=== PATIENT | female | born 1990 | race Caucasian/White ===

== ENCOUNTER 2022-10-22 00:25 | Inpatient (IN) | payer MEDICAID, SELFPAY ==
[2022-10-21 23:46] VITALS: TEMP 37.1
[2022-10-21 23:47] VITALS: BP 124/75; PULSE 86
[2022-10-21 23:50] VITALS: BMI 28.3
[2022-10-22] VITALS (68 sets, daily range): BP systolic 76–133; BP diastolic 39–91; PULSE 58–104; RESP 16–18; TEMP 36.6–37.4; O2SAT 96–99
[2022-10-22] MEDS: LACTATED RINGERS 500 ML 999 ML IV ×2 (00:20→03:02)
[2022-10-22] MEDS: Lactated Ringers 1,000 ML 200 ML IV ×2 (00:20→06:46)
[2022-10-22 00:24] LABS: ROM Internal Control Test YES-OK TO RESULT pt. (Internal QC)
[2022-10-22 00:25] LABS: ROM Patient Test POSITIVE (Negative)
[2022-10-22 01:01] LABS: Absolute Lymphocyte Count 3.24 X10^3/uL (0.83-4.51); Absolute Neutrophil Count 8.4 X10^3/uL (2.0-7.7); Basophil# 0.03 X10^3/uL; Basophil% 0.2 % (0-1); Eosinophil# 0.14 X10^3/uL; Eosinophils% 1.1 % (0-5); Hematocrit 33.1 % (37-47); Hemoglobin 11.3 g/dL (12.0-15.0); Lymphocyte # 3.24 X10^3/ul (0.83-4.51); Mean Corp Hgb Conc 34.1 g/dL (32-36); Mean Corpuscular Hgb 32.6 pg (27.0-32.0); Mean Corpuscular Volume 95.4 fL (81-99); Mean Platelet Vol. 9.9 fl (6.2-12.0); Monocyte# 0.58 X10^3/uL; Monocyte% 4.7 % (0-10); NRBC Flagged by Analyzer 0 % (0-5); Neutrophil % 67.4 % (47-70); Platelet Count 318 K/mm3 (150-450); RBC Distribution Width CV 13.7 % (11.6-14.6); Red Blood Count 3.47 M/mm3 (4.2-5.4); White Blood Count 12.5 K/mm3 (4.4-11.0)
[2022-10-22] MEDS: fentaNYL-bupivacaine (epidural) 100 ML BAG EPIDURAL ×2 (01:40→05:47)
[2022-10-22 01:56] LABS: Syphilis Antibodies Non-reactive
[2022-10-22 02:41] LABS: Bedside Glucose 80 mg/dL (74-106)
[2022-10-22] MEDS: Acetaminophen 500 MG Tablet PO (03:28)
[2022-10-22] MEDS: Oxytocin 15 Units/NS 250ml 15 UNITS/250 ML IV.SOLN 2 UNITS IV (03:30)
[2022-10-22] MEDS: 0.9% Saline Lock 10 ML Syringe IV ×2 (05:09→15:00)
[2022-10-22] MEDS: Ondansetron 4 MG/2 ML Vial IV (05:09)
[2022-10-22 05:16] LABS: Bedside Glucose 76 mg/dL (74-106)
[2022-10-22 06:30] LABS: Bedside Glucose 78 mg/dL (74-106)
[2022-10-22] MEDS: Amnioinfusion- 0.9% NS 1,000 ML IV.SOLN. 1000 ML INTRA-UTER (07:00)
--- NOTE | 2022-10-22 08:03 | PCM.PN.BLA ---
Progress Note Patient seen at bedside. Comfortable with epidural anesthesia. Amnioinfusion running for variable decelerations. Assessment & Plan Assessment/Plan (1) Gestational diabetes: (2) 37 weeks gestation of : (3) Spontaneous rupture of amniotic membranes: (4) Rubella non-immune status, antepartum: PLAN: Plan Assumed management of patient Cat. 1 tracing now but recent category 2 with variables- continue amnioinfusion Pitocin 2 mu/min - continue to increase per policy GBS negative BS - stable Anticipate
--- NOTE | 2022-10-22 08:07 | HP.PCM.OB_ITS ---
HPI - General General Date of Admission: 10/22/22 HPI Narrative VERONICA RANGEL, is a 31 F @ 37.2 weeks gestation who presents with spontaneous rupture of membranes at 2215 for clear fluid. complicated by GDM A1, History of PPD, History of LEEP, and Rubella non-immune status. Excessive growth affecting management of -EFW >96%, ABD > 99% @ 35 weeks gestation. Maternal Data Information CHRISTOPHER Calculator Estimated Delivery Date Method Current WG Current Estimate 11/10/22 Manual 37w 2d PFSH PFSH Medical History (Updated 10/22/22 @ 08:14 by Juliet Newby CNM) ADD (attention deficit disorder) Depression Gestational diabetes Hx LEEP (loop electrosurgical excision procedure), cervix, depression Home Medications vits,calcium no.78-iron fumarate-folic acid 29 mg-1 mg tablet (Prenatabs FA) 1 tab PO DAILY 07/26/13 [History Last Taken 10/20/14 22:00 one] amoxicillin 875 mg-potassium clavulanate 125 mg tablet 875 mg PO Q12H ##20 07/27/15 [Rx Last Taken 10/21/22 20:30] Allergy/AdvReac Type Severity Reaction Status Date / Time No Known Allergies Allergy Verified 10/22/22 00:02 Social History Smoking Status: Current every day smoker History Elective abortions Hx Para 3 Spontaneous abortions Hx # Term Pregnancies Ectopic pregnancies Hx # Pregnancies Multiple births # of living children Vital Signs Vital Signs Vital Signs: 10/21/22 23:46 10/21/22 23:47 10/21/22 23:47 Temperature 98.8 F Pulse Rate 86 Blood Pressure 124/75 H BP Systolic 124 BP Diastolic 75 Pulse Ox 10/22/22 00:50 10/22/22 00:50 10/22/22 00:55 Temperature Pulse Rate 76 78 Blood Pressure BP Systolic BP Diastolic Pulse Ox 97 10/22/22 00:55 10/22/22 01:00 10/22/22 01:00 Temperature Pulse Rate 77 Blood Pressure BP Systolic BP Diastolic Pulse Ox 97 97 10/22/22 01:05 10/22/22 01:05 10/22/22 01:10 Temperature Pulse Rate 78 80 Blood Pressure BP Systolic BP Diastolic Pulse Ox 97 10/22/22 01:10 10/22/22 01:25 10/22/22 01:25 Temperature Pulse Rate 78 Blood Pressure 116/56 L BP Systolic 116 BP Diastolic 56 Pulse Ox 97 10/22/22 01:25 10/22/22 01:26 10/22/22 01:26 Temperature 98.8 F Pulse Rate 81 Blood Pressure BP Systolic BP Diastolic Pulse Ox 97 10/22/22 01:31 10/22/22 01:31 10/22/22 01:31 Temperature Pulse Rate 81 Blood Pressure 123/74 H BP Systolic 123 BP Diastolic 74 Pulse Ox 99 10/22/22 01:31 10/22/22 01:36 10/22/22 01:36 Temperature Pulse Rate 75 80 Blood Pressure BP Systolic BP Diastolic Pulse Ox 98 10/22/22 01:37 10/22/22 01:37 10/22/22 01:41 Temperature Pulse Rate 90 Blood Pressure 133/91 H 121/63 H BP Systolic 133 121 BP Diastolic 91 63 Pulse Ox 10/22/22 01:41 10/22/22 01:46 10/22/22 01:46 Temperature Pulse Rate 85 86 Blood Pressure 125/57 H BP Systolic 125 BP Diastolic 57 Pulse Ox 10/22/22 01:50 10/22/22 01:50 10/22/22 01:58 Temperature Pulse Rate 92 Blood Pressure 109/54 L 114/62 BP Systolic 109 114 BP Diastolic 54 62 Pulse Ox 10/22/22 01:58 10/22/22 02:00 10/22/22 02:00 Temperature Pulse Rate 84 104 H Blood Pressure 121/63 H BP Systolic 121 BP Diastolic 63 Pulse Ox 10/22/22 02:07 10/22/22 02:07 10/22/22 02:11 Temperature Pulse Rate 82 77 Blood Pressure 131/64 H BP Systolic 131 BP Diastolic 64 Pulse Ox 10/22/22 02:11 10/22/22 02:11 10/22/22 02:11 Temperature Pulse Rate 77 Blood Pressure 118/60 BP Systolic 118 BP Diastolic 60 Pulse Ox 98 10/22/22 02:12 10/22/22 02:54 10/22/22 02:54 Temperature 98.4 F Pulse Rate 79 Blood Pressure 94/44 L BP Systolic 94 BP Diastolic 44 Pulse Ox 10/22/22 02:53 10/22/22 02:55 10/22/22 02:55 Temperature 99.1 F Pulse Rate 68 Blood Pressure 76/39 L BP Systolic 76 BP Diastolic 39 Pulse Ox 10/22/22 02:56 10/22/22 02:56 10/22/22 03:26 Temperature Pulse Rate 73 Blood Pressure 90/49 L 98/54 L BP Systolic 90 98 BP Diastolic 49 54 Pulse Ox 10/22/22 03:26 10/22/22 03:32 10/22/22 04:17 Temperature 98.4 F Pulse Rate 73 Blood Pressure 111/55 L BP Systolic 111 BP Diastolic 55 Pulse Ox 10/22/22 04:17 10/22/22 04:17 10/22/22 06:29 Temperature 98.8 F Pulse Rate 82 Blood Pressure 104/57 L BP Systolic 104 BP Diastolic 57 Pulse Ox 10/22/22 06:29 10/22/22 06:30 10/22/22 07:18 Temperature 97.9 F 98.4 F Pulse Rate 70 Blood Pressure BP Systolic BP Diastolic Pulse Ox 10/22/22 07:16 10/22/22 08:04 10/22/22 08:04 Temperature 98.5 F Pulse Rate 67 Blood Pressure 94/50 L BP Systolic 94 BP Diastolic 50 Pulse Ox Weight Weight: 192 lb Body Mass Index (BMI) 28.3 Physical Exam Const alert, oriented x3 and no apparent distress General Appearance: cooperative Orientation / Consciousness: awake Exam Limitations: no limitations HEENT normocephalic Head and Scalp: normal to inspection Eyes General Eye: normal appearance of both eyes Neck full ROM and no lymphadenopathy Lymph Lymphatic: no lymphadenopathy noted Chest inspection of chest normal Resp normal respiratory effort, normal air movement and clear to auscultation bilaterally Effort and Inspection: able to speak in complete sentences and symmetric chest movement Cardio regular rate and regular rhythm GI normal to inspection, nondistended, normoactive bowel sounds Manual OB Exam: presentation cephalic, dilated 4, effaced 70 and station - 2 and 0 Amniotic Fluid: clear amniotic fluid Back/Spine normal ROM Extremity full ROM and no calf tenderness Skin no rashes or lesions noted General Skin Exam: no breakdown Neuro oriented x3 and CN's II-XII intact bilaterally Psych mental status grossly normal and thought process normal Labs Labs Labs: Blood Type B POSITIVE Antibody Screen NEGATIVE Hct 33.1 % (37-47) L Hgb 11.3 g/dL (12.0-15.0) L Syphilis Total Ab Non-reactive Rhogam given: No Assessment & Plan (1) 37 weeks gestation of : (2) Gestational diabetes: (3) Spontaneous rupture of amniotic membranes: (4) Rubella non-immune status, antepartum: (5) Hx LEEP (loop electrosurgical excision procedure), cervix, : (6) History of depression: (7) Excessive growth affecting management of mother: PLAN: Plan ROM plus- POSITIVE Admit to labor and delivery Routine labs Activate GDM protocol Start IV fluids and run per orders Dr. Chun notified and is collaboration physician
[2022-10-22 10:46] LABS: Bedside Glucose 75 mg/dL (74-106)
--- NOTE | 2022-10-22 11:26 | EX.PCM.OBRPT ---
Assessment & Plan (1) (spontaneous vaginal delivery): (2) Marginal insertion of umbilical cord: (3) Tobacco abuse: (4) History of depression: (5) Gestational diabetes: Maternal Data Information CHRISTOPHER Calculator Estimated Delivery Date Method Current WG Current Estimate 11/10/22 Manual 37w 3d Final CHRISTOPHER: 11/10/22 Final CHRISTOPHER Source: LMP Gestational age: 37.2 weeks Vaginal Delivery Maternal Presentation Maternal Presentation: Spontaneous Rupture of Membranes Type of Induction: Pitocin Operative Information Date of Procedure: 10/22/22 Pre-Operative Diagnosis: Spontaneous rupture of membranes, Term gestation Post-Operative Diagnosis: , Live male Surgery / Procedure Performed: Spontaneous Vaginal Delivery Type of Anesthesia: Epidural Drain: Noonan to straight drain Estimated Blood Loss: 400 Time of Delivery: 10:49 Findings Description of Procedure: Called to patient's room for patient being 10 cm and feeling pressure. Amnioinfusion stopped. With minimal maternal effort, head delivered quickly over intact perineum. Anterior shoulder followed by posterior shoulder and remainder of body with no traction. Vigorous male placed on maternal abdomen and attended to by nursing staff. 3 vessel cord clamped and cut after 3 minute delay by patient's sister. Infant placed skin to skin with patient. Pitocin IV started for active management of the third stage of labor. Placenta slow to release. Placenta delivered intact with partial manual removal. Placenta delivered via Modi maneuver. Marginal insertion visualized. Vaginal sweep completed and several clots removed from vagina. Fundus firm 2 below U. Lochia minimal. Vagina and perineum intact. EBL 400cc. APGARS 8/9. Patient and bonding well at this time. Ancef 2gm IV x 1 dose ordered due to partial manual removal of placenta. Dr. Chun notified of delivery. Presentation: Vertex Amniotic Membrane Rupture Type: Spontaneous Time of Membrane Rupture: 2214 Amniotic Fluid Description: Clear Placental Delivery Description: Spontaneous and Expressed Placenta Disposition: [facility] Cord Vessel Description: 3 Vessels Cord Entanglement: - (Cord around shoulder, body, loose) Nuchal Cord Compression: Without compression A Gender: Male (1 minute): 8 (5 minute): 9 Delayed Cord Clamping: Yes Post Vaginal Delivery Medications Given After Delivery: IV Pitocin Episiotomy Description: None Laceration: None Complication Complications: None
[2022-10-22] MEDS: Oxytocin 15 Units/NS 250ml 15 UNITS/250 ML IV.SOLN 83 UNITS IV (11:38)
[2022-10-22 12:20] LABS: Bedside Glucose 79 mg/dL (74-106)
[2022-10-22] MEDS: Cefazolin 2 GM in 0.9% Normal Saline 100 ML IV (12:24)
[2022-10-22] MEDS: Naproxen 500 MG Tablet PO (13:42)
[2022-10-22] MEDS: Acetaminophen 500 MG Tablet 1000 MG PO (20:54)
[2022-10-23] VITALS (8 sets, daily range): BP systolic 98–119; BP diastolic 56–72; PULSE 74–88; RESP 16; TEMP 36.8–37.1; O2SAT 96–98
[2022-10-23 05:45] LABS: Bedside Glucose 65 mg/dL (74-106)
--- NOTE | 2022-10-23 06:30 | PCM.PN.OB ---
Subjective Subjective Patient seen at bedside. Feeling good. Denies any pain. Ambulating and voiding without difficulty. Lochia decreasing. Pumping and feeding via bottles. Desires discharge home today. Objective Data Objective Data Vital Signs: Vital Signs Temp Pulse Resp BP Pulse Ox O2 Del Method 98.2 F 81 16 119/64 96 Room Air 10/23/22 04:06 10/23/22 04:06 10/23/22 04:05 10/23/22 04:06 10/23/22 04:05 10/23/22 04:05 Oxygen Delivery Method Room Air Weight: 192 lb Body Mass Index (BMI) 28.3 Intake & Output: Intake and Output for Last 24 Hours 10/21/22 10/22/22 10/23/22 23:59 23:59 23:59 Intake Total 4030.00 / 4030.00 Output Total 1999 Balance 2029.00 / 2030.00 Lab / Micro Data Result Diagrams: 10/22/22 00:40 Labs: Laboratory Results - last 24 hr 10/22/22 06:07: POC Glucose 78 10/22/22 10:08: POC Glucose 75 10/22/22 11:56: POC Glucose 79 10/23/22 05:23: POC Glucose 65 L ROS Eyes Eyes: Denies blurry vision, change in vision or spots in vision ENT HEENT: Denies dizziness or headache(s) Cardiovascular Cardiovascular: Denies abdominal pain, chest pain or dyspnea Respiratory/Chest Respiratory/Chest: Denies cough, dyspnea, shortness of breath at rest or shortness of breath with exertion Gastrointestinal Gastrointestinal: Denies abdominal pain, diarrhea or vomiting Genitourinary Genitourinary: Denies change in urinary stream, difficulty urinating or dysuria Musculoskeletal Musculoskeletal: Reports none Integumentary Integumentary: Denies rash Neurologic Neurologic: Denies dizziness, headache(s), memory loss or weakness Physical Exam Const alert and no apparent distress General Appearance: cooperative and comfortable Exam Limitations: no limitations HEENT normocephalic Eyes General Eye: normal appearance of both eyes Neck full ROM General: normal visual inspection Chest Chest: symmetrical chest wall rise Resp normal respiratory effort and normal air movement Effort and Inspection: symmetric chest movement Auscultation: clear to auscultation bilaterally Cardio regular rate and regular rhythm GI normal to inspection, nondistended, normoactive bowel sounds Back/Spine normal ROM Extremity full ROM and no calf tenderness General Extremity: normal exam except as noted Skin no rashes or lesions noted Neuro CN's II-XII intact bilaterally Psych mental status grossly normal Assessment & Plan (1) (spontaneous vaginal delivery): (2) Care and examination of lactating mother: PLAN: Plan PPD 1 Routine care support D/C home with follow up in office
--- NOTE | 2022-10-23 06:33 | PCM.DC ---
Discharge Instructions Diet Discharge Diet: No restrictions Activity Discharge Activity: Return to Normal Activity, May Shower and May Take a Tub Bath May resume sexual activity in: 4-6 weeks Weight Bearing Status: Weight bearing as tolerated Dressing / Incision Call your doctor if you observe: Inability to urinate, Using more than 1 pad per hour, Shortness of breath, Dizziness, Swelling in the ankles, Chest pain, Calf discomfort and Uncontrolled pain Follow Up Care When: Within 10 days Test Results: Test results from this visit will be discussed in further detail at your follow-up appointment, if applicable. Discharge Plan Admission Admit Date/Time: 10/22/22 00:25 Primary Reason for Your Visit: Labor and Delivery Attending Provider: Faiza Mccormick Primary Care Provider: Argelia Monroy NP Discharge Orders/Prescriptions Prescriptions: No Action Prenatabs FA 1 TABLET tablet 1 tab PO DAILY amoxicillin-pot clavulanate 875 MG tablet 875 mg PO Q12H Qty: 20 0RF Referrals / Follow Up: Juliet Newby CNM [[facility] Staff - [facility]] - Argelia Monroy NP, [employer] [facility] [Primary Care Provider] - Disposition Disposition (needs filled in before D/C Order can be placed): Home, Self Care
--- NOTE | 2022-10-23 14:05 | CASEMGMT ---
Social Work Assessment Labor and Delivery Unit Date of Referral: 10/22/2022 Time of Referral: 12:17 Referred By: Juliet Newby CNM Date of Intervention: 10/23/2022 Time of Intervention: 14:05 Reason for Referral: Mother of baby (MOB) with history of depression (PPD) History obtained from: MOB, Chart, Nursing staff. Household composition: MOB reports to have recently bought a house and is working on moving. MOB reports to be currently living with MOB?s mother along with MOB?s children, Jose (age 11), Bowen (age 10), Marcial (age 8) and now this , Lico Virgen. MOB denies concerns with housing. Patient's parent/guardian status: MOB reports to be ?working things out? with Father of baby (FOB). MOB reports ?I need boundaries.? MOB states that FOB is Zoran Tovar and currently is not involved due to MOB needing to think through ?what my boundaries are.? MOB states to feel safe with Zoran but that ?he can be controlling.? This social psychologist provided active support and listening and encouraged MOB to consider counseling for support and MOB is working through the dynamics and relationship with Zoran. MOB voiced understanding and has been in counseling in the past. MOB states that Zoran is FOB for this infant only and is not the father for MOB?s other children. MOB states that was planned with Zoran and that ?things got off? when MOB became . MOB states that Zoran became very ?controlling? of what MOB was eating, drinking or doing while . Medical History: MOB with vaginal delivery on 10/22/2022. MOB with history prior to delivery of this infant. MOB with gestation diabetes. MOB with history of depression and ADD. born on 10/22/2024 with apgars of 8 and 9 at 1min and 5min. Birthweight of 3130g. Infant to follow with Dr. Arturo Herrera in the community. MOB reports a combination of bottle and as plan for feeding infant. Educational Status: MOB denies issues with comprehension or understanding. Financial Status: MOB denies financial issues or concerns. MOB works full-time for [employer] and plans to have 12 weeks paid maternity leave. Infant Supplies: MOB reports to have needed supplies including a carseat, crib, bottles, formula, etc. Childcare/Caregiver(s): MOB plans to be primary caregiver for children until returning to work and then children are either in school or with a daycare provider while MOB works. Transportation: MOB denies issues with transportation. Programs/Agencies Involved: MOB has insurance through [employer] for both herself and children. MOB plans to apply for WIC and is aware of how to apply. MOB states to also believe that MOB might now qualify for foot stamps and plans to apply to this program as well. Children Services/Legal Issues: MOB denies legal issues or concerns. MOB reports history of children services ?way back when? due to ?the kids saying things at school.? MOB denies ever loosing custody of children. Mental Health History: MOB reports to have had depression after first . MOB denies any other depression. MOB reports to have been in counseling at [facility] services in the past and that this was a good experience. MOB denies any suicidal thoughts, plans, intents or history of. This social psychologist able to engage MOB in conversation about signs and symptoms of PPD. MOB reports to believe that MOB will reach out for support if MOB finds that PPD symptoms/signs are coming up after delivery of this . Substance Use History: MOB reports to smoke tobacco daily but to not smoke around the children or even in the house. MOB states ?I don?t want my kids smelling like tobacco.? Maternal and Infant Drug Screens: Not obtained. MOB was on Adderall prior to due to ADD but stopped this at beginning of . PHQ9: Did not trigger. Family/Social Stressors: MOB addresses main stressors as dynamics with FOB, this was addressed above. MOB denies any other family/social stressors. Support Systems: MOB reports to have positive support from MOB?s family and friends. MOB?s children are currently staying with MOB?s mother. Depression and Anxiety/Shaken Baby/Safe Sleeping: This social psychologist provided MOB with resources on PPD/anxiety, Shaken baby, safe sleeping, [facility] general resources, and counseling centers. MOB responding appropriately to prompts for shaken baby and safe sleeping. ASSESSMENT: This social psychologist met with MOB in room. Introduced self and social psychologist role. MOB agreeable to speak with this social psychologist. MOB holding throughout assessment. MOB reports to have a connection with infant. MOB supported infants head and body appropriately throughout assessment. MOB able to manage speaking with this social psychologist and getting bottle ready for . MOB denies concerns on returning to the community. Safe Plan of Care for related to substance use: MOB reports plan to continue with smoking tobacco outside of the home and not around the children. PLAN: to discharge to home with MOB and siblings. No other services requested or indicated. Jose SCHWAB, ROBBINS
== END 2022-10-23 14:45 | disposition home or self-care (01) | DRG 560 ==
LOC: WPOUT 00:28 → WP 00:28
PROVIDERS: Admitting Provider Advanced Practice Midwife; PCP Nurse Practitioner Primary Care; Visit Provider Advanced Practice Midwife
DX: O76 Abnormality in fetal heart rate and rhythm complicating labor and delivery (principal); Z37.0 Single live birth; O24.420 Gestational diabetes mellitus in childbirth, diet controlled; F17.200 Nicotine dependence, unspecified, uncomplicated; O99.334 Smoking (tobacco) complicating childbirth; O42.92 Full-term premature rupture of membranes, unspecified as to length of time between rupture and onset of labor; O36.63X0 Maternal care for excessive fetal growth, third trimester, not applicable or unspecified; O69.82X0 Labor and delivery complicated by other cord entanglement, without compression, not applicable or unspecified; Z3A.37 37 weeks gestation of pregnancy; Z87.59 Personal history of other complications of pregnancy, childbirth and the puerperium
CPT/HCPCS: 59025; 59050; 82962; 84112; 85025; 86780; 86850; 86900; 86901; 99221; J7030; J7120; A4216; G0378; J2405

== ENCOUNTER → 2024-05-07 | Outpatient (CLI) | payer MEDICAID, SELFPAY ==
--- NOTE | 2024-05-07 06:45 | MRI_ITS ---
STUDY: MRI ORBITS WITH AND WITHOUT CONTRAST REASON FOR EXAM: Female, 33 years old. R VISUAL DEFECT SINCE MAY 02 TECHNIQUE: Standardized fat and water weighted pulse sequences were obtained in all 3 orthogonal planes, pre-and post contrast administration. IV 15CC clariscan was administered for the contrast portion of the examination. COMPARISON: None. FINDINGS: Bilateral optic neuritis is present with fluid distention of the optic nerve sheaths, right greater than left. No demonstrated enhancement of the optic nerves. No optic nerve atrophy or enlargement is seen on the current study. Normal bilateral globes. Normal bilateral intraconal and extraconal spaces. Normal bilateral extraocular muscles. Normal optic chiasm and post-chiasmatic tracts. Normal sella turcica, pituitary gland, infundibular stalk, and hypothalamus. Normal bilateral cavernous sinuses. Normal tectal plate and pineal gland. No visualized intraorbital mass or fluid collection or cyst. No visualized enlargement of the extraocular muscles. No retinal detachment or signal abnormality is visualized. No proptosis is seen. IMPRESSION: 1. Bilateral optic neuritis is present with fluid distention of the optic nerve sheaths, right greater than left. No demonstrated enhancement of the optic nerves. No optic nerve atrophy or enlargement is seen on the current study. STUDY: MRI BRAIN WITH AND WITHOUT CONTRAST REASON FOR EXAM: Female, 33 years old. R VISUAL DEFECT SINCE MAY 02 COMPARISON: None. FINDINGS: 6 predominant demyelinating plaques are present in the right periventricular white matter from the albarran radiata up into the centrum semiovale involving both the frontal and parietal lobes primarily the parasagittal/medial regions. 7-8 plaques are present in the same region of the right periventricular white matter extending up to the albarran radiata. One predominant lesion is present in the posterior medial aspect and apex of the right frontal lobe measuring 6.1 mm. On the left nondominant plaque is present in the anterior medial and superior region of the parietal lobe and it measures 6.9 mm and demonstrates diffusion weighted signal due to active demyelinization but no associated ADC map signal to indicate ischemia. None of the remaining demyelinating plaques demonstrates active diffusion weighted signal abnormality. None of the plaques demonstrate enhancement on the postcontrast portion of the study. There are no primary or secondary malignant lesions of the brain parenchyma. No abnormal thickening or enhancement of meninges or dura is present. Normal size of the ventricles and extra-axial spaces for the patient''s age. Normal remaining white matter tracts of the supratentorial brain. There is no evidence for recent intracranial ischemia or other cause of cytotoxic edema on diffusion weighted imaging (DWI). Normal T2* images of the brain without demonstrated susceptibility artifact. There is no demonstrated hemosiderin stain. Normal bilateral basal ganglia. Normal thalami. There is no extra-axial fluid accumulation. Normal flow voids within the major intracranial circulation suggesting patency by spin echo criteria. Normal venous enhancement. There is no enhancing intra-axial or extra-axial abnormality. Normal sella turcica, pituitary gland, infundibular stalk, optic chiasm and hypothalamus. Normal tectal plate and pineal gland. Normal midbrain, loki and medulla. Normal cerebellum. Normal basal cisterns. Normal bilateral temporal bones. Normal bilateral internal auditory canals. Normal visualized paranasal sinuses. Normal calvarium and skull base. Normal visualized soft tissue structures. Normal visualized upper cervical spine. MRI/Brain W/WO Contrast IMPRESSION: 1. Bilateral demyelinating plaques of the cerebral hemispheres consistent with multiple sclerosis with actively demyelinating inflamed plaque in the left medial aspect of the parietal lobe. Electronically Signed: Jan Pyle MD at 8:56 EDT ,
== END | disposition home or self-care (01) ==
LOC: MRI 06:36
PROVIDERS: PCP Nurse Practitioner Adult Health; Referring Provider Ophthalmology; Visit Provider Ophthalmology
DX: H53.431 Sector or arcuate defects, right eye (principal)
CPT/HCPCS: 70553; A9585

== ENCOUNTER 2025-03-17 07:54 | Emergency (ER) | payer OTHER, SELFPAY ==
[2025-03-17 07:54] VITALS: BP 127/89; PULSE 85; RESP 16; TEMP 36.8; O2SAT 100; BMI 28.0
--- NOTE | 2025-03-17 08:09 | EX.ED.VIS.EY ---
HPI History of Present Illness Chief Complaint: Eye Problem Detail of Chief Complaint: Right eye injury Informant: patient Narrative Narrative: Patient presents the emergency department with complaint of injury to her right eye. Patient states that she was at work when the bathroom door came off the hinge and the corner of the door struck her in the right medial orbit and nose. No loss of consciousness. Initially thought she may have a little bit of blurred vision but she has been rubbing the eye and tends to clear up after tearing. She has history of optical neuritis and history of MS but does not think her vision is different than normal otherwise. Patient believes she is up-to-date on tetanus. [facility] Medical History (Updated 03/17/25 @ 08:[address] Annmarie Arvizu, ) Care and examination of lactating mother Marginal insertion of umbilical cord (spontaneous vaginal delivery) Tobacco abuse History of depression Rubella non-immune status, antepartum Hx LEEP (loop electrosurgical excision procedure), cervix, Depression ADD (attention deficit disorder) Gestational diabetes depression Home Medications ?Medication ?Instructions ?Recorded ?Last Taken ?Type vits,calcium no.78-iron 1 tab PO DAILY 07/26/13 10/20/14 22:00 History fumarate-folic acid 29 mg-1 mg one tablet (Prenatabs FA) amoxicillin 875 mg-potassium 875 mg (0.875 x 875-125 mg) PO 07/27/15 10/21/22 20:30 Rx clavulanate 125 mg tablet Q12H ##20 Allergy/AdvReac Type Severity Reaction Status Date / Time No Known Allergies Allergy Verified 03/17/25 07:57 Social History Smoking Status: Current every day smoker tobacco type: cigarettes ROS ROS ED Review of Systems ROS Unobtainable: other Constitutional Constitutional ED: Reports lethargy; Denies chills, fever(s), sweats or weight loss Eyes Eyes: Denies blurry vision, change in vision or diplopia ENT ENT ED: Reports other Details: Right eye/orbit injury ; Denies rhinorrhea or sore throat Cardiovascular Cardiovascular: Denies chest pain, orthopnea or racing heartbeat Respiratory/Chest Respiratory/Chest: Denies cough, dyspnea, dyspnea on exertion, orthopnea or sputum Gastrointestinal Gastrointestinal: Denies abdominal pain, diarrhea, nausea or vomiting Genitourinary Genitourinary ED: Denies dysuria, hematuria or urinary frequency Musculoskeletal Musculoskeletal: Denies arthralgias, back pain, myalgias or neck pain Integumentary Denies abscess, Abrasions or rash Neurologic Neurologic: Denies headache(s) or weakness Psychiatric Psychiatric: Denies anxiety, depression or suicidal thoughts Endocrine Endocrinology: Denies polydipsia, polyphagia or polyuria Hematologic/Lymphatic Hematologic/Lymphatic: Denies easy bleeding, easy bruising or lymphadenopathy Allergic/Immunologic Allergic/Immunologic ED: Denies mouth swelling, tongue swelling or urticaria EXAM Physical Exam Const Vital Signs: 03/17/25 07:54 Temperature 98.3 F Temperature Source Oral Pulse Rate 85 Respiratory Rate 16 Blood Pressure 127/89 H Blood Pressure Mean 101 Pulse Ox 100 Oxygen Delivery Method Room Air Positive well nourished and well developed General Appearance ED: well developed and NAD HEENT Reports TM's clear and moist mucous membranes normocephalic and atraumatic; Negative for trauma or tenderness Tympanic Membrane ED: Yes TM's clear Eyes PERRL and EOMs intact bilaterally Eyes Narrative: No hyphema noted to the right eye. She does have soft tissue swelling about the medial orbit on the right. She has ecchymosis and bruising. Some soft tissue swelling to the right side of the nasal bone. No obvious deformity. Extraocular muscle movement is normal and painless. Small superficial pinpoint abrasion to the lateral aspect of the proximal nose. General Eye ED: Negative for pale conjunctiva or scleral icterus Neck no lymphadenopathy, supple and no JVD General: Negative for tenderness Chest Wall inspection of chest normal and palpation of chest normal Chest: Negative for tenderness Resp normal respiratory effort and clear to auscultation bilaterally Effort and Inspection: Negative for respiratory distress or pain with movement Auscultation: Negative for rhonchi, wheezes or diminished lung sounds Cardio regular rate, regular rhythm, S1 normal heart sound, S2 normal heart sound and no murmurs Peripheral Pulses: pulses 2+ throughout GI normal to inspection, nondistended, normoactive bowel sounds, soft to palpation, non-tender, non-distended and no masses Back/Spine no CVA tenderness and no thoracic nor lumbar tenderness Extremity normal to inspection General Extremety ED: Negative for edema General Extremity: Negative for edema Neuro oriented x3, CN's II-XII intact bilaterally, no sensory deficits noted and gait normal Sensorium / Orientation: awake, alert, oriented to person, oriented to place and oriented to time Motor Exam: strength 5/5 throughout and strength abnormal Psych mental status grossly normal Skin no rashes or lesions noted and no wounds MDM MDM MDM Narrative Medical decision making narrative: Patient presents to the emergency department with injury to the right orbit. No evidence of trauma to the globe. No hyphema. No abrasions noted. Patient had CT scan of the orbits that radiologist read as no obvious fractures. There is no entrapment of muscles. Discussed results with patient. She is not waking for pain. She does not think she needs any work restrictions and would like to go back to work. Discharge Plan Triage Chief Complaint: Eye Problem ED Provider: Annmarie Arvizu Dx/Rx/DC Orders Clinical Impression: Contusion of right orbit Instructions: ED Eye Contusion Prescriptions: No Action Prenatabs FA 1 TABLET tablet 1 tab PO DAILY amoxicillin-pot clavulanate 875 MG tablet 875 mg PO Q12H Qty: 20 0RF Primary Care Provider: ROB ALVARADO Referrals: [facility]] - 3-5 Days ROB ALVARADO CRNP [Primary Care Provider] - Print Language: Occitan Disposition Disposition: Home, Self Care
--- NOTE | 2025-03-17 08:10 | ED.RN ---
This RN spoke with Al Hidalgo, gastroenterology manager of [facility]. He stated pt. needed to have drug testing done for workmans. Pt. told she will have to go to [facility] for testing as Damon is not personal chef until 1pm. SYLVESTER given to pt.
--- NOTE | 2025-03-17 08:15 | CT_ITS ---
PROCEDURE: ORB SELLA POST FOSSA EAR W/O 03/17/2025 REASON FOR EXAM: INJURY, ATTENTION RIGHT ORBIT/ NASAL BONE TECHNIQUE: ORB SELLA POST FOSSA EAR W/O CONTRAST: None One or more dose reduction techniques were used (e.g., Automated exposure control, adjustment of the mA and/or kV according to patient size, use of iterative reconstruction technique). RADIATION DOSE SUMMARY: CTDlvol: 29.38 mGy DLP: 437.27 mGycm COMPARISON: None FINDINGS: Globes: Unremarkable Extraocular Muscles: Unremarkable Orbits: Unremarkable Lacrimal Glands: Unremarkable Bones: Unremarkable Other: Visualized paranasal sinuses and intracranial structures: There is soft tissue swelling in the right periorbital region. Mucosal thickening at the base of the right maxillary sinus. The nasal bones are unremarkable. CT/Orb Sella Post Fossa Ear w/o IMPRESSION: Right preorbital soft tissue swelling. No fracture is seen. Reading Location: [id number]
--- OUTSIDE RECORDS SUMMARY | 2025-03-17 08:52 | XMS RPT_ITS | CCD ---
Author Organization [facility] Care Team Providers Care Art Dealer Name Role Phone Pcp, No Unavailable Unavailable Pcp HVAC ESTIMATOR, No Unavailable Unavailable Riky Mrar MD Unavailable [phone] SEBASTIEN JEAN BAPTISTE Referring UnavailRiky Botello Referring Unavailable Riky Marr Attending Unavailable ROB ALVARADO Primary Care Unavailable Riky Marr MD Unavailable Pcp HVAC ESTIMATOR, No Unavailable Unavailable RIKY MARR Referring Unavaila LUCI Howard Attending Unavailable JESSICA SOLIS Attending Unavailable LUCI OSPINA Attending Unavailable SELF Referring Unavailable LUCI OSPINA Attending Unavailable RIKY MARR Referring UnavailSEBASTIEN Falk Referring Unavailabl e Allergies Allergy Classification Reported Allergen(s) Allergy Type Date of Onset Reaction(s) Facility (20 sources) Seasonal allergy; Translations: [SEASONAL ALLERGIES] Allergy to substance -70- 4 Other: See Comments [facility] Work Phone: Medications Current Medications Medication Drug Class(es) Dates Sig (Normalized) Sig (Original) amoxicillin 875 mg / clavulanate 125 mg oral tablet (1 source) Penicillin-class Antibacterial Start: 07-27-2015 take 875 mg by mouth every twelve hours Amoxicillin-Pot Clavulanate Active 875 MG PO Q12H July 27, 2015 1:00am Blood-Glucose Meter (1 source) Start: 08-20-2022 End: 08-21-2022 Blood-Glucose Meter Indications: Abnormal maternal glucose tolerance, antepartum 1 Each as directed for 1 day. 1 Each 0 08/20/2022 08/21/2022 Active Comment on above: 1 Each as directed f or 1 day. 12 hr buPROPion hydrochloride 150 mg extended release oral tablet (17 sources) Aminoketone take 1 tablet by mouth twice daily buPROPion SR (WELLBUTRIN SR) 150 mg 12 hr tablet Take 150 mg by mouth two times a day. Active cholecalciferol 0.125 mg oral tablet (17 sources) Vitamin D Start: 05-11-2024 End: 05-11-2025 take 1 tablet by mouth once daily cholecalciferol (VITAMIN D-3) 5,000 unit tab Take 1 tablet by mouth once daily. 90 tablet 3 05/11/2024 05/11/2025 Active drospirenone / Ethinyl Estradiol (20 sources) Progestin, Estrogen Start: 06-15-2024 End: 05-17-2025 take 1 tablet by mouth once daily Drospirenone-Ethinyl Estradiol (KENNY 28) 3-0.02 mg per tablet Take 1 tablet by mouth once daily. 84 tablet 3 06/15/2024 05/17/2025 Active Start: 12-13-2023 End: 06-15-2024 take 1 tablet by mouth once daily Drospirenone-Ethinyl Estradiol (EVAN, 28,) 3-0.03 mg per tablet Take 1 tablet by mouth once daily. 28 tablet 4 12/13/2023 06/15/2024 Discontinued Start: 12-13-2023 take 1 tablet by beckie th once daily Drospirenone-Ethinyl Estradiol (EVAN, 28,) 3-0.03 mg per tablet Take 1 tablet by mouth once daily. 28 tablet 4 12/13/2023 Active Start: 12-14-2022 End: 12-13-2023 take 1 tablet by mouth once daily Drospirenone-Ethinyl Estradiol (EVAN, 28,) 3-0.03 mg per tablet Take 1 tablet by mouth once daily. 28 tablet 11 12/14/2022 12/13/2023 Discontinued Start: 09-19-2021 End: 06-20-2022 take 1 tablet by mouth once daily Drospirenone-Ethinyl Estradiol (EVAN, 28,) 3-0.03 mg per tablet Take 1 tablet by mouth once daily. 28 tablet 11 09/19/2021 06/20/2022 Discontinued Start: 09-19-2021 take 1 tablet by beckie th once daily Drospirenone-Ethinyl Estradiol (EVAN, 28,) 3-0.03 mg per tablet Take 1 tablet by mouth once daily. 28 tablet 11 09/19/2021 Active Start: 07-06-2020 take 1 tablet by beckie th once daily Drospirenone-Ethinyl Estradiol (KENNY, 28,) 3-0.02 mg per tablet Take 1 tablet by mouth once daily. 07/06/2020 Active End: 06-15-2024 take 1 tablet by mouth once daily Drospirenone-Ethinyl Estradiol (KENNY 28) 3-0.02 mg per tablet Take 1 tablet by mouth once daily. 06/15/2024 Discontinued take 1 tablet by beckie th once daily Drospirenone-Ethinyl Estradiol (KENNY 28) 3-0.02 mg per tablet Take 1 tablet by mouth once daily. Active Comment on above: Take 1 tablet by beckie th once daily. DULoxetine 60 mg delayed release oral capsule (3 sources) Serotonin and Norepinephrine Reuptake Inhibitor Start: 11-24-19 DULoxetine (CYMBALTA) 60 mg capsule Take 30 mg daily ( 1/2 tablet ) for 1 week followed by 1 full 60 mg tablet everyday thereafter 60 capsule 2 11/23/2024 Active folic acid 0.4 mg / vitamin b12 0.5 mg oral tablet (9 sources) Vitamin B12 cyanocobalamin/f olic acid (VITAMIN C24-VKDAQ ACID) 500-400 mcg tab Take by mouth. Active iv contrast (will be provided with radiology test) (17 sources) Start: 05-11-20 iv contrast (will be provided with radiology test) MRI CSP Inject, intravenously, once for 1 dose. No IV access, insert saline lock prior to the beginning of sedation, infusion, injection of imaging exam. Discontinue saline lock post exam. If Pt. has a central line or IVAD, may access for administration according to line specific nursing protocol. Once exam is complete flush line and de-access according to line specific nursing protocol in the MR contrast administration guidelines link. 1 Each 05/11/2024 Active magnesium oxide 400 mg oral tablet (3 sources) Start: 11-24-19 End: 02-22-20 take 1 tablet by mouth once daily magnesium oxide (MAG-OX) 400 mg (241.3 mg magnesium) tablet Take 1 tablet by mouth once daily. 30 tablet 2 11/23/2024 02/21/2025 Active qubvmkrm-trr-mjko-f olic-vit K (CENTRUM) 8 mg-400 mcg- 10 mcg chewable tablet (9 sources) take 1 tablet by mouth once daily huqpedxd-hfs-scoo-foli c-vit K (CENTRUM) 8 mg-400 mcg- 10 mcg chewable tablet Take 1 tablet by mouth once daily. Active 0.4 ml ofatumumab 50 mg/ml pen injector (20 sources) [id number] Cytolytic Antibody Start: 06-09-20 ofatumumab (KESIMPTA PEN) 20 mg/0.4 mL injection Indications: Multiple sclerosis (HCC) Inject 1 pen (0.4 mL) under the skin once a month 1.6 mL 07/07/2024 11:53 AM EST 06/09/2024 Active Start: 06-09-2024 ofatumumab (KE SIMPTA PEN) 20 mg/0.4 mL injection Indications: Multiple sclerosis (HCC) Inject 1 pen (0.4 mL) under the skin at weeks 0, 1, 2, and 4. 1.6 mL 06/09/2024 Active omeprazole 20 mg delayed release oral capsule (6 sources) Proton Pump Inhibitor Start: 05-11-2024 End: 06-09-2024 take 1 capsule by mouth once daily omeprazole (PRILOSEC) 20 mg capsule Indications: Demyelinating disease of central nervous system (HCC) , Optic neuritis Take 1 capsule by mouth once daily. while on Prednisone 5 capsule 05/11/2024 06/09/2024 Discontinued predniSONE 50 mg oral tablet (4 sources) Start: 05-12-2024 End: 05-16-2024 predniSONE (DELTASONE) 50 mg Indications: Demyelinating disease of central nervous system (HCC) , Optic neuritis Take 25 tablets by mouth once daily for 4 days. Patient should start on May 12, 2024. 100 tablet 05/12/2024 05/16/2024 Active Vit,[id number]-Vm lic (Prenatabs Fa ) 1 TABLET tablet (1 source) Start: 07-26-2013 take 1 tablet by mouth once daily Vit,Bbov15-Bktp-Lawp c (Prenatabs Fa ) 1 TABLET tablet Active 1 TABLET PO DAILY July 26, 2013 1:00am Completed/Discontinued Medications Medication Drug Class(es) Dates Sig (Normalized) Sig (Original) acetaminophen 325 mg / HYDROcodone bitartrate 5 mg oral tablet (1 source) Opioid Agonist Start: 06-25-2013 End: 07-26-2013 take 1 tablet by mouth every four hours as needed Hydrocodone-Acetam inophen Discontinued 1 - 2 TABLET PO EVERY 4 HOURS NEEDED June 25, 2013 1:00am July 26, 2013 8:50pm amoxicillin 875 mg oral tablet (4 sources) Penicillin-class Antibacterial Start: 10-15-2022 End: 10-29-2022 take 1 tablet by mouth twice daily at mealtime amoxicillin (AMOXIL) 875 mg tablet take 1 tablet by mouth twice a day for 10 days take with food 0 10/15/2022 10/29/2022 Discontinued Start: 06-25-2013 End: 07-26-2013 take 500 mg by mouth every eight hours Amoxicillin Discontinued 500 MG PO Q8H June 25, 2013 1:00am July 26, 2013 8:47pm Comment on above: take 1 tablet by beckie th twice a day for 10 days take with food 24 hr amphetamine aspartate 6.25 mg / amphetamine sulfate 6.25 mg / dextroamphetamine saccharate 6.25 mg / dextroamphetamine sulfate 6.25 mg extended release oral capsule (20 sources) Central Nervous System Stimulant Start: 09-08-19 End: 06-20-20 take 1 capsule by mouth every twenty-four hours in the morning amphetamine-dextroam phetamine XR (ADDERALL XR) 25 mg 24 hr capsule TAKE 1 CAPSULE BY MOUTH IN THE MORNING FOR 30 DAYS 0 09/08/2021 06/20/2022 Discontinued take 1 tablet by beckie th once daily dextroamphetamine-amphetamine (ADDERALL) 5 mg tablet Take 5 mg by mouth once daily. Active take 1 capsule by mo uth once daily amphetamine-dextroamphetamine XR (ADDERA LL XR) 25 mg capsule Take 25 mg by mouth once daily. Active Comment on above: TAKE 1 CAPSULE BY MO UTH IN THE MORNING FOR 30 DAYS clindamycin 300 mg oral capsule (5 sources) Lincosamide Antibacterial End: 024 take 1 capsule by mouth three times daily clindamycin (CLEOCIN HCL) 300 mg capsule Take 300 mg by mouth three times daily. 05/11/2024 Discontinued Comment on above: Take 300 mg by mouth three times daily. docosahexaenoic acid/epa (EPA-DHA ORAL) (20 sources) End: 024 docosahexaenoic acid/epa (EPA-DHA ORAL) Take by mouth. 05/11/2024 Discontinued docosahexaenoic acid/epa (EPA-DHA ORAL) Take by mouth. 0 Active Comment on above: Take by mouth. 24 hr ferrous sulfate 142 mg extended release oral tablet (12 sources) End: 3 Ferrous Sulfate (SLOW FE) 142 mg (45 mg iron) TbER Take by mouth. 0 10/29/2022 Discontinued Comment on above: Take by mouth. lansoprazole 15 mg delayed release oral capsule (1 source) Proton Pump Inhibitor Start: 3 End: 3 take 1 capsule by mouth once daily Lansoprazole (Prevacid) 15 MG capsule Discontinued 15 MG PO DAILY June 25, 2013 1:00am July 26, 2013 8:47pm MEDICATION, NON-DATABASE (20 sources) Start: 2 End: 3 MEDICATION, NON-DATABASE Paxlovid 300mg; 100mg Dose pack. Take Nirmatrelvir 300mg and Ritonavir 100mg in the morning and take Nirmatrelvir 300mg and Ritonavir 100mg in the evening at the same time for 5 days. 1 Each 0 05/02/2022 10/29/2022 Discontinued Start: 05-02-2022 MEDICATION, NO N-DATABASE Paxlovid 300mg; 100mg Dose pack. Take Nirmatrelvir 300mg and Ritonavir 100mg in the morning and take Nirmatrelvir 300mg and Ritonavir 100mg in the evening at the same time for 5 days. 1 Each 0 05/02/2022 Active Comment on above: Paxlovid 300mg; 100m g Dose pack. Take Nirmatrelvir 300mg and Ritonavir 100mg in the morning and take Nirmatrelvir 300mg and Ritonavir 100mg in the evening at the same time for 5 days. methylPREDNISolone sodium succinate 1,000 mg in NaCl 0.9% 100 mL (SOLU-Medrol) (1 source) Start: End: 1,000 mg, INTRAVENOUS, at 133.33 mL/hr, Administer over 45 Minutes, ONCE, 1 dose, On 05/11/24 at 1200, Refrigerate prental multivitamin 27 mg iron- 800 mcg tablet (20 sources) End: take 1 tablet by mouth once daily prental multivitamin 27 mg iron- 800 mcg tablet Take 1 tablet by mouth once daily. 05/11/2024 Discontinued take 1 tablet by mouth once hector y prental multivitamin 27 mg iron- 800 mcg tablet Take 1 tablet by mouth once daily. 0 Active Comment on above: Take 1 tablet by beckie once daily. Problems Active Problems Problem Classification Problem Date Documented Date Episodic/Chronic Acute and chronic tonsillitis (1 source) Peritonsillar cellulitis; Translations: [Peritonsillar abscess] 07-28-2015 Episodic Anxiety disorders (1 source) Generalized anxiety disorder; Translations: [Generalized anxiety disorder] 11-23-2024 Chronic Blindness and vision defects (1 source) Sector or arcuate defects, right eye; Translations: [Sector or arcuate defects, right eye] Onset: 05-28-2024 Episodic Headache; including migraine (1 source) Migraine with aura; Translations: [Migraine with aura, not intractable, without status migrainosus] 11-23-2024 Chronic Inflammation; infection of eye (except that caused by tuberculosis or sexually transmitteddisease) (19 sources) Optic neuritis; Translations: [Unspecified optic neuritis] Onset: 05-11-2024 05-11-2024 Chronic Malaise and fatigue (2 sources) Fatigue; Translations: [Other fatigue] 05-11-2024 Episodic Menstrual disorders (1 source) Menstrual period late; Translations: [Irregular menstruation, unspecified] Chronic Mood disorders (2 sources) Recurrent major depressive episodes, mild ; Translations: [Major depressive disorder, recurrent, mild] 05-11-2024 Chronic Multiple sclerosis (9 sources) Multiple sclerosis; Translations: [Multiple sclerosis] 06-08-2024 Chronic Other aftercare (1 source) Immunosuppression; Translations: [Immunosuppression due to drug therapy (HCC)] 11-23-2024 Episodic Other complications of (1 source) Anemia during - baby not yet delivered; Translations: [Anemia complicating , third trimester] Chronic Other complications of (1 source) Abdominal pain in ; Translations: [Other specified related conditions, third trimester] Episodic Other complications of (1 source) Maternal care for excessive growth, unspecified trimester, not applicable or unspecified; Translations: [Excessive growth, affecting management of mother, unspecified as to episode of care or not applicable] 10-23-2022 Episodic Other complications of (1 source) Maternal care for other abnormalities of cervix, unspecified trimester; Translations: [Other congenital or acquired abnormality of cervix, unspecified as to episode of care or not applicable] 10-23-2022 Episodic Other nervous system disorders (3 sources) Demyelinating disease of central nervous system; Translations: [Demyelinating disease of central nervous system, unspecified] 05-11-2024 Chronic Other nervous system disorders (2 sources) Demyelinating disease of central nervous system, unspecified; Translations: [Demyelinating disease of central nervous system (HCC)] Onset: 05-11-2024 Chronic Other screening for suspected conditions (not mental disorders or infectious disease) (12 sources) Patient encounter status; Translations: [Encounter for screening for nuchal translucency] Episodic Residual codes; unclassified (2 sources) Gestation period, 13 weeks; Translations: [13 weeks gestation of ] Episodic Residual codes; unclassified (1 source) Gestation period, 19 weeks; Translations: [19 weeks gestation of ] Episodic Residual codes; unclassified (1 source) Gestation period, 23 weeks; Translations: [23 weeks gestation of ] Episodic Residual codes; unclassified (1 source) Gestation period, 29 weeks; Translations: [29 weeks gestation of ] Episodic Residual codes; unclassified (1 source) Gestation period, 33 weeks; Translations: [33 weeks gestation of ] Episodic Residual codes; unclassified (1 source) Gestation period, 34 weeks; Translations: [34 weeks gestation of ] Episodic Residual codes; unclassified (2 sources) Gestation period, 35 weeks; Translations: [35 weeks gestation of ] Episodic Residual codes; unclassified (1 source) Gestation period, 36 weeks; Translations: [36 weeks gestation of ] Episodic Residual codes; unclassified (1 source) History finding; Translations: [Other specified health status] 07-27-2015 Episodic Residual codes; unclassified (1 source) Gestation period, 37 weeks; Translations: [37 weeks gestation of ] 10-22-2022 Episodic Residual codes; unclassified (1 source) Tobacco user; Translations: [Tobacco use] 10-22-2022 Episodic Residual codes; unclassified (1 source) 37 weeks gestation of ; Translations: [ state, incidental] 10-23-2022 Episodic Residual codes; unclassified (1 source) Personal history of other complications of , childbirth and the puerperium; Translations: [Personal history of other genital system and obstetric disorders] 10-23-2022 Episodic Residual codes; unclassified (1 source) Tobacco use; Translations: [Tobacco use disorder] 10-23-2022 Episodic Unclassified (2 sources) Spontaneous rupture of membranes; Translations: [Spontaneous rupture of amniotic membranes] 10-22-2022 Unclassified (2 sources) Marginal insertion of umbilical cord; Translations: [Marginal insertion of umbilical cord] 10-22-2022 Past or Other Problems Problem Classification Problem Date Documented Date Episodic/Chronic Cancer of cervix (20 sources) Carcinoma in situ of uterine cervix; Translations: [Carcinoma in situ of cervix, unspecified] Onset: 05-29-2013 Resolved: 11-28-2022 08-07-2021 Episodic Diabetes or abnormal glucose tolerance complicating ; childbirth; or the puerperium (20 sources) Impaired glucose tolerance in ; Translations: [Abnormal glucose complicating ] Onset: 08-15-2022 Resolved: 11-28-2022 08-15-2022 Episodic Other complications of (20 sources) Maternal tobacco use in ; Translations: [Smoking (tobacco) complicating , unspecified trimester] Onset: 01-06-2013 Resolved: 11-28-2022 08-07-2021 Episodic Other complications of (20 sources) H/O: depression; Translations: [History of depression, currently ] Onset: 01-06-2013 Resolved: 11-28-2022 08-07-2021 Episodic Other complications of (20 sources) Supervision of other high risk pregnancies, unspecified trimester; Translations: [Supervision of other high-risk ] Onset: 02-16-2013 Resolved: 11-28-2022 05-26-2014 Episodic Other complications of (20 sources) Finding of pattern of ; Translations: [Supervision of other high risk pregnancies, unspecified trimester] Onset: 05-26-2014 Resolved: 06-20-2022 05-26-2014 Episodic Other complications of (20 sources) Previous operation to cervix affecting ; Translations: [Maternal care for other abnormalities of cervix, first trimester] Onset: 03-22-2022 Resolved: 06-15-2024 Episodic Other complications of (20 sources) Nausea and vomiting; Translations: [Vomiting of , unspecified] Onset: 03-22-2022 Episodic Other complications of (20 sources) Maternal drug exposure; Translations: [Supervision of other high risk pregnancies, first trimester] Onset: 03-22-2022 Resolved: 11-28-2022 Episodic Other complications of (20 sources) Rubella non-immune; Translations: [Supervision of other high risk pregnancies, unspecified trimester] Onset: 05-14-2022 Resolved: 11-28-2022 Episodic Other complications of (20 sources) Excessive growth affecting management of mother; Translations: [Maternal care for excessive growth, third trimester, not applicable or unspecified] Onset: 10-09-2010 Resolved: 11-28-2022 09-10-2022 Episodic Other nervous system disorders (20 sources) Paresthesia of foot ; Translations: [Anesthesia of skin] Onset: 09-06-2022 Episodic Other and delivery including normal (20 sources) Normal ; Translations: [Encounter for supervision of other normal , second trimester] Onset: 10-09-2010 Resolved: 11-28-2022 Episodic Residual codes; unclassified (20 sources) Gestation period, 30 weeks; Translations: [30 weeks gestation of ] Onset: 09-06-2022 Resolved: 11-28-2022 Episodic Residual codes; unclassified (20 sources) Gestation period, 31 weeks; Translations: [31 weeks gestation of ] Onset: 09-10-2022 Resolved: 09-26-2022 Episodic Sexually transmitted infections (not HIV or hepatitis) (18 sources) Human papillomavirus deoxyribonucleic acid test positive, high risk on cervical specimen; Translations: [Cervical high risk human papillomavirus (HPV) DNA test positive] Onset: 05-26-2013 Resolved: 05-26-2014 08-07-2021 Episodic Results Test Name Value Interpretation Reference Range Facility [facility] 06-15-2024 CNOV Office Visit (OBGYWM ) YOANDY VIRGEN ([id number]) 1990 F Date Time Provider Department 06/15/24 3:40 PM JESSICA SOLIS OBGYWM During your visit today, we recorded the following information about you: Blood pressure Weight Height Last Period 110/62 73.5 kg 1.727 m 05/27/24 Jessica Solis MD 06/15/2024 4:23 PM Signed Prosthetic Aides Teacher offered: Patient declines. Yoandy is a 33 year old who presents for an annual gynecologic exam without complaints. Recent diagnosis of MS. Just started treatment. Has a hx of HUGO 3 and LEEP in 2014. Discussed following paps more frequently given MS diagnosis and medications Menses: cycles every 30 days and 4 days of flow. Contraception: combined hormonal contraceptives HPV vaccine: No Last Pap: 12/07/2022 normal HPV: 11/30/2022 negative History of abnormal pap: Yes Last mammogram: never Sexually active: Yes OB History T4 L4 SAB1 IAB0 Ectopic0 Multiple0 Live Births4 Sand Mixer History LMP: 05/27/2024 (Approximate), Having periods Age at Menarche: Age at First : Age at Menopause: Sand Mixer History Comments: Sexual Activity: Yes; Male Contraception: Pill PAST MEDICAL HISTORY Diagnosis Date Abnormal glandular Papanicolaou smear of cervix 2007,2010,2012 Abn. Pap smear (cervix) ADD (attention deficit disorder) Chlamydia 08/12/2009 Depression Gestational diabetes mellitus, class A1 08/20/2022 HPV test positive 01/19/2013 Migraine Multiple sclerosis (HCC) depression PAST SURGICAL HISTORY Procedure Laterality Date DILATION AND CURETTAGE DXAND/THER NONOBSTETRIC 2011 Dilation AND curettage LEEP PROCEDURE (APPLICATIONS CHEMIST DEPT)_*FL 2014 CIN3 VAGINOSCOPY 05/26/13 HUGO 3 FAMILY HISTORY Problem Relation Age of Onset GERD Mother Hypertension Father No Known Problems Sister No Known Problems Sister Cancer Maternal Grandmother Lung Diabetes Maternal Grandfather Dementia Paternal Grandmother Parkinson?s Disease Paternal Grandmother Alcohol/Drug Paternal Grandfather Cancer Paternal Grandfather STOMACH No Known Problems Son No Known Problems Son No Known Problems Son SOCIAL HISTORY Social History Tobacco Use Smoking status: Former Current packs/day: 0.00 Average packs/day: 0.5 packs/day for 11.0 years (5.5 ttl pk-yrs) Types: Cigarettes Start date: 03/17/2009 Quit date: 03/17/2020 Years since quittin.2 Smokeless tobacco: Never Vaping Use Vaping status: Some Days Last attempt to quit: 02/08/2022 Substance Use Topics Alcohol use: No Drug use: No REVIEW OF SYSTEMS Abdomen: No abdominal pain, nausea, vomiting, diarrhea, or constipation. No bloating, early satiety, indigestion, or increased flatulence. Bladder: No dysuria, gross hematuria, urinary frequency, urinary urgency, or incontinence. Breast: No breast lumps, nipple d/c, overlying skin changes, redness or skin retraction. Allergies and current medication updated:Yes SENSITIVE EXAM: The sensitive examination was discussed with the Patient or Patient's Authorized All Source Intelligence Technician. As applicable, any other physician, advance practice provider, medical student, or other health professional student that will be observing or involved in the sensitive examination for educational or training purposes was discussed with the Patient or Authorized All Source Intelligence Technician. The Patient or Authorized All Source Intelligence Technician has agreed to proceed with the sensitive examination. (Sensitive examination includes inspection and/or palpation of the breasts, pelvis, prostate and anorectal regions). EXAM: Ht 5' 8 (1.73m) Wt 162 lb (73.5kg) LMP 05/27/2024 BMI 24.64 kg/(m2). GENERAL: pleasant, female in no apparent distress HEENT: Normocephalic, atraumatic, mucus membranes moist, and no lesions NECK: Supple, full range of motion, no adenopathy, and thyroid normal DERMATOLOGY: Normal, without lesions, non-icteric, and non-hirsute BREAST: soft, non-tender, symmetric, no dominant mass, normal nipple-areolar complex, no lymphadenopathy, and no nipple discharge CHEST: Normal inspiratory effort ABDOMEN: soft, non-tender, and no masses PELVIC: external genitalia normal, normal Bartholin's glands, urethra, Albert's glands, no vulvar lesions, no cervical lesions, good vaginal support, physiologic discharge present, normal appearing perineal body and perianal region BIMANUAL: uterus normal size, shape and consistency, no adnexal masses, and non-tender RECTOVAGINAL: deferred. NEURO: alert and oriented x3,exam grossly non-focal EXTREMITIES: normal ASSESSMENT/PLAN: 1) Health maintenance: Pap done with HPV. Discussed yearly pap given MS diagnosis and treatment 2) Contraception: combined hormonal contraceptives. Contraceptive options reviewed and information provided. 3) STD screening: Declined STD check. 4) Follow up one year or sooner as needed (more content not included)... Normal [facility] HIGH RISK HUMAN PAPILLOMA NEIL (HPV), PCR FOR DETECTION AND GENOTYPINGon 06-15-2024 HPV 16 Ag Ql (Unsp spec) Not detected Normal Not detected [facility] Comment on above: Order Comment: Speci men Type: FLUID SPECIMENOrdering Facility: [facility] CLINIC Address: [address] [place] [address] Performed By: #### H PVHRT ####[facility] [id number] [place] [address] [place] HPV 18 Ag Ql (Unsp spec) Not detected Normal Not detected [facility] Comment on above: Order Comment: Speci men Type: FLUID SPECIMENOrdering Facility: [facility] Address: [address] [place] [address] Performed By: #### H PVHRT ####[facility] LABIA [id number] [place] [address] [place] HPV 31+33+35+39+45+51+52+5 6+58+59+66+68 DNA JHON+probe Ql (Cvx) Not detected Normal Not detected [facility] Comment on above: Order Comment: Speci men Type: FLUID SPECIMENOrdering Facility: [facility] Address: [address] [place] [address] Result Comment: High Risk HPV Other Type includes HPV types 31, 33, 35, 39, 45, 51, 52, 56, 58, 59, 66 and 68. Performed By: #### H PVHRT ####[facility] LABCLIA [id number] [place] [address] [place] PAP TESTon 06-15-2024 ADEQUACY Normal [facility] Comment on above: Order Comment: Speci men Type: FLUID SPECIMENOrdering Facility: [facility] Address: [address] [place] [address] Result Comment: Sati sfactory for interpretation. No endocervical component Performed By: #### L [id number] ####[facility] LABCLIA [id number] [place] [address] [place] CASE REPORT Normal [facility] Comment on above: Order Comment: Speci men Type: FLUID SPECIMENOrdering Facility: [facility] Address: [address] [place] [address] Result Comment: Gyne cologic Cytology Report Case: [id number] Authorizing Provider: Jessica Solis MD Collected: 06/15/2024 03:11 PM Ordering Location: OB/Gynecology Received: 06/15/2024 04:29 PM First Screen: Carole, Samira, CT, ASCP Rescreen: Ariana Wall, CT, ASCP Specimen: Pap Test, ThinPrep, Cervix Performed By: #### L [id number] ####[facility] LABCLIA [id number] [place] [address] [place] CLINICAL HISTORY, CYTOLOGY, APPLICATIONS CHEMIST Routine Exam Normal [facility] Comment on above: Order Comment: Speci men Type: FLUID SPECIMENOrdering Facility: [facility] Address: [address] [place] [address] Performed By: #### L [id number] ####[facility] LABCLIA [id number] [place] [address] [place] FINAL PERFORMING LAB [facility] Comment on above: Order Comment: Speci men Type: FLUID SPECIMENOrdering Facility: [facility] Address: [address] [place] [address] Result Comment: Tech nical component, operations and maintenance specialist screening performed at [facility], [address] [place] [address] [place] [address] CLIA# [id number] Diagnostic interpretation performed at [facility], [address] [place] [address] CLIA# [id number] Commissioner Conservation Of Resources: Eldon Juarez M.D. Performed By: #### L [id number] ####[facility] LABCLIA [id number] [place] [address] [place] INTERPRETATION, CYTOLOGY, APPLICATIONS CHEMIST Normal [facility] Comment on above: Order Comment: Speci men Type: FLUID SPECIMENOrdering Facility: [facility] Address: [address] [place] [address] Result Comment: Nega tive for intraepithelial lesion or malignancy. Performed By: #### L [id number] ####[facility] LABCLIA [id number] [place] [address] [place] LMP 05/27/2024 Normal [facility] Comment on above: Order Comment: Speci men Type: FLUID SPECIMENOrdering Facility: [facility] Address: [address] [place] [address] Performed By: #### L [id number] ####[facility] LABCLIA [id number] [place] [id number] [place] PAP DISCLAIMER COMMENT The Pap Smear is a screening test for cervical cancer. False negative results occur with all screening tests, emphasizing the need for rescreening at recommended intervals, and clinical correlation. Normal [facility] Comment on above: Order Comment: Speci men Type: FLUID SPECIMENOrdering Facility: [facility] Address: [address] [place] [address] Performed By: #### L [id number] ####[facility] LABCLIA [id number] [place] [id number] [place] PAP KARATE TEACHER COMMENT This specimen has been analyzed by the ThinPrep Imaging System, an automated imaging and review system, which assists the laboratory in evaluating cells on ThinPrep Pap tests. Following automated imaging, selected jacobo from every slide are reviewed by a operations and maintenance specialist. Normal [facility] Comment on above: Order Comment: Speci men Type: FLUID SPECIMENOrdering Facility: [facility] Address: [address] [place] [address] Performed By: #### L [id number] ####[facility] LABCLIA [id number] [address] [place] CNOVon 06-08-2024 CNOV Office Visit (NEMSTW ) YOANDY VIRGEN ([id number]) 1990 F Date Time Provider Department 06/08/24 3:30 PM LUCI OSPINASTW During your visit today, we recorded the following information about you: Pulse Blood pressure Weight 93/minute 109/68 76.1 kg Sebastien Jean Baptiste MD 06/09/2024 8:55 AM [facility], [place], operated by [facility] FOLLOWUP/ESTABLISHED PATIENT VISIT DX: multiple sclerosis DISEASE SUMMARY Date of onset: Apr 2024 (R>L visual changes w/ possible MRI orbit changes) Date of diagnosis of MS: 2023 Disease course at onset: Relapsing-Remitting Current disease course: Relapsing-Remitting Previous disease therapies: High dose corticosteroids 04/2024 Current disease therapy: Ofatumumab Most recent MRI brain: 04/2024 (enhancing parietal lesion) Most recent MRI cervical spine: 05/27 : No evidence of demyelinating disease in the cervical cord. CSF: N/A JCV serology result and date: 05/11, 0.11 Negative MOG/AQP4: 05/11 Negative CHIEF COMPLAINT: Follow-up for monitoring off MS yet to start modifying therapy INTERVAL HISTORY: Usual treating team: Ita/Bharat Yoandy is accompanied by her partner today. The patient was last seen 05/11, currently started on IMDT. Since last visit, yoandy completed steroid for clinical event of vision changes, symptoms improved but without complete resolution, she continues to have visual obscuration. Has felt overwhelmed and fatigued at times, able to carry out daily tasks but does taken longer than prior. > She was able to quit smoking. > MRI Cervical spine completed 05/27 negative Remains on Wellbutrin 150 mg BID Started on Vitamin D last visit Objective Neuro-QoL Functions (higher=better functioning) Flowsheet [facility] Office Visit from 06/08/2024 in [facility] Office Visit from 05/11/2024 in [facility] Upper Extremity Domain T Score 47 57 Lower Extremity Domain T Score 62 62 Cognitive Function Domain T Score 33 43 Positive Affect Well Being T Score -- -- Ability To Participate In Social Roles T Score 51 50 Satisfaction With Social Roles T Score 35 43 Neuro-QoL Symptoms (higher=worse symptoms) Flowsheet [facility] Office Visit from 06/08/2024 in [facility] Office Visit from 05/11/2024 in [facility] Sleep Domain T Score 72 51 Fatigue Domain T Score 53 46 Anxiety Domain T Score 54 65 Depression Domain T Score 49 48 Stigma Domain T Score 44 51 Emotional Behavior Dyscontrol T Score -- -- has a past medical history of Abnormal glandular Papanicolaou smear of cervix (2007,2010,2012), ADD (attention deficit disorder), Chlamydia (08/12/2009), Depression, Gestational diabetes mellitus, class A1 (08/20/2022), HPV test positive (01/19/2013), Migraine, and depression. She has no past medical history of Anemia, Asthma, Blood dyscrasia, Breast disorder, Chronic kidney disease, Complication of anesthesia, Coronary artery disease, Gonorrhea, Herpes simplex without mention of complication, History of pre-eclampsia in prior , currently , HIV infection ([facility]), Hypertension, Infertility, female, Liver disease, Malignant hyperthermia due to anesthesia, Placental abruption, hemorrhage, hemorrhage, Rh incompatibility, Seizure ([facility]), Sickle cell anemia ([facility]), Syphilis, Systemic lupus erythematosus ([facility]), Thyroid disease, Trauma, or Varicosities. has a current medication list which includes the following prescription(s): drospirenone-ethinyl estradiol, dextroamphetamine-amp hetamine, bupropion sr, amphetamine-dextroamp hetamine xr, iv contrast, cholecalciferol, drospirenone-ethinyl estradiol, and omeprazole. EXAM: BP 109/68 Pulse 93 Wt 76.1 kg (167 lb 12.3 oz) LMP 02/03/2022 (Approximate) SpO2 100% BMI 25.51 kg/m? MSPT Results Flowsheet Row Office Visit from 06/08/2024 in [facility] Office Visit from 05/11/2024 in [facility] Processing Speed Total Number Correct 57 52 Processing Speed Z score 0.43 -0.09 Dominant hand -- Right hand MDT Left Hand Time 25.92 27.38 MDT Right Hand Time 30.37 26.64 Walking Speed Test (25 feet) 6.82 -- General Appearance: well appearing, in no acute distress Mental status evaluation during the interview and examination showed normal level of consciousness, orientation, language, memory, praxis, and higher intellectual function Affect: Normal Visual acuity: intact to VF - OD 20/40 (-1) OS 20/40 ( -1) Correction: Without > Hippus with RAPD Extraocular movements: full, Facial sensation: Intact bilaterally Facial movements: Intact bilaterally Speech: normal Muscle tone: Right arm spasticity: None Right leg spasticity: None Left arm spasticity: None Left leg spasticity: None Muscle strength (#/5): Right Left Upper Extremity: Deltoids 5 5 Biceps 5 5 Triceps 5 5 Labor Relations Worker 5 5 Dorsal interossei 5 5 Lower extremity: Iliopsoas 5 5 (more content not included)... Normal [facility] [place] [facility] Y[facility]Y VIRGEN ([id number]) 1990 F Date Time Provider Department 05/28/24 SEBASTIEN JEAN BAPTISTE During your visit today, we recorded the following information about you: Gilbert Ballard 05/28/2024 2:50 PM Signed Yoandy is calling Sebastien Jean Baptiste MD today with concern regarding Peripheral vision is still a problem after finishing prednisone. Please advise. Patient has been identified by name and birthdate. Duration of symptoms: N/A Person calling: self Call patient at: on cell [phone] (home) [phone] (cell) Was an appointment scheduled: No Closing statement: Symptom Call: Thank you for calling [facility], your call is very important. A nurse will call in approximately 2-4 hours during business hours. If this is an emergency, please contact 911. Gilbert Li Pss Allergies As of Date: 05/28/2024 Noted Allergy Reaction SEASONAL ALLERGIES 05/26/2014 14 - Other: See Comments Comments: Seasonal Sinus Issues Date Reviewed: 05/11/2024 Reviewed by: Erika Grider RN - Fully Assessed Reason for Visit: Peripheral vision is still a problem [Other] Prescriptions as of 07/25/2024 - hqtkzhfk-ont-cpmb-fol ic-vit K (CENTRUM) 8 mg-400 mcg- 10 mcg chewable tablet Take 1 tablet by mouth once daily. - cyanocobalamin/folic acid (VITAMIN J50-LUYTZ ACID) 500-400 mcg tab Take by mouth. - Drospirenone-Ethinyl Estradiol (KENNY, 28,) 3-0.02 mg per tablet Take 1 tablet by mouth once daily. - Drospirenone-Ethinyl Estradiol (KENNY 28) 3-0.02 mg per tablet Take 1 tablet by mouth once daily. - ofatumumab (KESIMPTA PEN) 20 mg/0.4 mL injection Inject 1 pen (0.4 mL) under the skin once a month - ofatumumab (KESIMPTA PEN) 20 mg/0.4 mL injection Inject 1 pen (0.4mL) under the skin once monthly beginning on week 8. - dextroamphetamine-amp hetamine (ADDERALL) 5 mg tablet Take 5 mg by mouth once daily. - buPROPion SR (WELLBUTRIN SR) 150 mg 12 hr tablet Take 150 mg by mouth two times a day. - amphetamine-dextroamp hetamine XR (ADDERALL XR) 25 mg capsule Take 25 mg by mouth once daily. - iv contrast (will be provided with radiology test) MRI CSP Inject, intravenously, once for 1 dose. No IV access, insert saline lock prior to the beginning of sedation, infusion, injection of imaging exam. Discontinue saline lock post exam. If Pt. has a central line or IVAD, may access for administration according to line specific nursing protocol. Once exam is complete flush line and de-access according to line specific nursing protocol in the MR contrast administration guidelines link. - cholecalciferol (VITAMIN D-3) 5,000 unit tab Take 1 tablet by mouth once daily. Problem List As Of Date 05/28/2024 Noted Resolved Encounter for supervision of normal i*10/09/2010 11/28/2022 Excessive growth affecting management of *10/09/2010 11/06/2010 Tobacco use in [O99.330] 01/06/2013 11/28/2022 History of depression, currently pre*01/06/2013 11/28/2022 Patient request for diagnostic testing [Z01.89] 01/06/2013 11/28/2022 Supervision of other high-risk (V23.89*07/0 03/201311/28/2022 Cervical high risk human papillomavirus (HPV) D*05/26/2013 05/26/2014 HUGO III (cervical intraepithelial neoplasia III*05/29/2013 11/28/2022 Short interval between pregnancies complicating*05/26/20 14 06/20/2022 Hx LEEP (loop electrosurgical excision procedur*03/22/2022 Medication exposure during first trimester of p*03/22/2022 11/28/2022 Rubella non-immune status, antepartum [O09.899,*05/14/2022 11/28/2022 Abnormal glucose in , antepartum [O99.*08/15/2022 11/28/2022 Gestational diabetes mellitus, class A1 [O24.41*08/20/2022 11/28/2022 Numbness and tingling of foot [R20.0, R20.2] 09/06/2022 30 weeks gestation of [Z3A.30] 09/06/2022 11/28/2022 31 weeks gestation of [Z3A.31] 09/10/2022 09/26/2022 Excessive growth affecting management of *09/10/2022 11/28/2022 Diet controlled gestational diabetes mellitus (*09/10/2022 11/28/2022 Excessive growth affecting management of *10/09/2022 11/28/2022 Optic neuritis [H46.9] 05/11/2024 Encounter Status:Closed by GILBERT BALLARD on 07/25/24 Normal [facility] MR Cervical spine WO and W c ontrast Jennifer 05-27-2024 IMPRESSION: No evidence of demyelinating disease in the cervical cord. Anatomic Variant: None. Assume 7 cervical vertebrae with counting from the craniocervical junction. Ore Digger: FROILAN Transcribe Date/Time: May 27 2024 5:14P Dictated by : SYDNI RAMIREZ MD This examination was interpreted and the report reviewed and electronically signed by: SYDNI RAMIREZ MD on May 27 2024 5:19PM [facility] * * *Final Report* * * DATE OF EXAM: May 27 2024 3:15PM LD 0298 - MRI CERVICAL SPINE WO/W IVCON / PROCEDURE REASON: Demyelinating disease of central nervous system (HCC) * * * * Physician Interpretation * * * * EXAMINATION: MRI CERVICAL SPINE WO/W IVCON CLINICAL HISTORY: Demyelinating disease of central nervous system (HCC) TECHNIQUE: Routine cervical spine MR protocol without and with intravenous gadolinium. MQ: [id number]_[id number] COMPARISON: None. RESULT: Counting reference: Craniocervical junction. Anatomic Variants: None. Localizer images: No additional findings. Alignment: Straightening of cervical lordosis could be positional or due to muscle spasm. Craniocervical junction: Craniocervical junction is normal. Cord: The visualized cord is within normal limits of signal intensity and morphology. Bone marrow signal/fracture: No evidence of pathologic marrow infiltration. No evidence of prior fracture. Cervical soft tissues: The paraspinal soft tissues are within normal limits. C2-C3: Canal and foramina are patent. C3-C4: Small disc osteophyte complex. Canal and foramina are patent. C4-C5: Small disc osteophyte complex. Canal and foramina are patent. C5-C6: Small disc osteophyte complex. Canal and foramina are patent. C6-C7: Small disc osteophyte complex. Canal and foramina are patent. C7-T1: Canal and foramina are patent. [facility] Provider, Cc Nehemiah cates Handley - 05/27/2024 * * *Final Report* * * DATE OF EXAM: May 27 2024 3:15PM [facility] 0298 - MRI CERVICAL SPINE WO/W IVCON / PROCEDURE REASON: Demyelinating disease of central nervous system (HCC) * * * * Physician Interpretation * * * * EXAMINATION: MRI CERVICAL SPINE WO/W IVCON CLINICAL HISTORY: Demyelinating disease of central nervous system (HCC) TECHNIQUE: Routine cervical spine MR protocol without and with intravenous gadolinium. MQ: [id number]_[id number] COMPARISON: None. RESULT: Counting reference: Craniocervical junction. Anatomic Variants: None. Localizer images: No additional findings. Alignment: Straightening of cervical lordosis could be positional or due to muscle spasm. Craniocervical junction: Craniocervical junction is normal. Cord: The visualized cord is within normal limits of signal intensity and morphology. Bone marrow signal/fracture: No evidence of pathologic marrow infiltration. No evidence of prior fracture. Cervical soft tissues: The paraspinal soft tissues are within normal limits. C2-C3: Canal and foramina are patent. C3-C4: Small disc osteophyte complex. Canal and foramina are patent. C4-C5: Small disc osteophyte complex. Canal and foramina are patent. C5-C6: Small disc osteophyte complex. Canal and foramina are patent. C6-C7: Small disc osteophyte complex. Canal and foramina are patent. C7-T1: Canal and foramina are patent. IMPRESSION IMPRESSION: No evidence of demyelinating disease in the cervical cord. Anatomic Variant: None. Assume 7 cervical vertebrae with counting from the craniocervical junction. Ore Digger: FROILAN Transcribe Date/Time: May 27 2024 5:14P Dictated by : SYDNI RAMIREZ MD This examination was interpreted and the report reviewed and electronically signed by: SYDNI RAMIREZ MD on May 27 2024 5:19PM [facility] Radiology Study observation (narrative) [facility] MR Cervical spine WO and W c ontrast IVOrdered By: Ccf Provider on 05-27-2024 [facility] MRI CERVICAL SPINE WO/W IVCO Non 05-27-2024 MRI CERVICAL SPINE WO/W IVCON * * *Final Report* * * DATE OF EXAM: May 27 2024 3:15PM [facility] 0298 - MRI CERVICAL SPINE WO/W IVCON / PROCEDURE REASON: Demyelinating disease of central nervous system (HCC) * * * * Physician Interpretation * * * * EXAMINATION: MRI CERVICAL SPINE WO/W IVCON CLINICAL HISTORY: Demyelinating disease of central nervous system (HCC) TECHNIQUE: Routine cervical spine MR protocol without and with intravenous gadolinium. MQ: [id number]_[id number] COMPARISON: None. RESULT: Counting reference: Craniocervical junction. Anatomic Variants: None. Localizer images: No additional findings. Alignment: Straightening of cervical lordosis could be positional or due to muscle spasm. Craniocervical junction: Craniocervical junction is normal. Cord: The visualized cord is within normal limits of signal intensity and morphology. Bone marrow signal/fracture: No evidence of pathologic marrow infiltration. No evidence of prior fracture. Cervical soft tissues: The paraspinal soft tissues are within normal limits. C2-C3: Canal and foramina are patent. C3-C4: Small disc osteophyte complex. Canal and foramina are patent. C4-C5: Small disc osteophyte complex. Canal and foramina are patent. C5-C6: Small disc osteophyte complex. Canal and foramina are patent. C6-C7: Small disc osteophyte complex. Canal and foramina are patent. C7-T1: Canal and foramina are patent. IMPRESSION: No evidence of demyelinating disease in the cervical cord. Anatomic Variant: None. Assume 7 cervical vertebrae with counting from the craniocervical junction. Ore Digger: PSCB Transcribe Date/Time: May 27 2024 5:14P Dictated by : SYDNI RAMIREZ MD This examination was interpreted and the report reviewed and electronically signed by: SYDNI RAMIREZ MD on May 27 2024 5:19PM EST [id number] N Normal [facility] 25(OH)D3 SerPl-mCncon 2023 25-hydroxyvitamin D3 [Mass/Vol] 35.6 ng/mL Normal 31.0-80.0 [facility] Comment on above: Order Comment: Fredo rosenthal Type: BLOOD SPECIMENOrdering Facility: [facility] Address: [address] [place] [address] Result Comment: Clas sification of 25 [place] Vitamin D status: Deficiency/Insufficiency: < or = 30 ng/ml. Sufficiency/Optimal Levels: 31-80 ng/mL Toxicity: > 100 ng/mL. Test performed by chemiluminescent immunoassay. Performed By: #### V ZVG2, 1990-10 ####[facility] LABIA [id number] [address] [facility] BLOOD TB SCREENon 05-11-2024 M. tuberculosis tuberculin stim IFN-g Ql (Bld) Negative Normal [facility] Comment on above: Order Comment: Fredo rosenthal Type: BLOOD SPECIMENOrdering Facility: [facility] Address: [address] [place] [address] Performed By: #### I NFTBP ####[facility] LABIA [id number] [place] [address] [place] MITOGEN MINUS NIL >9.98 Normal >=0.50 [facility] Comment on above: Order Comment: Fredo rosenthal Type: BLOOD SPECIMENOrdering Facility: [facility] Address: [address] [place] [address] Performed By: #### I NFTBP ####[facility] [id number] [address] TB GAMMA INTERPRETATION Infection with M. tuberculosis complex is unlikely. If latent tuberculosis infection is highly suspected, a negative result does not rule out the infection. Specimens from immunocompromised patients and those <5 years of age may show false negative results. In case of a contact investigation, please repeat 8-12 weeks after a known exposure. Normal [facility] Comment on above: Order Comment: Fredo rosenthal Type: BLOOD SPECIMENOrdering Facility: [facility] Address: [address] [place] [address] Performed By: #### I NFTBP ####[facility] LABCLIA [id number] [place] [address] [place] TB NIL 0.02 IU/mL Normal <=8.00 [facility] Comment on above: Order Comment: Speci men Type: BLOOD SPECIMENOrdering Facility: [facility] Address: [address] [place] [address] Performed By: #### I NFTBP ####[facility] LABCLIA [id number] [place] [address] [place] TB1 AG MINUS NIL 0.03 IU/mL Normal <0.35 [facility] Comment on above: Order Comment: Speci men Type: BLOOD SPECIMENOrdering Facility: [facility] Address: [address] [place] [address] Performed By: #### I NFTBP ####[facility] LABCLIA [id number] [place] [address] [place] TB2 AG MINUS NIL 0.00 IU/mL Normal <0.35 [facility] Comment on above: Order Comment: Speci men Type: BLOOD SPECIMENOrdering Facility: [facility] Address: [address] [place] [address] Performed By: #### I NFTBP ####[facility] LABIA [id number] [place] [address] [place] CBC W Auto Differential pane l (Bld)on 05-11-2024 Basophils (Bld) [#/Vol] 0.04 10*3/uL [facility] Basophils/100 WBC (Bld) 0.5 % [facility] Differential cell count method Nom (Bld) Auto [facility] Eosinophils (Bld) [#/Vol] 0.16 10*3/uL [facility] Eosinophils/100 WBC (Bld) 1.8 % [facility] Erythrocyte distribution width (RBC) [Ratio] 12.3 % 11.5 - 15.0 % [facility] Hematocrit (Bld) [Volume fraction] 40.8 % 36.0 - 46.0 % [facility] Hemoglobin (Bld) [Mass/Vol] 13.7 g/dL 11.5 - 15.5 g/dL [facility] Immature granulocytes (Bld) [#/Vol] [facility] Immature granulocytes/100 WBC (Bld) 0.2 % [facility] Lymphocytes (Bld) [#/Vol] 2.37 10*3/uL [facility] Lymphocytes/100 WBC (Bld) 27.4 % [facility] MCH (RBC) [Entitic mass] 31.7 pg 26.0 - 34.0 pg [facility] MCHC (RBC) [Mass/Vol] 33.6 g/dL 30.5 - 36.0 g/dL [facility] MCV (RBC) [Entitic vol] 94.4 fL 80.0 - 100.0 fL [facility] Monocytes (Bld) [#/Vol] 0.45 10*3/uL [facility] Monocytes/100 WBC (Bld) 5.2 % [facility] Neutrophils (Bld) [#/Vol] 5.61 10*3/uL [facility] Neutrophils/100 WBC (Bld) 64.9 % [facility] Nucleated RBC (Bld) [#/Vol] [facility] Nucleated RBC/100 WBC (Bld) [Ratio] 0.0 % /100 WBC [facility] Platelet mean volume (Bld) [Entitic vol] 10.7 fL 9.0 - 12.7 fL [facility] Platelets (Bld) [#/Vol] 256 10*3/uL [facility] RBC (Bld) [#/Vol] 4.32 10*6/uL 3.90 - 5.2 0 m/uL [facility] WBC (Bld) [#/Vol] 8.65 10*3/uL [facility] Basophils (Bld) [#/Vol] 0.04 10*3/uL Normal <0.11 [facility] Comment on above: Order Comment: Speci men Type: BLOOD SPECIMENOrdering Facility: [facility] Address: [address] [place], [place] [address] Performed By: #### 5 7021-8 ####[facility] LABCLIA [id number] [place] [address] [place] Basophils/100 WBC (Bld) 0.5 % Normal [facility] Comment on above: Order Comment: Speci men Type: BLOOD SPECIMENOrdering Facility: [facility] Address: [address] [place] [address] Performed By: #### 5 7021-8 ####[facility] LABCLIA [id number] [place] [id number] [place] Differential cell count method Nom (Bld) Auto Normal [facility] Comment on above: Order Comment: Speci men Type: BLOOD SPECIMENOrdering Facility: [facility] Address: [address] [place] [address] Performed By: #### 5 7021-8 ####[facility] LABCLIA [id number] [place] [id number] [place] Eosinophils (Bld) [#/Vol] 0.16 10*3/uL Normal <0.46 [facility] Comment on above: Order Comment: Speci men Type: BLOOD SPECIMENOrdering Facility: [facility] Address: [address] [place] [address] Performed By: #### 5 7021-8 ####[facility] LABCLIA [id number] [place] [id number] [place] Eosinophils/100 WBC (Bld) 1.8 % Normal [facility] Comment on above: Order Comment: Speci men Type: BLOOD SPECIMENOrdering Facility: [facility] Address: [address] [place] [address] Performed By: #### 5 7021-8 ####[facility] LABCLIA [id number] [place] [id number] [place] Erythrocyte distribution width (RBC) [Ratio] 12.3 % Normal 11.5-15.0 [facility] Comment on above: Order Comment: Speci men Type: BLOOD SPECIMENOrdering Facility: [facility] Address: [address] [place] [address] Performed By: #### 5 7021-8 ####[facility] LABIA [id number] [place] [id number] [place] Hematocrit (Bld) [Volume fraction] 40.8 % Normal 36.0-46.0 [facility] Comment on above: Order Comment: Speci men Type: BLOOD SPECIMENOrdering Facility: [facility] Address: [address] [place] [address] Performed By: #### 5 7021-8 ####[facility] LABIA [id number] [place] [id number] [place] Hemoglobin (Bld) [Mass/Vol] 13.7 g/dL Normal 11.5-15.5 [facility] Comment on above: Order Comment: Speci men Type: BLOOD SPECIMENOrdering Facility: [facility] Address: [address] [place] [address] Performed By: #### 5 7021-8 ####[facility] LABIA [id number] [place] [id number] [place] Immature granulocytes (Bld) [#/Vol] 10*3/uL Normal <0.10 [facility] Comment on above: Order Comment: Speci men Type: BLOOD SPECIMENOrdering Facility: [facility] Address: [address] [place] [address] Performed By: #### 5 7021-8 ####[facility] LABIA [id number] [place] [id number] [place] Immature granulocytes/100 WBC (Bld) 0.2 % Normal [facility] Comment on above: Order Comment: Speci men Type: BLOOD SPECIMENOrdering Facility: [facility] Address: [address] [place] [address] Performed By: #### 5 7021-8 ####[facility] LABIA [id number] [place] [address] [place] Lymphocytes (Bld) [#/Vol] 2.37 10*3/uL Normal 1.00-4.00 [facility] Comment on above: Order Comment: Speci men Type: BLOOD SPECIMENOrdering Facility: [facility] Address: [address] [place] [address] Performed By: #### 5 7021-8 ####[facility] LABCLIA [id number] [place] [id number] [place] Lymphocytes/100 WBC (Bld) 27.4 % Normal [facility] Comment on above: Order Comment: Speci men Type: BLOOD SPECIMENOrdering Facility: [facility] Address: [address] [place] [address] Performed By: #### 5 7021-8 ####[facility] LABCLIA [id number] [place] [address] [place] MCH (RBC) [Entitic mass] 31.7 pg Normal 26.0-34.0 [facility] Comment on above: Order Comment: Speci men Type: BLOOD SPECIMENOrdering Facility: [facility] Address: [address] [place] [address] Performed By: #### 5 7021-8 ####[facility] LABIA [id number] [place] [id number] [place] MCHC (RBC) [Mass/Vol] 33.6 g/dL Normal 30.5-36.0 [facility] Comment on above: Order Comment: Speci men Type: BLOOD SPECIMENOrdering Facility: [facility] Address: [address] [place] [address] Performed By: #### 5 7021-8 ####[facility] LABCLIA [id number] [place] MCV (RBC) [Entitic vol] 94.4 fL Normal 80.0-100.0 [facility] Comment on above: Order Comment: Speci men Type: BLOOD SPECIMENOrdering Facility: [facility] Address: [address] [place] [address] Performed By: #### 5 7021-8 ####[facility] LABCLIA [id number] [place] [address] [place] Monocytes (Bld) [#/Vol] 0.45 10*3/uL Normal <0.87 [facility] Comment on above: Order Comment: Speci men Type: BLOOD SPECIMENOrdering Facility: [facility] Address: [address] [place] [address] Performed By: #### 5 7021-8 ####[facility] LABCLIA [id number] [place] [address] [place] Monocytes/100 WBC (Bld) 5.2 % Normal [facility] Comment on above: Order Comment: Speci men Type: BLOOD SPECIMENOrdering Facility: [facility] Address: [address] [place] [address] Performed By: #### 5 7021-8 ####[facility] LABCLIA [id number] [place] [address] [place] Neutrophils (Bld) [#/Vol] 5.61 10*3/uL Normal 1.45-7.50 [facility] Comment on above: Order Comment: Speci men Type: BLOOD SPECIMENOrdering Facility: [facility] Address: [address] [place] [address] Performed By: #### 5 7021-8 ####[facility] LABCLIA [id number] [place] [address] [place] Neutrophils/100 WBC (Bld) 64.9 % Normal [facility] Comment on above: Order Comment: Speci men Type: BLOOD SPECIMENOrdering Facility: [facility] Address: [address] [place] [address] Performed By: #### 5 7021-8 ####[facility] LABCLIA [id number] [place] [address] [place] Nucleated RBC (Bld) [#/Vol] 10*3/uL Normal <0.01 [facility] Comment on above: Order Comment: Speci men Type: BLOOD SPECIMENOrdering Facility: [facility] Address: [address] [place] [address] Performed By: #### 5 7021-8 ####[facility] LABIA [id number] [place] [address] [place] Nucleated RBC/100 WBC (Bld) [Ratio] 0.0 /100 WBC Normal [facility] Comment on above: Order Comment: Speci men Type: BLOOD SPECIMENOrdering Facility: [facility] Address: [address] [place] [address] Performed By: #### 5 7021-8 ####[facility] LABIA [id number] [place] [address] [place] Platelet mean volume (Bld) [Entitic vol] 10.7 fL Normal 9.0-12.7 [facility] Comment on above: Order Comment: Speci men Type: BLOOD SPECIMENOrdering Facility: [facility] Address: [address] [place] [address] Performed By: #### 5 7021-8 ####[facility] LABIA [id number] [place] [address] [place] Platelets (Bld) [#/Vol] 256 10*3/uL Normal 150-400 [facility] Comment on above: Order Comment: Speci men Type: BLOOD SPECIMENOrdering Facility: [facility] Address: [address] [place] [address] Performed By: #### 5 7021-8 ####[facility] LABCLIA [id number] [place] [address] [place] RBC (Bld) [#/Vol] 4.32 10*6/uL Normal 3.90-5.20 [facility] Comment on above: Order Comment: Speci men Type: BLOOD SPECIMENOrdering Facility: [facility] Address: [address] [place] [address] Performed By: #### 5 7021-8 ####[facility] LABCLIA [id number] [place] [address] [place] WBC (Bld) [#/Vol] 8.65 10*3/uL Normal 3.70-11.00 [facility] Comment on above: Order Comment: Speci men Type: BLOOD SPECIMENOrdering Facility: [facility] Address: [facility] [place] [address] Performed By: #### 5 7021-8 ####[facility] LABCLIA [id number] [place] [address] [facility] [place] CNOVon 05-11-2024 CNOV Office Visit (NEMSTW ) YOANDY VIRGEN ([id number]) 1990 F Date Time Provider Department 05/11/24 9:30 AM LUCI OSPINA During your visit today, we recorded the following information about you: Pulse Blood pressure Weight 81/minute 111/73 76.2 kg Sebastien Jean Baptiste MD 05/11/2024 1:37 PM [facility] [place], operated by [facility] NEW PATIENT EVALUATION/CONSULTATI ON Referral source: Riky Marr MD [address] [facility] [address] Also followed by: Patient Care Team: Pcp, Michela, Riky Lima MD as Referring (Ophthalmology) PRINCIPAL NEUROLOGIC DIAGNOSIS: Likely multiple sclerosis DISEASE SUMMARY Date of onset: Apr 2024 (R>L visual changes w/ possible MRI orbit changes) Date of diagnosis of MS: pending Disease course at onset: Relapsing-Remitting Current disease course: Relapsing-Remitting Previous disease therapies: High dose corticosteroids 04/2024 Current disease therapy: NA Most recent MRI brain: 04/2024 (enhancing parietal lesion) Most recent MRI cervical spine: pending CSF: NA JCV serology result and date: pending MOG/AQP4 pending HISTORY OF ILLNESS: An opinion on Yoandy Virgen 33 year old female was requested by the referring physician for a second opinion on abnormal brain MRI. The patient was was accompanied by her partner. My recommendations will be communicated back to the patient's physician(s) via electronic medical record. Follow-up is expected to be with myself and Dr. Jean Baptiste at the [facility]. Yoandy states on 05/03 she began to endorse acute vision changes described as RIGHT > LEFT visual field obscurations with associated pain and nausea, without vomiting. Describes symptoms as kaliedescope. Endorsing strain with sharp pains. She was evaluated at home in [place] for symptoms for which MRI brain obtained which were concerning for demyelinating disease for which she was referred. She also was evaluated by local enroller Dr. Rj Marr in [place] documentation not available in care-everywhere however per patient she was told there was bilateral swelling in the back of her eyes. > Patient had MRI Brain W/WO completed in [place], [place] 05/07: upon our review there is b/l periventricular and juxtacortical lesions some of which appear to be enhancing. Can not overly appreciate optic nerve enhancement however per read R > L changes Of note she endorse hx Migraine occurring 1x year, pain described as radiating neck pain to frontal, feels achy. Associated with spotty visual obscuration consistent with scotoma, with photophobia, deneis phonophobia, N/V. Has sufficient relief with Excedrin There is no other remote/previous history suggestive of optic neuritis, brainstem syndrome, myelitis or other symptom concerning for a remote demyelinating event. Current Symptoms: -- RIGHT > LEFT eye strain with visual obscuration -- Denies other acute symptoms, denies ALTMAN Neuro-QoL Functions (higher=better functioning) Flowsheet Row Office Visit from 05/11/2024 in [facility] Upper Extremity Domain T Score 57 Lower Extremity Domain T Score 62 Cognitive Function Domain T Score 43 Positive Affect Well Being T Score -- Ability To Participate In Social Roles T Score 50 Satisfaction With Social Roles T Score 43 Neuro-QoL Symptoms (higher=worse symptoms) Flowsheet Row Office Visit from 05/11/2024 in [facility] Sleep Domain T Score 51 Fatigue Domain T Score 46 Anxiety Domain T Score 65 Depression Domain T Score 48 Stigma Domain T Score 51 Emotional Behavior Dyscontrol T Score -- PAST HISTORY: has a past medical history of Abnormal glandular Papanicolaou smear of cervix (2007,2010,2012), ADD (attention deficit disorder), Chlamydia (08/12/2009), Depression, Gestational diabetes mellitus, class A1 (08/20/2022), HPV test positive (01/19/2013), Migraine, and depression. She has no past medical history of Anemia, Asthma, Blood dyscrasia, Breast disorder, Chronic kidney disease, Complication of anesthesia, Coronary artery disease, Gonorrhea, Herpes simplex without mention of complication, History of pre-eclampsia in prior , currently , HIV infection ([facility]), Hypertension, Infertility, female, Liver disease, Malignant hyperthermia due to anesthesia, Placental abruption, hemorrhage, hemorrhage, Rh incompatibility, Seizure (HCC), Sickle cell anemia (HCC), Syphilis, Systemic lupus erythematosus ([facility]), Thyroid disease, Trauma, or Varicosities. 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 has a current medication list which includes the following prescription(s): drospirenone-ethinyl estradiol, dextroamphetamine-amp hetamine, bupropion sr, amphetamine-dextroamp hetamine xr, drospi (more content not included)... Normal [facility] ANIMAL PHYSIOLOGY TEACHER DEMYELINATING DISEASE EV ALUATION, SERUMon 05-11-2024 ANIMAL PHYSIOLOGY TEACHER DEMYELINATING DISEASE INTERP, S SEE NOTE Normal [facility] Comment on above: Order Comment: Fredo rosenthal Type: BLOOD SPECIMENOrdering Facility: [facility] Address: [address] [place] [address] Result Comment: No i nformative autoantibodies were detected in this evaluation. A negative result does not preclude a diagnosis of an inflammatory ANIMAL PHYSIOLOGY TEACHER demyelinating disorder. Performed By: #### C DS1SE ####[facility] LABCLIA [id number] [place] [address] MYELIN OLIGODENDROCYTE GLYCOPROTEIN (MOG-IGG1) FLUORESCENCE-ACTIVATED CELL Negative Normal Negative [facility] Comment on above: Order Comment: Fredo rosenthal Type: BLOOD SPECIMENOrdering Facility: [facility] Address: [address] [place] [address] [place] [address] Result Comment: ADDITIONAL INFORMATION This test was developed and its performance characteristics determined by [facility] in a manner consistent with CLIA requirements. This test has not been cleared or approved by the U.S. Food and Drug Administration. Test Performed by: [facility] [place] [address] Health Specialist: Seema Ahumada Ph.D.; CLIA# [id number] Performed By: #### Jamari DS1SE ####[facility] LABCLIA [id number] [place] [id number] NMO/AQPF FACS, S Negative Normal Negative Arie gomez [facility] Comment on above: Order Comment: Speci men Type: BLOOD SPECIMENOrdering Facility: [facility] Address: [address] [place] [address] [place] [address] Result Comment: ADDITIONAL INFORMATION This test was developed and its performance characteristics determined by [facility] in a manner consistent with CLIA requirements. This test has not been cleared or approved by the U.S. Food and Drug Administration. Performed By: #### Jamari DS1SE ####[facility] LABCLIA [id number] [place] [id number] Comprehensive metabolic 2000 panelon 05-11-2024 Albumin [Mass/Vol] 4.4 g/dL 3.9 - 4.9 g/dL [facility] ALP [Catalytic activity/Vol] 66 U/L 34 - 123 U/L [facility] ALT [Catalytic activity/Vol] 14 U/L 7 - 38 U/L [facility] Anion gap [Moles/Vol] 14 mmol/L 8 - 15 mmol/L [facility] AST [Catalytic activity/Vol] 13 U/L 13 - 35 U/L [facility] Bilirubin [Mass/Vol] 0.6 mg/dL 0.2 - 1 .3 mg/dL [facility] Calcium [Mass/Vol] 9.4 mg/dL 8.5 - 10. 2 mg/dL [facility] Chloride [Moles/Vol] 103 mmol/L 98 - 10 7 mmol/L [facility] CO2 [Moles/Vol] 22 mmol/L 22 - 30 mmol/L [facility] Creatinine [Mass/Vol] 0.70 mg/dL 0.58 - 0.96 mg/dL [facility] GFR/1.73 sq M.predicted among non-blacks MDRD (S/P/Bld) [Vol rate/Area] 116 mL/min/{1.73_m2} - PINF [facility] Comment on above: Estimated Glomerular Filtration Rate (eGFR) is calculated using the 2020 CKD-EPI creatinine equation. This equation utilizes serum creatinine, sex, and age as parameters. The creatinine assay has traceable calibration to isotope dilution-mass spectrometry. Refer to KDIGO guidelines for clinical interpretation. In patients with unstable renal function, e.g. those with acute kidney injury, the eGFR may not accurately reflect actual GFR. Glucose [Mass/Vol] 79 mg/dL 74 - 99 mg/dL [facility] Comment on above: The [place] Diabete s Association (ADA) provides guidance for cutoff values for fasting glucose and random glucose. The ADA defines fasting as no caloric intake for at least 8 hours. Fasting plasma glucose results between 100 to 125 mg/dL indicate increased risk for diabetes (prediabetes). Fasting plasma glucose results greater than or equal to 126 mg/dL meet the criteria for diagnosis of diabetes. In the absence of unequivocal hyperglycemia, results should be confirmed by repeat testing. In a patient with classic symptoms of hyperglycemia or hyperglycemic crisis, random plasma glucose results greater than or equal to 200 mg/dL meet the criteria for diagnosis of diabetes. Reference: Standards of Medical Care in Diabetes 2016, [place] Diabetes Association. Diabetes Care. 2016.39(Suppl 1). Potassium [Moles/Vol] 4.0 mmol/L 3.7 - 5.1 mmol/L [facility] Protein [Mass/Vol] 7.2 g/dL 6.3 - 8.0 g/dL [facility] Sodium [Moles/Vol] 139 mmol/L 136 - 144 mmol/L [facility] Urea nitrogen [Mass/Vol] 9 mg/dL 7 - 21 mg/dL [facility] Albumin [Mass/Vol] 4.4 g/dL Normal 3.9-4.9 [facility] Comment on above: Order Comment: Speci men Type: BLOOD SPECIMENOrdering Facility: [facility] Address: [address] [place] [address] Performed By: #### 2 4323-8, 3016-3 ####[facility] LABCLIA [id number] [place] [address] [place] ALP [Catalytic activity/Vol] 66 U/L Normal 34-123 [facility] Comment on above: Order Comment: Speci men Type: BLOOD SPECIMENOrdering Facility: [facility] Address: [address] [place] [address] Performed By: #### 2 4323-8, 3 ####[facility] LABCLIA [id number] [place] [address] [place] ALT [Catalytic activity/Vol] 14 U/L Normal 7-38 [facility] Comment on above: Order Comment: Speci men Type: BLOOD SPECIMENOrdering Facility: [facility] Address: [address] [place] [address] Performed By: #### 2 4323-8, 3 ####[facility] LABCLIA [id number] [place] [address] [place] Anion gap [Moles/Vol] 14 mmol/L Normal 8-15 [facility] Comment on above: Order Comment: Speci men Type: BLOOD SPECIMENOrdering Facility: [facility] Address: [address] [place] [address] Performed By: #### 2 4323-8, 6-3 ####[facility] LABCLIA [id number] [place] [address] [place] AST [Catalytic activity/Vol] 13 U/L Normal 13-35 [facility] Comment on above: Order Comment: Speci men Type: BLOOD SPECIMENOrdering Facility: [facility] Address: [address] [place] [address] Performed By: #### 2 4323-8, 3016-3 ####[facility] LABCLIA [id number] [place] [address] [place] Bilirubin [Mass/Vol] 0.6 mg/dL Normal 0.2-1.3 [facility] Comment on above: Order Comment: Speci men Type: BLOOD SPECIMENOrdering Facility: [facility] Address: [address] [place] [address] Performed By: #### 2 4323-8, 3 ####[facility] LABCLIA [id number] [place] [address] [place] Calcium [Mass/Vol] 9.4 mg/dL Normal 8.5-10.2 [facility] Comment on above: Order Comment: Speci men Type: BLOOD SPECIMENOrdering Facility: [facility] Address: [address] [place] [address] Performed By: #### 2 4323-8, 3 ####[facility] LABCLIA [id number] [place] [address] [place] Chloride [Moles/Vol] 103 mmol/L Normal 98-107 [facility] Comment on above: Order Comment: Speci men Type: BLOOD SPECIMENOrdering Facility: [facility] Address: [address] [place], [place] [address] Performed By: #### 2 4323-8, 3 ####[facility] LABCLIA [id number] [place] [address] [place] CO2 [Moles/Vol] 22 mmol/L Normal 22-30 [facility] Comment on above: Order Comment: Speci men Type: BLOOD SPECIMENOrdering Facility: [facility] Address: [address] [place], [place] [address] Performed By: #### 2 4323-8, 3 ####[facility] LABCLIA [id number] [place] [address] [place] Creatinine [Mass/Vol] 0.70 mg/dL Normal 0.58-0.96 [facility] Comment on above: Order Comment: Fredo rosenthal Type: BLOOD SPECIMENOrdering Facility: [facility] Address: [address] [place] [address] Performed By: #### 2 4323-8, 3016-3 ####[facility] LABCLIA [id number] [place] [address] [place] Creatinine and Glomerular filtration rate.predicted panel (S/P/Bld) 116 mL/min/1.73m??? Normal >=60 [facility] Comment on above: Order Comment: Fredo rosenthal Type: BLOOD SPECIMENOrdering Facility: [facility] Address: [address] [place] [address] Result Comment: Cammy mated Glomerular Filtration Rate (eGFR) is calculated using the 2020 CKD-EPI creatinine equation. This equation utilizes serum creatinine, sex, and age as parameters. The creatinine assay has traceable calibration to isotope dilution-mass spectrometry. Refer to KDIGO guidelines for clinical interpretation. In patients with unstable renal function, e.g. those with acute kidney injury, the eGFR may not accurately reflect actual GFR. Performed By: #### 2 4323-8, 6-3 ####[facility] LABCLIA [id number] [place] [address] [place] Glucose [Mass/Vol] 79 mg/dL Normal 74-99 [facility] Comment on above: Order Comment: Fredo rosenthal Type: BLOOD SPECIMENOrdering Facility: [facility] Address: [address] [place] [address] Result Comment: The [place] Diabetes Association (ADA) provides guidance for cutoff values for fasting glucose and random glucose. The ADA defines fasting as no caloric intake for at least 8 hours. Fasting plasma glucose results between 100 to 125 mg/dL indicate increased risk for diabetes (prediabetes). Fasting plasma glucose results greater than or equal to 126 mg/dL meet the criteria for diagnosis of diabetes. In the absence of unequivocal hyperglycemia, results should be confirmed by repeat testing. In a patient with classic symptoms of hyperglycemia or hyperglycemic crisis, random plasma glucose results greater than or equal to 200 mg/dL meet the criteria for diagnosis of diabetes. Reference: Standards of Medical Care in Diabetes 2016, [place] Diabetes Association. Diabetes Care. 2016.39(Suppl 1). Performed By: #### 2 4323-8, 3015-3 ####[facility] LABCLIA [id number] [place] [address] [place] Potassium [Moles/Vol] 4.0 mmol/L Normal 3.7-5.1 [facility] Comment on above: Order Comment: Speci men Type: BLOOD SPECIMENOrdering Facility: [facility] Address: [address] [id number] Performed By: #### 2 4323-8, 3015-3 ####[facility] LABIA [id number] [place] [address] [place] Protein [Mass/Vol] 7.2 g/dL Normal 6.3-8.0 [facility] Comment on above: Order Comment: Speci men Type: BLOOD SPECIMENOrdering Facility: [facility] Address: [address] [id number] Performed By: #### 2 4323-8, 3 ####[facility] LABIA [id number] [place] [address] [place] Sodium [Moles/Vol] 139 mmol/L Normal 136-144 [facility] Comment on above: Order Comment: Speci men Type: BLOOD SPECIMENOrdering Facility: [facility] Address: [address] [place] [address] Performed By: #### 2 4323-8, 3015-3 ####[facility] LABCLIA [id number] [place] [address] [place] Urea nitrogen [Mass/Vol] 9 mg/dL Normal 7-21 [facility] Comment on above: Order Comment: Speci men Type: BLOOD SPECIMENOrdering Facility: [facility] Address: [address] [place] [address] Performed By: #### 2 4323-8, 3015-3 ####[facility] LABCLIA [id number] [place] [address] [place] HBV core Ab Ser Qlon 024 HBV core Ab Ql (S) Negative Normal Negative [facility] Comment on above: Order Comment: Speci men Type: BLOOD SPECIMENOrdering Facility: [facility] Address: [address] [place] [address] Result Comment: No e vidence of current or past infection with Hepatitis B virus. Should recent infection be suspected, repeat testing may be considered 3-4 weeks after this draw. Performed By: #### 5 195-3, 55549-9, 10161-6, 37074-8 ####[facility] LABCLIA [id number] [address] [place] HBV surface Ab Ql (S)on 04-14 HBV surface Ab Qn (S) <8.00 Normal [facility] Comment on above: Order Comment: Speci men Type: BLOOD SPECIMENOrdering Facility: [facility] Address: [address] [place] [address] Result Comment: <8 m IU/mL: No serological evidence of immunity to Hepatitis B Virus. >/= 8 to <12 mIU/mL: No serological evidence of immunity to Hepatitis B Virus. >/= 12 mIU/mL: Consistent with serological evidence of immunity to Hepatitis B Virus. Performed By: #### 5 195-3, 21686-6, 38462-9, 62185-2 ####[facility] LABCLIA [id number] [address] [place] HBV surface Ab Ser Qlon 04-14 HBV surface Ab Ql (S) Negative Normal [facility] Comment on above: Order Comment: Speci men Type: BLOOD SPECIMENOrdering Facility: [facility] Address: [address] [place] [address] Result Comment: No s erological evidence of immunity to Hepatitis B Virus. Performed By: #### 5 195-3, 78202-8, 47583-9, 46841-5 ####[facility] LABCLIA [id number] [place] [address] [place] HBV surface Ag Ser Qlon 04-14 HBV surface Ag Ql (S) Negative Normal Negative [facility] Comment on above: Order Comment: Speci men Type: BLOOD SPECIMENOrdering Facility: [facility] Address: [address] [place] [address] Performed By: #### 5 195-3, 69007-5, 52157-2, 65834-8 ####[facility] LABIA [id number] [place] [address] [place] HCV Ab Ser Qlon 05-11-2024 HCV Ab Ql (S) Negative Normal Negative [facility] Comment on above: Order Comment: Speci men Type: BLOOD SPECIMENOrdering Facility: [facility] Address: [address] [place] [address] Result Comment: The result suggests no evidence of active infection with Hepatitis C virus. Should recent infection be suspected, repeat testing may be considered 4-6 weeks after this draw. Performed By: #### 1 6128-1 ####[facility] LABIA [id number] [place] [address] [place] HIV 1+2 Ab IA Qlon HIV 1 and 2 Ab IA.rapid Nom (S/P/Bld) Normal [facility] Comment on above: Order Comment: Speci men Type: BLOOD SPECIMENOrdering Facility: [facility] Address: [address] [place] [address] Result Comment: Test not indicated. Performed By: #### 5 195-3, 66906-7, 10196-2, 45063-6 ####[facility] LABIA [id number] [place] [address] [place] HIV 1+2 Ab+HIV1 p24 Ag IA Ql Non-Reactive Normal Nonreactive [facility] Comment on above: Order Comment: Speci men Type: BLOOD SPECIMENOrdering Facility: [facility] Address: [address] [place] [address] Performed By: #### 5 195-3, 64092-7, 36571-5, 59293-3 ####[facility] LABCLIA [id number] [place] [address] [place] HIV immunoassay testing algorithm interpretation (S/P/Bld) [Interp] Normal [facility] Comment on above: Order Comment: Speci men Type: BLOOD SPECIMENOrdering Facility: [facility] Address: [address] [place] [address] Result Comment: No e vidence of HIV-1 or HIV-2 infection. Should recent infection be suspected, repeat testing may be considered 2-3 weeks after this draw. [place] Rev. Code 3701.243(E): This information has been disclosed to you from confidential records protected from disclosure by state law. ???You shall make no further disclosure of this information without the specific, written, and informed release of the individual to whom it pertains or as otherwise permitted by state law. A general authorization for the release of medical or other information is not sufficient for the purpose of the release of HIV test results or diagnoses. Performed By: #### 5 195-3, 55197-6, 07790-0, 74619-2 ####[facility] LABCLIA [id number] [place] [address] [place] IMMUNOGLOBULINS,IGG,IGA,IGMo n 05-11-2024 IgA [Mass/Vol] 143 mg/dL Normal 70-400 [facility] Comment on above: Order Comment: Speci men Type: BLOOD SPECIMENOrdering Facility: [facility] Address: [address] [place] [address] Performed By: #### S SAGRARIO ####[facility] LABCLIA [id number] [place] [address] [place] IgG [Mass/Vol] 844 mg/dL Normal 700-1600 [facility] Comment on above: Order Comment: Speci men Type: BLOOD SPECIMENOrdering Facility: [facility] Address: [address] [place] [address] Performed By: #### S ERIMM ####[facility] LABCLIA [id number] [place] [address] [place] IgM [Mass/Vol] 108 mg/dL Normal 40-230 [facility] Comment on above: Order Comment: Speci men Type: BLOOD SPECIMENOrdering Facility: [facility] Address: [address] [place] [address] Performed By: #### S ERIMM ####[facility] LABCLIA [id number] [place] [address] [place] JCV ANTIBODY AND INDEX WITH REFLEXon 05-11-2024 JCV ANTIBODY Negative Normal [facility] Comment on above: Order Comment: Speci men Type: BLOOD SPECIMENOrdering Facility: [facility] Address: [address] [place] [address] Result Comment: Index interpretive criteria: <0.20 negative 0.20-0.40 indeterminate >0.40 positive INTERPRETATION Negative: Antibodies to JCV not detected. Indeterminate: Low level reactivity detected, see Inhibition Assay result below for the final antibody result. Positive: Antibodies to BELA virus (JCV) detected indicating the patient has been exposed to JCV at an undetermined time. The STRATIFY JCV Antibody Test is an enzyme-linked immunosorbent assay (MARGOT) designed to detect JCV antibodies to help identify individuals who have been exposed to the virus. Samples with low level reactivity in the detection assay are retested in a confirmation (inhibition) assay to confirm presence or absence of JCV-specific antibodies. Retrospective analyses of post marketing data from various sources, including observational studies and spontaneous reports obtained worldwide, suggest that the risk of developing PML may be associated with relative levels of serum anti-JCV antibody as measured by anti-JCV antibody index.1 1TYSABRI(natalizumab)US Prescribing Information TEST PERFORMED AT: [id number] [facility] [address] [address] [place] [address] Associate Accountant: Chasidy Brooks MD, PhD Performed By: #### J CVIDX ####[facility] [id number] [place] [address] JCV INDEX VALUE 0.11 Normal [facility] Comment on above: Order Comment: Fredo rosenthal Type: BLOOD SPECIMENOrdering Facility: [facility] Address: [address] [place] [address] Performed By: #### J CVIDX ####[facility] [id number] [place] [address] No Panel Informationon 05-11 Interpretation and review of laboratory results Normal [facility] THYROID STIMULATING HORMONEo n 05-11-2024 TSH Qn 0.593 m[IU]/L [facility] Comment on above: If the patient is pr egnant, TSH reference range varies by gestational period: First Trimester (weeks 9-12): 0.180-2.990 mIU/L Second Trimester: 0.110-3.980 mIU/L Third Trimester: 0.480-4.710 mIU/L Marcelino Robles, et al. A Practical Approach for the Verifications and Determination of Site- and Trimester-Specific Reference Intervals for Thyroid Function tests in . Thyroid, 2019:29:3:412-420. Edenilson E, et al. 2017 Guidelines of the [place] Thyroid Association for the Diagnosis and Management of Thyroid Disease during and the . Thyroid, 2017:27:3:315-389. TSH SerPl-aCncon 05-11-2024 TSH Qn 0.593 m[IU]/L Normal 0.270-4.200 [facility] Comment on above: Order Comment: Fredo rosenthal Type: BLOOD SPECIMENOrdering Facility: [facility] Address: [address] [place] [address] Result Comment: If t he patient is , TSH reference range varies by gestational period: First Trimester (weeks 9-12): 0.180-2.990 mIU/L Second Trimester: 0.110-3.980 mIU/L Third Trimester: 0.480-4.710 mIU/L Marcelino Robles, et al. A Practical Approach for the Verifications and Determination of Site- and Trimester-Specific Reference Intervals for Thyroid Function tests in . Thyroid, 2019:29:3:412-420. Edenilson Martinez, et al. 2017 Guidelines of the [place] Thyroid Association for the Diagnosis and Management of Thyroid Disease during and the . Thyroid, 2017:27:3:315-389. Performed By: #### 2 4323-8, 3016-3 ####[facility] LABCLIA [id number] [place] [address] [place] VARICELLA ZOSTER IGGon 05-11 VARICELLA ZOSTER IGG, QUAL Positive Normal Positive [facility] Comment on above: Order Comment: Speci men Type: BLOOD SPECIMENOrdering Facility: [facility] Address: [address] [place] [address] Result Comment: The result suggests recent or past exposure to Varicella-Zoster virus or chickenpox vaccination or zoster vaccination. Positive result may also be seen due to presence of passively-transferred antibodies. Please correlate with patient's history. Performed By: #### V ZVG2, 1990-10 ####[facility] LABCLIA [id number] [place] [address] [place] Vit B12 SerPl-mCncon 024 Cobalamin (Vitamin B12) [Mass/Vol] 317 pg/mL Normal 232-1245 [facility] Comment on above: Order Comment: Speci men Type: BLOOD SPECIMENOrdering Facility: [facility] Address: [address] [place] [address] Performed By: #### 2 132-9 ####[facility] LABCLIA [id number] [address] [id number] [place] Brain W/WO Contraston 2023 Brain W/WO Contrast [facility] [address] [place] [address] Brain W/WO Contrast MR#: [id number] Acct: [id number] Name: YOANDY VIRGEN Rep #: [id number] : 1990 F 33 From: Jan toscano MD PCP: BERNARDA ROMAN Status: REG CLI Study: Brain W/WO Contrast Date of Exam: 05/07/24 Exam# [id number] Ordering Dr: Riky Marr MD [id number] STUDY: MRI ORBITS WITH AND WITHOUT CONTRAST REASON FOR EXAM: Female, 33 years old. R VISUAL DEFECT SINCE MAY 02 TECHNIQUE: Standardized fat and water weighted pulse sequences were obtained in all 3 orthogonal planes, pre-and post contrast administration. IV 15CC clariscan was administered for the contrast portion of the examination. COMPARISON: None. FINDINGS: Bilateral optic neuritis is present with fluid distention of the optic nerve sheaths, right greater than left. No demonstrated enhancement of the optic nerves. No optic nerve atrophy or enlargement is seen on the current study. Normal bilateral globes. Normal bilateral intraconal and extraconal spaces. Normal bilateral extraocular muscles. Normal optic chiasm and post-chiasmatic tracts. Normal sella turcica, pituitary gland, infundibular stalk, and hypothalamus. Normal bilateral cavernous sinuses. Normal tectal plate and pineal gland. No visualized intraorbital mass or fluid collection or cyst. No visualized enlargement of the extraocular muscles. No retinal detachment or signal abnormality is visualized. No proptosis is seen. IMPRESSION: 1. Bilateral optic neuritis is present with fluid distention of the optic nerve sheaths, right greater than left. No demonstrated enhancement of the optic nerves. No optic nerve atrophy or enlargement is seen on the current study. STUDY: MRI BRAIN WITH AND WITHOUT CONTRAST REASON FOR EXAM: Female, 33 years old. R VISUAL DEFECT SINCE MAY 02 COMPARISON: None. FINDINGS: 6 predominant demyelinating plaques are present in the right periventricular white matter from the albarran radiata up into the centrum semiovale involving both the frontal and parietal lobes primarily the parasagittal/medial regions. 7-8 plaques are present in the same region of the right periventricular white matter extending up to the albarran radiata. One predominant lesion is present in the posterior medial aspect and apex of the right frontal lobe measuring 6.1 mm. On the left nondominant plaque is present in the anterior medial and superior region of the parietal lobe and it measures 6.9 mm and demonstrates diffusion weighted signal due to active demyelinization but no associated ADC map signal to indicate ischemia. None of the remaining demyelinating plaques demonstrates active diffusion weighted signal abnormality. None of the plaques demonstrate enhancement on the postcontrast portion of the study. There are no primary or secondary malignant lesions of the brain parenchyma. No abnormal thickening or enhancement of meninges or dura is present. Normal size of the ventricles and extra-axial spaces for the patient''s age. Normal remaining white matter tracts of the supratentorial brain. There is no evidence for recent intracranial ischemia or other cause of cytotoxic edema on diffusion weighted imaging (DWI). Normal T2* images of the brain without demonstrated susceptibility artifact. There is no demonstrated hemosiderin stain. Normal bilateral basal ganglia. Normal thalami. There is no extra-axial fluid accumulation. Normal flow voids within the major intracranial circulation suggesting patency by spin echo criteria. Normal venous enhancement. There is no enhancing intra-axial or extra-axial abnormality. Normal sella turcica, pituitary gland, infundibular stalk, optic chiasm and hypothalamus. Normal tectal plate and pineal gland. Normal midbrain, loki and medulla. Normal cerebellum. Normal basal cisterns. Normal bilateral temporal bones. Normal bilateral internal auditory canals. Normal visualized paranasal sinuses. Normal calvarium and skull base. Normal visualized soft tissue structures. Normal visualized upper cervical spine. MRI/Brain W/WO Contrast IMPRESSION: 1. Bilateral demyelinating plaques of the cerebral hemispheres consistent with multiple sclerosis with actively demyelinating inflamed plaque in the left medial aspect of the parietal lobe. Electronically Signed: Jan Pyle MD at 8:56 EDT Reading Location ID and State: [facility] / [place] , Service support , CC: Dr. Riky Marr MD; BERNARDA ROMAN Ore Digger: Signed Normal [facility] Glucose Glucometer (BldC) [M ass/Vol]Ordered By: Faiza Mccormick on 10-23-2022 Glucose [Mass/Vol] 65 mg/dL 74-106 [facility] Comment on above: MANAGEMENT OF PATIEN T CARE PER NURSING PROTOCOL Absolute lymphocyte countOrd ered By: Faiza cMcormick on 10-22-2022 Lymphocytes Auto (Unsp spec) [#/Vol] 3.24 10*3/uL 0.83-4.51 [facility] Basophil percentageOrdered B y: Faiza Mccormick on 10-22-2022 Basophils/100 WBC (Bld) 0.2 % 0-1 [facility] Eosinophils/100 WBC (Bld) 1.1 % 0-5 [facility] Neutrophils (Bld) [#/Vol] 8.4 10*3/uL 2.0-7.7 [facility] Neutrophils/100 WBC (Bld) 67.4 % 47-70 [facility] WBC (Bld) [#/Vol] 12.5 10*3/uL 4.4-11.0 [facility] Blood erythrocytes count (nu mber/volume)Ordered By: Faiza Mccormick on 10-22-2022 RBC (Bld) [#/Vol] 3.47 10*6/uL 4.2-5.4 [facility] Blood hemoglobin measurement (mass/volume)Ordered By: Faiza Mccormick on 10-22-2022 Hemoglobin (Bld) [Mass/Vol] 11.3 g/dL 12.0-15.0 [facility] Blood lymphocytes/100 leukoc ytesOrdered By: Faiza Mccormick on 10-22-2022 Lymphocytes/100 WBC (Bld) 26.0 % 19-41 [facility] Blood monocytes/100 leukocyt esOrdered By: Faiza Mccormick on 10-22-2022 Monocytes/100 WBC (Bld) 4.7 % 0-10 [facility] Blood platelet mean volumeOr dered By: Faiza Mccormick on 10-22-2022 Platelet mean volume (Bld) [Entitic vol] 9.9 fL 6.2-12.0 [facility] Determination of erythrocyte mean corpuscular volume (MCV)Ordered By: Faiza Mccormick on 10-22-2022 MCV (RBC) [Entitic vol] 95.4 fL 81-99 [facility] Hematocrit Auto (Bld) [Volum e fraction]Ordered By: Faiza Mccormick on 10-22-2022 Hematocrit (Bld) [Volume fraction] 33.1 % 37-47 [facility] - Hematology and Cell countsOrdered By: Faiza Mccormick on 10-22-2022 Erythrocyte distribution width (RBC) [Entitic vol] 48.0 fL 35.1-43.9 [facility] Erythrocyte distribution width (RBC) [Ratio] 13.7 % 11.6-14.6 [facility] Immature granulocytes/100 WBC (Bld) 0.600 % 0.0-0.9 [facility] Comment on above: IG% - Immature Granu locytes (promyelocytes, myelocytes and metamyelocytes) > 1% indicates that a LEFT SHIFT is Present. MCH (RBC) [Entitic mass] 32.6 pg 27.0-32.0 [facility] Nucleated RBC/100 WBC (Bld) [Ratio] 0 % 0-5 [facility] MCHC Auto (RBC) [Mass/Vol]Or dered By: Faiza Mccormick on 10-22-2022 MCHC (RBC) [Mass/Vol] 34.1 g/dL 32-36 [facility] No Panel InformationOrdered By: Faiza Mccormick on 10-22-2022 Vaginal Amniotic Fluid Detection Positive Negative [facility] Comment on above: Amniotic fluid prese nt indicates rupture of Membranes. RESULTS CALLED TO Abdias ESPOSITO RN (WP) 10/22/22 0024 Marshall Hawkins.REPORT READ BACK BY SAME . Platelets bldOrdered By: Maryellen Mccormick on 10-22-2022 Platelets (Bld) [#/Vol] 318 10*3/uL 150-450 [facility] Serum Treponema species anti body detectionOrdered By: Faiza Mccormick on 10-22-2022 Treponema sp Ab Ql (S) Non-Reactive [facility] URINE OB DIP B/Oon Glucose Ql (U) Negative Neg mg/dL [facility] Protein.monoclonal (U) [Mass/Vol] Negative Neg mg/dL [facility] URINE OB DIP B/Oon 3 Glucose Ql (U) Negative Neg mg/dL [facility] Protein.monoclonal (U) [Mass/Vol] Negative Neg mg/dL [facility] OBSTETRIC ULTRASOUND WHIon 0 10-08-2022 [facility] UA DIP, URINE (POC)on 2022 BILIRUBIN UA (POCT) Negative Negative [facility] CLARITY UA (POCT) Clear [facility] COLOR UA (POCT) Yellow [facility] GLUCOSE UA (POCT) Negative Negative mg/dL [facility] HEMOGLOBIN/BLOOD UA (POCT) Trace-intact Abnormal Negative [facility] KETONE UA (POCT) Trace Negative mg/dL [facility] LEUKOCYTES UA (POCT) Negative Negative [facility] NITRITE UA (POCT) Negative Negative [facility] PH UA (POCT) 6.0 4.5 - 8.0 [facility] Protein Ql (U) Trace Abnormal Negative mg/dL [facility] SPECIFIC GRAVITY UA (POCT) >=1.030 1.005 - 1.030 [facility] UROBILINOGEN UA (POCT) 1.0 E.U./dL Normal E.U./ dL [facility] URINE OB DIP B/Oon 3 Glucose Ql (U) Negative Neg mg/dL [facility] Protein.monoclonal (U) [Mass/Vol] Negative Neg mg/dL [facility] URINE OB DIP B/Oon 3 Glucose Ql (U) Negative Neg mg/dL [facility] Protein.monoclonal (U) [Mass/Vol] Negative Neg mg/dL [facility] OBSTETRIC ULTRASOUND WHIon 0 09-10-2022 [facility] URINE OB DIP B/Oon 3 Glucose Ql (U) Negative Neg mg/dL [facility] Protein.monoclonal (U) [Mass/Vol] Negative Neg mg/dL [facility] URINE OB DIP B/Oon 3 Glucose Ql (U) Negative Neg mg/dL [facility] Protein.monoclonal (U) [Mass/Vol] Negative Neg mg/dL [facility] URINE OB DIP B/Oon 2 Glucose Ql (U) Negative Neg mg/dL [facility] Protein.monoclonal (U) [Mass/Vol] Negative Neg mg/dL [facility] NUCHAL TRANSLUCENCY WHIon [facility] URINE OB DIP B/Oon 2 Glucose Ql (U) Negative Neg mg/dL [facility] Protein.monoclonal (U) [Mass/Vol] Negative Neg mg/dL [facility] HCG QUAL UR B/Oon 01-25-2022 status Negative neg - pos [facility] Quality Check Yes [facility] DRUGUon 08-10-2020 Drug Screen Urine Positive Abnormal [facility] ([place]) Comment on above: Performed By: #### Carol RODRIGUEZ #### [address] [address] Drug Screen Urine Interp Positive [facility] ([place]) Comment on above: Performed By: #### Carol RODRIGUEZ #### [address] [address] Urine Drugs screened: See Below Normal [facility] ([place]) Comment on above: Result Comment: This drug screen is a presumptive screening only. No confirmation will be performed unless requested. Drugs screened include: Threshold Amphetamines/Methamphetamines 1,000 ng/mL Barbiturates 200 ng/mL Benzodiazepine metabolites 200 ng/mL Cannabinoids (THC metabolites) 50 ng/mL Benzoylecognine (Cocaine metab) 300 ng/mL Opiates 300 ng/mL Phencyclidine (PCP) 25 ng/mL Methadone 300 ng/mL Propoxyphene 300 ng/mL Testing has been performed FOR MEDICAL PURPOSES ONLY. Performed By: #### Carol RODRIGUEZ #### [address] [address] U pH Drug Scrn 5.5 Normal 5.0-8.0 [facility] [facility] ([place]) Comment on above: Performed By: #### Carol RODRIGUEZ #### [address] [address] [address] [place] [address] Scrn 1.010 Normal 1.005-1.030 [facility]ly [facility] ([place]) Comment on above: Performed By: #### Carol RODRIGUEZ #### [address] [address] FT4on 08-09-2020 Free T4 [Mass/Vol] 1.18 ng/dL Normal 0.76-1.46 [facility] ([place]) Comment on above: Performed By: #### F T4, TSH #### [address] [place], [place] [address] TSHon 08-09-2020 TSH Qn 0.55 mcIU/mL Normal 0.36-3.74 [facility] ([place]) Comment on above: Performed By: #### F T4, TSH #### [address] [place], [place] [address] Vital Signs Date Time Vital Sign Value Performing Clinician Facility 06-15-2024 14:40-0500 Body height 172.7 cm Jessica Solis MD Work Phone: [facility] 06-15-2024 14:40-0500 Body mass index (BMI) [Ratio] 24.63 kg/m2 Jessica Solis MD Work Phone: [facility] 06-15-2024 14:40-0500 Body weight 73.48 kg Jessica Solis MD Work Phone: [facility] 06-15-2024 14:40-0500 Diastolic blood pressure 62 mm[Hg] Jessica Solis MD Work Phone: [facility] 06-15-2024 14:40-0500 Systolic blood pressure 110 mm[Hg] Jessica Solis MD Work Phone: [facility] 06-08-2024 14:45-0400 Body mass index (BMI) [Ratio] 25.51 kg/m2 Luci MacLeod DO Work Phone: [facility] 06-08-2024 14:45-0400 Body weight 76.1 kg Luci MacLeod DO Work Phone: [facility] 06-08-2024 14:45-0400 Diastolic blood pressure 68 mm[Hg] Luci MacLeod DO Work Phone: [facility] 06-08-2024 14:45-0400 Heart rate 93 /min Luci MacLeod DO Work Phone: [facility] 06-08-2024 14:45-0400 SaO2% (BldA) [Mass fraction] 100 % Luci MacLeod DO Work Phone: [facility] 06-08-2024 14:45-0400 Systolic blood pressure 109 mm[Hg] Luci MacLeod DO Work Phone: [facility] 05-11-2024 13:00-0400 Body temperature 97.39 [degF] Infusion 1 Work Phone: [facility] 05-11-2024 13:00-0400 Diastolic blood pressure 66 mm[Hg] Infusion 1 Work Phone: [facility] 05-11-2024 13:00-0400 Heart rate 74 /min Infusion 1 Work Phone: [facility] 05-11-2024 13:00-0400 Respiratory rate 16 /min Infusion 1 Work Phone: [facility] 05-11-2024 13:00-0400 Systolic blood pressure 105 mm[Hg] Infusion 1 Work Phone: [facility] 05-11-2024 11:50-0400 SaO2% (BldA) [Mass fraction] 99 % Infusion 1 Work Phone: [facility] 05-11-2024 09:19-0400 Body mass index (BMI) [Ratio] 25.54 kg/m2 Luci MacLeod DO Work Phone: [facility] 05-11-2024 09:19-0400 Body weight 76.2 kg Luci MacLeod DO Work Phone: [facility] 05-11-2024 09:19-0400 Diastolic blood pressure 73 mm[Hg] Luci MacLeod DO Work Phone: [facility] 05-11-2024 09:19-0400 Heart rate 81 /min Luci MacLeod DO Work Phone: [facility] 05-11-2024 09:19-0400 SaO2% (BldA) [Mass fraction] 98 % Luci MacLeod DO Work Phone: [facility] 05-11-2024 09:19-0400 Systolic blood pressure 111 mm[Hg] Luci RiveroLeod DO Work Phone: [facility] 10-29-2022 10:05-0400 Body weight 76.39 kg Payton Fernandes MD Work Phone: [facility] 10-29-2022 10:05-0400 Diastolic blood pressure 70 mm[Hg] Payton Fernandes MD Work Phone: [facility] 10-29-2022 10:05-0400 Systolic blood pressure 108 mm[Hg] Payton Fernandes MD Work Phone: [facility] 10-23-2022 13:19-0400 Body temperature 98.5 [degF] [facility] 10-23-2022 13:19-0400 Diastolic blood pressure 72 mm[Hg] [facility] 10-23-2022 13:19-0400 Heart rate 88 /min [place] 10-23-2022 13:19-0400 Respiratory rate 16 /min [facility] 10-23-2022 13:19-0400 Systolic blood pressure 111 mm[Hg] [facility] 10-23-2022 04:05-0400 SaO2% (BldA) [Mass fraction] 96 % [facility] 10-21-2022 23:50-0400 Body height 175.26 cm [place] 10-21-2022 23:50-0400 Body mass index (BMI) [Ratio] 28.3 kg/m2 [facility] 10-21-2022 23:50-0400 Body weight 87.08 kg [place] 10-17-2022 14:30-0500 Body weight 84.37 kg Payton Fernandes MD Work Phone: [facility] 10-17-2022 14:30-0500 Diastolic blood pressure 62 mm[Hg] Payton Fernandes MD Work Phone: [facility] 10-17-2022 14:30-0500 Systolic blood pressure 118 mm[Hg] Payton Fernandes MD Work Phone: [facility] 10-10-2022 10:36-0500 Body weight 84.82 kg Payton Fernandes MD Work Phone: [facility] 10-10-2022 10:36-0500 Diastolic blood pressure 66 mm[Hg] Payton Fernandes MD Work Phone: [facility] 10-10-2022 10:36-0500 Systolic blood pressure 110 mm[Hg] Payton Fernadnes MD Work Phone: [facility] 10-08-2022 15:17-0500 Body height 172.7 cm Hannah Christian MD Work Phone: [facility] 10-08-2022 15:17-0500 Body weight 84.82 kg Hannah Christian MD Work Phone: [facility] 10-08-2022 15:17-0500 Diastolic blood pressure 60 mm[Hg] Hannah Christian MD Work Phone: [facility] 10-08-2022 15:17-0500 Systolic blood pressure 104 mm[Hg] Hannah Christian MD Work Phone: [facility] 10-02-2022 11:09-0500 Body weight 84.82 kg Payton Fernandes MD Work Phone: [facility] 10-02-2022 11:09-0500 Diastolic blood pressure 71 mm[Hg] Payton Fernandes MD Work Phone: [facility] 10-02-2022 11:09-0500 Systolic blood pressure 119 mm[Hg] Payton Fernandes MD Work Phone: [facility] 09-26-2022 14:36-0500 Body weight 83.01 kg Payton Fernandes MD Work Phone: [facility] 09-26-2022 14:36-0500 Diastolic blood pressure 62 mm[Hg] Payton Fernandes MD Work Phone: [facility] 09-26-2022 14:36-0500 Systolic blood pressure 122 mm[Hg] Payton Fernandes MD Work Phone: [facility] 09-10-2022 15:20-0500 Body weight 83.01 kg Payton Fernandes MD Work Phone: [facility] 09-10-2022 15:20-0500 Diastolic blood pressure 62 mm[Hg] Payton Fernandes MD Work Phone: [facility] 09-10-2022 15:20-0500 Systolic blood pressure 110 mm[Hg] Payton Fernandes MD Work Phone: [facility] 08-29-2022 15:28-0500 Body weight 85.73 kg Payton Fernandes MD Work Phone: [facility] 08-29-2022 15:28-0500 Diastolic blood pressure 72 mm[Hg] Payton Fernandes MD Work Phone: [facility] 08-29-2022 15:28-0500 Systolic blood pressure 126 mm[Hg] Payton Fernandes MD Work Phone: [facility] 08-28-2022 14:24-0500 Body height 172.[address] [facility] 08-28-2022 14:24-0500 Body weight 84.[address] [facility] 07-18-2022 14:43-0500 Body weight 84.37 kg Payton Fernandes MD Work Phone: [facility] 07-18-2022 14:43-0500 Diastolic blood pressure 64 mm[Hg] Payton Neyhart Fernandes MD Work Phone: [facility] 07-18-2022 14:43-0500 Systolic blood pressure 120 mm[Hg] Payton Fernandes MD Work Phone: [facility] 06-20-2022 14:42-0500 Body weight 83.92 kg Payton Fernandes MD Work Phone: [facility] 06-20-2022 14:42-0500 Diastolic blood pressure 62 mm[Hg] Payton Fernandes MD Work Phone: [facility] 06-20-2022 14:42-0500 Systolic blood pressure 112 mm[Hg] Payton Fernandes MD Work Phone: [facility] 05-10-2022 15:59-0400 Body weight 81.19 kg Payton Fernandes MD Work Phone: [facility] 05-10-2022 15:59-0400 Diastolic blood pressure 60 mm[Hg] Payton Fernandes MD Work Phone: [facility] 05-10-2022 15:59-0400 Systolic blood pressure 100 mm[Hg] Payton Fernandes MD Work Phone: [facility] 01-25-2022 16:00-0400 Body weight 73.48 kg Bailee Harvey APRN.CLOUD OPERATIONS ENGINEER Work Phone: [facility] 01-25-2022 16:00-0400 Diastolic blood pressure 74 mm[Hg] Bailee Harvey APRN.CLOUD OPERATIONS ENGINEER Work Phone: [facility] 01-25-2022 16:00-0400 Systolic blood pressure 118 mm[Hg] Bailee Harvey APRN.CLOUD OPERATIONS ENGINEER Work Phone: [facility] Encounters Encounter Date Encounter Type Care Provider Facility Start: 02-19-2025 End: 02-19-2025 [facility] Facility:[facility] Start: 01-21-2025 End: 01-21-2025 Specialty Pharmacy [facility] Comment on above: [facility] Neurology - Medi cation Refill ([facility]) Start: 11-30-2024 End: 11-30-2024 Specialty Pharmacy [facility] Comment on above: [facility] Neurology - Medi cation Refill ([facility] ) Start: 11-23-2024 End: 11-23-2024 [facility] Luci Ospina Work Phone: [facility] Comment on above: Multiple sclerosis ( HCC) (Primary Dx); Migraine with aura and without status migrainosus, not intractable; Immunosuppression due to drug therapy (HCC); MAMIE (generalized anxiety disorder) Start: 10-28-2024 End: 10-28-2024 Specialty Pharmacy [facility] Comment on above: [facility] Neurology - Medi cation Refill ([facility]pta ) Start: 09-25-2024 End: 09-25-2024 Specialty Pharmacy [facility] Comment on above: [facility] Neurology - Medi cation Refill (K[facility]pta) Start: 08-28-2024 End: 08-28-2024 Specialty Pharmacy [facility] Comment on above: [facility] Neurology - Medi cation Refill (Kesimpta) Start: 07-31-2024 End: 07-31-2024 Specialty Pharmacy [facility] Comment on above: [facility] Neurology - Medi cation Refill (Kesimpta) Start: 07-03-2024 End: 07-03-2024 Specialty Pharmacy [facility] Comment on above: [facility] Neurology - Medi cation Refill (Kesimpta) Start: 06-15-2024 End: 06-15-2024 Patient encounter status Jessica Solis MD Work Phone: [facility] Start: 06-15-2024 End: 06-15-2024 Periodic preventive med est patient 18-39 yrs Jessica Solis MD Work Phone: OB/Gynecology Comment on above: Encounter for gyneco logical examination (general) (routine) without abnormal findings (Primary Dx); Screening for cervical cancer; Encounter for screening for human papillomavirus (HPV) Start: 06-15-2024 End: 06-15-2024 ambulatory JESSICAELVIS SOLIS Facility:[facility] Start: 06-09-2024 End: 06-09-2024 ambulatory Maria Del Carmen [facility] Comment on above: [facility] Neurology - Init iation Of Therapy (Kesimpta ) Start: 06-08-2024 End: 06-08-2024 ambulatory LUCI OSPINA Facility:[facility] Start: 06-08-2024 End: 06-08-2024 Patient encounter procedure Luci Ospina DO Work Phone: [facility] Comment on above: Multiple sclerosis ( HCC) (Primary Dx); Encounter for tobacco use cessation counseling; Fatigue, unspecified type; MDD (major depressive disorder), recurrent episode, mild (HCC) Start: 05-28-2024 End: 07-25-2024 Telephone encounter Sebastien Jean Baptiste MD Work Phone: [facility] Comment on above: Peripheral vision is still a problem Start: 05-27-2024 ambulatory SEBASTIEN JEAN BAPTISTE Fa cility:[facility] Start: 05-27-2024 End: 05-27-2024 Evaluation and management of inpatient [facility]ri [facility] (1.5t) [facility] Comment on above: Demyelinating diseas e of central nervous system (HCC) [G37.9] Start: 05-13-2024 End: 05-16-2024 E-mail encounter from caregiver Luci Bharat DO Work Phone: [facility] Start: 05-13-2024 End: 05-16-2024 Patient encounter procedure Luci Ospina DO Work Phone: [facility] Comment on above: Appointment Request Start: 05-12-2024 End: 05-12-2024 Chart abstracting Sebastien Jean Baptiste MD Work Phone: [facility] Comment on above: Patient Update (Jesus rds request-[facility] ) Start: 05-11-2024 End: 05-11-2024 ambulatory Infusion Twin Chair 1 Work Phone: Neurology Comment on above: Optic neuritis (Prim rob Dx) Start: 05-11-2024 End: 05-11-2024 Patient encounter procedure Luci Bharat DO Work Phone: [facility] Comment on above: Demyelinating diseas e of central nervous system (HCC) (Primary Dx); Optic neuritis; Encounter for tobacco use cessation counseling; Fatigue, unspecified type; MDD (major depressive disorder), recurrent episode, mild (HCC) Start: 05-07-2024 End: 05-07-2024 ambulatory [facility] Facility:[facility] Start: 12-13-2023 Refill Payton Fernandes MD Work Phone: OB/Gynecology Comment on above: Refill Request Start: 11-13-2022 Telephone encounter Payton Fernandes MD Work Phone: OB/Gynecology Comment on above: Patient Update Start: 10-29-2022 End: 10-29-2022 Patient encounter procedure Payton Fernandes MD Work Phone: OB/Gynecology Comment on above: care and examination immediately after delivery (Primary Dx); History of gestational diabetes Start: 10-23-2022 ambulatory Juilet Marte gigi PAULACNM Work Phone: OB/Gynecology Comment on above: Ob Delivery Note Start: 10-22-2022 End: 10-23-2022 Evaluation and management of inpatient [facility] Start: 10-17-2022 End: 10-17-2022 Patient encounter procedure Payton Fernandes MD Work Phone: OB/Gynecology Comment on above: Gestational diabetes mellitus, class A1 (Primary Dx); Excessive growth affecting management of in third trimester, single or unspecified fetus; 36 weeks gestation of Start: 10-10-2022 End: 10-10-2022 Patient encounter procedure Payton Fernandes MD Work Phone: OB/Gynecology Comment on above: Excessive grow th affecting management of in third trimester, single or unspecified fetus (Primary Dx); Gestational diabetes mellitus, class A1; Rubella non-immune status, antepartum; 35 weeks gestation of Start: 10-08-2022 End: 10-08-2022 Patient encounter procedure Hannah Christian MD Work Phone: Maternal Medicine Comment on above: Encounter for ultras ound to assess growth (Primary Dx); Diet controlled gestational diabetes mellitus (GDM) in third trimester; 35 weeks gestation of Start: 10-04-2022 ambulatory Payton Fernandes MD Work Phone: OB/Gynecology Comment on above: FMLA Start: 10-02-2022 End: 10-02-2022 Patient encounter procedure Payton Fernandes MD Work Phone: OB/Gynecology Comment on above: Abdominal pain durin g in third trimester (Primary Dx); Gestational diabetes mellitus, class A1; 34 weeks gestation of Start: 10-01-2022 ambulatory Payton Fernandes MD Work Phone: OB/Gynecology Comment on above: Pulled muscle in my stomach. Start: 09-28-2022 ambulatory Payton Fernandes MD Work Phone: OB/Gynecology Comment on above: FMLA Start: 09-28-2022 E-mail encounter fro m caregiver Payton Fernandes MD Work Phone: [facility] Start: 09-26-2022 End: 09-26-2022 Patient encounter procedure Payton Fernandes MD Work Phone: OB/Gynecology Comment on above: Gestational diabetes mellitus, class A1 (Primary Dx); Excessive growth affecting management of in third trimester, single or unspecified fetus; 33 weeks gestation of Start: 09-11-2022 Telephone encounter Payton Fernandes MD Work Phone: OB/Gynecology Comment on above: Follow Up Start: 09-10-2022 End: 09-10-2022 Patient encounter procedure Aminata Bradshaw MD Work Phone: Maternal [facility] Comment on above: Diet controlled gest ational diabetes mellitus (GDM) in third trimester (Primary Dx); 31 weeks gestation of Diet controlled gest ational diabetes mellitus (GDM) in third trimester (Primary Dx); Excessive growth affecting management of in third trimester, single or unspecified fetus; 31 weeks gestation of Start: 09-06-2022 End: 09-06-2022 ambulatory Charles Kaur PT Work Phone: [facility] Comment on above: Numbness and tinglin g of foot; 30 weeks gestation of Start: 08-29-2022 End: 08-29-2022 Patient encounter procedure Payton Fernandes MD Work Phone: OB/Gynecology Comment on above: Diet controlled gest ational diabetes mellitus (GDM) in third trimester (Primary Dx); Anemia during in third trimester; 29 weeks gestation of ; Visit for screening Start: 08-28-2022 End: 08-28-[address] [facility] Comment on above: Dietary counseling ( Primary Dx); Abnormal glucose complicating Start: 08-28-2022 End: 08-28-2022 Telemedicine consultation with patient Brenda Swenson RD [facility] Start: 08-23-2022 ambulatory Payton Fernandes MD Work Phone: OB/Gynecology Comment on above: Super swollen Start: 08-22-2022 End: 08-22-2022 Nursing evaluation of patient and report Alexsander Garcia RN Work Phone: Endocrinology Comment on above: Abnormal glucose com plicating Start: 08-20-2022 Refill Payton Fernandes MD Work Phone: OB/Gynecology Start: 08-16-2022 Telephone encounter Payton Fernandes MD Work Phone: OB/Gynecology Comment on above: abnormal glucose Start: 08-07-2022 Telephone encounter Payton Fernandes MD Work Phone: OB/Gynecology Comment on above: Breast pump Start: 07-18-2022 End: 07-18-2022 Patient encounter procedure Payton Fernandes MD Work Phone: OB/Gynecology Comment on above: Encounter for superv ision of other normal in second trimester (Primary Dx); 23 weeks gestation of Start: 06-20-2022 End: 06-20-2022 Patient encounter procedure Payton Fernandes MD Work Phone: OB/Gynecology Comment on above: Encounter for superv ision of other normal in second trimester (Primary Dx); Rubella non-immune status, antepartum; 19 weeks gestation of Start: 05-10-2022 End: 05-10-2022 Patient encounter procedure Aminata Bradshaw MD Work Phone: Maternal Medicine Comment on above: Encounter for (NT) n uchal translucency scan (Primary Dx); 13 weeks gestation of Encounter for superv ision of other normal in second trimester (Primary Dx); Encounter for screening of mother; 13 weeks gestation of Start: 05-01-2022 Telephone encounter Payton Fernandes MD Work Phone: OB/Gynecology Comment on above: Patient Update Start: 04-03-2022 Telephone encounter Payton Fernandes MD Work Phone: Obstetrics/Gynecology Comment on above: Forms Start: 03-22-2022 End: 03-22-2022 Nursing evaluation of patient and report Nurse Pnradha [facility] Work Phone: OB/Gynecology Comment on above: Hx LEEP (loop electr osurgical excision procedure), cervix, , first trimester (Primary Dx); History of depression, currently ; Nausea and vomiting in ; Medication exposure during first trimester of ; Patient request for diagnostic testing Start: 03-22-2022 End: 03-22-2022 Patient requested procedure Nurse Pnradha [facility] Work Phone: OB/Gynecology Start: 02-05-2022 E-mail encounter chai pleitez caregiver [facility] Start: 02-05-2022 Patient encounter procedure [facility] OB/Gynecology Comment on above: appointment Start: 01-30-2022 Telephone encounter Payton Matt Fernandes MD Work Phone: OB/Gynecology Comment on above: Future Appointment Start: 01-25-2022 End: 01-25-2022 Patient encounter procedure Bailee Harvey CHANTELLE.CLOUD OPERATIONS ENGINEER Work Phone: OB/Gynecology Comment on above: Late menses (Primary Dx) Start: 01-06-2013 End: 11-28-2022 Patient requested procedure Payton Fernandes MD Work Phone: [facility] Procedures Date Procedure Procedure Detail Performing Clinician Start: 05-27-2024 Mri spinal canal cer vical w/o & w/contr matrl Sebastien Jean Baptiste MD Work Phone: Start: 10-17-2022 URINE OB DIP B/O Payton Denisa Fernandes MD Work Phone: Start: 10-10-2022 URINE OB DIP B/O Payton Denisa Fernandes MD Work Phone: Start: 10-08-2022 Us preg uterus after 1st trimest 08/12 gestation Payton Fernandes MD Work Phone: Start: 10-02-2022 Urnls dip stick/tabl et rgnt auto w/o microscopy Payton Denisa Fernandes MD Work Phone: Start: 10-02-2022 URINE OB DIP B/O Payton Denisa Fernandes MD Work Phone: Start: 09-26-2022 URINE OB DIP B/O Payton Denisa Fernandes MD Work Phone: Start: 09-10-2022 URINE OB DIP B/O Payton Denisa Fernandes MD Work Phone: Start: 09-10-2022 Us preg uterus after 1st trimest 08/12 gestation Payton Fernandes MD Work Phone: Start: 08-29-2022 URINE OB DIP B/O Payton Denisa Fernandes MD Work Phone: Start: 07-18-2022 URINE OB DIP B/O Payton Fernandes MD Work Phone: Start: 05-10-2022 URINE OB DIP B/O Payton Fernandes MD Work Phone: Start: 05-10-2022 Us nuchal translucency 1st gestation Payton Fernandes MD Work Phone: Start: 01-25-2022 Urine test visual color cmprsn meths Bailee Harvey HVAC ESTIMATOR.CLOUD OPERATIONS ENGINEER Work Phone: Plan of Treatment Date Care Activity Detail Author Start: 08-15-2032 Urine microalbumin profile [facility] Start: 11-29-2027 Screening for malign ant neoplasm of cervix [facility] Start: 09-19-2026 HPV TESTING HPV TESTING [facility] Start: 09-19-2026 PAP TESTING PAP TESTING [facility] Start: 06-16-2025 End: 06-16-2025 Patient encounter procedure 06/16/2025 1:20 PM EST Office Visit OB/Gynecology [address] [place], [place] [id number] Payton Washington MD [address] [place] [address] Annual OB/Gynecology Comment on above: Annual Start: 06-15-2025 Screening for malign ant neoplasm of cervix Cervical Cancer Screening [facility] Start: 04-12-2025 Influenza vaccination Influenz a Vaccine (Season Ended) [facility] Start: 01-26-2025 End: 01-26-2025 Specialty Pharmacy 01/26/2025 8:15 AM EDT Specialty Pharmacy [facility] [address] [place] [address] [id number] [place] [address] Pharmacist, [address]ty[address] [place] [address] Refill - [facility]im[facility] (1st every month) - new ins? sent [facility] 01/21 [facility] Comment on above: Refill - K[facility]impta (1 st every month) - new ins? sent [facility] 01/21 Start: 12-24-2024 End: 12-24-2024 Patient encounter procedure 12/24/2024 3:30 PM EDT Appointment Radiology [address] [place] [address] Multiple sclerosis (HCC) [G35] MRI BRAIN WO IVCON Radiology Comment on above: Multiple sclerosis ( HCC) [G35] MRI BRAIN WO IVCON Start: 12-07-2024 End: 12-23-2025 MR Brain WO contrast MRI BRAIN WO IVCON Radiology Routine Expected: 12/07/2024 (Approximate), Expires: 12/23/2025 [facility] Work Phone: Comment on above: Expected: 12/07/2024 (Approximate), Expires: 12/23/2025 Start: 12-03-2024 End: 12-03-2024 Specialty Pharmacy 12/03/2024 10:00 AM EDT Specialty Pharmacy [facility] [address] [address] Pharmacist, [facility] [address] [place] [address] [place] [address] Refill - Kesimpta ( every month) - lv 11/30 [facility] Comment on above: Refill - Kesimpta (1 st every month) - lvm 11/30 Start: 11-30-2024 End: 11-30-2024 Specialty Pharmacy 11/30/2024 10:15 AM EDT Specialty Pharmacy [facility] [address] [address] Pharmacist, [facility] [address] [place] [address] [place] [address] Refill - Kesimpta (1st every month) - [facility] Comment on above: Refill - Kesimpta ( every month) - Start: 11-23-2024 End: 11-23-2024 Follow-up encounter 11/23/2024 2:30 PM EDT [facility] [address] [place] [address] Gregorio OspinaandDO julianna [address] [place] [address] follow up [facility] Comment on above: follow up Start: 09-29-2024 End: 09-29-2024 Specialty Pharmacy 09/29/2024 10:00 AM EST Specialty Pharmacy [facility] [address] [place] [phone] Pharmacist, [facility] [address] [place] [address] [place] [address] Refill - Kesimpta ( every month) - [facility] 09/25 [facility] Comment on above: Refill - Kesimpta (2 9th every month) - [facility] 09/25 Start: 09-25-2024 End: 09-25-2024 Specialty Pharmacy 09/25/2024 10:00 AM EST [facility]ty [facility] [address] [place] [id number] Pharmacist, [facility] [address] [place] [address] [place] [address] Refill - Kesimpta ( every month) [facility] Comment on above: Refill - Kesimpta (2 9th every month) Start: 08-31-2024 End: 08-31-2024 Specialty Pharmacy 08/31/2024 9:00 AM EST [facility]ty [facility] [address] [place] [phone] Pharmacist, [facility] [address] [place] [address] [place] [address] Refill - Kesimpta ( every month) vacation, needs by 09/04/24 [facility] Comment on above: Refill - Kesimpta (2 9th every month) vacation, needs by 09/04/24 Start: 08-18-2024 Urine microalbumin profile DTAP,TDAP,TD (3 - Td or Tdap) [facility] Start: 07-31-2024 End: 07-31-2024 Specialty Pharmacy 07/31/2024 10:00 AM EST Specialty Pharmacy [facility] [address] [place] [id number] Pharmacist, [facility] [address] [place] [address] [place] [address] Refill - Kesimpta ( every month) - [facility] Comment on above: Refill - Kesimpta (2 9th every month) - Start: 07-03-2024 End: 07-03-2024 Specialty Pharmacy 07/03/2024 10:00 AM EST Specialty Pharmacy [facility] [address] [place] [id number] Pharmacist, [facility] [address] [place] [id number] Refill - Kesimpta [facility] Comment on above: Refill - Kesimpta Start: 06-25-2024 End: 06-25-2024 ambulatory 06/25/2024 3:45 PM EST OT/PT/Speech Visit [facility] [address] [place] [address] Wilda Acosta, PT [address] [place], [place] [id number] MS [facility] Comment on above: MS Start: 06-17-2024 End: 06-17-2024 ambulatory 06/17/2024 3:00 PM EST OT/PT/Speech Visit [facility] [address] [place], [place] [id number] Karyn Dubose, OTR/L [address] [place], [place] [id number] My MS [facility] Comment on above: My MS Start: 06-15-2024 End: 06-15-2024 Patient encounter procedure 06/15/2024 3:40 PM EST Office Visit OB/Gynecology [address] [place], [place] [id number] Jessica Solis MD [address] [place], [place] [phone] annual OB/Gynecology Comment on above: annual Start: 06-08-2024 End: 06-08-2024 Patient encounter procedure 06/08/2024 3:30 PM EDT Office Visit [facility] [address] [place] [address] Luci Ospina DO [address] [place] [id number] Follow up [facility] Comment on above: Follow up Start: 05-27-2024 End: 05-27-2024 Patient encounter procedure 05/27/2024 3:00 PM EDT Appointment [facility] [address] [place], [place] [id number] Demyelinating disease of central nervous system (HCC) [G37.9] [facility] Comment on above: Demyelinating diseas e of central nervous system (HCC) [G37.9] Start: 05-25-2024 End: 06-10-2025 MR Cervical spine WO and W contrast IV MRI CERVICAL SPINE WO/W IVCON Radiology Routine Demyelinating disease of central nervous system (HCC) Expected: 05/25/2024 (Approximate), Expires: 06/10/2025 [facility] Comment on above: Expected: 05/25/2024 (Approximate), Expires: 06/10/2025 Start: 05-18-2024 End: 05-18-2024 Patient encounter procedure 05/18/2024 3:30 PM EDT Office Visit [facility] [address] [place] [address] Jeny Velasquez, OD [address] [place] [address] part of vision is hazy in re/[place]- [facility] Comment on above: part of vision is altman zy in re[place]- Start: 05-11-2024 End: 08-10-2024 25-hydroxyvitamin D3 [Mass/volume] in Serum or Plasma [facility] Work Phone: Comment on above: Expected: 05/11/2024 (Approximate), Expires: 08/10/2024 Start: 05-11-2024 End: 08-10-2024 BLOOD TB SCREEN [facility] Comment on above: Expected: 05/11/2024 (Approximate), Expires: 08/10/2024 Start: 05-11-2024 End: 08-10-2024 Chronic hepatitis differentiation between hepatitis B and C virus panel - Serum or Plasma [facility] Comment on above: Expected: 05/11/2024 (Approximate), Expires: 08/10/2024 Start: 05-11-2024 End: 08-10-2024 ANIMAL PHYSIOLOGY TEACHER DEMYELINATING DISEASE EVALUATION, SERUM [facility] Comment on above: Expected: 05/11/2024 , Expires: 08/10/2024 Start: 05-11-2024 End: 08-10-2024 Cobalamin (Vitamin B12) [Mass/volume] in Serum or Plasma [facility] Comment on above: Expected: 05/11/2024 (Approximate), Expires: 08/10/2024 Start: 05-11-2024 End: 08-10-2024 HIV 1+2 Ab [Presence] in Serum or Plasma by Immunoassay [facility] Comment on above: Expected: 05/11/2024 (Approximate), Expires: 08/10/2024 Start: 05-11-2024 End: 08-10-2024 IMMUNOGLOBULINS,IGG,IGA, IGM [facility] Comment on above: Expected: 05/11/2024 (Approximate), Expires: 08/10/2024 Start: 05-11-2024 End: 08-10-2024 JCV ANTIBODY & INDEX WITH REFLEX [facility] Comment on above: Expected: 05/11/2024 (Approximate), Expires: 08/10/2024 Start: 05-11-2024 End: 08-10-2024 VARICELLA ZOSTER IGG [facility] Comment on above: Expected: 05/11/2024 (Approximate), Expires: 08/10/2024 Start: 05-04-2024 End: 05-04-2024 Patient encounter procedure 05/04/2024 2:30 PM EDT Office Visit OB/Gynecology [address] [place], [place] [id number] Payton Washington MD [address] [place] [address] annual OB/Gynecology Comment on above: annual Start: 04-12-2024 Covid-19 Vaccine ( season) Covid-19 Vaccine ( season) [facility] Start: 04-12-2024 Influenza vaccination [facility] Start: 11-29-2023 Screening for malign ant neoplasm of cervix Cervical Cancer Screening [facility] Start: 08-12-2023 Behavioral Health Screening Behavioral Health Screening [facility] Start: 04-12-2023 Covid-19 Vaccine ( season) Covid-19 Vaccine ( season) [facility] Start: 04-12-2023 Influenza vaccination INFLUENZ A (Season Ended) [facility] Start: 10-29-2022 End: 12-29-2022 GLUC ROGE, 2-HR NON-GEST, 75 GM, FASTING GLUC ROGE, 2-HR NON-GEST, 75 GM, FASTING Lab Routine History of gestational diabetes Expected: 10/29/2022, Expires: 12/29/2022 [facility] Work Phone: Comment on above: Expected: 10/29/2022 , Expires: 12/29/2022 Start: 10-23-2022 Patient discharge [facility] Start: 10-22-2022 Administration of medication [facility] Start: 10-22-2022 Application of ice collar, cap or bag [facility] Start: 10-22-2022 Catheterization of vein [facility] Start: 10-22-2022 Introduction of urin rob catheter [facility] Start: 10-22-2022 Measuring intake and output [facility] Start: 10-22-2022 Notification of physician [facility] Start: 10-22-2022 Procedure discontinued [facility] Start: 10-22-2022 Provision of activit y privileges [facility] Start: 10-22-2022 Vital signs measurements [facility] Start: 10-22-2022 [facility] Start: 10-22-2022 Admission procedure [facility] Start: 10-22-2022 Consultation [facility] Start: 09-10-2022 End: 09-10-2023 OBSTETRIC ULTRASOUND [facility] OBSTETRIC ULTRASOUND [facility] Anc Imaging Routine Diet controlled gestational diabetes mellitus (GDM) in third trimester Expected: 09/10/2022, Expires: 09/10/2023 [facility] Work Phone: Comment on above: Expected: 09/10/2022 , Expires: 09/10/2023 Start: 08-29-2022 End: 08-29-2023 OBSTETRIC ULTRASOUND WHI OBSTETRIC ULTRASOUND I Anc Imaging Routine Diet controlled gestational diabetes mellitus (GDM) in third trimester 29 weeks gestation of Expected: 08/29/2022, Expires: 08/29/2023 [facility] Work Phone: Comment on above: Expected: 08/29/2022 , Expires: 08/29/2023 Start: 08-12-2022 DEPRESSION ASSESSMENT DEPRESSION ASS ESSMENT [facility] Start: 07-18-2022 End: 09-17-2022 CBC W Auto Differential panel - Blood CBC + DIFF Lab Routine 23 weeks gestation of Expected: 07/18/2022, Expires: 09/17/2022 [facility] Work Phone: Comment on above: Expected: 07/18/2022 , Expires: 09/17/2022 Start: 07-18-2022 End: 09-17-2022 GEST GLUC SCREEN, 1-HR, 50 GM, NON-FASTING GEST GLUC SCREEN, 1-HR, 50 GM, NON-FASTING Lab Routine 23 weeks gestation of Expected: 07/18/2022, Expires: 09/17/2022 [facility] Work Phone: Comment on above: Expected: 07/18/2022 , Expires: 09/17/2022 Start: 07-18-2022 End: 09-17-2022 SYPHILIS TOTAL W/REFLEX SYPHILIS TOTAL W/REFLEX Lab Routine 23 weeks gestation of Expected: 07/18/2022, Expires: 09/17/2022 [facility] Work Phone: Comment on above: Expected: 07/18/2022 , Expires: 09/17/2022 Start: 05-24-2022 End: 07-19-2022 SEQUENTIAL SCRN SCND TRIMESTER SEQUENTIAL SCRN SCND TRIMESTER Lab Routine Encounter for screening of mother Expected: 05/24/2022 (Approximate), Expires: 07/19/2022 [facility] Work Phone: Comment on above: Expected: 05/24/2022 (Approximate), Expires: 07/19/2022 Start: 05-10-2022 End: 07-10-2022 SEQUENTIAL SCRN FRST TRIMESTER [facility] Work Phone: Comment on above: Expected: 05/10/2022 , Expires: 07/10/2022 Start: 04-12-2022 Influenza vaccination [facility] Start: 08-12-2021 DEPRESSION ASSESSMENT DEPRESSION ASS ESSMENT [facility] Start: 11-17-2007 Pneumococcal vaccination Pneum ococcal Vaccine (1 of 2 - PCV) [facility] Start: 11-17-2007 Shingrix Vaccine (1 of 2) Shingrix Vaccine (1 of 2) [facility] Start: 2006 Anxiety Screening Anxiety Screening [facility] Start: 2006 Depression Screening Depression Scre ening [facility] Start: 02-10-2003 Hepatitis B Vaccine (2 of 3 - 3-dose series) Hepatitis B Vaccine (2 of 3 - 3-dose series) [facility] Start: 2000 Adult depression screening assessment DEPRESSION SCREENING [facility] Start: 1994 PNEUMOCOCCAL (1 - PCV) PNEUMOCOCCAL (1 - PCV) [facility] Start: 1994 Pneumococcal vaccination Pneum ococcal Vaccine (1 of 2 - PCV) [facility] Start: 1993 COVID-19 VACCINE (#1) COVID-19 VACCI NE (#1) [facility] Start: 05-18-1989 COVID-19 VACCINE (#1) COVID-19 VACCI NE (#1) [facility] Start: 1988 HEPATITIS B (1 of 3 - 3-dose series) HEPATITIS B (1 of 3 - 3-dose series) [facility] Bacteria identified in Urine by Culture URINE CULTURE Microbiology Routine 34 weeks gestation of Abdominal pain during in third trimester Gestational diabetes mellitus, class A1 10/02/2022 11:48 AM EST [facility] Work Phone: Insertion intrauteri ne device iud INSERT INTRAUTERINE DEVICE Procedures Routine Encounter for IUD insertion 1 Occurrences starting 11/14/2022 [facility] Work Phone: Comment on above: 1 Occurrences starti ng 11/14/2022 OBSTETRIC ULTRASOUND [facility] OBSTETR IC ULTRASOUND [facility] Anc Imaging Routine Encounter for supervision of other normal in second trimester Ordered: 05/10/2022 [facility] Work Phone: Comment on above: Ordered: 05/10/2022 PAP TEST PAP TEST Lab Karthik galdamez Screening for cervical cancer Encounter for screening for human papillomavirus (HPV) 06/15/2024 3:11 PM EST [facility] Work Phone: Patient Education After a Vaginal [facility] Work Phone: Patient referral [facility] Work Phone: PT PLAN OF CARE CERTIFICATION PT PLAN OF CARE CERTIFICATION Procedures Routine Numbness and tingling of foot 30 weeks gestation of Ordered: 09/06/2022 [facility] Work Phone: Comment on above: Ordered: 09/06/2022 ROUTINE, GR OUP B STREP PCR ROUTINE, GROUP B STREP PCR Microbiology Routine 36 weeks gestation of 10/17/2022 2:55 PM EST [facility] Work Phone: URINE OB DIP B/O URINE OB DIP B/ O Lab Routine 19 weeks gestation of Ordered: 06/20/2022 [facility] Work Phone: Comment on above: Ordered: 06/20/2022 [facility] Immunizations Immunization Date Immunization Notes Care Provider Fa cili 10-22-2022 measles, mumps and rubella virus vaccine [facility] 08-15-2022 tetanus toxoid, redu milad diphtheria toxoid, and acellular pertussis vaccine, adsorbed Payton Fernandes MD Work Phone: [facility] 08-18-2014 tetanus toxoid, redu milad diphtheria toxoid, and acellular pertussis vaccine, adsorbed Bailee Harvey HVAC ESTIMATOR.CLOUD OPERATIONS ENGINEER Work Phone: [facility] 05-26-2014 influenza, seasonal, injectable Bailee Harvey HVAC ESTIMATOR.CLOUD OPERATIONS ENGINEER Work Phone: [facility] 05-26-2014 influenza virus vaccine, unspecified formulation Payton Fernandes MD Work Phone: [facility] 08-06-2013 pneumococcal vaccine , unspecified formulation [place] 05-26-2013 influenza virus vaccine, unspecified formulation Bailee Harvey HVAC ESTIMATOR.CLOUD OPERATIONS ENGINEER Work Phone: [facility] 05-26-2013 tetanus toxoid, redu milad diphtheria toxoid, and acellular pertussis vaccine, adsorbed Bailee Harvey HVAC ESTIMATOR.CLOUD OPERATIONS ENGINEER Work Phone: [facility] 04-26-2013 Influenza virus vaccine [facility] 01-13-2003 hepatitis B vaccine, pediatric or pediatric/adolescent dosage Jessica Solis MD Work Phone: [facility] 01-13-2003 measles, mumps and rubella virus vaccine Jessica Solis MD Work Phone: [facility] 01-13-2003 TD(adult) unspecifie d formulation Jessica Solis MD Work Phone: [facility] 04-13-1996 diphtheria, tetanus toxoids and acellular pertussis vaccine, unspecified formulation Jessica Solis MD Work Phone: [facility] 05-27-1991 haemophilus influenz ae type b vaccine, conjugate unspecified formulation Jessica Solis MD Work Phone: [facility] 03-11-1991 diphtheria, tetanus toxoids and acellular pertussis vaccine, unspecified formulation Jessica Solis MD Work Phone: [facility] 03-11-1991 measles, mumps and rubella virus vaccine Jessica Solis MD Work Phone: [facility] 03-11-1991 trivalent poliovirus vaccine, live, oral Jessica Solis MD Work Phone: [facility] 12-18-1989 diphtheria, tetanus toxoids and pertussis vaccine Jessica Solis MD Work Phone: [facility] 07-24-1989 diphtheria, tetanus toxoids and pertussis vaccine Jessica Solis MD Work Phone: [facility] 07-24-1989 trivalent poliovirus vaccine, live, oral Jessica Solis MD Work Phone: [facility] 05-15-1989 diphtheria, tetanus toxoids and pertussis vaccine Jessica Solis MD Work Phone: [facility] 05-15-1989 trivalent poliovirus vaccine, live, oral Jessica Solis MD Work Phone: [facility] Payers Date Payer Category Payer Self-pay 2022 Medicaid [id number] 2019 Medicaid [place] [employer] [employer] [id number] 2019-Present [phone] [facility] [address] [place] [address] Medicaid [id number] 2019 Medicaid [id number] 2013 Unknown MONY [id number] Unknown [id number] Social History Date Type Detail Facility Start: 06-18-2014 [facility] Start: 03-17-2009 End: 03-17-2020 History of tobacco use Cigarette Smoker [facility] Start: 06-18-2014 End: 12-24-2024 Cigarettes smoked current (pack per day) - Reported 0.5 [facility] Start: 06-18-2014 End: 05-11-2024 Tobacco use and exposure Smokeless tobacco non-user [facility] Start: 01-25-2022 End: 06-15-2024 Alcohol intake Current non-drinker of alcohol (finding) [facility] Start: 1990 Sex Assigned At Not on file [facility] Start: 01-12-2022 End: 04-02-2022 Exposure to SARS-CoV-2 (event) Not sure [facility] Start: 03-22-2022 End: 05-11-2024 Tobacco smoking status NHIS Ex-smoker [facility] Work Phone: Start: 03-17-2009 End: 03-17-2020 History of tobacco use Current smoker [facility] Work Phone: Start: 03-22-2022 Education 13 [facility] Start: 02-17-2022 [facility] Start: 1990 [facility] Start: 10-22-2022 [facility] if ever smoked [facility] Start: 07-27-2015 Rare [place] [facility] Start: 07-27-2015 None [place] [facility] Start: 07-27-2015 Spouse/ Signif icant Other [facility] Start: 11-28-2022 End: 12-24-2024 Tobacco use panel [facility] National Score (1-10 0), lower number is lower risk 56 [facility] Start: 05-10-2022 Gender identity Identifies as female gender (finding) [facility] Start: 05-10-2022 Sexual orientation Heterosexual (emmanuel cuello) [facility] Medical Equipment Procedure Code Equipment Code Equipment Original Text Equipment Identifier Dates [id number] Start: 08-20-2022 End: 05-11-2024 Comment on above: 1 Strip four times d aily. Use as instructed 1 Each four times da milan. Use as instructed Goals Date Patient Goal Desired Activity /State Functional Status Date Assessment Result Facility 01-25-2015 Are you deaf, or do you have serious difficulty hearing No 01/25/2015 11:24 AM Kiesha Ruth RN No [facility] 01-25-2015 Are you blind, or do you have serious difficulty seeing, even when wearing glasses No 01/25/2015 11:24 AM Kiesha Ruth, SONDRA No [facility] 01-25-2015 Do you have serious difficulty walking or climbing stairs No 01/25/2015 11:24 AM Kiesha Ruth RN No [facility] 01-25-2015 Do you have difficul ty dressing or bathing No 01/25/2015 11:24 AM Kiesha Ruth, SONDRA No [facility] 01-25-2015 Because of a physica l, mental, or emotional condition, do you have difficulty doing errands alone such as visiting a physician's office or shopping No 01/25/2015 11:24 AM Kiesha Ruth RN [facility] Mental Status Date Assessment Result Facility 01-25-2015 Because of a physica l, mental, or emotional condition, do you have serious difficulty concentrating, remembering, or making decisions No 01/25/2015 11:24 AM Kiesha Ruth RN No [facility] Clinical Notes 05-26-2013 to 01-21-2025 Patient InstructionsAbSebastien cruz MD - 11/23/2024 2:30 PM Cb Caban - 10/28/2024 12:58 PM Kailyn Murdock - 08/28/2024 11:56 AM Milagros Glasgow [facility] - 07/31/2024 11:40 AM EST Note Date & Type Note Facility 01-21-2025 Note HNO ID: [id number] Author: ?, ?, ? Service: ? Author Type: ? Type: Progress Notes Filed: 02/05/2025 12:08 Note Text: Unable to reach patient for refill of Kesimpta after 4 call attempts. Pt last refilled medication on 12/03. Will schedule future follow-up in 2 weeks from today's date. Office will be updated if future attempts are unsuccessful. Shanell Nava [facility], Neurology, Cardiology, AND Infectious Disease P: [phone] F: [phone] [facility] 01-21-2025 Note HNO ID: [id number] Author: MARIA DEL CARMEN JENNINGS [facility] Service: ? Author Type: ? Type: Progress Notes Filed: 02/23/2025 08:52 Note Text: Discontinuation Assessment completed for the medication Kesimpta . Patient no longer requires [facility] Patient Management Program Services at this time for this medication. Latrice Rodriguez [facility], Neurology, Cardiology, AND Infectious Disease P: [phone] F: [phone] Clinical pharmacist has reviewed and attested to certified pharmacy tech documentation of medication discontinuation and/or prescription transfer to alternative pharmacy. [facility] Compass Lorna episode has been completed 02/23/2025 Maria Del Carmen Jennings, MSc, MS, BCPS, BCMTMS, [facility] Clinical Specialty Pharmacist [facility] 11-30-2024 Note HNO ID: [id number] Author: MARIA DEL CARMEN JENNINGS [facility] Service: ? Author Type: ? Type: Progress Notes Filed: 12/03/2024 13:42 Note Text: [facility] Specialty Refill Assessment Medication(s): Kesimpta Patient's current medication list and adherence status to current therapy were reviewed by Specialty Pharmacy clinical pharmacist to identify any new drug interactions or non-compliance to therapy. Therapy continues to be appropriate for disease, patient response, and medical condition. Verification of therapeutic benefit and effectiveness with current therapy was completed. Adverse events, barriers in adherence, and side effects were assessed and addressed if applicable. Will proceed with refill with no changes in therapy - patient progressing towards achieving therapeutic goals based on medication-specific laboratory parameters, disease state markers and outcomes. Office/provider notes have been reviewed prior to dispensing the medication. The patient is clinically stable and is achieving their treatment goals as per the most recent Neurology encounter[11/23/2024] Maria Del Carmen Jennings MSc, MS, BCPS, BCMTMS, [facility] Clinical Specialty Pharmacist [facility] Police Inspector Assessment Patient confirmed: Yes Med/dose confirmed: Yes Supplies needed: No supplies needed Missed doses: No Estimated days supply on hand: 0 Next cycle/dose due: 12/10/24 Copay amount: 0 Delivery method: FedEx Signature required: Waived on patient request Delivery address: [address] [place] [address] [address] [id number] Delivery date: 12/08/24 Questions or concerns for the pharmacist?: No Did you have any side effects believed to be related to this medication, that resulted in hospitalization?: No Current Outpatient Medications on File Prior to Visit Medication Sig magnesium oxide (MAG-OX) 400 mg (241.3 mg magnesium) tablet Take 1 tablet by mouth once daily. DULoxetine (CYMBALTA) 60 mg capsule Take 30 mg daily ( 1/2 tablet ) for 1 week followed by 1 full 60 mg tablet everyday thereafter dovnkbia-bqx-naoz-folic-vit K (CENTRUM) 8 mg-400 mcg- 10 mcg chewable tablet Take 1 tablet by mouth once daily. cyanocobalamin/folic acid (VITAMIN J05-RRDEH ACID) 500-400 mcg tab Take by mouth. Drospirenone-Ethinyl Estradiol (KENNY, 28,) 3-0.02 mg per tablet Take 1 tablet by mouth once daily. Drospirenone-Ethinyl Estradiol (KENNY 28) 3-0.02 mg per tablet Take 1 tablet by mouth once daily. ofatumumab (KESIMPTA PEN) 20 mg/0.4 mL injection Inject 1 pen (0.4 mL) under the skin once a month ofatumumab (KESIMPTA PEN) 20 mg/0.4 mL injection Inject 1 pen (0.4mL) under the skin once monthly beginning on week 8. dextroamphetamine-amphetamine (ADDERALL) 5 mg tablet Take 5 mg by mouth once daily. buPROPion SR (WELLBUTRIN SR) 150 mg 12 hr tablet Take 150 mg by mouth two times a day. amphetamine-dextroamphetamine XR (ADDERALL XR) 25 mg capsule Take 25 mg by mouth once daily. iv contrast (will be provided with radiology test) MRI CSP Inject, intravenously, once for 1 dose. No IV access, insert saline lock prior to the beginning of sedation, infusion, injection of imaging exam. Discontinue saline lock post exam. If Pt. has a central line or IVAD, may access for administration according to line specific nursing protocol. Once exam is complete flush line and de-access according to line specific nursing protocol in the MR contrast administration guidelines link. cholecalciferol (VITAMIN D-3) 5,000 unit tab Take 1 tablet by mouth once daily. No current facility-administered medications on file prior to visit. [facility] RX SPECIALTY CLINICAL ASSESSMENT - NEUROLOGY V7: Assessment to use: Refill Assessment of injection issues or necrosis at injection sites: Yes Screening for infection: Yes Drug specific assessments, as appropriate: Yes Current medication list (including drug interaction assessment): Yes Experience of adverse reactions to the medication: Yes Date of influenza vaccination reminder: 06/10/2024 Date of most recent vaccination assessment: 06/10/2024 Treatment Plan Information: Kesimpta (ofatumumab) Anti-CD20 monoclonal antibody Injection training video [email or web address] Alongside Kesimpta Savings and Support [phone] 20mg sc once weekly for three doses (weeks 0,1,and 2) then 20mg once monthly starting at week 4 If you miss a dose after first 3 weeks, take missed dose and start new schedule based on when that dose was given. Can be stored at room temperature up to 7 days. May be returned to refrigerator and used within 7 days. Patients who can become should use effective contraception during therapy and for 6 months after the last dose of ofatumumab. Monitoring Serum immunoglobulins in pt with recurrent infections HBV/TB screening before initiation S/SX PML (altered mental status, motor deficits, ataxia, vision dis (more content not included)... [facility] 11-23-2024 Instructions Luci Ospina DO - 11/23/2024 3:02 PM EDT Kim Westfall, Thank you for coming in today. We will plan on following up after completion of your MRI brain. You may call [phone] ext. [phone], to schedule these. You may get imaging done at any [facility] Facility. We have imaging locations from the far East side of [place] to the far [place] side and throughout all of [place] including [place] [facility] [place] > Please go to [email or web address] to see where the nearest imaging location is near you. Based on your vision changes it sounds consistent with a migraine aura as you also have migrainous headache, because of this we sent a prescription for magnesium supplementation and Cymbalta ( duloxetine) this medication will be sent jean-pierre 60 mg tablet. Start by taking 1/2 tablet / 30 mg once a day for a week if you tolerate this please increase to 1 full tablet / 60 mg daily. Cymblata is used primarily as an antidepressant and for anxiety. Because migraine with aura has been associated with increased blood clots please discuss with your OBGYN alternative control therapies as the combination of OCP and migraine with aura compounds this risk. We also discussed using a brace for what sounds like carpal tunnel in your left hand, the brace should be worn at minimum at night to stabilize your wrist. In the meantime if anything comes up you are welcome to reach out via [employer] with any questions or concerns below is also a contact number to use. It is a pleasure being apart of your care team. Thank you, Luci Ospina DO [facility] Contact information [place] Phone #: [phone] Appointment Line: [phone] [place] Research Line: [phone] Physical/Occupational and Speech Therapy appointment line: [phone] (Available at [place], Christie Licea, or Ana) Financial Counselor: [phone] ([email or web address]) Mailing Address Sebastien Jean Baptiste MD [address] [address] documented in this encounter [facility] 11-23-2024 History of Present illness Narrative Images from the original note were not included. [facility] FOLLOWUP/ESTABLISHED VIRTUAL PATIENT VISIT I have communicated my name and active licensure. The patient's identity and physical location were verified at the time of this visit. Either the patient or their legal passenger relations representative has been informed of the risks and benefits of -- and alternatives to -- treatment through a remote evaluation and consents to proceed with the evaluation remotely. Date of onset: Apr 2024 (R > L visual changes w/ possible MRI orbit changes) Date of diagnosis of MS: 2023 Disease course at onset: Relapsing-Remitting Current disease course: Relapsing-Remitting Previous disease therapies: High dose corticosteroids 04/2024 Current disease therapy: Ofatumumab ( Kesimpta) since 06/2024 > last shot 11/10/24 Most recent MRI brain: 04/2024 (enhancing parietal lesion) Most recent MRI cervical spine: 05/27 : No evidence of demyelinating disease in the cervical cord. CSF: N/A JCV serology result and date: 05/11, 0.11 Negative MOG/AQP4: 05/11 Negative CHIEF COMPLAINT: Follow-up on MS disease modifying therapy INTERVAL HISTORY: Today's visit is being completed virtually over Zoom. Patient consented to proceed with virtual visit. Refer to patient-entered data. Usual treating team: Rip The patient is accompanied by self. The patient was last seen 06/08/24, currently taking Kesimpta . Since the patient's last visit the patient reports overall feeling stable from a MS perspective - Issues with current therapy: Tolerating medication without side effects. > Vision has been stable / if not improved > occasional obscuration in RIGHT eye - Does get ALTMAN throbbing bilateral , no N / V, + light sound sensitivity happening 1-2 times a week. Resolves with NSAIDS / Excedrin > LEFT hand first three fingers will be weak / numb transiently > Cont. to have anxiety Neuro-QoL Functions (higher=better functioning) Flowsheet Row [facility] from 11/23/2024 in [facility] Office Visit from 06/08/2024 in [facility] Office Visit from 05/11/2024 in [facility] Upper Extremity Domain T Score 46 47 57 Lower Extremity Domain T Score 62 62 62 Cognitive Function Domain T Score 38 33 43 Positive Affect Well Being T Score -- -- -- Ability To Participate In Social Roles T Score 50 51 50 Satisfaction With Social Roles T Score 35 35 43 Neuro-QoL Symptoms (higher=worse symptoms) Flowsheet Row [facility] from 11/23/2024 in [facility] Office Visit from 06/08/2024 in [facility] Office Visit from 05/11/2024 in [facility] Sleep Domain T Score 71 72 51 Fatigue Domain T Score 61 53 46 Anxiety Domain T Score 60 54 65 Depression Domain T Score 49 49 48 Stigma Domain T Score 49 44 51 Emotional Behavior Dyscontrol T Score -- -- -- has a past medical history of Abnormal glandular Papanicolaou smear of cervix (2007,2010,2012), ADD (attention deficit disorder), Chlamydia (08/12/2009), Depression, Gestational diabetes mellitus, class A1 (08/20/2022), HPV test positive (01/19/2013), LEEP (loop electrosurgical excision procedure), cervix, , first trimester (03/22/2022), Migraine, Multiple sclerosis ([facility]), and depression. She has no past medical history of Anemia, Asthma, Blood dyscrasia, Breast disorder, Chronic kidney disease, Complication of anesthesia, Coronary artery disease, Gonorrhea, Herpes simplex without mention of complication, History of pre-eclampsia in prior , currently , HIV infection ([facility]), Hypertension, Infertility, female, Liver disease, Malignant hyperthermia due to anesthesia, Placental abruption, hemorrhage, hemorrhage, Rh incompatibility, Seizure ([facility]), Sickle cell anemia ([facility]), Syphilis, Systemic lupus erythematosus ([facility]), Thyroid disease, Trauma, or Varicosities. has a current medication list which includes the following prescription(s): magnesium oxide, duloxetine, oputmdsd-dab-bclo-folic-vit k, vitamin w28-zfxkc acid, drospirenone-ethinyl estradiol, drospirenone-ethinyl estradiol, kesimpta pen, kesimpta pen, dextroamphetamine-amphetamine, bupropion sr, amphetamine-dextroamphetamine xr, iv contrast, and cholecalciferol. EXAM: LMP 05/27/2024 (Approximate) MSPT Results Flowsheet Row Office Visit from 06/08/2024 in [facility] Office Visit from 05/11/2024 in [facility] Processing Speed Total Number Correct 57 52 Processing Speed Z score 0.43 -0.09 Dominant hand -- Right hand MDT Left Hand Time 25.92 27.38 MDT Right Hand Time 30.37 26.64 Walking Speed Test (25 feet) 6.82 -- Memory Z Score -- -- General Appearance: well appearing, in no acute distress Mental status evaluation during the interview and examination showed normal level of consciousness, orientation, language, memory, praxis, and higher intellectual function Affect: Normal RESULTS: CBC + Diff Component Value Date WBC 8.65 05/11/2024 HB 13.7 05/11/2024 HCT 40.8 05/11/2024 PLT 256 05/11/2024 ABSLYMPH 2.37 05/11/2024 MRI Results No results found for: [id number], ENHANCINGLES, CERVICALNEW, SPINEENHACIN ASSESSMENT/PLAN: Yoandy Virgen is a 34 year old female with Multiple Sclerosis. Exam is: Stable, continue with current IMDT - Ofatumumab . The prescribed disease modifying therapy for MS is having the expected benefit in this patient based on imaging and clinical criteria, and will be continued or refilled, with planned follow-up at approximately 6-month intervals to continue to assess response on an ongoing basis. Additional symptoms of presumed carpal tunnel, at this time seems mild will hold off on EMG and rec. Brace. Given transient episodes and very regional symptoms not likely to be related to MS. Endorsing occasional vision obscuration with or without ALTMAN described as right eye quadrant color changes - suggestive of an aura. Further discussed ALTMAN which semiology consistent with migraine ( throbbing + light and sound sensitivity ) PLAN: -- MRI brain WO at 6 month post DMT > ~ 2023 -- Rec. A brace for presumed carpal tunnel -- Start cymbalta 30 mg with ramp to 60 mg in 1 week for ALTMAN and anxiety -- Discussed Oral OCP and migraine with aura - Yoandy to reach out to [employer] to consider switching therapies given risk of blood clots -- Follow-up after MRI brain [facility] on 11/23/24 MRI BRAIN WO ARLIN Luci Ospina DO, MS Adult Neurology PGY2 [facility] [phone] 11/23/2024 3:10 PM NEUROLOGY STAFF ADDENDUM I have reviewed the history and physical examination obtained and documented by the resident. I agree with the resident's plan as noted above which was formulated with my direct input. I spent a total of 40 minutes on the date of the service which included preparing to see the patient, wjae-ty-gilc patient care, completing clinical documentation, obtaining and/or reviewing separately obtained history and counseling and educating the patient/family/caregiver. Sebastien Jean Baptiste MD Staff, Department of Neurology [facility] for Multiple Sclerosis documented in this encounter [facility] 11-23-2024 Note HNO ID: [id number] Author: SEBASTIEN JEAN BAPTISTE MD Service: ? Author Type: Physician Type: Progress Notes Filed: 11/23/2024 15:33 Note Text: [facility] FOLLOWUP/ESTABLISHED VIRTUAL PATIENT VISIT I have communicated my name and active licensure. The patient's identity and physical location were verified at the time of this visit. Either the patient or their legal passenger relations representative has been informed of the risks and benefits of -- and alternatives to -- treatment through a remote evaluation and consents to proceed with the evaluation remotely. Date of onset: Apr 2024 (R > L visual changes w/ possible MRI orbit changes) Date of diagnosis of MS: 2023 Disease course at onset: Relapsing-Remitting Current disease course: Relapsing-Remitting Previous disease therapies: High dose corticosteroids 04/2024 Current disease therapy: Ofatumumab ( Kesimpta) since 06/2024 > last shot 11/10/24 Most recent MRI brain: 04/2024 (enhancing parietal lesion) Most recent MRI cervical spine: 05/27 : No evidence of demyelinating disease in the cervical cord. CSF: N/A JCV serology result and date: 05/11, 0.11 Negative MOG/AQP4: 05/11 Negative CHIEF COMPLAINT: Follow-up on MS disease modifying therapy INTERVAL HISTORY: Today's visit is being completed virtually over Zoom. Patient consented to proceed with virtual visit. Refer to patient-entered data. Usual treating team: Ita/Bharat The patient is accompanied by self. The patient was last seen 06/08/24, currently taking Kesimpta . Since the patient's last visit the patient reports overall feeling stable from a MS perspective - Issues with current therapy: Tolerating medication without side effects. > Vision has been stable / if not improved > occasional obscuration in RIGHT eye - Does get ALTMAN throbbing bilateral , no N / V, + light sound sensitivity happening 1-2 times a week. Resolves with NSAIDS / Excedrin > LEFT hand first three fingers will be weak / numb transiently > Cont. to have anxiety Neuro-QoL Functions (higher=better functioning) Flowsheet Row [facility] from 11/23/2024 in [facility] Office Visit from 06/08/2024 in [facility] Office Visit from 05/11/2024 in [facility] Upper Extremity Domain T Score 46 47 57 Lower Extremity Domain T Score 62 62 62 Cognitive Function Domain T Score 38 33 43 Positive Affect Well Being T Score -- -- -- Ability To Participate In Social Roles T Score 50 51 50 Satisfaction With Social Roles T Score 35 35 43 Neuro-QoL Symptoms (higher=worse symptoms) Flowsheet Row [facility] from 11/23/2024 in [facility] Office Visit from 06/08/2024 in [facility] Office Visit from 05/11/2024 in [facility] Sleep Domain T Score 71 72 51 Fatigue Domain T Score 61 53 46 Anxiety Domain T Score 60 54 65 Depression Domain T Score 49 49 48 Stigma Domain T Score 49 44 51 Emotional Behavior Dyscontrol T Score -- -- -- has a past medical history of Abnormal glandular Papanicolaou smear of cervix (2007,2010,2012), ADD (attention deficit disorder), Chlamydia (08/12/2009), Depression, Gestational diabetes mellitus, class A1 (08/20/2022), HPV test positive (01/19/2013), LEEP (loop electrosurgical excision procedure), cervix, , first trimester (03/22/2022), Migraine, Multiple sclerosis (HCC), and depression. She has no past medical history of Anemia, Asthma, Blood dyscrasia, Breast disorder, Chronic kidney disease, Complication of anesthesia, Coronary artery disease, Gonorrhea, Herpes simplex without mention of complication, History of pre-eclampsia in prior , currently , HIV infection ([facility]), Hypertension, Infertility, female, Liver disease, Malignant hyperthermia due to anesthesia, Placental abruption, hemorrhage, hemorrhage, Rh incompatibility, Seizure (HCC), Sickle cell anemia (HCC), Syphilis, Systemic lupus erythematosus (HCC), Thyroid disease, Trauma, or Varicosities. has a current medication list which includes the following prescription(s): magnesium oxide, duloxetine, jceuulzi-jrx-tmqt-folic-vit k, vitamin s89-upevv acid, drospirenone-ethinyl estradiol, drospirenone-ethinyl estradiol, kesimpta pen, kesimpta pen, dextroamphetamine-amphetamine, bupropion sr, amphetamine-dextroamphetamine xr, iv contrast, and cholecalciferol. EXAM: LMP 05/27/2024 (Approximate) MSPT Results Flowsheet [facility] Office Visit from 06/08/2024 in [facility] Office Visit from 05/11/2024 in [facility] Processing Speed Total Number Correct 57 52 Processing Speed Z score 0.43 -0.09 Dominant hand -- Right hand MDT Left Hand Time 25.92 27.38 MDT Right Hand Time 30.37 26.64 Walking Speed Test (25 feet) 6.82 -- Memory Z Score -- -- General Appearance: well appearing, in no acute distress Mental status evaluation during the interview and examination showed normal level of consciousness, orientation, language, memory, praxis, and higher (more content not included)... [facility] 10-28-2024 History of Present illness Narrative [facility] Refill Assessment Medication(s): Kesimpta Patient's current medication list and adherence status to current therapy were reviewed by Specialty Pharmacy clinical pharmacist to identify any new drug interactions or non-compliance to therapy. Therapy continues to be appropriate for disease, patient response, and medical condition. Verification of therapeutic benefit and effectiveness with current therapy was completed. Adverse events, barriers in adherence, and side effects were assessed and addressed if applicable. Will proceed with refill with no changes in therapy - patient progressing towards achieving therapeutic goals based on medication-specific laboratory parameters, disease state markers and outcomes. Office/provider notes have been reviewed prior to dispensing the medication. Police Inspector Assessment Patient confirmed: Yes Med/dose confirmed: Yes Supplies needed: No supplies needed Missed doses: No Estimated days supply on hand: 0 Next cycle/dose due: 11/10/24 Copay amount: 0 Delivery method: FedEx Signature required: Waived on patient request Delivery address: [address] [place] [address] [address] [facility] [id number] Delivery date: 11/04/24 Questions or concerns for the pharmacist?: No Did you have any side effects believed to be related to this medication, that resulted in hospitalization?: No Current Outpatient Medications on File Prior to Visit Medication Sig pbqejjmo-kyh-yfly-folic-vit K (CENTRUM) 8 mg-400 mcg- 10 mcg chewable tablet Take 1 tablet by mouth once daily. cyanocobalamin/folic acid (VITAMIN K66-LUNUN ACID) 500-400 mcg tab Take by mouth. Drospirenone-Ethinyl Estradiol (KENNY, 28,) 3-0.02 mg per tablet Take 1 tablet by mouth once daily. Drospirenone-Ethinyl Estradiol (KENNY 28) 3-0.02 mg per tablet Take 1 tablet by mouth once daily. ofatumumab (KESIMPTA PEN) 20 mg/0.4 mL injection Inject 1 pen (0.4 mL) under the skin once a month ofatumumab (KESIMPTA PEN) 20 mg/0.4 mL injection Inject 1 pen (0.4mL) under the skin once monthly beginning on week 8. dextroamphetamine-amphetamine (ADDERALL) 5 mg tablet Take 5 mg by mouth once daily. buPROPion SR (WELLBUTRIN SR) 150 mg 12 hr tablet Take 150 mg by mouth two times a day. amphetamine-dextroamphetamine XR (ADDERALL XR) 25 mg capsule Take 25 mg by mouth once daily. iv contrast (will be provided with radiology test) MRI CSP Inject, intravenously, once for 1 dose. No IV access, insert saline lock prior to the beginning of sedation, infusion, injection of imaging exam. Discontinue saline lock post exam. If Pt. has a central line or IVAD, may access for administration according to line specific nursing protocol. Once exam is complete flush line and de-access according to line specific nursing protocol in the MR contrast administration guidelines link. cholecalciferol (VITAMIN D-3) 5,000 unit tab Take 1 tablet by mouth once daily. No current facility-administered medications on file prior to visit. [facility] SPECIAL[facility] CLINICAL ASSESSMENT - NEUROLOGY V7: Assessment to use: Refill Date of influenza vaccination reminder: 06/10/2024 Date of most recent vaccination assessment: 06/10/2024 Treatment Plan Information: Kesimpta (ofatumumab) Anti-CD20 monoclonal antibody Injection training video [email or web address] Alongside Kesimpta Savings and Support [phone] 20mg sc once weekly for three doses (weeks 0,1,and 2) then 20mg once monthly starting at week 4 If you miss a dose after first 3 weeks, take missed dose and start new schedule based on when that dose was given. Can be stored at room temperature up to 7 days. May be returned to refrigerator and used within 7 days. Patients who can become should use effective contraception during therapy and for 6 months after the last dose of ofatumumab. Monitoring Serum immunoglobulins in pt with recurrent infections HBV/TB screening before initiation S/SX PML (altered mental status, motor deficits, ataxia, vision disturbances) Potential SE Feeling tired or weak, sx of common cold, headache, muscle/pack pain ISR, Mild fever, URTI Seek treatment immediately if : allergic reaction, infection, liver problems sx DDI Vaccine Assessment Administer all live or live attenuated vaccines at least 4 weeks prior and non-live vaccines at least 2 weeks prior to initiation of therapy Est. Tx Plan Start Date: No information available Estimated Start Date Info: No information available Est. Estimated Treatment Duration: No information available Cb Jones CPhT Neurology, Cardiology & Infectious Disease [facility] documented in this encounter [facility] 10-28-2024 Note HNO ID: [id number] Author: MARIA DEL CARMEN JENNINGS RPh Service: ? Author Type: ? Type: Progress Notes Filed: 10/30/2024 10:30 Note Text: [facility] Refill Assessment Medication(s): Kesimpta Patient's current medication list and adherence status to current therapy were reviewed by Specialty Pharmacy clinical pharmacist to identify any new drug interactions or non-compliance to therapy. Therapy continues to be appropriate for disease, patient response, and medical condition. Verification of therapeutic benefit and effectiveness with current therapy was completed. Adverse events, barriers in adherence, and side effects were assessed and addressed if applicable. Will proceed with refill with no changes in therapy - patient progressing towards achieving therapeutic goals based on medication-specific laboratory parameters, disease state markers and outcomes. Office/provider notes have been reviewed prior to dispensing the medication. Maria Del Carmen Jennings MSc, MS, BCPS, BCMTMS, [facility] Clinical Specialty Pharmacist [facility] Police Inspector Assessment Patient confirmed: Yes Med/dose confirmed: Yes Supplies needed: No supplies needed Missed doses: No Estimated days supply on hand: 0 Next cycle/dose due: 11/10/24 Copay amount: 0 Delivery method: FedEx Signature required: Waived on patient request Delivery address: [address] [place], [place] [id number] Delivery date: 11/04/24 Questions or concerns for the pharmacist?: No Did you have any side effects believed to be related to this medication, that resulted in hospitalization?: No Current Outpatient Medications on File Prior to Visit Medication Sig dvtzdlfh-rec-sbse-folic-vit K (CENTRUM) 8 mg-400 mcg- 10 mcg chewable tablet Take 1 tablet by mouth once daily. cyanocobalamin/folic acid (VITAMIN C13-SECIX ACID) 500-400 mcg tab Take by mouth. Drospirenone-Ethinyl Estradiol (KENNY, 28,) 3-0.02 mg per tablet Take 1 tablet by mouth once daily. Drospirenone-Ethinyl Estradiol (KENNY 28) 3-0.02 mg per tablet Take 1 tablet by mouth once daily. ofatumumab (KESIMPTA PEN) 20 mg/0.4 mL injection Inject 1 pen (0.4 mL) under the skin once a month ofatumumab (KESIMPTA PEN) 20 mg/0.4 mL injection Inject 1 pen (0.4mL) under the skin once monthly beginning on week 8. dextroamphetamine-amphetamine (ADDERALL) 5 mg tablet Take 5 mg by mouth once daily. buPROPion SR (WELLBUTRIN SR) 150 mg 12 hr tablet Take 150 mg by mouth two times a day. amphetamine-dextroamphetamine XR (ADDERALL XR) 25 mg capsule Take 25 mg by mouth once daily. iv contrast (will be provided with radiology test) MRI CSP Inject, intravenously, once for 1 dose. No IV access, insert saline lock prior to the beginning of sedation, infusion, injection of imaging exam. Discontinue saline lock post exam. If Pt. has a central line or IVAD, may access for administration according to line specific nursing protocol. Once exam is complete flush line and de-access according to line specific nursing protocol in the MR contrast administration guidelines link. cholecalciferol (VITAMIN D-3) 5,000 unit tab Take 1 tablet by mouth once daily. No current facility-administered medications on file prior to visit. [facility] RX SPECIALTY CLINICAL ASSESSMENT - NEUROLOGY V7: Assessment to use: Refill Assessment of injection issues or necrosis at injection sites: Yes Screening for infection: Yes Drug specific assessments, as appropriate: Yes Current medication list (including drug interaction assessment): Yes Experience of adverse reactions to the medication: Yes Date of influenza vaccination reminder: 06/10/2024 Date of most recent vaccination assessment: 06/10/2024 Treatment Plan Information: Kesimpta (ofatumumab) Anti-CD20 monoclonal antibody Injection training video [email or web address] Alongside Kesimpta Savings and Support [phone] 20mg sc once weekly for three doses (weeks 0,1,and 2) then 20mg once monthly starting at week 4 If you miss a dose after first 3 weeks, take missed dose and start new schedule based on when that dose was given. Can be stored at room temperature up to 7 days. May be returned to refrigerator and used within 7 days. Patients who can become should use effective contraception during therapy and for 6 months after the last dose of ofatumumab. Monitoring Serum immunoglobulins in pt with recurrent infections HBV/TB screening before initiation S/SX PML (altered mental status, motor deficits, ataxia, vision disturbances) Potential SE Feeling tired or weak, sx of common cold, headache, muscle/pack pain ISR, Mild fever, URTI Seek treatment immediately if : allergic reaction, infection, liver problems sx DDI Vaccine Assessment Administer all live or live attenuated vaccines at least 4 weeks prior and non-live vaccines at least 2 weeks prior to initiation of thera (more content not included)... [facility] 09-25-2024 Note HNO ID: [id number] Author: MARIA DEL CARMEN JENNINGS [facility] Service: ? Author Type: ? Type: Progress Notes Filed: 09/28/2024 17:36 Note Text: [facility] Refill Assessment Medication(s): Kesimpta Patient's current medication list and adherence status to current therapy were reviewed by [facility]ty Pharmacy clinical pharmacist to identify any new drug interactions or non-compliance to therapy. Therapy continues to be appropriate for disease, patient response, and medical condition. Verification of therapeutic benefit and effectiveness with current therapy was completed. Adverse events, barriers in adherence, and side effects were assessed and addressed if applicable. Will proceed with refill with no changes in therapy - patient progressing towards achieving therapeutic goals based on medication-specific laboratory parameters, disease state markers and outcomes. Office/provider notes have been reviewed prior to dispensing the medication. Maria Del Carmen Jennings, MSc, MS, BCPS, BCMTMS, [facility] Clinical Specialty Pharmacist [facility] Police Inspector Assessment Patient confirmed: Yes Med/dose confirmed: Yes Supplies needed: No supplies needed Missed doses: No Estimated days supply on hand: 0 Next cycle/dose due: 10/10/24 Copay amount: 0 Delivery method: FedEx Signature required: Waived on patient request Delivery address: [address] [place] [id number] Delivery date: 10/01/24 Questions or concerns for the pharmacist?: No Did you have any side effects believed to be related to this medication, that resulted in hospitalization?: No Current Outpatient Medications on File Prior to Visit Medication Sig vgtmjiuu-qly-svlb-folic-vit K (CENTRUM) 8 mg-400 mcg- 10 mcg chewable tablet Take 1 tablet by mouth once daily. cyanocobalamin/folic acid (VITAMIN J51-HLJKB ACID) 500-400 mcg tab Take by mouth. Drospirenone-Ethinyl Estradiol (KENNY, 28,) 3-0.02 mg per tablet Take 1 tablet by mouth once daily. Drospirenone-Ethinyl Estradiol (KENNY 28) 3-0.02 mg per tablet Take 1 tablet by mouth once daily. ofatumumab (KESIMPTA PEN) 20 mg/0.4 mL injection Inject 1 pen (0.4 mL) under the skin once a month ofatumumab (KESIMPTA PEN) 20 mg/0.4 mL injection Inject 1 pen (0.4mL) under the skin once monthly beginning on week 8. dextroamphetamine-amphetamine (ADDERALL) 5 mg tablet Take 5 mg by mouth once daily. buPROPion SR (WELLBUTRIN SR) 150 mg 12 hr tablet Take 150 mg by mouth two times a day. amphetamine-dextroamphetamine XR (ADDERALL XR) 25 mg capsule Take 25 mg by mouth once daily. iv contrast (will be provided with radiology test) MRI CSP Inject, intravenously, once for 1 dose. No IV access, insert saline lock prior to the beginning of sedation, infusion, injection of imaging exam. Discontinue saline lock post exam. If Pt. has a central line or IVAD, may access for administration according to line specific nursing protocol. Once exam is complete flush line and de-access according to line specific nursing protocol in the MR contrast administration guidelines link. cholecalciferol (VITAMIN D-3) 5,000 unit tab Take 1 tablet by mouth once daily. No current facility-administered medications on file prior to visit. [facility] SPECIALTY CLINICAL ASSESSMENT - NEUROLOGY V7: Assessment to use: Refill Assessment of injection issues or necrosis at injection sites: Yes Screening for infection: Yes Drug specific assessments, as appropriate: Yes Current medication list (including drug interaction assessment): Yes Experience of adverse reactions to the medication: Yes Date of influenza vaccination reminder: 06/10/2024 Date of most recent vaccination assessment: 06/10/2024 Treatment Plan Information: Farrah (ofatumumab) Anti-CD20 monoclonal antibody Injection training video [email or web address] Alongside [employer] [phone] 20mg sc once weekly for three doses (weeks 0,1,and 2) then 20mg once monthly starting at week 4 If you miss a dose after first 3 weeks, take missed dose and start new schedule based on when that dose was given. Can be stored at room temperature up to 7 days. May be returned to refrigerator and used within 7 days. Patients who can become should use effective contraception during therapy and for 6 months after the last dose of ofatumumab. Monitoring Serum immunoglobulins in pt with recurrent infections HBV/TB screening before initiation S/SX PML (altered mental status, motor deficits, ataxia, vision disturbances) Potential SE Feeling tired or weak, sx of common cold, headache, muscle/pack pain ISR, Mild fever, URTI Seek treatment immediately if : allergic reaction, infection, liver problems sx DDI Vaccine Assessment Administer all live or live attenuated vaccines at least 4 weeks prior and non-live vaccines at least 2 weeks prior to initiation of thera (more content not included)... [facility] 08-28-2024 History of Present illness Narrative [facility] Refill Assessment Medication(s): Kesimpta Patient's current medication list and adherence status to current therapy were reviewed by Specialty Pharmacy clinical pharmacist to identify any new drug interactions or non-compliance to therapy. Therapy continues to be appropriate for disease, patient response, and medical condition. Verification of therapeutic benefit and effectiveness with current therapy was completed. Adverse events, barriers in adherence, and side effects were assessed and addressed if applicable. Will proceed with refill with no changes in therapy - patient progressing towards achieving therapeutic goals based on medication-specific laboratory parameters, disease state markers and outcomes. Office/provider notes have been reviewed prior to dispensing the medication. Police Inspector Assessment Patient confirmed: Yes Med/dose confirmed: Yes Supplies needed: No supplies needed Missed doses: No Estimated days supply on hand: 0 Next cycle/dose due: 09/09/24 Copay amount: 0 Payment confirmed: Yes Delivery method: FedEx Signature required: Waived on patient request Delivery address: [address] [place] [address] Delivery date: 09/02/24 Questions or concerns for the pharmacist?: No Did you have any side effects believed to be related to this medication, that resulted in hospitalization?: No Current Outpatient Medications on File Prior to Visit Medication Sig vfulljqf-fzp-avhg-folic-vit K (CENTRUM) 8 mg-400 mcg- 10 mcg chewable tablet Take 1 tablet by mouth once daily. cyanocobalamin/folic acid (VITAMIN A00-YAUXL ACID) 500-400 mcg tab Take by mouth. Drospirenone-Ethinyl Estradiol (KENNY, 28,) 3-0.02 mg per tablet Take 1 tablet by mouth once daily. Drospirenone-Ethinyl Estradiol (KENNY 28) 3-0.02 mg per tablet Take 1 tablet by mouth once daily. ofatumumab (KESIMPTA PEN) 20 mg/0.4 mL injection Inject 1 pen (0.4 mL) under the skin once a month ofatumumab (KESIMPTA PEN) 20 mg/0.4 mL injection Inject 1 pen (0.4mL) under the skin once monthly beginning on week 8. dextroamphetamine-amphetamine (ADDERALL) 5 mg tablet Take 5 mg by mouth once daily. buPROPion SR (WELLBUTRIN SR) 150 mg 12 hr tablet Take 150 mg by mouth two times a day. amphetamine-dextroamphetamine XR (ADDERALL XR) 25 mg capsule Take 25 mg by mouth once daily. iv contrast (will be provided with radiology test) MRI CSP Inject, intravenously, once for 1 dose. No IV access, insert saline lock prior to the beginning of sedation, infusion, injection of imaging exam. Discontinue saline lock post exam. If Pt. has a central line or IVAD, may access for administration according to line specific nursing protocol. Once exam is complete flush line and de-access according to line specific nursing protocol in the MR contrast administration guidelines link. cholecalciferol (VITAMIN D-3) 5,000 unit tab Take 1 tablet by mouth once daily. No current facility-administered medications on file prior to visit. [facility] SPECIALTY CLINICAL ASSESSMENT - NEUROLOGY V7: Assessment to use: Refill Date of influenza vaccination reminder: 06/10/2024 Date of most recent vaccination assessment: 06/10/2024 Treatment Plan Information: Kesimpta (ofatumumab) Anti-CD20 monoclonal antibody Injection training video [email or web address] [employer]side [employer] [phone] 20mg sc once weekly for three doses (weeks 0,1,and 2) then 20mg once monthly starting at week 4 If you miss a dose after first 3 weeks, take missed dose and start new schedule based on when that dose was given. Can be stored at room temperature up to 7 days. May be returned to refrigerator and used within 7 days. Patients who can become should use effective contraception during therapy and for 6 months after the last dose of ofatumumab. Monitoring Serum immunoglobulins in pt with recurrent infections HBV/TB screening before initiation S/SX PML (altered mental status, motor deficits, ataxia, vision disturbances) Potential SE Feeling tired or weak, sx of common cold, headache, muscle/pack pain ISR, Mild fever, URTI Seek treatment immediately if : allergic reaction, infection, liver problems sx DDI Vaccine Assessment Administer all live or live attenuated vaccines at least 4 weeks prior and non-live vaccines at least 2 weeks prior to initiation of therapy Est. Tx Plan Start Date: No information available Estimated Start Date Info: No information available Est. Estimated Treatment Duration: No information available Kaliyn Rhodes CPhT Cardiology, Neurology & Infectious Disease [facility] documented in this encounter [facility] 08-28-2024 Note HNO ID: [id number] Author: MARIA DEL CARMEN JENNINGS RPh Service: ? Author Type: ? Type: Progress Notes Filed: 08/31/2024 11:20 Note Text: [facility] Refill Assessment Medication(s): Kesimpta Patient's current medication list and adherence status to current therapy were reviewed by Specialty Pharmacy clinical pharmacist to identify any new drug interactions or non-compliance to therapy. Therapy continues to be appropriate for disease, patient response, and medical condition. Verification of therapeutic benefit and effectiveness with current therapy was completed. Adverse events, barriers in adherence, and side effects were assessed and addressed if applicable. Will proceed with refill with no changes in therapy - patient progressing towards achieving therapeutic goals based on medication-specific laboratory parameters, disease state markers and outcomes. Office/provider notes have been reviewed prior to dispensing the medication. Maria Del Carmen Jennings, MSc, MS, BCPS, BCMTMS, [facility] Clinical Specialty Pharmacist [facility] Police Inspector Assessment Patient confirmed: Yes Med/dose confirmed: Yes Supplies needed: No supplies needed Missed doses: No Estimated days supply on hand: 0 Next cycle/dose due: 09/09/24 Copay amount: 0 Payment confirmed: Yes Delivery method: FedEx Signature required: Waived on patient request Delivery address: [address] [place], [place] [id number] Delivery date: 09/02/24 Questions or concerns for the pharmacist?: No Did you have any side effects believed to be related to this medication, that resulted in hospitalization?: No Current Outpatient Medications on File Prior to Visit Medication Sig yhyiwfde-hez-ozox-folic-vit K (CENTRUM) 8 mg-400 mcg- 10 mcg chewable tablet Take 1 tablet by mouth once daily. cyanocobalamin/folic acid (VITAMIN R17-FRBCN ACID) 500-400 mcg tab Take by mouth. Drospirenone-Ethinyl Estradiol (KENNY, 28,) 3-0.02 mg per tablet Take 1 tablet by mouth once daily. Drospirenone-Ethinyl Estradiol (KENNY 28) 3-0.02 mg per tablet Take 1 tablet by mouth once daily. ofatumumab (KESIMPTA PEN) 20 mg/0.4 mL injection Inject 1 pen (0.4 mL) under the skin once a month ofatumumab (KESIMPTA PEN) 20 mg/0.4 mL injection Inject 1 pen (0.4mL) under the skin once monthly beginning on week 8. dextroamphetamine-amphetamine (ADDERALL) 5 mg tablet Take 5 mg by mouth once daily. buPROPion SR (WELLBUTRIN SR) 150 mg 12 hr tablet Take 150 mg by mouth two times a day. amphetamine-dextroamphetamine XR (ADDERALL XR) 25 mg capsule Take 25 mg by mouth once daily. iv contrast (will be provided with radiology test) MRI CSP Inject, intravenously, once for 1 dose. No IV access, insert saline lock prior to the beginning of sedation, infusion, injection of imaging exam. Discontinue saline lock post exam. If Pt. has a central line or IVAD, may access for administration according to line specific nursing protocol. Once exam is complete flush line and de-access according to line specific nursing protocol in the MR contrast administration guidelines link. cholecalciferol (VITAMIN D-3) 5,000 unit tab Take 1 tablet by mouth once daily. No current facility-administered medications on file prior to visit. [facility] SPECIALTY CLINICAL ASSESSMENT - NEUROLOGY V7: Assessment to use: Refill Assessment of injection issues or necrosis at injection sites: Yes Screening for infection: Yes Drug specific assessments, as appropriate: Yes Current medication list (including drug interaction assessment): Yes Experience of adverse reactions to the medication: Yes Date of influenza vaccination reminder: 06/10/2024 Date of most recent vaccination assessment: 06/10/2024 Treatment Plan Information: Kesimpta (ofatumumab) Anti-CD20 monoclonal antibody Injection training video [email or web address] [employer]side [employer] [phone] 20mg sc once weekly for three doses (weeks 0,1,and 2) then 20mg once monthly starting at week 4 If you miss a dose after first 3 weeks, take missed dose and start new schedule based on when that dose was given. Can be stored at room temperature up to 7 days. May be returned to refrigerator and used within 7 days. Patients who can become should use effective contraception during therapy and for 6 months after the last dose of ofatumumab. Monitoring Serum immunoglobulins in pt with recurrent infections HBV/TB screening before initiation S/SX PML (altered mental status, motor deficits, ataxia, vision disturbances) Potential SE Feeling tired or weak, sx of common cold, headache, muscle/pack pain ISR, Mild fever, URTI Seek treatment immediately if : allergic reaction, infection, liver problems sx DDI Vaccine Assessment Administer all live or live attenuated vaccines at least 4 weeks prior and non-live vaccines at least 2 weeks prior (more content not included)... [facility] 07-31-2024 History of Present illness Narrative [facility] Ref[facility] Assessment Medication(s): Kesimpta No side effects reported. She needs next month by 09/04/24 - noted in refill appt Patient's current medication list and adherence status to current therapy were reviewed by Specialty Pharmacy clinical pharmacist to identify any new drug interactions or non-compliance to therapy. Therapy continues to be appropriate for disease, patient response, and medical condition. Verification of therapeutic benefit and effectiveness with current therapy was completed. Adverse events, barriers in adherence, and side effects were assessed and addressed if applicable. Will proceed with refill with no changes in therapy - patient progressing towards achieving therapeutic goals based on medication-specific laboratory parameters, disease state markers and outcomes. Office/provider notes have been reviewed prior to dispensing the medication. Police Inspector Assessment Patient confirmed: Yes Med/dose confirmed: Yes Supplies needed: No supplies needed Missed doses: No Estimated days supply on hand: 0 Next cycle/dose due: 08/09/24 Delivery method: FedEx Signature required: No Delivery address: [address] [place] [address] Road [facility] Delivery date: 08/04/24 Questions or concerns for the pharmacist?: Yes Patient questions/concerns: Delivery Did you have any side effects believed to be related to this medication, that resulted in hospitalization?: No Current Outpatient Medications on File Prior to Visit Medication Sig nkmrslhq-ocv-iwdy-folic-vit K (CENTRUM) 8 mg-400 mcg- 10 mcg chewable tablet Take 1 tablet by mouth once daily. cyanocobalamin/folic acid (VITAMIN N63-HDKIO ACID) 500-400 mcg tab Take by mouth. Drospirenone-Ethinyl Estradiol (KENNY, 28,) 3-0.02 mg per tablet Take 1 tablet by mouth once daily. Drospirenone-Ethinyl Estradiol (KENNY 28) 3-0.02 mg per tablet Take 1 tablet by mouth once daily. ofatumumab (KESIMPTA PEN) 20 mg/0.4 mL injection Inject 1 pen (0.4 mL) under the skin once a month ofatumumab (KESIMPTA PEN) 20 mg/0.4 mL injection Inject 1 pen (0.4mL) under the skin once monthly beginning on week 8. dextroamphetamine-amphetamine (ADDERALL) 5 mg tablet Take 5 mg by mouth once daily. buPROPion SR (WELLBUTRIN SR) 150 mg 12 hr tablet Take 150 mg by mouth two times a day. amphetamine-dextroamphetamine XR (ADDERALL XR) 25 mg capsule Take 25 mg by mouth once daily. iv contrast (will be provided with radiology test) MRI CSP Inject, intravenously, once for 1 dose. No IV access, insert saline lock prior to the beginning of sedation, infusion, injection of imaging exam. Discontinue saline lock post exam. If Pt. has a central line or IVAD, may access for administration according to line specific nursing protocol. Once exam is complete flush line and de-access according to line specific nursing protocol in the MR contrast administration guidelines link. cholecalciferol (VITAMIN D-3) 5,000 unit tab Take 1 tablet by mouth once daily. No current facility-administered medications on file prior to visit. [facility] SPECIALTY CLINICAL ASSESSMENT - NEUROLOGY V7: Assessment to use: Refill Assessment of injection issues or necrosis at injection sites: Yes Screening for infection: Yes Drug specific assessments, as appropriate: Yes Current medication list (including drug interaction assessment): Yes Experience of adverse reactions to the medication: Yes Date of influenza vaccination reminder: 06/10/2024 Date of most recent vaccination assessment: 06/10/2024 Treatment Plan Information: Kesimpta (ofatumumab) Anti-CD20 monoclonal antibody Injection training video [email or web address] [employer]side [employer] [phone] 20mg sc once weekly for three doses (weeks 0,1,and 2) then 20mg once monthly starting at week 4 If you miss a dose after first 3 weeks, take missed dose and start new schedule based on when that dose was given. Can be stored at room temperature up to 7 days. May be returned to refrigerator and used within 7 days. Patients who can become should use effective contraception during therapy and for 6 months after the last dose of ofatumumab. Monitoring Serum immunoglobulins in pt with recurrent infections HBV/TB screening before initiation S/SX PML (altered mental status, motor deficits, ataxia, vision disturbances) Potential SE Feeling tired or weak, sx of common cold, headache, muscle/pack pain ISR, Mild fever, URTI Seek treatment immediately if : allergic reaction, infection, liver problems sx DDI Vaccine Assessment Administer all live or live attenuated vaccines at least 4 weeks prior and non-live vaccines at least 2 weeks prior to initiation of therapy Est. Tx Plan Start Date: No information available Estimated Start Date Info: No information available Est. Estimated Treatment Duration: No information available Milagros Siddiqi RPh documented in this encounter [facility] 07-31-2024 Note HNO ID: [id number] Author: MILAGROS SIDDIQI RPh Service: ? Author Type: Pharmacist Type: Progress Notes Filed: 07/31/2024 11:49 Note Text: [facility] Refill Assessment Medication(s): Kesimpta No side effects reported. She needs next month by 09/04/24 - noted in refill appt Patient's current medication list and adherence status to current therapy were reviewed by Specialty Pharmacy clinical pharmacist to identify any new drug interactions or non-compliance to therapy. Therapy continues to be appropriate for disease, patient response, and medical condition. Verification of therapeutic benefit and effectiveness with current therapy was completed. Adverse events, barriers in adherence, and side effects were assessed and addressed if applicable. Will proceed with refill with no changes in therapy - patient progressing towards achieving therapeutic goals based on medication-specific laboratory parameters, disease state markers and outcomes. Office/provider notes have been reviewed prior to dispensing the medication. Police Inspector Assessment Patient confirmed: Yes Med/dose confirmed: Yes Supplies needed: No supplies needed Missed doses: No Estimated days supply on hand: 0 Next cycle/dose due: 08/09/24 Delivery method: FedEx Signature required: No Delivery address: [address] [place] [address] Delivery date: 08/04/24 Questions or concerns for the pharmacist?: Yes Patient questions/concerns: Delivery Did you have any side effects believed to be related to this medication, that resulted in hospitalization?: No Current Outpatient Medications on File Prior to Visit Medication Sig lcvopxfm-ijn-bhrc-folic-vit K (CENTRUM) 8 mg-400 mcg- 10 mcg chewable tablet Take 1 tablet by mouth once daily. cyanocobalamin/folic acid (VITAMIN P38-SOBUD ACID) 500-400 mcg tab Take by mouth. Drospirenone-Ethinyl Estradiol (KENNY, 28,) 3-0.02 mg per tablet Take 1 tablet by mouth once daily. Drospirenone-Ethinyl Estradiol (KENNY 28) 3-0.02 mg per tablet Take 1 tablet by mouth once daily. ofatumumab (KESIMPTA PEN) 20 mg/0.4 mL injection Inject 1 pen (0.4 mL) under the skin once a month ofatumumab (KESIMPTA PEN) 20 mg/0.4 mL injection Inject 1 pen (0.4mL) under the skin once monthly beginning on week 8. dextroamphetamine-amphetamine (ADDERALL) 5 mg tablet Take 5 mg by mouth once daily. buPROPion SR (WELLBUTRIN SR) 150 mg 12 hr tablet Take 150 mg by mouth two times a day. amphetamine-dextroamphetamine XR (ADDERALL XR) 25 mg capsule Take 25 mg by mouth once daily. iv contrast (will be provided with radiology test) MRI CSP Inject, intravenously, once for 1 dose. No IV access, insert saline lock prior to the beginning of sedation, infusion, injection of imaging exam. Discontinue saline lock post exam. If Pt. has a central line or IVAD, may access for administration according to line specific nursing protocol. Once exam is complete flush line and de-access according to line specific nursing protocol in the MR contrast administration guidelines link. cholecalciferol (VITAMIN D-3) 5,000 unit tab Take 1 tablet by mouth once daily. No current facility-administered medications on file prior to visit. [facility] SPECIALTY CLINICAL ASSESSMENT - NEUROLOGY V7: Assessment to use: Refill Assessment of injection issues or necrosis at injection sites: Yes Screening for infection: Yes Drug specific assessments, as appropriate: Yes Current medication list (including drug interaction assessment): Yes Experience of adverse reactions to the medication: Yes Date of influenza vaccination reminder: 06/10/2024 Date of most recent vaccination assessment: 06/10/2024 Treatment Plan Information: Kesimpta (ofatumumab) Anti-CD20 monoclonal antibody Injection training video [email or web address] [employer]side [employer] [phone] 20mg sc once weekly for three doses (weeks 0,1,and 2) then 20mg once monthly starting at week 4 If you miss a dose after first 3 weeks, take missed dose and start new schedule based on when that dose was given. Can be stored at room temperature up to 7 days. May be returned to refrigerator and used within 7 days. Patients who can become should use effective contraception during therapy and for 6 months after the last dose of ofatumumab. Monitoring Serum immunoglobulins in pt with recurrent infections HBV/TB screening before initiation S/SX PML (altered mental status, motor deficits, ataxia, vision disturbances) Potential SE Feeling tired or weak, sx of common cold, headache, muscle/pack pain ISR, Mild fever, URTI Seek treatment immediately if : allergic reaction, infection, liver problems sx DDI Vaccine Assessment Administer all live or live attenuated vaccines at least 4 weeks prior and non-live vaccines at least 2 weeks prior to initiation of therapy Est. Tx Plan Start Date: No information available Estimated Start Date Info: No in (more content not included)... [facility] 07-03-2024 History of Present illness Narrative [facility] Refill Assessment Medication(s): Kesimpta Patient's current medication list and adherence status to current therapy were reviewed by Specialty Pharmacy clinical pharmacist to identify any new drug interactions or non-compliance to therapy. Therapy continues to be appropriate for disease, patient response, and medical condition. Verification of therapeutic benefit and effectiveness with current therapy was completed. Adverse events, barriers in adherence, and side effects were assessed and addressed if applicable. Will proceed with refill with no changes in therapy - patient progressing towards achieving therapeutic goals based on medication-specific laboratory parameters, disease state markers and outcomes. Office/provider notes have been reviewed prior to dispensing the medication. Police Inspector Assessment Patient confirmed: Yes Med/dose confirmed: Yes Supplies needed: No supplies needed Missed doses: No Estimated days supply on hand: 0 Next cycle/dose due: 07/10/24 Copay amount: 0 Payment confirmed: Yes Delivery method: FedEx Signature required: No Delivery address: [address] [place] [address] [facility] [id number] Delivery date: 07/08/24 Questions or concerns for the pharmacist?: No Did you have any side effects believed to be related to this medication, that resulted in hospitalization?: No Current Outpatient Medications on File Prior to Visit Medication Sig yuxnnefd-kio-oqij-folic-vit K (CENTRUM) 8 mg-400 mcg- 10 mcg chewable tablet Take 1 tablet by mouth once daily. cyanocobalamin/folic acid (VITAMIN A05-TDUPP ACID) 500-400 mcg tab Take by mouth. Drospirenone-Ethinyl Estradiol (KENNY, 28,) 3-0.02 mg per tablet Take 1 tablet by mouth once daily. Drospirenone-Ethinyl Estradiol (KENNY 28) 3-0.02 mg per tablet Take 1 tablet by mouth once daily. ofatumumab (KESIMPTA PEN) 20 mg/0.4 mL injection Inject 1 pen (0.4 mL) under the skin at weeks 0, 1, 2, and 4. ofatumumab (KESIMPTA PEN) 20 mg/0.4 mL injection Inject 1 pen (0.4mL) under the skin once monthly beginning on week 8. dextroamphetamine-amphetamine (ADDERALL) 5 mg tablet Take 5 mg by mouth once daily. buPROPion SR (WELLBUTRIN SR) 150 mg 12 hr tablet Take 150 mg by mouth two times a day. amphetamine-dextroamphetamine XR (ADDERALL XR) 25 mg capsule Take 25 mg by mouth once daily. iv contrast (will be provided with radiology test) MRI CSP Inject, intravenously, once for 1 dose. No IV access, insert saline lock prior to the beginning of sedation, infusion, injection of imaging exam. Discontinue saline lock post exam. If Pt. has a central line or IVAD, may access for administration according to line specific nursing protocol. Once exam is complete flush line and de-access according to line specific nursing protocol in the MR contrast administration guidelines link. cholecalciferol (VITAMIN D-3) 5,000 unit tab Take 1 tablet by mouth once daily. No current facility-administered medications on file prior to visit. [facility] CLINICAL ASSESSMENT - NEUROLOGY V7: Assessment to use: Refill Date of influenza vaccination reminder: 06/10/2024 Date of most recent vaccination assessment: 06/10/2024 Treatment Plan Information: Kesimpta (ofatumumab) Anti-CD20 monoclonal antibody Injection training video [email or web address] Alongside Kesimpta Savings and Support [phone] 20mg sc once weekly for three doses (weeks 0,1,and 2) then 20mg once monthly starting at week 4 If you miss a dose after first 3 weeks, take missed dose and start new schedule based on when that dose was given. Can be stored at room temperature up to 7 days. May be returned to refrigerator and used within 7 days. Patients who can become should use effective contraception during therapy and for 6 months after the last dose of ofatumumab. Monitoring Serum immunoglobulins in pt with recurrent infections HBV/TB screening before initiation S/SX PML (altered mental status, motor deficits, ataxia, vision disturbances) Potential SE Feeling tired or weak, sx of common cold, headache, muscle/pack pain ISR, Mild fever, URTI Seek treatment immediately if : allergic reaction, infection, liver problems sx DDI Vaccine Assessment Administer all live or live attenuated vaccines at least 4 weeks prior and non-live vaccines at least 2 weeks prior to initiation of therapy Est. Tx Plan Start Date: No information available Estimated Start Date Info: No information available Est. Estimated Treatment Duration: No information available Kailyn Rhodes CPhT Cardiology, Neurology & Infectious Disease [facility] documented in this encounter [facility] 07-03-2024 Note HNO ID: [id number] Author: MARIA DEL CARMEN JENNINGS [facility] Service: ? Author Type: ? Type: Progress Notes Filed: 07/06/2024 12:52 Note Text: [facility] Assessment Medication(s): Kesimpta Patient's current medication list and adherence status to current therapy were reviewed by Specialty Pharmacy clinical pharmacist to identify any new drug interactions or non-compliance to therapy. Therapy continues to be appropriate for disease, patient response, and medical condition. Verification of therapeutic benefit and effectiveness with current therapy was completed. Adverse events, barriers in adherence, and side effects were assessed and addressed if applicable. Will proceed with refill with no changes in therapy - patient progressing towards achieving therapeutic goals based on medication-specific laboratory parameters, disease state markers and outcomes. Office/provider notes have been reviewed prior to dispensing the medication. Maria Del Carmen Jennings, MSc, MS, BCPS, BCMTMS, [facility] Clinical Specialty Pharmacist [facility] Police Inspector Assessment Patient confirmed: Yes Med/dose confirmed: Yes Supplies needed: No supplies needed Missed doses: No Estimated days supply on hand: 0 Next cycle/dose due: 07/10/24 Copay amount: 0 Payment confirmed: Yes Delivery method: FedEx Signature required: No Delivery address: [address] [place] [id number] Delivery date: 07/08/24 Questions or concerns for the pharmacist?: No Did you have any side effects believed to be related to this medication, that resulted in hospitalization?: No Current Outpatient Medications on File Prior to Visit Medication Sig ztysqyof-bdm-pnfj-folic-vit K (CENTRUM) 8 mg-400 mcg- 10 mcg chewable tablet Take 1 tablet by mouth once daily. cyanocobalamin/folic acid (VITAMIN J51-WEBNT ACID) 500-400 mcg tab Take by mouth. Drospirenone-Ethinyl Estradiol (KENNY, 28,) 3-0.02 mg per tablet Take 1 tablet by mouth once daily. Drospirenone-Ethinyl Estradiol (KENNY 28) 3-0.02 mg per tablet Take 1 tablet by mouth once daily. ofatumumab (KESIMPTA PEN) 20 mg/0.4 mL injection Inject 1 pen (0.4 mL) under the skin at weeks 0, 1, 2, and 4. ofatumumab (KESIMPTA PEN) 20 mg/0.4 mL injection Inject 1 pen (0.4mL) under the skin once monthly beginning on week 8. dextroamphetamine-amphetamine (ADDERALL) 5 mg tablet Take 5 mg by mouth once daily. buPROPion SR (WELLBUTRIN SR) 150 mg 12 hr tablet Take 150 mg by mouth two times a day. amphetamine-dextroamphetamine XR (ADDERALL XR) 25 mg capsule Take 25 mg by mouth once daily. iv contrast (will be provided with radiology test) MRI CSP Inject, intravenously, once for 1 dose. No IV access, insert saline lock prior to the beginning of sedation, infusion, injection of imaging exam. Discontinue saline lock post exam. If Pt. has a central line or IVAD, may access for administration according to line specific nursing protocol. Once exam is complete flush line and de-access according to line specific nursing protocol in the MR contrast administration guidelines link. cholecalciferol (VITAMIN D-3) 5,000 unit tab Take 1 tablet by mouth once daily. No current facility-administered medications on file prior to visit. [facility] CLINICAL ASSESSMENT - NEUROLOGY V7: Assessment to use: Refill Assessment of injection issues or necrosis at injection sites: Yes Screening for infection: Yes Drug specific assessments, as appropriate: Yes Current medication list (including drug interaction assessment): Yes Experience of adverse reactions to the medication: Yes Date of influenza vaccination reminder: 06/10/2024 Date of most recent vaccination assessment: 06/10/2024 Treatment Plan Information: Michaelsimpjeni (ofatumumab) Anti-CD20 monoclonal antibody Injection training video [email or web address] Alongside Kesimpta Savings and Support [phone] 20mg sc once weekly for three doses (weeks 0,1,and 2) then 20mg once monthly starting at week 4 If you miss a dose after first 3 weeks, take missed dose and start new schedule based on when that dose was given. Can be stored at room temperature up to 7 days. May be returned to refrigerator and used within 7 days. Patients who can become should use effective contraception during therapy and for 6 months after the last dose of ofatumumab. Monitoring Serum immunoglobulins in pt with recurrent infections HBV/TB screening before initiation S/SX PML (altered mental status, motor deficits, ataxia, vision disturbances) Potential SE Feeling tired or weak, sx of common cold, headache, muscle/pack pain ISR, Mild fever, URTI Seek treatment immediately if : allergic reaction, infection, liver problems sx DDI Vaccine Assessment Administer all live or live attenuated vaccines at least 4 weeks prior and non-live vaccines at least 2 weeks prior to initiat (more content not included)... [facility] 06-15-2024 Note HNO ID: [id number] Author: JESSICA SOLIS MD Service: ? Author Type: Physician Type: Progress Notes Filed: 06/15/2024 16:23 Note Text: Prosthetic Aides Teacher offered: Patient declines. Yoandy is a 33 year old who presents for an annual gynecologic exam without complaints. Recent diagnosis of MS. Just started treatment. Has a hx of HUGO 3 and LEEP in 2014. Discussed following paps more frequently given MS diagnosis and medications Menses: cycles every 30 days and 4 days of flow. Contraception: combined hormonal contraceptives HPV vaccine: No Last Pap: 12/07/2022 normal HPV: 11/30/2022 negative History of abnormal pap: Yes Last mammogram: never Sexually active: Yes OB History T4 L4 SAB1 IAB0 Ectopic0 Multiple0 Live Births4 Sand Mixer History LMP: 05/27/2024 (Approximate), Having periods Age at Menarche: Age at First : Age at Menopause: Sand Mixer History Comments: Sexual Activity: Yes; Male Contraception: Pill PAST MEDICAL HISTORY Diagnosis Date Abnormal glandular Papanicolaou smear of cervix 2007,2010,2012 Abn. Pap smear (cervix) ADD (attention deficit disorder) Chlamydia 08/12/2009 Depression Gestational diabetes mellitus, class A1 08/20/2022 HPV test positive 01/19/2013 Migraine Multiple sclerosis (HCC) depression PAST SURGICAL HISTORY Procedure Laterality Date DILATION AND CURETTAGE DXAND/THER NONOBSTETRIC 2011 Dilation AND curettage LEEP PROCEDURE (APPLICATIONS CHEMIST DEPT)_*FL 2014 CIN3 VAGINOSCOPY 05/26/13 HUGO 3 FAMILY HISTORY Problem Relation Age of Onset GERD Mother Hypertension Father No Known Problems Sister No Known Problems Sister Cancer Maternal Grandmother Lung Diabetes Maternal Grandfather Dementia Paternal Grandmother Parkinson?s Disease Paternal Grandmother Alcohol/Drug Paternal Grandfather Cancer Paternal Grandfather STOMACH No Known Problems Son No Known Problems Son No Known Problems Son SOCIAL HISTORY Social History Tobacco Use Smoking status: Former Current packs/day: 0.00 Average packs/day: 0.5 packs/day for 11.0 years (5.5 ttl pk-yrs) Types: Cigarettes Start date: 03/17/2009 Quit date: 03/17/2020 Years since quittin.2 Smokeless tobacco: Never Vaping Use Vaping status: Some Days Last attempt to quit: 02/08/2022 Substance Use Topics Alcohol use: No Drug use: No REVIEW OF SYSTEMS Abdomen: No abdominal pain, nausea, vomiting, diarrhea, or constipation. No bloating, early satiety, indigestion, or increased flatulence. Bladder: No dysuria, gross hematuria, urinary frequency, urinary urgency, or incontinence. Breast: No breast lumps, nipple d/c, overlying skin changes, redness or skin retraction. Allergies and current medication updated:Yes SENSITIVE EXAM: The sensitive examination was discussed with the Patient or Patient's Authorized All Source Intelligence Technician. As applicable, any other physician, advance practice provider, medical student, or other health professional student that will be observing or involved in the sensitive examination for educational or training purposes was discussed with the Patient or Authorized All Source Intelligence Technician. The Patient or Authorized All Source Intelligence Technician has agreed to proceed with the sensitive examination. (Sensitive examination includes inspection and/or palpation of the breasts, pelvis, prostate and anorectal regions). EXAM: Ht 5' 8 (1.73m) Wt 162 lb (73.5kg) LMP 05/27/2024 BMI 24.64 kg/(m2). GENERAL: pleasant, female in no apparent distress HEENT: Normocephalic, atraumatic, mucus membranes moist, and no lesions NECK: Supple, full range of motion, no adenopathy, and thyroid normal DERMATOLOGY: Normal, without lesions, non-icteric, and non-hirsute BREAST: soft, non-tender, symmetric, no dominant mass, normal nipple-areolar complex, no lymphadenopathy, and no nipple discharge CHEST: Normal inspiratory effort ABDOMEN: soft, non-tender, and no masses PELVIC: external genitalia normal, normal Bartholin's glands, urethra, Albert's glands, no vulvar lesions, no cervical lesions, good vaginal support, physiologic discharge present, normal appearing perineal body and perianal region BIMANUAL: uterus normal size, shape and consistency, no adnexal masses, and non-tender RECTOVAGINAL: deferred. NEURO: alert and oriented x3,exam grossly non-focal EXTREMITIES: normal ASSESSMENT/PLAN: 1) Health maintenance: Pap done with HPV. Discussed yearly pap given MS diagnosis and treatment 2) Contraception: combined hormonal contraceptives. Contraceptive options reviewed and information provided. 3) STD screening: Declined STD check. 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 Yoandy is a 33 year old who presents for an annual gynecologic exam without complaints. Recent diagnosis of MS. Just started treatment. Has a hx of HUGO 3 and LEEP in 2014. Discussed following paps more frequently given MS diagnosis and medications Menses: cycles every 30 days and 4 days of flow. Contraception: combined hormonal contraceptives HPV vaccine: No Last Pap: 12/07/2022 normal HPV: 11/30/2022 negative History of abnormal pap: Yes Last mammogram: never Sexually active: Yes OB History T4 L4 SAB1 IAB0 Ectopic0 Multiple0 Live Births4 Sand Mixer History LMP: 05/27/2024 (Approximate), Having periods Age at Menarche: Age at First : Age at Menopause: Sand Mixer History Comments: Sexual Activity: Yes; Male Contraception: Pill PAST MEDICAL HISTORY Diagnosis Date Abnormal glandular Papanicolaou smear of cervix 2007,2010,2012 Abn. Pap smear (cervix) ADD (attention deficit disorder) Chlamydia 08/12/2009 Depression Gestational diabetes mellitus, class A1 08/20/2022 HPV test positive 01/19/2013 Migraine Multiple sclerosis (HCC) depression PAST SURGICAL HISTORY Procedure Laterality Date DILATION & CURETTAGE DX&/THER NONOBSTETRIC 2011 Dilation & curettage LEEP PROCEDURE (APPLICATIONS CHEMIST DEPT)_*FL 2014 CIN3 VAGINOSCOPY 05/26/13 HUGO 3 FAMILY HISTORY Problem Relation Age of Onset GERD Mother Hypertension Father No Known Problems Sister No Known Problems Sister Cancer Maternal Grandmother Lung Diabetes Maternal Grandfather Dementia Paternal Grandmother Parkinson s Disease Paternal Grandmother Alcohol/Drug Paternal Grandfather Cancer Paternal Grandfather STOMACH No Known Problems Son No Known Problems Son No Known Problems Son SOCIAL HISTORY Social History Tobacco Use Smoking status: Former Current packs/day: 0.00 Average packs/day: 0.5 packs/day for 11.0 years (5.5 ttl pk-yrs) Types: Cigarettes Start date: 03/17/2009 Quit date: 03/17/2020 Years since quittin.2 Smokeless tobacco: Never Vaping Use Vaping status: Some Days Last attempt to quit: 02/08/2022 Substance Use Topics Alcohol use: No Drug use: No REVIEW OF SYSTEMS Abdomen: No abdominal pain, nausea, vomiting, diarrhea, or constipation. No bloating, early satiety, indigestion, or increased flatulence. Bladder: No dysuria, gross hematuria, urinary frequency, urinary urgency, or incontinence. Breast: No breast lumps, nipple d/c, overlying skin changes, redness or skin retraction. Allergies and current medication updated:Yes SENSITIVE EXAM: The sensitive examination was discussed with the Patient or Patient's Authorized All Source Intelligence Technician. As applicable, any other physician, advance practice provider, medical student, or other health professional student that will be observing or involved in the sensitive examination for educational or training purposes was discussed with the Patient or Authorized All Source Intelligence Technician. The Patient or Authorized All Source Intelligence Technician has agreed to proceed with the sensitive examination. (Sensitive examination includes inspection and/or palpation of the breasts, pelvis, prostate and anorectal regions). EXAM: Ht 5' 8 (1.73m) Wt 162 lb (73.5kg) LMP 05/27/2024 BMI 24.64 kg/(m^2). GENERAL: pleasant, female in no apparent distress HEENT: Normocephalic, atraumatic, mucus membranes moist, and no lesions NECK: Supple, full range of motion, no adenopathy, and thyroid normal DERMATOLOGY: Normal, without lesions, non-icteric, and non-hirsute BREAST: soft, non-tender, symmetric, no dominant mass, normal nipple-areolar complex, no lymphadenopathy, and no nipple discharge CHEST: Normal inspiratory effort ABDOMEN: soft, non-tender, and no masses PELVIC: external genitalia normal, normal Bartholin's glands, urethra, Albert's glands, no vulvar lesions, no cervical lesions, good vaginal support, physiologic discharge present, normal appearing perineal body and perianal region BIMANUAL: uterus normal size, shape and consistency, no adnexal masses, and non-tender RECTOVAGINAL: deferred. NEURO: alert and oriented x3,exam grossly non-focal EXTREMITIES: normal ASSESSMENT/PLAN: 1) Health maintenance: Pap done with HPV. Discussed yearly pap given MS diagnosis and treatment 2) Contraception: combined hormonal contraceptives. Contraceptive options reviewed and information provided. 3) STD screening: Declined STD check. 4) Follow up one year or sooner as needed Jessica Solis MD documented in this encounter [facility] 06-09-2024 History of Present illness Narrative [facility] received prescription(s) for Kesimpta from Sebastien Jean Baptiste's office. Benefits investigation was conducted, indicating that a prior authorization is not required at this time per patient's plan with [facility]. Prescriptions will now be processed through [facility] for determination of next steps. Abhi Gipson (Dee) [facility] Neurology/Cardiology/Infections Disease [facility] P: F: documented in this encounter [facility] 06-09-2024 Note HNO ID: [id number] Author: ?, ?, ? Service: ? Author Type: ? Type: Progress Notes Filed: 06/09/2024 09:07 Note Text: [facility] received prescription(s) for Kesimpta from eSbastien Jean Baptiste's office. Benefits investigation was conducted, indicating that a prior authorization is not required at this time per patient's plan with [facility]. Prescriptions will now be processed through [facility] for determination of next steps. Abhi Gipson (Dee) [facility] Neurology/Cardiology/Infections Disease [facility] P: F: [facility] 06-09-2024 Note HNO ID: [id number] Author: MARIA DEL CARMEN JENNINGS RPh Service: ? Author Type: Pharmacist Type: Progress Notes Filed: 06/10/2024 12:32 Note Text: [facility] received prescription(s) for Kesimpta 20 mg / 0.[address] Sebastien Jean Baptiste's office. Benefits investigation was conducted, indicating that a prior authorization is required. PA was approved with details listed below: Plan Name: [place] [employer] [place] reference number: Not required Approval Dates: N/A Pt's copay is $0.00. Shipment has been arranged, and pt will receive medication(s) on 06/12/2024. Pt has been instructed to follow-up with clinic to confirm start date. A full drug interaction report was conducted, and none was found. I reviewed with patient appropriate dose and dosing frequency, administration directions (Inject 1 pen (0.4 mL) under the skin at weeks 0, 1, 2, and 4.), potential side effects, ability to self-administer and proper storage and handling requirements. S/he expressed understanding of the information we provided today, and received our contact information for the pharmacy if s/he had any other questions. Office/provider notes have been reviewed prior to dispensing the medication. PAST MEDICAL HISTORY Diagnosis Date Abnormal glandular Papanicolaou smear of cervix 2007,2010,2012 Abn. Pap smear (cervix) ADD (attention deficit disorder) Chlamydia 08/12/2009 Depression Gestational diabetes mellitus, class A1 08/20/2022 HPV test positive 01/19/2013 Migraine depression ALLERGIES Allergen Reactions Seasonal Allergies Other: See Comments Seasonal Sinus Issues Problem List Noted Noted By Resolved Resolved By Optic neuritis 05/11/2024 Sebastien Jean Baptiste MD No Numbness and tingling of foot 09/06/2022 Charles Kaur, PT No Hx LEEP (loop electrosurgical excision procedure), cervix, , first trimester 03/22/2022 Jeny Giang, SONDRA No Overview Signed 03/22/2022 4:55 PM by Jeny Giang RN 03/22/2022t has a history of Leep done in 2014. Discussed increased risk of labor and importance of reporting any symptoms should they develop.Signs and symptoms of PTL discussed.TKRN Excessive growth affecting management of in third trimester 10/09/2022 Payton Washington MD 11/28/2022 Payton Washington MD Overview Signed 10/09/2022 12:09 PM by Payton Washington MD EFW > 96% and ABD Circ >99% at 35 weeks. Payton Conway MD 31 weeks gestation of 09/10/2022 Payton Washington MD 09/26/2022 Payton Washington MD Excessive growth affecting management of mother in third trimester, antepartum 09/10/2022 Payton Washington MD 11/28/2022 Payton Washington MD Diet controlled gestational diabetes mellitus (GDM) in third trimester 09/10/2022 Payton Washington MD 11/28/2022 Payton Washington MD 30 weeks gestation of 09/06/2022 Charles Kaur, PT 11/28/2022 Payton Washington MD Gestational diabetes mellitus, class A1 08/20/2022 Payton Washington MD 11/28/2022 Payton Washington MD Abnormal glucose in , antepartum 08/15/2022 Payton Washington MD 11/28/2022 Payton Washington MD Overview Signed 08/15/2022 7:54 PM by Payton Washington MD 23: 3hr GTT ordered. Payton Conway MD Rubella non-immune status, antepartum 05/14/2022 Payton Washington MD 11/28/2022 Payton Washington MD Medication exposure during first trimester of 03/22/2022 Jeny Giang, RN 11/28/2022 Payton Washington MD Overview Signed 03/22/2022 4:56 PM by Jeny Giang RN 03/22/2022 Patient currently taking Adderall prescribed by Yuridia Briscoe. She is currently trying to wean off medication. TKRN Short interval between pregnancies complicating , antepartum 05/26/2014 Payton Washington MD 06/20/2022 Payton Washington MD HUGO III (cervical intraepithelial neoplasia III) 05/29/2013 Maida Chun MD 11/28/2022 Payton Washington MD Overview Addendum 10/20/2014 1:20 PM by Payton Fernandes HUGO 1 on Colposcopy during current . Will do Colposcopy and repeat pap at POST [facility]ISIT. 05/25/14: no follow up- repeat pap done at [facility] May 29, 2013 Ava done at 28 weeks. Needs colp and bxs after . Maida Chun MD Cervical high risk human papillomavirus (HPV) DNA test positive 05/26/2013 Maida Chun MD 05/26/2014 Overview Signed 05/26/2013 9:24 AM by Maida Chun ASCUS paps w/ po HRHPV in 2010 and 01/2013. Encouraged f/u after . Supervision of other high-risk (V23.89) 02/16/2013 Maida Chun MD 11/28/2022 Payton Washington MD Tobacco use in 01/06/2013 Jeny Giang, RN 11/28/2022 Payton Washington MD Overview Addendum 05/26/2014 2:45 PM by Payton Fernandes (more content not included)... [facility] 06-08-2024 Instructions Luci Ospina DO - 06/08/2024 2:37 PM EDT Thank you for allowing the [facility] to be a part of your care. At today's appointment we discussed starting you on disease modifying therapies for multiple sclerosis. We discussed starting you on an injectable. We will work on getting this approved and someone from our team will be intact. Overall with MS it is important to stay up to date on your vaccinations, this season please get your flu vaccination. Continue to take your vitamin D, you can also start taking a multivitamin. Appointments: Follow-up appointments typically last 30 minutes, and regularly involve our NEIL team members. Appointments can be completed in-person or virtually and typically occur every 6 to 12 months. Your care team will help guide which visit platform (i.e. virtual or in-person) and follow-up frequency is best for each of your visits. Communicating with Your Care Team: Please sign up for the [employer]K patient portal. TIMPIK provides access to your medical records, test results, and allows for direct communication with your care team. TIMPIK is best utilized for brief, non-urgent messages. Our team may recommend a follow-up appointment to further review complex questions or messages. For more TIMPIK information:[email or web address] Urgent Symptoms: We understand the importance of prompt access to care, especially when experiencing concerning neurological symptoms. If you encounter any of the following urgent symptoms, particularly if they persist for longer than 24 hours, do not hesitate to contact our office at [phone] during office hours for further advice. Through this process our team members will triage if an urgent visit and/or other testing through us or your primary care team is needed. Changes in vision including blurry or double vision Sensory changes including numbness, tingling or other painful sensations Weakness including difficulty using your arms or legs Difficulty in walking or trouble with balance Muscle tightening or spasms Abrupt confusion Please note that urgent visits are not intended for chronic symptoms or symptoms that require emergent care, as the [facility] is an outpatient neurologic clinic. Please also know that if it is determined an urgent visit is needed, you may be seen by a different care team than your usual, which is done to ensure prompt access. Test Results: Our team is committed to ensuring that you remain informed and supported throughout your care journey. When testing is completed, the results will automatically be available within [employer]K. If any test result, including MRI imaging, requires immediate follow-up before your next scheduled visit, your care team will promptly reach out to you. For results that do not necessitate immediate action, we will plan to discuss them during your next scheduled visit. Prescription Refill Requests: To expedite your request, utilize the prescription refill option in the [employer]PIK platform. Many prescriptions require prior authorization through your insurance company so give 1-2 weeks prior notice to allow for ample processing time. Health Forms including FMLA and Disability Paperwork: Please allow up to 30 days for processing of routine forms, such as FMLA. More comprehensive forms (short-term disability, long-term disability) may require a follow-up appointment with your provider for further review, as well further assessment by our neuro therapy and neuropsychology teams. Research: The [facility] is a world leader in clinical research, and our patients have access to the latest trials and experimental therapies. If you are interested in learning more about [facility] research/clinical trial opportunities, please email [facility] or call our research team at [phone]. documented in this encounter [facility] 06-08-2024 Note HNO ID: [id number] Author: SEBASTIEN JEAN BAPTISTE MD Service: ? Author Type: Physician Type: Progress Notes Filed: 06/09/2024 08:55 Note Text: [facility] FOLLOWUP/ESTABLISHED PATIENT VISIT DX: multiple sclerosis DISEASE SUMMARY Date of onset: Apr 2024 (R>L visual changes w/ possible MRI orbit changes) Date of diagnosis of MS: 2023 Disease course at onset: Relapsing-Remitting Current disease course: Relapsing-Remitting Previous disease therapies: High dose corticosteroids 04/2024 Current disease therapy: Ofatumumab Most recent MRI brain: 04/2024 (enhancing parietal lesion) Most recent MRI cervical spine: 05/27 : No evidence of demyelinating disease in the cervical cord. CSF: N/A JCV serology result and date: 05/11, 0.11 Negative MOG/AQP4: 05/11 Negative CHIEF COMPLAINT: Follow-up for monitoring off MS yet to start modifying therapy INTERVAL HISTORY: Usual treating team: Ita/Bharat Yoandy is accompanied by her partner today. The patient was last seen 05/11, currently started on IMDT. Since last visit, yoandy completed steroid for clinical event of vision changes, symptoms improved but without complete resolution, she continues to have visual obscuration. Has felt overwhelmed and fatigued at times, able to carry out daily tasks but does taken longer than prior. > She was able to quit smoking. > MRI Cervical spine completed 05/27 negative Remains on Wellbutrin 150 mg BID Started on Vitamin D last visit Objective Neuro-QoL Functions (higher=better functioning) Flowsheet [facility] Office Visit from 06/08/2024 in [facility] Office Visit from 05/11/2024 in [facility] Upper Extremity Domain T Score 47 57 Lower Extremity Domain T Score 62 62 Cognitive Function Domain T Score 33 43 Positive Affect Well Being T Score -- -- Ability To Participate In Social Roles T Score 51 50 Satisfaction With Social Roles T Score 35 43 Neuro-QoL Symptoms (higher=worse symptoms) Flowsheet [facility] Office Visit from 06/08/2024 in [facility] Office Visit from 05/11/2024 in [facility] Sleep Domain T Score 72 51 Fatigue Domain T Score 53 46 Anxiety Domain T Score 54 65 Depression Domain T Score 49 48 Stigma Domain T Score 44 51 Emotional Behavior Dyscontrol T Score -- -- has a past medical history of Abnormal glandular Papanicolaou smear of cervix (2007,2010,2012), ADD (attention deficit disorder), Chlamydia (08/12/2009), Depression, Gestational diabetes mellitus, class A1 (08/20/2022), HPV test positive (01/19/2013), Migraine, and depression. She has no past medical history of Anemia, Asthma, Blood dyscrasia, Breast disorder, Chronic kidney disease, Complication of anesthesia, Coronary artery disease, Gonorrhea, Herpes simplex without mention of complication, History of pre-eclampsia in prior , currently , HIV infection ([facility]), Hypertension, Infertility, female, Liver disease, Malignant hyperthermia due to anesthesia, Placental abruption, hemorrhage, hemorrhage, Rh incompatibility, Seizure ([facility]), Sickle cell anemia ([facility]), Syphilis, Systemic lupus erythematosus ([facility]), Thyroid disease, Trauma, or Varicosities. has a current medication list which includes the following prescription(s): drospirenone-ethinyl estradiol, dextroamphetamine-amphetamine, bupropion sr, amphetamine-dextroamphetamine xr, iv contrast, cholecalciferol, drospirenone-ethinyl estradiol, and omeprazole. EXAM: BP 109/68 Pulse 93 Wt 76.1 kg (167 lb 12.3 oz) LMP 02/03/2022 (Approximate) SpO2 100% BMI 25.51 kg/m? MSPT Results Flowsheet Row Office Visit from 06/08/2024 in [facility] Office Visit from 05/11/2024 in [facility] Processing Speed Total Number Correct 57 52 Processing Speed Z score 0.43 -0.09 Dominant hand -- Right hand MDT Left Hand Time 25.92 27.38 MDT Right Hand Time 30.37 26.64 Walking Speed Test (25 feet) 6.82 -- General Appearance: well appearing, in no acute distress Mental status evaluation during the interview and examination showed normal level of consciousness, orientation, language, memory, praxis, and higher intellectual function Affect: Normal Visual acuity: intact to VF - OD 20/40 (-1) OS 20/40 ( -1) Correction: Without > Hippus with RAPD Extraocular movements: full, Facial sensation: Intact bilaterally Facial movements: Intact bilaterally Speech: normal Muscle tone: Right arm spasticity: None Right leg spasticity: None Left arm spasticity: None Left leg spasticity: None Muscle strength (#/5): Right Left Upper Extremity: Deltoids 5 5 Biceps 5 5 Triceps 5 5 Labor Relations Worker 5 5 Dorsal interossei 5 5 Lower extremity: Iliopsoas 5 5 Quadriceps 5 5 Hamstrings 5 5 Tibialis anterior 5 5 Gastrocnemius 5 5 Reflexes: brachioradialis ++ brachioradialis ++ biceps ++ biceps ++ triceps ++ triceps ++ patellar ++ patellar ++ Achilles ++ Achilles ++ plantar response down plan (more content not included)... [facility] 06-08-2024 History of Present illness Narrative Images from the original note were not included. [facility] FOLLOWUP/ESTABLISHED PATIENT VISIT DX: multiple sclerosis DISEASE SUMMARY Date of onset: Apr 2024 (R>L visual changes w/ possible MRI orbit changes) Date of diagnosis of MS: 2023 Disease course at onset: Relapsing-Remitting Current disease course: Relapsing-Remitting Previous disease therapies: High dose corticosteroids 04/2024 Current disease therapy: Ofatumumab Most recent MRI brain: 04/2024 (enhancing parietal lesion) Most recent MRI cervical spine: 05/27 : No evidence of demyelinating disease in the cervical cord. CSF: N/A JCV serology result and date: 05/11, 0.11 Negative MOG/AQP4: 05/11 Negative CHIEF COMPLAINT: Follow-up for monitoring off MS yet to start modifying therapy INTERVAL HISTORY: Usual treating team: Ita/Bharat Yoandy is accompanied by her partner today. The patient was last seen 05/11, currently started on IMDT. Since last visit, yoandy completed steroid for clinical event of vision changes, symptoms improved but without complete resolution, she continues to have visual obscuration. Has felt overwhelmed and fatigued at times, able to carry out daily tasks but does taken longer than prior. > She was able to quit smoking. > MRI Cervical spine completed 05/27 negative Remains on Wellbutrin 150 mg BID Started on Vitamin D last visit Objective Neuro-QoL Functions (higher=better functioning) Flowsheet [facility] Office Visit from 06/08/2024 in [facility] Office Visit from 05/11/2024 in [facility] Upper Extremity Domain T Score 47 57 Lower Extremity Domain T Score 62 62 Cognitive Function Domain T Score 33 43 Positive Affect Well Being T Score -- -- Ability To Participate In Social Roles T Score 51 50 Satisfaction With Social Roles T Score 35 43 Neuro-QoL Symptoms (higher=worse symptoms) Flowsheet [facility] Office Visit from 06/08/2024 in [facility] Office Visit from 05/11/2024 in [facility] Sleep Domain T Score 72 51 Fatigue Domain T Score 53 46 Anxiety Domain T Score 54 65 Depression Domain T Score 49 48 Stigma Domain T Score 44 51 Emotional Behavior Dyscontrol T Score -- -- has a past medical history of Abnormal glandular Papanicolaou smear of cervix (2007,2010,2012), ADD (attention deficit disorder), Chlamydia (08/12/2009), Depression, Gestational diabetes mellitus, class A1 (08/20/2022), HPV test positive (01/19/2013), Migraine, and depression. She has no past medical history of Anemia, Asthma, Blood dyscrasia, Breast disorder, Chronic kidney disease, Complication of anesthesia, Coronary artery disease, Gonorrhea, Herpes simplex without mention of complication, History of pre-eclampsia in prior , currently , HIV infection ([facility]), Hypertension, Infertility, female, Liver disease, Malignant hyperthermia due to anesthesia, Placental abruption, hemorrhage, hemorrhage, Rh incompatibility, Seizure ([facility]), Sickle cell anemia ([facility]), Syphilis, Systemic lupus erythematosus ([facility]), Thyroid disease, Trauma, or Varicosities. has a current medication list which includes the following prescription(s): drospirenone-ethinyl estradiol, dextroamphetamine-amphetamine, bupropion sr, amphetamine-dextroamphetamine xr, iv contrast, cholecalciferol, drospirenone-ethinyl estradiol, and omeprazole. EXAM: BP 109/68 Pulse 93 Wt 76.1 kg (167 lb 12.3 oz) LMP 02/03/2022 (Approximate) SpO2 100% BMI 25.51 kg/m MSPT Results Flowsheet Row Office Visit from 06/08/2024 in [facility] Office Visit from 05/11/2024 in [facility] Processing Speed Total Number Correct 57 52 Processing Speed Z score 0.43 -0.09 Dominant hand -- Right hand MDT Left Hand Time 25.92 27.38 MDT Right Hand Time 30.37 26.64 Walking Speed Test (25 feet) 6.82 -- General Appearance: well appearing, in no acute distress Mental status evaluation during the interview and examination showed normal level of consciousness, orientation, language, memory, praxis, and higher intellectual function Affect: Normal Visual acuity: intact to VF - OD 20/40 (-1) OS 20/40 ( -1) Correction: Without > Hippus with RAPD Extraocular movements: full, Facial sensation: Intact bilaterally Facial movements: Intact bilaterally Speech: normal Muscle tone: Right arm spasticity: None Right leg spasticity: None Left arm spasticity: None Left leg spasticity: None Muscle strength (#/5): Right Left Upper Extremity: Deltoids 5 5 Biceps 5 5 Triceps 5 5 Labor Relations Worker 5 5 Dorsal interossei 5 5 Lower extremity: Iliopsoas 5 5 Quadriceps 5 5 Hamstrings 5 5 Tibialis anterior 5 5 Gastrocnemius 5 5 Reflexes: brachioradialis ++ brachioradialis ++ biceps ++ biceps ++ triceps ++ triceps ++ patellar ++ patellar ++ Achilles ++ Achilles ++ plantar response down plantar response down Coordination: Upper extremity dexterity and rapid movements: Normal bilaterally Finger-nose: no dysmetria; coordination intact Sensory Perception: Intact RESULTS: CBC + Diff Component Value Date WBC 8.65 05/11/2024 HB 13.7 05/11/2024 HCT 40.8 05/11/2024 PLT 256 05/11/2024 ABSLYMPH 2.37 05/11/2024 MRI Results: No results found for: [id number], ENHANCINGLES, CERVICALNEW, SPINEENHACIN Assessment ASSESSMENT/PLAN: Yoandy Virgen is a 33 year old right handed female with a past medical history of migraines without aura, ADD (on adderall), former smoker. Depression on Wellbutrin who was initially seen 05/11/2024 following first clinical event of vision changes, MRI orbits with possible ON? further abnormal MRI Brain findings of periventricular and juxtacortical lesions with varing degree of enhancement, presentation is most consistent with MS (CDS panel negative) s/p IVMP. Exam is: Stable - with vision obscuration, intact to VF, 20/40 (-1) OU, MRI cervical without disease involvement. Discussed options of medical therapy, at this time favor monthly injectable, BELA virus negative. Will plan to start IMDT with planned follow-up at approximately 3-month interval initially to continue to assess response on an ongoing basis. PLAN: -- OT / PT for energy conservation measures and multiple sclerosis wellness discussion. Will need to consider other elements for fatigue management -- start multivitamin, continue Vitamin D -- b12 goal > 400, Vitamin D > 50 -- Initiate prior-authorization of q4 week injectable Ofatumumab -- Will follow-up in 3 months > okay for virtual -- Can further titrate Wellbutrin based on clinical response -- Yoandy has stopped smoking. Discussed importance within multiple sclerosis and further resources if needed Office Visit on 06/08/24 CONSULT TO [employer] PROGRAMMER CONSULT TO PHYSICAL THERAPY The chart was reviewed for possible participation in the following studies: Patient Health Education Discussed at Visit: Aerobic exercise, Emotional Health/Wellness, and Vitamin D supplementation Follow-up: In 3 months at [facility] Luci Ospina DO, MS Adult Neurology PGY2 [facility] [phone] 06/08/2024 4:34 PM NEUROLOGY STAFF ADDENDUM I have reviewed the history and physical examination obtained and documented by the resident and I personally participated in the lang components of history and examination. I agree with the resident's plan as noted above which was formulated with my direct input. In summary, this is a 33 year old female with a past medical history of migraines without aura, ADD (on stimulant prescribed by outside provider), tobacco dependence now in remission, MDD/MAMIE on Wellbutrin who presents for follows for multiple sclerosis. Yoandy experienced visual changes with primary positive features c/b peripheral scotoma. Local [employer] service technician mentioned some possible disc edema without impairment of visual acuity. MRI brain showed typical demyelinating changes in the supratentorial white matter including at least one enhancing lesion. Orbital imaging was motion degraded but no clear changes on my review. On examination, there was a clear R APD c/b hippus without clear disc edema. MOG/AQP4 testing was negative. Improvement following high dose corticosteroids. Discussed rationale for treatment in multiple sclerosis and available options. Yoandy opted for anti-CD20 treatment so we discussed available delivery methods and she elected for Ofatumumab. Authorization sent and risk/benefits discussed including infectious risk. Recommended updating all vaccines including Flu. I spent a total of 60 minutes on the date of the service which included preparing to see the patient, [id number] patient care, completing clinical documentation, obtaining and/or reviewing separately obtained history and counseling and educating the patient/family/caregiver. Sebastien Jean Baptiste MD Staff, Department of Neurology [facility] Multiple Sclerosis documented in this encounter [facility] 05-28-2024 Telephone encounter Note Yoandy is calling Sebastien Jean Baptiste MD today with concern regarding Peripheral vision is still a problem after finishing prednisone. Please advise. Patient has been identified by name and birthdate. Duration of symptoms: N/A Person calling: self Call patient at: on cell [phone] (home) [phone] (cell) Was an appointment scheduled: No Closing statement: Symptom Call: Thank you for calling [facility], your call is very important. A nurse will call in approximately 2-4 hours during business hours. If this is an emergency, please contact 911. Gilbert Maria [facility] 05-28-2024 Miscellaneous Notes Yoandy is calling Sebastien Jean Baptiste MD today with concern regarding Peripheral vision is still a problem after finishing prednisone. Please advise. Patient has been identified by name and birthdate. Duration of symptoms: N/A Person calling: self Call patient at: on cell [phone] (home) [phone] (cell) Was an appointment scheduled: No Closing statement: Symptom Call: Thank you for calling [facility], your call is very important. A nurse will call in approximately 2-4 hours during business hours. If this is an emergency, please contact 911. Gilbert Maria documented in this encounter [facility] 05-27-2024 History of Present illness Narrative Radiology Service Progress Note DATE OF SERVICE: May 27, 2024 TIME: 3:13 PM PATIENT IDENTITY VERIFICATION COMPLETED USING TWO (2) STANDARD IDENTIFIERS: Name and Date of confirmed by patient verbally. FALL SCREENING: Has the patient had 2 falls in the last year or 1 fall with injury or currently using an Ambulatory Assistive Device (Walker, Cane, Wheelchair, Crutches, etc.)? No PATIENT GENDER DATA: Female. status: : No status: NO. PATIENT RELEVANT IMPLANT DATA REVIEWED: Yes PATIENT PRESENTS WITH AN IMPLANTABLE OR ATTACHED VALIDATION CONSULTANT: No ALLERGIES: Reviewed and unchanged CONTRAST ALLERGY: NO. EXAM: MRI - CONTRAST TYPE: GROUP II PERIPHERAL IV DATA: Ambulatory: A peripheral IV was started in the Left antecubital site with a Angio cath: 22 gauge. RADIOLOGY DEPARTMENT: MR; Exam(s) Completed: Spine: Cervical spine SIGNATURE: Linda Huizar RDMS, MARCELOT- Emily ([facility]) PATIENT NAME: Yoandy Virgen DATE: May 27, 2024 TIME: 3:13 PM documented in this encounter [facility] 05-27-2024 Note HNO ID: [id number] Author: LINDA HUIZAR RT(Camila) Service: ? Author Type: Technologist Type: Progress Notes Filed: 05/27/2024 15:14 Note Text: Radiology Service Progress Note DATE OF SERVICE: May 27, 2024 TIME: 3:13 PM PATIENT IDENTITY VERIFICATION COMPLETED USING TWO (2) STANDARD IDENTIFIERS: Name and Date of confirmed by patient verbally. FALL SCREENING: Has the patient had 2 falls in the last year or 1 fall with injury or currently using an Ambulatory Assistive Device (Walker, Cane, Wheelchair, Crutches, etc.)? No PATIENT GENDER DATA: Female. status: : No status: NO. PATIENT RELEVANT IMPLANT DATA REVIEWED: Yes PATIENT PRESENTS WITH AN IMPLANTABLE OR ATTACHED VALIDATION CONSULTANT: No ALLERGIES: Reviewed and unchanged CONTRAST ALLERGY: NO. EXAM: MRI - CONTRAST TYPE: GROUP II PERIPHERAL IV DATA: Ambulatory: A peripheral IV was started in the Left antecubital site with a Angio cath: 22 gauge. RADIOLOGY DEPARTMENT: MR; Exam(s) Completed: Spine: Cervical spine SIGNATURE: Linda Huizar RDMS, RVT- Sheila ([facility]) PATIENT NAME: Yoandy Virgen DATE: May 27, 2024 TIME: 3:13 PM [facility] 05-12-2024 Note HNO ID: [id number] Author: JANIA MARTINEZ HUC Service: ? Author Type: Health Youtuber Type: Progress Notes Filed: 05/12/2024 14:07 Note Text: Faxed Records request-[facility] for last ov and test results. [facility] 05-12-2024 History of Present illness Narrative Faxed Records request-[facility] for last ov and test results. documented in this encounter [facility] 05-11-2024 Instructions Sebastien Jean Baptiste MD - 05/11/2024 11:00 AM EDT High dose oral prednisone instructions. This dose is equal to our IV steroids (also called IVMP) INSTRUCTIONS Please take 25 of the 50mg prednisone per day (total of 1,250 mg daily) for a total of 5 days then you can discontinue. There is no taper needed. You can take the medication in any way that works best for you. I usually recommend that you take the medication before 12PM to help reduce the risk of insomnia (trouble falling asleep) but you can spread out the pills in anyway that works (I.e., the pills do not need to be taken all in one sitting). For example, you can take 9 tabs around 7am, 8 tabs 9am, and 8 tabs with food around 12PM. Common questions/side effects: - Upset stomach; I will send in something to protect the stomach (PPI or Pepcid) that you should take while on the prednisone. You may stop the medication once done with the prednisone. Also, taking the prednisone with food can be helpful. - Steroids may cause you to feel puffy in your face, hands, and feet - this is normal and will resolve about a few weeks after completing them. - You might also notice more anxiety and difficultly sleeping at night. Avoid caffeine and you can take melatonin, Benadryl, or Unisom as sleep aids -- Irritability - this is common and will usually resolve soon after completing the treatment. If you are experiencing more severe symptoms like seeing/hearing things that others can't see/hear please reach out to our office immediately. Based on your symptoms, and the MRI findings we do believe your presentation is consistent with a demyelinating disease such as Multiple Sclerosis. Multiple sclerosis (MS) damages the protective cover around nerves called myelin in your central nervous system. It can cause muscle weakness, vision changes, numbness and memory issues. While there isn t a cure, treatment options can help you manage symptoms and slow disease progression. We know this can seem daunting our team is here to discuss this diagnosis and answer questions as you may need. There are many resources for MS as well and we have included some below. As you described changes in your vision and the MRI findings we started you on steroids for the inflammation. This is a short course which is less likely to cause moth exterminator side-effects. We will consider starting you on medications that are more specific for MS, but we did not start this medication today as we want to do a little more work-up including MRI and labs. You were recently started on Wellbutrin since this is a new medication we wont make any adjustments to day but in the future we can consider increasing this medication or adding a medication that can help with any stress. Resources for multiple sclerosis education, support, and care include: National Multiple Sclerosis Society ( www.nationalmssociety.org ) Multiple Sclerosis Association of [place] ( www.mymsaa.org ) Multiple Sclerosis Foundation ( www.msfocus.org ) Gather MS: linking people with MS to local community resources ( www.EcoGroomerms.com ) MS-World ( www.msworld.org ) Can Do Multiple Sclerosis ( www.mscando.org ) MS Navigator through the National MS Society: The National MS Society s has an MS Navigator program that is designed to help individuals and families manage the challenges of MS. They can connect people to resources and support services, and provide information about MS. To get connected with an MS Navigator, call or visit http://[email or web address].org/kimmie [email or web address]. documented in this encounter [facility] 05-11-2024 History of Present illness Narrative Images from the original note were not included. [facility] NEW PATIENT EVALUATION/CONSULTATION Referral source: Riky Marr MD [id number] [facility] [id number] Also followed by: Patient Care Team: Pcp, CHANTELLE Abernathy, Riky Colón MD as Referring (Ophthalmology) PRINCIPAL NEUROLOGIC DIAGNOSIS: Likely multiple sclerosis DISEASE SUMMARY Date of onset: Apr 2024 (R>L visual changes w/ possible MRI orbit changes) Date of diagnosis of MS: pending Disease course at onset: Relapsing-Remitting Current disease course: Relapsing-Remitting Previous disease therapies: High dose corticosteroids 04/2024 Current disease therapy: NA Most recent MRI brain: 04/2024 (enhancing parietal lesion) Most recent MRI cervical spine: pending CSF: NA JCV serology result and date: pending MOG/AQP4 pending HISTORY OF ILLNESS: An opinion on Yoandy Virgen 33 year old female was requested by the referring physician for a second opinion on abnormal brain MRI. The patient was was accompanied by her partner. My recommendations will be communicated back to the patient's physician(s) via electronic medical record. Follow-up is expected to be with myself and Dr. Jean Baptiste at the [facility]. Yoandy states on 05/03 she began to endorse acute vision changes described as RIGHT > LEFT visual field obscurations with associated pain and nausea, without vomiting. Describes symptoms as kaliedescope. Endorsing strain with sharp pains. She was evaluated at home in [place] for symptoms for which MRI brain obtained which were concerning for demyelinating disease for which she was referred. She also was evaluated by local enroller Dr. Rj Marr in [place] documentation not available in care-everywhere however per patient she was told there was bilateral swelling in the back of her eyes. > Patient had MRI Brain W/WO completed in [place], [place] 05/07: upon our review there is b/l periventricular and juxtacortical lesions some of which appear to be enhancing. Can not overly appreciate optic nerve enhancement however per read R > L changes Of note she endorse hx Migraine occurring 1x year, pain described as radiating neck pain to frontal, feels achy. Associated with spotty visual obscuration consistent with scotoma, with photophobia, deneis phonophobia, N/V. Has sufficient relief with Excedrin There is no other remote/previous history suggestive of optic neuritis, brainstem syndrome, myelitis or other symptom concerning for a remote demyelinating event. Current Symptoms: -- RIGHT > LEFT eye strain with visual obscuration -- Denies other acute symptoms, denies ALTMAN Neuro-QoL Functions (higher=better functioning) Flowsheet Row Office Visit from 05/11/2024 in [facility] Upper Extremity Domain T Score 57 Lower Extremity Domain T Score 62 Cognitive Function Domain T Score 43 Positive Affect Well Being T Score -- Ability To Participate In Social Roles T Score 50 Satisfaction With Social Roles T Score 43 Neuro-QoL Symptoms (higher=worse symptoms) Flowsheet Row Office Visit from 05/11/2024 in [facility] Sleep Domain T Score 51 Fatigue Domain T Score 46 Anxiety Domain T Score 65 Depression Domain T Score 48 Stigma Domain T Score 51 Emotional Behavior Dyscontrol T Score -- PAST HISTORY: has a past medical history of Abnormal glandular Papanicolaou smear of cervix (2007,2010,2012), ADD (attention deficit disorder), Chlamydia (08/12/2009), Depression, Gestational diabetes mellitus, class A1 (08/20/2022), HPV test positive (01/19/2013), Migraine, and depression. She has no past medical history of Anemia, Asthma, Blood dyscrasia, Breast disorder, Chronic kidney disease, Complication of anesthesia, Coronary artery disease, Gonorrhea, Herpes simplex without mention of complication, History of pre-eclampsia in prior , currently , HIV infection ([facility]), Hypertension, Infertility, female, Liver disease, Malignant hyperthermia due to anesthesia, Placental abruption, hemorrhage, hemorrhage, Rh incompatibility, Seizure ([facility]), Sickle cell anemia (HCC), Syphilis, Systemic lupus erythematosus (HCC), Thyroid disease, Trauma, or Varicosities. 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 has a current medication list which includes the following prescription(s): drospirenone-ethinyl estradiol, dextroamphetamine-amphetamine, bupropion sr, amphetamine-dextroamphetamine xr, drospirenone-ethinyl estradiol, iv contrast, cholecalciferol, [START ON 05/12/2024] prednisone, omeprazole, clindamycin, lancets, prental multivitamin, and docosahexaenoic acid/epa, and the following Facility-Administered Medications: methylPREDNISolone sodium succinate 1,000 mg in NaCl 0.9% 100 mL (SOLU-Medrol), nacl 0.9%, diphenhydramine, hydrocortisone sodium succinate (pf), epinephrine, sodium chloride 0.9 % (flush), and sodium chloride 0.9 % (flush). Social History Tobacco Use Smoking status: Former Packs/day: 0.00 Years: 0.5 packs/day for 11.0 years (5.5 ttl pk-yrs) Types: Cigarettes Start date: 03/17/2009 Quit date: 03/17/2020 Years since quittin.1 Smokeless tobacco: Never family history includes Alcohol/Drug in her paternal grandfather; Cancer in her maternal grandmother and paternal grandfather; Dementia in her paternal grandmother; Diabetes in her maternal grandfather; GERD in her mother; Hypertension in her father; No Known Problems in her sister, sister, son, son, and son; Parkinson s Disease in her paternal grandmother. MSPT Results Flowsheet Row Office Visit from 05/11/2024 in [facility] Processing Speed Total Number Correct 52 Processing Speed Z score -0.09 Dominant hand Right hand MDT Left Hand Time 27.38 MDT Right Hand Time 26.64 Walking Speed Test (25 feet) -- PHYSICAL EXAM: BP 111/73 Pulse 81 Wt 76.2 kg (167 lb 15.9 oz) LMP 02/03/2022 (Approximate) SpO2 98% BMI 25.54 kg/m The patient was alert and oriented to person, place, and time with normal language, attention and concentration, recent and remote memory, praxis, and intellectual function. Affect was normal. Visual jacobo intact to confrontation Visual acuity 20/25 b/l , -1 on the RIGHT Pupils b/l with Hippus confoudning with relative afferent pupillary defect appreciated on the RIGHT Ocular ductions were full without nystagmus or ataxia. Muscles of mastication and facial expression moved normally. There was no dysarthria. Motor Examination: There was no pronator drift. Right Upper Extremity: Left Upper Extremity: Deltoid 5/5 Deltoid 5/5 Biceps 5/5 Biceps 5/5 Triceps 5/5 Triceps 5/5 Wrist extensors 5/5 Wrist extensors 5/5 Wrist flexors 5/5 Wrist flexors 5/5 Tone (Trever scale) 0 Tone (Trever scale) 0 Right Lower Extremity: Left Lower Extremity: Hip flexors 5/5 Hip flexors 5/5 Knee flexors 5/5 Knee flexors 5/5 Knee extensors 5/5 Knee extensors 5/5 Dorsiflexors 5/5 Dorsiflexors 5/5 Plantarflexors 5/5 Plantarflexors 5/5 Tone (Trever scale) 0 Tone (Trever scale) 0 Reflexes: brachioradialis ++ brachioradialis ++ biceps ++ biceps ++ triceps ++ triceps ++ patellar ++ patellar ++ Achilles ++ Achilles ++ plantar response down plantar response down Coordination Finger to nose testing without dysmetria Rapid-alternating movements smooth with good marcela Heel to jackson without dysmetria No signs of head tremor or truncal ataxia Sensory examination: Light touch: Normal all four extremities. Vibration: Normal in the lower extremities. Patient able to arise from chair independently. Gait was normal, including heel, toe, and tandem walking. REVIEW OF RECORDS: Normal or negative labs unless otherwise noted REVIEW OF IMAGING STUDIES: I personally reviewed the following images and reviewed these images with the patient MRI brain 05/07/2024 Scattered, FLAIR/T2 hyperintensities with the typical appearance for demyelinating disease located periventricular and juxtacortical including likely enhancing parietal lobe lesion with possible blush of enhancement in the right periventricular region as well. Orbital imaging was difficult to comment on but no clear optic neuritis nor intrinsic hyperintensity ASSESSMENT: Yoandy Virgen is a 33 year old right handed female with a past medical history of migraines without aura, ADD (on stimulant ), tobacco dependence on Wellbutrin for cessation who presented with her partner following clinical event of vision changes with abnormal MRI findings concerning for demyelinating disease. This is first clinical event with symptoms of visual changes, exam with APD and decreased acuity, additional MRI imaging read with potential ON to be concerning for demyelinating disease, given further periventricular and juxtacortical lesions with varing degree of enhancement, presentation is most consistent with MS however will rule out other demyelinating disease given b/l ON read on MRI. She additionally saw local enroller with exam findings concerning for disc edema? Will request records, this is not typical in MS given demyelinating disease are typically retrobulbar however it can be seen. Given current symptoms will start course of steroid today, first dose IV infusion at our center. Additional demyelinating work-up to be completed and will plan on follow-up thereafter. Discussed high suspicion for MS during the visit today, Yoandy is understandably anxious regarding diagnosis. She was recently started on Wellbutrin for smoking cessation which we are strongly in agreement with, will assess for efficacy re. Anxiety as well, prior to starting further therapies. PLAN: -- Will plan for 1x dose IV steroid infusion today after appointment, followed by oral course for a 5 day course -- Completion of imaging studies -- Labs sent in consideration for disease modifying therapy -- Will continue Wellbutrin prescribed for smoking cessation last week 150 mg BID, given patient with symptoms of anxiety / depression may consider uptitrating to total 450 mg daily vs starting SSRI -- Follow-up in 1 month with our team Office Visit on 05/11/24 MRI CERVICAL SPINE WO/W IVCON VITAMIN D 25 HYDROXY VARICELLA ZOSTER IGG HIV 1/2 COMBO WITH REFLEX TO DIFFERENTIATION JCV ANTIBODY & INDEX WITH REFLEX BLOOD TB SCREEN THYROID STIMULATING HORMONE HEP REMOTE PANEL BL COMPREHENSIVE METABOLIC PANEL COMPLETE BLOOD COUNT AND DIFFERENTIAL VITAMIN B12 IMMUNOGLOBULINS,IGG,IGA,IGM ANIMAL PHYSIOLOGY TEACHER DEMYELINATING DISEASE EVALUATION, SERUM Luci Ospina DO, MS Adult Neurology PGY2 [facility] NEUROLOGY STAFF ADDENDUM I have reviewed the history and physical examination obtained and documented by the resident and I personally participated in the lang components of history and examination. I agree with the resident's plan as noted above which was formulated with my direct input. In summary, this is a 33 year old female with a past medical history of migraines without aura, ADD (on stimulant prescribed by outside provider), tobacco dependence on Wellbutrin for cessation who presents for concerns of multiple sclerosis. Yoandy experienced visual changes with primary positive features c/b peripheral scotoma. Local bmw service technician mentioned some possible disc edema without impairment of visual acuity. MRI brain showed typical demyelinating changes in the supratentorial white matter including at least one enhancing lesion. Orbital imaging was motion degraded but no clear changes on my review. On examination, there was a clear R APD c/b hippus without clear disc edema. Overall, we discussed that the most likely diagnosis was multiple sclerosis. The disc edema prompted MOG testing but I think that is less likely. Given her clinical symptoms and MRI changes, we opted for a course of high dose corticosteroids while obtaining MRI imaging and disease modifying therapy start-up labs. Will review those results at her next visit and discuss halfway treatment options. I spent a total of 90 minutes on the date of the service which included preparing to see the patient, [id number] patient care, completing clinical documentation, obtaining and/or reviewing separately obtained history and counseling and educating the patient/family/caregiver. Sebastien Jean Baptiste MD Staff, Department of Neurology [facility] documented in this encounter [facility] 05-11-2024 Note HNO ID: [id number] Author: SEBASTIEN JEAN BAPTISTE MD Service: ? Author Type: Physician Type: Progress Notes Filed: 05/11/2024 13:37 Note Text: [facility] NEW PATIENT EVALUATION/CONSULTATION Referral source: Riky Marr MD [id number] [facility] [id number] Also followed by: Patient Care Team: Pcp, CHANTELLE Abernathy, Riky Colón MD as Referring (Ophthalmology) PRINCIPAL NEUROLOGIC DIAGNOSIS: Likely multiple sclerosis DISEASE SUMMARY Date of onset: Apr 2024 (R>L visual changes w/ possible MRI orbit changes) Date of diagnosis of MS: pending Disease course at onset: Relapsing-Remitting Current disease course: Relapsing-Remitting Previous disease therapies: High dose corticosteroids 04/2024 Current disease therapy: NA Most recent MRI brain: 04/2024 (enhancing parietal lesion) Most recent MRI cervical spine: pending CSF: NA JCV serology result and date: pending MOG/AQP4 pending HISTORY OF ILLNESS: An opinion on Yoandy Virgen 33 year old female was requested by the referring physician for a second opinion on abnormal brain MRI. The patient was was accompanied by her partner. My recommendations will be communicated back to the patient's physician(s) via electronic medical record. Follow-up is expected to be with myself and Dr. Jean Baptiste at the [facility]. Yoandy states on 05/03 she began to endorse acute vision changes described as RIGHT > LEFT visual field obscurations with associated pain and nausea, without vomiting. Describes symptoms as kaliedescope. Endorsing strain with sharp pains. She was evaluated at home in [place] for symptoms for which MRI brain obtained which were concerning for demyelinating disease for which she was referred. She also was evaluated by local enroller Dr. Rj Marr in [place] documentation not available in care-everywhere however per patient she was told there was bilateral swelling in the back of her eyes. > Patient had MRI Brain W/WO completed in [place], [place] 05/07: upon our review there is b/l periventricular and juxtacortical lesions some of which appear to be enhancing. Can not overly appreciate optic nerve enhancement however per read R > L changes Of note she endorse hx Migraine occurring 1x year, pain described as radiating neck pain to frontal, feels achy. Associated with spotty visual obscuration consistent with scotoma, with photophobia, deneis phonophobia, N/V. Has sufficient relief with Excedrin There is no other remote/previous history suggestive of optic neuritis, brainstem syndrome, myelitis or other symptom concerning for a remote demyelinating event. Current Symptoms: -- RIGHT > LEFT eye strain with visual obscuration -- Denies other acute symptoms, denies ALTMAN Neuro-QoL Functions (higher=better functioning) Flowsheet Row Office Visit from 05/11/2024 in [facility] Upper Extremity Domain T Score 57 Lower Extremity Domain T Score 62 Cognitive Function Domain T Score 43 Positive Affect Well Being T Score -- Ability To Participate In Social Roles T Score 50 Satisfaction With Social Roles T Score 43 Neuro-QoL Symptoms (higher=worse symptoms) Flowsheet Row Office Visit from 05/11/2024 in [facility] Sleep Domain T Score 51 Fatigue Domain T Score 46 Anxiety Domain T Score 65 Depression Domain T Score 48 Stigma Domain T Score 51 Emotional Behavior Dyscontrol T Score -- PAST HISTORY: has a past medical history of Abnormal glandular Papanicolaou smear of cervix (2007,2010,2012), ADD (attention deficit disorder), Chlamydia (08/12/2009), Depression, Gestational diabetes mellitus, class A1 (08/20/2022), HPV test positive (01/19/2013), Migraine, and depression. She has no past medical history of Anemia, Asthma, Blood dyscrasia, Breast disorder, Chronic kidney disease, Complication of anesthesia, Coronary artery disease, Gonorrhea, Herpes simplex without mention of complication, History of pre-eclampsia in prior , currently , HIV infection ([facility]), Hypertension, Infertility, female, Liver disease, Malignant hyperthermia due to anesthesia, Placental abruption, hemorrhage, hemorrhage, Rh incompatibility, Seizure ([facility]), Sickle cell anemia ([facility]), Syphilis, Systemic lupus erythematosus ([facility]), Thyroid disease, Trauma, or Varicosities. 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 has a current medication list which includes the following prescription(s): drospirenone-ethinyl estradiol, dextroamphetamine-amphetamine, bupropion sr, amphetamine-dextroamphetamine xr, drospirenone-ethinyl estradiol, iv contrast, cholecalciferol, [START ON 05/12/2024] prednisone, omeprazole, clindamycin, lancets, prental multivitamin, and docosahexaenoic acid/epa, and the following Facility-Administered Medications: methylPREDNISolone (more content not included)... [facility] 12-13-2023 Telephone encounter Note filed [facility] 12-13-2023 Miscellaneous Notes filed Patient called back and states she is not smoking and also does not vape. Patient needs to start a new pack of pills on Saturday so needs Rx sent to pharmacy today. Can you send in DM's absence? Patient has upcoming annual exam on 05/04/24. Kiesha Black RN Left message to call office. Kiesha Black RN Is the patient still smoking? I can't rx combined OCPs at age 33 if still smoking due to increased risk of stroke. If that is the case she will need appt to discuss other options. Per social history it states she is. Refill request received via [facility] for patients OCP. Patient last seen in office on 11/28/22. PSS: Please contact patient to schedule annual exam. Thank you. Kiesha Black RN documented in this encounter [facility] 12-13-2023 Telephone encounter Note Patient called back and states she is not smoking and also does not vape. Patient needs to start a new pack of pills on Saturday so needs Rx sent to pharmacy today. Can you send in DM's absence? Patient has upcoming annual exam on 05/04/24. Kiesha Black RN [facility] 12-13-2023 Telephone encounter Note Left message to call office. Kiesha Black RN [facility] 12-13-2023 Telephone encounter Note Is the patient still smoking? I can't rx combined OCPs at age 33 if still smoking due to increased risk of stroke. If that is the case she will need appt to discuss other options. Per social history it states she is. [facility] 12-13-2023 Telephone encounter Note Refill request received via [employer] for patients OCP. Patient last seen in office on 11/28/22. PSS: Please contact patient to schedule annual exam. Thank you. Kiesha Black RN [facility] 11-15-2022 Miscellaneous Notes No we can do hers sooner- she was vaginal delivery. Anywhere 4-6 weeks is fine. Does she need to wait until 8 weeks PP for insertion? She'll be 6 weeks when she returns to work on 12/03/22. Darleen Thomson RN Yes, will need two different appointments. Order pended. Patient has Medicaid, will she need separate appointment from for insertion? Kiesha Black RN Noted, please pend IUD order. Patient called stating that she no longer wants to have salpingectomy scheduled due to having to return to work 12/03/2022 and would like to have to have a Mirena IUD inserted instead. Patient has 6 week appointment scheduled on 11/28/2022. documented in this encounter [facility] 10-29-2022 History of Present illness Narrative EARLY VISIT Yoandy Virgen is a 31 year old here for 1 week visit. Delivery Summary: 10/22/2022 ROS: General: Denies any fever or chills Hypertension Screening: Headache? No. Visual Changes? No Mood: normal Depression: denies symptoms of depression. OB Depression and Anxiety Screening- This Encounter (since 10/28/2022) Over the past 2 weeks have you felt down, depressed, or hopeless? Negative Over the past two weeks, have you felt little interest or pleasure in doing things? Negative Feeling nervous, anxious or on edge 1-Several days Not being able to stop or control worrying 0-Not al all Anxiety Pre-Screening Total (If >/= 3 additional questions will be reviewed) 1 Feeding: Breast and bottle feeding problems: Seeing executive search consultant Bladder: No dysuria, gross hematuria, urinary frequency, urinary urgency, or incontinence Bowel symptoms: Negative for abdominal discomfort, blood in stools or black stools and change in bowel habits Abdomen: N/A Bleeding: some clots, seems to be getting a little better Bottom and Perineum: No issues Sleep: no sleep concerns, feels rested Tina since delivery: Not resumed Emotional support: Yes Exercise: N/A Other issues: None PHYSICAL EXAMINATION: BP 108/70 Wt 168 lb 6.4 oz (76.4 kg) LMP 02/03/2022 (Approximate) Yes BMI 25.61 kg/m General: pleasant,female in no apparent distress, A&O x 3. Skin warm and intact. Breast: Deferred Abdomen: Deferred /Incision: N/A Pelvic: Deferred Bimanual: Deferred ASSESSMENT AND PLAN: 31 year old status post with normal course. Contraception plan: tubal ligation. Reinforced 6-week pelvic rest. Encouraged condom usage should patient deviate. Education: resources provided - see MA/RN note OR booking sheet filled out- early december. Title 19 signed. Follow up: Return to Clinic for 6 week visit and as needed Medical Decision Making: Medical Decision Making Level: 1 - N/A Payton Conway MD documented in this encounter [facility] 10-23-2022 Discharge summary Note Date/Time October 23, 2022 6:[address] [place] [address] Medical Records Department [address] [place] [address] Instructions for Home/Discharge Instructions 10/23/22 0633 MR#: [id number] Acct: [id number] Name: YOANDY VIRGEN Rep #:[id number] : 1990 31 From: Juliet Newby CNM PCP: Argelia Monroy NP Status:ADM IN Discharge Instructions Diet Discharge Diet: No restrictions Activity Discharge Activity: Return to Normal Activity, May Shower and May Take a Tub Bath May resume sexual activity in: 4-6 weeks Weight Bearing Status: Weight bearing as tolerated Dressing / Incision Call your doctor if you observe: Inability to urinate, Using more than 1 pad perhour, Shortness of breath, Dizziness, Swelling in the ankles, Chest pain, Calf discomfort and Uncontrolled pain Follow Up Care When: Within 10 days Test Results: Test results from this visit will be discussed in further detail at your follow-up appointment, if applicable. Discharge Plan Admission Admit Date/Time: 10/22/22 00:25 Primary Reason for Your Visit: Labor and Delivery Attending Provider: Faiza Mccormick Primary Care Provider: Seffens,Argelia [facility] Discharge Orders/Prescriptions Prescriptions: No Action Prenatabs FA 1 TABLET tablet 1 tab PO DAILY amoxicillin-pot clavulanate 875 MG tablet 875 mg PO Q12H Qty: 20 0RF Referrals / Follow Up: Juliet Newby CNM [Med Staff - [facility] Practice Prof] - Argelia Monroy NP, [facility]-C [Primary Care Provider] - Disposition Disposition (needs filled in before D/C Order can be placed): Home, Self Care 10/23/22 0634<Electronically signed by Juliet Newby CNM>Juliet Newby CNM CC: [employer] Argelia Monroy ~ Signed [facility] Work Phone: 1(278) 905-569603-14-2023 Progress note Author Juliet Newby [facility] October 23, 2022 6:33am Note Date/Time October 23, 2022 6:3 3am [facility] Medical Records Department [address] [place] [address] Progress Note - OBGYN 10/23/22629 MR#: [id number] Acct: [id number] Name: YOANDY VIRGEN Rep #:[id number] : 1990 31 From: Juliet Newby CNM PCP: Argelia Monroy NP Status:ADM IN Location: [id number] Subjective Subjective Patient seen at bedside. Feeling good. Denies any pain. Ambulating and voiding without difficulty. Lochia decreasing. Pumping and feeding via bottles. Desires discharge home today. Objective Data Objective Data Vital Signs: Vital Signs Temp Pulse Resp BP Pulse Ox O2 Del Method 98.2 F 81 16 119/64 96 Room Air 10/23/22 04:06 10/23/22 04:06 10/23/22 04:05 10/23/22 04:06 10/23/22 04:05 10/23/22 04:05 Oxygen Delivery Method Room Air Weight: 192 lb Body Mass Index (BMI) 28.3 Intake & Output: Intake and Output for Last 24 Hours 10/21/22 10/22/22 10/23/22 23:59 23:59 23:59 Intake Total 4030.00 / 4030.00 Output Total 1999 Balance 2030.00 / 2030.00 Lab / Micro Data Result Diagrams: 10/22/22 00:40 Labs: Laboratory Results - last 24 hr 10/22/22 06:07: POC Glucose 78 10/22/22 10:08: POC Glucose 75 10/22/22 11:56: POC Glucose 79 10/23/22 05:23: POC Glucose 65 L ROS Eyes Eyes: Denies blurry vision, change in vision or spots in vision ENT HEENT: Denies dizziness or headache(s) Cardiovascular Cardiovascular: Denies abdominal pain, chest pain or dyspnea Respiratory/Chest Respiratory/Chest: Denies cough, dyspnea, shortness of breath at rest or shortness of breath with exertion Gastrointestinal Gastrointestinal: Denies abdominal pain, diarrhea or vomiting Genitourinary Genitourinary: Denies change in urinary stream, difficulty urinating or dysuria Musculoskeletal Musculoskeletal: Reports none Integumentary Integumentary: Denies rash Neurologic Neurologic: Denies dizziness, headache(s), memory loss or weakness Physical Exam Const alert and no apparent distress General Appearance: cooperative and comfortable Exam Limitations: no limitations HEENT normocephalic Eyes General Eye: normal appearance of both eyes Neck full ROM General: normal visual inspection Chest Chest: symmetrical chest wall rise Resp normal respiratory effort and normal air movement Effort and Inspection: symmetric chest movement Auscultation: clear to auscultation bilaterally Cardio regular rate and regular rhythm GI normal to inspection, nondistended, normoactive bowel sounds Back/Spine normal ROM Extremity full ROM and no calf tenderness General Extremity: normal exam except as noted Skin no rashes or lesions noted Neuro CN's II-XII intact bilaterally Psych mental status grossly normal Assessment & Plan (1) (spontaneous vaginal delivery): (2) Care and examination of lactating mother: PLAN: Plan PPD 1 Routine care support D/C home with follow up in office 10/23/22 0633 <Electronically signed by Juliet Newby CNM> Cosigner Signature (if applicable): CC: ~ Signed [facility] Work Phone: 1(143) 571-948703-14-2023 History of Present illness Narrative* Darleen Thomson RN - 10/23/2022 8:06 AM EDT Patient delivered via by Maren on 10/22/[address] [facility]. See OB history. Darleen Thomson RN documented in [facility]03-14-2023 Procedure [facility]03-13-2023 Progress note Author Juliet Newby [facility] October 22, 2022 8:18am Note Date/Time October 22, 2022 8:0 7am [facility] Medical Records Department [address] [place] [address] Progress Note 10/22/22 0803 MR#: [id number] Acct: [id number] Name: YOANDY VIRGEN Rep #:[id number] : 1990 31 From: Juliet Newby CNM PCP: Argelia Monroy NP Status:ADM IN Location: [place] [id number] Progress Note Patient seen at bedside. Comfortable with epidural anesthesia. Amnioinfusion running for variable decelerations. Assessment & Plan Assessment/Plan (1) Gestational diabetes: (2) 37 weeks gestation of : (3) Spontaneous rupture of amniotic membranes: (4) Rubella non-immune status, antepartum: PLAN: Plan Assumed management of patient Cat. 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 complicated by GDM A1, History of PPD, History of LEEP, and Rubella non-immune status. Excessive growth affecting management of -EFW >96%, ABD > 99% @ 35 weeks gestation. Maternal Data Information CHRISTOPHER Calculator Estimated Delivery Date Method Current WG Current Estimate 11/10/22 Manual 37w 2d PFSH PFSH Medical History (Updated 10/22/22 @ 08:14 by Juliet Newby CNM) ADD (attention deficit disorder) Depression Gestational diabetes Hx LEEP (loop electrosurgical excision procedure), cervix, depression Home Medications vits,calcium no.78-iron fumarate-folic acid 29 mg-1 mg tablet (Prenatabs FA) 1 tab PO DAILY 07/26/13 [History Last Taken 10/20/14 22:00 one] amoxicillin 875 mg-potassium clavulanate 125 mg tablet 875 mg PO Q12H ##20 07/27/15 [Rx Last Taken 10/21/22 20:30] Allergy/AdvReac Type Severity Reaction Status Date / Time No Known Allergies Allergy Verified 10/22/22 00:02 Social History Smoking Status: Current every day smoker History Elective abortions Hx Para 3 Spontaneous abortions Hx # Term Pregnancies Ectopic pregnancies Hx # Pregnancies Multiple births # of living children Vital Signs Vital Signs Vital Signs: 10/21/22 23:46 10/21/22 23:47 10/21/22 23:47 Temperature 98.8 F Pulse Rate 86 Blood Pressure 124/75 H BP Systolic 124 BP Diastolic 75 Pulse Ox 10/22/22 00:50 10/22/22 00:50 10/22/22 00:55 Temperature Pulse Rate 76 78 Blood Pressure BP Systolic BP Diastolic Pulse Ox 97 10/22/22 00:55 10/22/22 01:00 10/22/22 01:00 Temperature Pulse Rate 77 Blood Pressure BP Systolic BP Diastolic Pulse Ox 97 97 10/22/22 01:05 10/22/22 01:05 10/22/22 01:10 Temperature Pulse Rate 78 80 Blood Pressure BP Systolic BP Diastolic Pulse Ox 97 10/22/22 01:10 10/22/22 01:25 10/22/22 01:25 Temperature Pulse Rate 78 Blood Pressure 116/56 L BP Systolic 116 BP Diastolic 56 Pulse Ox 97 10/22/22 01:25 10/22/22 01:26 10/22/22 01:26 Temperature 98.8 F Pulse Rate 81 Blood Pressure BP Systolic BP Diastolic Pulse Ox 97 10/22/22 01:31 10/22/22 01:31 10/22/22 01:31 Temperature Pulse Rate 81 Blood Pressure 123/74 H BP Systolic 123 BP Diastolic 74 Pulse Ox 99 10/22/22 01:31 10/22/22 01:36 10/22/22 01:36 Temperature Pulse Rate 75 80 Blood Pressure BP Systolic BP Diastolic Pulse Ox 98 10/22/22 01:37 10/22/22 01:37 10/22/22 01:41 Temperature Pulse Rate 90 Blood Pressure 133/91 H 121/63 H BP Systolic 133 121 BP Diastolic 91 63 Pulse Ox 10/22/22 01:41 10/22/22 01:46 10/22/22 01:46 Temperature Pulse Rate 85 86 Blood Pressure 125/57 H BP Systolic 125 BP Diastolic 57 Pulse Ox 10/22/22 01:50 10/22/22 01:50 10/22/22 01:58 Temperature Pulse Rate 92 Blood Pressure 109/54 L 114/62 BP Systolic 109 114 BP Diastolic 54 62 Pulse Ox 10/22/22 01:58 10/22/22 02:00 10/22/22 02:00 Temperature Pulse Rate 84 104 H Blood Pressure 121/63 H BP Systolic 121 BP Diastolic 63 Pulse Ox 10/22/22 02:07 10/22/22 02:07 10/22/22 02:11 Temperature Pulse Rate 82 77 Blood Pressure 131/64 H BP Systolic 131 BP Diastolic 64 Pulse Ox 10/22/22 02:11 10/22/22 02:11 10/22/22 02:11 Temperature Pulse Rate 77 Blood Pressure 118/60 BP Systolic 118 BP Diastolic 60 Pulse Ox 98 10/22/22 02:12 10/22/22 02:54 10/22/22 02:54 Temperature 98.4 F Pulse Rate 79 Blood Pressure 94/44 L BP Systolic 94 BP Diastolic 44 Pulse Ox 10/22/22 02:53 10/22/22 02:55 10/22/22 02:55 Temperature 99.1 F Pulse Rate 68 Blood Pressure 76/39 L BP Systolic 76 BP Diastolic 39 Pulse Ox 10/22/22 02:56 10/22/22 02:56 10/22/22 03:26 Temperature Pulse Rate 73 Blood Pressure 90/49 L 98/54 L BP Systolic 90 98 BP Diastolic 49 54 Pulse Ox 10/22/22 03:26 10/22/22 03:32 10/22/22 04:17 Temperature 98.4 F Pulse Rate 73 Blood Pressure 111/55 L BP Systolic 111 BP Diastolic 55 Pulse Ox 10/22/22 04:17 10/22/22 04:17 10/22/22 06:29 Temperature 98.8 F Pulse Rate 82 Blood Pressure 104/57 L BP Systolic 104 BP Diastolic 57 Pulse Ox 10/22/22 06:29 10/22/22 06:30 10/22/22 07:18 Temperature 97.9 F 98.4 F Pulse Rate 70 Blood Pressure BP Systolic BP Diastolic Pulse Ox 10/22/22 07:16 10/22/22 08:04 10/22/22 08:04 Temperature 98.5 F Pulse Rate 67 Blood Pressure 94/50 L BP Systolic 94 BP Diastolic 50 Pulse Ox Weight Weight: 192 lb Body Mass Index (BMI) 28.3 Physical Exam Const alert, oriented x3 and no apparent distress General Appearance: cooperative Orientation / Consciousness: awake Exam Limitations: no limitations HEENT normocephalic Head and Scalp: normal to inspection Eyes General Eye: normal appearance of both eyes Neck full ROM and no lymphadenopathy Lymph Lymphatic: no lymphadenopathy noted Chest inspection of chest normal Resp normal respiratory effort, normal air movement and clear to auscultation bilaterally Effort and Inspection: able to speak in complete sentences and symmetric chest movement Cardio regular rate and regular rhythm GI normal to inspection, nondistended, normoactive bowel sounds Manual OB Exam: presentation cephalic, dilated 4, effaced 70 and station - 2 and 0 Amniotic Fluid: clear amniotic fluid Back/Spine normal ROM Extremity full ROM and no calf tenderness Skin no rashes or lesions noted General Skin Exam: no breakdown Neuro oriented x3 and CN's II-XII intact bilaterally Psych mental status grossly normal and thought process normal Labs Labs Labs: Blood Type B POSITIVE Antibody Screen NEGATIVE Hct 33.1 % (37-47) L Hgb 11.3 g/dL (12.0-15.0) L Syphilis Total Ab Non-reactive Rhogam given: No Assessment & Plan (1) 37 weeks gestation of : (2) Gestational diabetes: (3) Spontaneous rupture of amniotic membranes: (4) Rubella non-immune status, antepartum: (5) Hx LEEP (loop electrosurgical excision procedure), cervix, : (6) History of depression: (7) Excessive growth affecting management of mother: PLAN: Plan ROM plus- POSITIVE Admit to labor and delivery Routine labs Activate GDM protocol Start IV fluids and run per orders Dr. Chun notified and is collaboration physician 10/22/2216 <Electronically signed by Juliet Newby CNM> Cosigner Signature (if applicable): CC: SUMIT Newby; [facility] [employer] Argelia Monroy~ Signed [facility] Work Phone: 1(600) 509-124603-08-2023 Miscellaneous Notes* Quick Notes - Payton Fernandes MD - 10/17/2022 2:38 PM EST DM-Pt doing well. Denies vaginal Bleeding, Leaking fluid, or regular Contractions. Pt reports good movement. Did not bring BS log but patient reports they are all wnl. Physical Exam: Gen: female in no apparent distress Abd: soft, Gravid. Non tender to palpation. See flow sheet A/P: @ 36.4 weeks GDMA1 1) LGA per last ultrasound 2) kick counts and labor reviewed 3) GBS today 4) Vertex confirmed on limited bedside ultrasound. 5) RTO one week Payton Conway MD documented in this encounterOhiohealth03-08-2023 Instructions* Patient Instructions* Barbie Leslie Ma - 10/17/2022 2:26 PM EST SEQUENTIAL SCREENINGS The [facility] offers sequential screenings for women who are interested in screenings for chromosomal abnormalities and certain defects during a . The sequential screen combinesultrasound and blood tests to determine the risk of chromosomal abnormalities, including Down's Syndrome (Trisomy 21) and Trisomy 18, as well as open neural tube defects including spina bifida. Ultrasound examination is performed between 11 weeks and 13 weeks gestational age. Blood tests are drawn after the ultrasound and again later in the between 15 and 21 weeks gestational age. Please let your physician know if you are interested in this testing. It will require an appointment withour irrigation service technician. This is not an ultrasound performed by a physician in our office during a routine visit. SIGNS AND SYMPTOMS OF LABOR 1. Contractions every 10 minutes or more often 2. Clear, pink, or brownish fluid (water) leaking from vagina 3. Feeling that baby is pushing down, pressure 4. Low, dull backache 5. Cramps that feel like a period 6. Cramps with or without diarrhea If you notice any of the above symptoms, contact our office at [phone] and ask to speak with anurse. After hours, you can call doctors registry at [phone] OR call [facility] at [phone] ask to have the doctor director education paged. If you consider this an emergency, dial 9-6-7 or go to your nearest emergency department. NEED HELP? Are you dealing with a violent or abusive relationship? Are you a victim of rape or sexual assult? Call [facility] ([place]) 24 hour Crisis Hotline: 715.503.8185 or 862-498-7989. MANUAL Your Guide to a Healthy manual is now on-line. Visit [email or web address] to download your free copy documented in this encounterOhiohealth03-01-2023 Miscellaneous Notes* Quick Notes - Payton Fernandes MD - 10/10/2022 10:52 AM EST DM-Pt doing well. Denies vaginal Bleeding, Leaking fluid, or regular Contractions. Pt reports good movement. Forgot BS log but reports BS are well controlled, only 2 slightly high ones. Physical Exam: Gen: female in no apparent distress Abd: soft, Gravid. Non tender to palpation. See flow sheet A/P: @ 35.4 weeks 1) kick counts and labor reviewed 2) continue to monitor BS 3) GBS next visit 4) Growth US reviewed LGA Payton Conway MD documented in this encounterOhiohealth03-01-2023 Instructions* Patient Instructions* Barbie Leslie Ma - 10/10/2022 10:35 AM EST SEQUENTIAL SCREENINGS The [facility] offers sequential screenings for women who are interested in screenings for chromosomal abnormalities and certain defects during a . The sequential screen combinesultrasound and blood tests to determine the risk of chromosomal abnormalities, including Down's Syndrome (Trisomy 21) and Trisomy 18, as well as open neural tube defects including spina bifida. Ultrasound examination is performed between 11 weeks and 13 weeks gestational age. Blood tests are drawn after the ultrasound and again later in the between 15 and 21 weeks gestational age. Please let your physician know if you are interested in this testing. It will require an appointment withour irrigation service technician. This is not an ultrasound performed by a physician in our office during a routine visit. SIGNS AND SYMPTOMS OF LABOR 1. Contractions every 10 minutes or more often 2. Clear, pink, or brownish fluid (water) leaking from vagina 3. Feeling that baby is pushing down, pressure 4. Low, dull backache 5. Cramps that feel like a period 6. Cramps with or without diarrhea If you notice any of the above symptoms, contact our office at [phone] and ask to speak with anurse. After hours, you can call doctors registry at [phone] OR call [facility] at [phone] ask to have the doctor director education paged. If you consider this an emergency, dial 9-1-2 or go to your nearest emergency department. NEED HELP? Are you dealing with a violent or abusive relationship? Are you a victim of rape or sexual assult? Call [facility] ([facility] 24 hour Crisis Hotline: 753.327.4323 or 347-420-4938. MANUAL Your Guide to a Healthy manual is now on-line. Visit [email or web address] to download your free copy documented in this encounterOhiohealth02-23-2023 Miscellaneous Notes* Telephone Encounter - Payton Fernandes MD - 10/04/2022 9:26 AM EST I can't write her off of leave now as there is no medical indication at this time. If she wants to start her leave but I do not have a medical reason to write her off at this time. * Telephone Encounter - Kailyn Dao LPN - 10/04/2022 9:11 AM EST Please see pt's [employer] message and further advise Kailyn Dao LPN documented in this encounterOhiohealth02-21-2023 History of Present illness Narrative* Payton Fernandes MD - 10/02/2022 11:28 AM EST NST SUMMARY PROVIDER ASSESSMENT AND INTERPRETATION Yoandy Virgen is a 31 year old female, , who is at 34w3d with an CHRISTOPHER of 11/10/2022, by Last Menstrual Period dating method. Indications for NST: Gestational Diabetes - Diet Controlled and Other: ABDOMINAL PAIN IN Baseline: 145 Variability: Moderate Accelerations: Present 15 X 15 Decelerations: None Contractions: TOCO: None Interpretation: Category I and Reactive SIGNATURE: Payton Conway MD documented in this encounterOhiohealth02-21-2023 Miscellaneous Notes* Quick Notes - Payton Fernandes MD - 10/02/2022 11:24 AM EST DM-pt seen urgently for some lower abdominal cramping/pain. Pt reports no dysuria. Had one episode of vomiting today. No fevers. No leaking fluid, no vaginal bleeding. Good FM Abd: soft, gravid, non tender to palpation- no rebound, no guarding. Ext: +1 edema in LE. A/p: @ 34.3 weeks 1) NST today- no ctx 2) causes of pain reviewed- when to call or come back in reviewed 3) po hydration 4) Maternity belt 5) reports BS well controlled still Payton Conway MD documented in this encounterOhiohealth02-21-2023 Instructions* Patient Instructions* Barbie Leslie Ma - 10/02/2022 11:01 AM EST SEQUENTIAL SCREENINGS The [facility] offers sequential screenings for women who are interested in screenings for chromosomal abnormalities and certain defects during a . The sequential screen combinesultrasound and blood tests to determine the risk of chromosomal abnormalities, including Down's Syndrome (Trisomy 21) and Trisomy 18, as well as open neural tube defects including spina bifida. Ultrasound examination is performed between 11 weeks and 13 weeks gestational age. Blood tests are drawn after the ultrasound and again later in the between 15 and 21 weeks gestational age. Please let your physician know if you are interested in this testing. It will require an appointment withour irrigation service technician. This is not an ultrasound performed by a physician in our office during a routine visit. SIGNS AND SYMPTOMS OF LABOR 1. Contractions every 10 minutes or more often 2. Clear, pink, or brownish fluid (water) leaking from vagina 3. Feeling that baby is pushing down, pressure 4. Low, dull backache 5. Cramps that feel like a period 6. Cramps with or without diarrhea If you notice any of the above symptoms, contact our office at [phone] and ask to speak with anurse. After hours, you can call doctors registry at [phone] OR call [facility] at [phone] ask to have the doctor director education paged. If you consider this an emergency, dial 9--1 or go to your nearest emergency department. NEED HELP? Are you dealing with a violent or abusive relationship? Are you a victim of rape or sexual assult? Call [facility] ([place]) 24 hour Crisis Hotline: 760.153.3634 or 015-391-7907. MANUAL Your Guide to a Healthy manual is now on-line. Visit [email or web address] to download your free copy documented in this encounterOhiohealth02-21-2023 Miscellaneous Notes* Telephone Encounter - Darleen Thomson RN - 10/02/2022 9:20 AM EST Called patient and schedule appointment with DM today. Darleen Thomson RN * Telephone Encounter - Payton Fernandes MD - 10/01/2022 4:19 PM EST NO IBUPROFEN. Tylenol only. Warm soaks. If no improvement or if starts having N/V, fever I am happy to see her sooner . so long as no bleeding, LOF, regular CTX there is not much to do. * Telephone Encounter - Kiesha Black RN - 10/01/2022 3:59 PM EST Patient 34w2d last seen 09/26, next appointment on 10/10. Kiesha Black RN documented in this encounterOhiohealth02-20-2023 Miscellaneous Notes* Telephone Encounter - Kailyn Dao LPN - 10/01/2022 10:27 AM EST FMLA forms completed, faxed to provider, scanned into EMR and filed in [facility] suite. Kailyn Dao LPN * Telephone Encounter - Kailyn Dao LPN - 09/28/2022 2:43 PM EST FMLA forms completed and placed on providers desk for signature. Kailyn Dao LPN * Telephone Encounter - Kailyn Dao LPN - 09/28/2022 9:28 AM EST [employer] message to pt asking for dates for her leave. Kailyn Dao LPN documented in this encounterOhiohealth02-15-2023 Miscellaneous Notes* Quick Notes - Payton Fernandes MD - 09/26/2022 3:00 PM EST DM-Pt doing well. Denies vaginal Bleeding, Leaking fluid, or regular Contractions. Pt reports good movement Physical Exam: Gen: female in no apparent distress Abd: soft, Gravid. Non tender to palpation. See flow sheet A/P: @ 33.4 weeks 1) Continue PT for back pain/sciatica 2) BS reviewed- well controlled 3) LGA- has repeat growth scheduled 4) Kick counts and labor reviewed Payton Conway MD documented in this encounterOhiohealth02-15-2023 Instructions* Patient Instructions* Barbie Leslie Ma - 09/26/2022 2:34 PM EST SEQUENTIAL SCREENINGS The [facility] offers sequential screenings for women who are interested in screenings for chromosomal abnormalities and certain defects during a . The sequential screen combinesultrasound and blood tests to determine the risk of chromosomal abnormalities, including Down's Syndrome (Trisomy 21) and Trisomy 18, as well as open neural tube defects including spina bifida. Ultrasound examination is performed between 11 weeks and 13 weeks gestational age. Blood tests are drawn after the ultrasound and again later in the between 15 and 21 weeks gestational age. Please let your physician know if you are interested in this testing. It will require an appointment withour irrigation service technician. This is not an ultrasound performed by a physician in our office during a routine visit. SIGNS AND SYMPTOMS OF LABOR 1. Contractions every 10 minutes or more often 2. Clear, pink, or brownish fluid (water) leaking from vagina 3. Feeling that baby is pushing down, pressure 4. Low, dull backache 5. Cramps that feel like a period 6. Cramps with or without diarrhea If you notice any of the above symptoms, contact our office at [phone] and ask to speak with anurse. After hours, you can call doctors registry at [phone] OR call [facility] at [phone] ask to have the doctor director education paged. If you consider this an emergency, dial 5-1-4 or go to your nearest emergency department. NEED HELP? Are you dealing with a violent or abusive relationship? Are you a victim of rape or sexual assult? Call [facility] ([place]) 24 hour Crisis Hotline: 217.370.7057 or 825-917-4689. MANUAL Your Guide to a Healthy manual is now on-line. Visit [email or web address] to download your free copy documented in this encounterOhiohealth01-31-2023 Miscellaneous Notes* Telephone Encounter - Kiesha Black RN - 09/11/2022 11:23 AM EST Patient called back and follow up growth ultrasound scheduled. Kiesha Black RN * Telephone Encounter - Kiesha Black RN - 09/11/2022 11:10 AM EST Attempted to contact patient, but no answer and unable to leave a message. Patient needs repeat growth ultrasound in 4 weeks. TIMPIK message also sent. Kiesha Black RN * Telephone Encounter - Kiesha Black RN - 09/11/2022 11:10 AM EST ----- Message from Payton Fernandes MD sent at 09/11/2022 11:08 AM EST ----- Results reviewed. Please Place copy in OB chart. Needs repeat growth in 4 weeks documented in this encounterOhiohealth01-30-2023 Miscellaneous Notes* Quick Notes - Payton Fernandes MD - 09/10/2022 3:31 PM EST DM-Pt doing well. Denies vaginal Bleeding, Leaking fluid, or regular Contractions. Pt reports good movement Physical Exam: Gen: female in no apparent distress Abd: soft, Gravid. Non tender to palpation. See flow sheet A/P: @ 31.2 weeks- [id number] 1) BS log reviewed- only one abnormal 2) Growth us Pending- Unofficial 97% 3) Continue PT for LE numbness due to pinched nerve. 4) kick counts and labor reviewed Payton Conway MD documented in this encounterOhiohealth01-30-2023 Instructions* Patient Instructions* Barbie Leslie Ma - 09/10/2022 3:14 PM EST SEQUENTIAL SCREENINGS [facility] offers sequential screenings for women who are interested in screenings for chromosomal abnormalities and certain defects during a . The sequential screen combinesultrasound and blood tests to determine the risk of chromosomal abnormalities, including Down's Syndrome (Trisomy 21) and Trisomy 18, as well as open neural tube defects including spina bifida. Ultrasound examination is performed between 11 weeks and 13 weeks gestational age. Blood tests are drawn after the ultrasound and again later in the between 15 and 21 weeks gestational age. Please let your physician know if you are interested in this testing. It will require an appointment withour irrigation service technician. This is not an ultrasound performed by a physician in our office during a routine visit. SIGNS AND SYMPTOMS OF LABOR 1. Contractions every 10 minutes or more often 2. Clear, pink, or brownish fluid (water) leaking from vagina 3. Feeling that baby is pushing down, pressure 4. Low, dull backache 5. Cramps that feel like a period 6. Cramps with or without diarrhea If you notice any of the above symptoms, contact our office at [phone] and ask to speak with anurse. After hours, you can call doctors registry at [phone] OR call [facility] at [phone] ask to have the doctor director education paged. If you consider this an emergency, dial 91-4 or go to your nearest emergency department. NEED HELP? Are you dealing with a violent or abusive relationship? Are you a victim of rape or sexual assult? Call [facility] ([place]) 24 hour Crisis Hotline: 980.691.9195 or 390-983-7908. MANUAL Your Guide to a Healthy manual is now on-line. Visit [email or web address] to download your free copy documented in this encounterOhiohealth01-30-2023 History of Past illness Narrative* Problem Noted Date Resolved Date 31 weeks gestation of 09/10/2022 09/26/2022 Short interval between pregn ancies complicating , antepartum 05/26/2014 06/20/2022 Cervical high risk human pap illomavirus (HPV) DNA test positive 05/26/2013 05/26/2014 Overview: ASCUS paps w/ po HRHPV in 2010 and 01/2013. Encouraged f/u after . Excessive growth affec ting management of mother, antepartum 10/09/2010 11/06/2010 documented as of this encounter (statuses as of 09/27/2022) [facility] History of Past illness Narrative* Problem Noted Date Resolved Date 31 weeks gestation of 09/10/2022 09/26/2022 Short interval between pregn ancies complicating , antepartum 05/26/2014 06/20/2022 Cervical high risk human pap illomavirus (HPV) DNA test positive 05/26/2013 05/26/2014 Overview: ASCUS paps w/ po HRHPV in 2010 and 01/2013. Encouraged f/u after . Excessive growth affec ting management of mother, antepartum 10/09/2010 11/06/2010 documented as of this encounter (statuses as of 10/01/2022) [facility] of Past illness Narrative* Problem Noted Date Resolved Date 31 weeks gestation of 09/10/2022 09/26/2022 Short interval between pregn ancies complicating , antepartum 05/26/2014 06/20/2022 Cervical high risk human pap illomavirus (HPV) DNA test positive 05/26/2013 05/26/2014 Overview: ASCUS paps w/ po HRHPV in 2010 and 01/2013. Encouraged f/u after . Excessive growth affec ting management of mother, antepartum 10/09/2010 11/06/2010 documented as of this encounter (statuses as of 10/02/2022) [facility] of Past illness Narrative* Problem Noted Date Resolved Date 31 weeks gestation of 09/10/2022 09/26/2022 Short interval between pregn ancies complicating , antepartum 05/26/2014 06/20/2022 Cervical high risk human pap illomavirus (HPV) DNA test positive 05/26/2013 05/26/2014 Overview: ASCUS paps w/ po HRHPV in 2010 and 01/2013. Encouraged f/u after . Excessive growth affec ting management of mother, antepartum 10/09/2010 11/06/2010 documented as of this encounter (statuses as of 10/02/2022) [facility] of Past illness Narrative* Problem Noted Date Resolved Date 31 weeks gestation of 09/10/2022 09/26/2022 Short interval between pregn ancies complicating , antepartum 05/26/2014 06/20/2022 Cervical high risk human pap illomavirus (HPV) DNA test positive 05/26/2013 05/26/2014 Overview: ASCUS paps w/ po HRHPV in 2010 and 01/2013. Encouraged f/u after . Excessive growth affec ting management of mother, antepartum 10/09/2010 11/06/2010 documented as of this encounter (statuses as of 10/04/2022) [facility] of Past illness Narrative* Problem Noted Date Resolved Date 31 weeks gestation of 09/10/2022 09/26/2022 Short interval between pregn ancies complicating , antepartum 05/26/2014 06/20/2022 Cervical high risk human pap illomavirus (HPV) DNA test positive 05/26/2013 05/26/2014 Overview: ASCUS paps w/ po HRHPV in 2010 and 01/2013. Encouraged f/u after . Excessive growth affec ting management of mother, antepartum 10/09/2010 11/06/2010 documented as of this encounter (statuses as of 10/09/2022) [facility] of Past illness Narrative* Problem Noted Date Resolved Date 31 weeks gestation of 09/10/2022 09/26/2022 Short interval between pregn ancies complicating , antepartum 05/26/2014 06/20/2022 Cervical high risk human pap illomavirus (HPV) DNA test positive 05/26/2013 05/26/2014 Overview: ASCUS paps w/ po HRHPV in 2010 and 01/2013. Encouraged f/u after . Excessive growth affec ting management of mother, antepartum 10/09/2010 11/06/2010 documented as of this encounter (statuses as of 10/10/2022) [facility] of Past illness Narrative* Problem Noted Date Resolved Date 31 weeks gestation of 09/10/2022 09/26/2022 Short interval between pregn ancies complicating , antepartum 05/26/2014 06/20/2022 Cervical high risk human pap illomavirus (HPV) DNA test positive 05/26/2013 05/26/2014 Overview: ASCUS paps w/ po HRHPV in 2010 and 01/2013. Encouraged f/u after . Excessive growth affec ting management of mother, antepartum 10/09/2010 11/06/2010 documented as of this encounter (statuses as of 10/17/2022) [facility] of Past illness Narrative* Problem Noted Date Resolved Date 31 weeks gestation of 09/10/2022 09/26/2022 Short interval between pregn ancies complicating , antepartum 05/26/2014 06/20/2022 Cervical high risk human pap illomavirus (HPV) DNA test positive 05/26/2013 05/26/2014 Overview: ASCUS paps w/ po HRHPV in 2010 and 01/2013. Encouraged f/u after . Excessive growth affec ting management of mother, antepartum 10/09/2010 11/06/2010 documented as of this encounter (statuses as of 10/23/2022) [facility] of Past illness Narrative* Problem Noted Date Resolved Date 31 weeks gestation of 09/10/2022 09/26/2022 Short interval between pregn ancies complicating , antepartum 05/26/2014 06/20/2022 Cervical high risk human pap illomavirus (HPV) DNA test positive 05/26/2013 05/26/2014 Overview: ASCUS paps w/ po HRHPV in 2010 and 01/2013. Encouraged f/u after . Excessive growth affec ting management of mother, antepartum 10/09/2010 11/06/2010 documented as of this encounter (statuses as of 10/29/2022) [facility] of Past illness Narrative* Problem Noted Date Resolved Date 31 weeks gestation of 09/10/2022 09/26/2022 Short interval between pregn ancies complicating , antepartum 05/26/2014 06/20/2022 Cervical high risk human pap illomavirus (HPV) DNA test positive 05/26/2013 05/26/2014 Overview: ASCUS paps w/ po HRHPV in 2010 and 01/2013. Encouraged f/u after . Excessive growth affec ting management of mother, antepartum 10/09/2010 11/06/2010 documented as of this encounter (statuses as of 11/15/2022) [facility] History of Present illness Narrative* Charles Kaur, PT - 09/06/2022 2:58 PM EST Episode Visit Count: Visit count could not be calculated. Make sure you are using a visit which is associated with an episode. Therapist That Will Accept/Oversee The Plan Of Care: Charles Kaur Start of Care Date: 09/06/22 Onset Date: 08/30/22 Plan of Care Certification Date: 09/06/22 Next Certification Due Date: 10/11/22 Patient Identified by Name and Date of : Yes REHABILITATION AND SPORTS THERAPY PHYSICAL THERAPY EVALUATION PLAN OF CARE: Assessment: Yoandy Virgen presents with chief complaint of RLE weakness that interferes with stairnegotiation . She presents with impairments in ADL's, independence in exercise, range of motion, and strength . PROMIS (Patient- Reported Outcomes Measurement Information System) scores were reviewed and physical function domain identified as a rehabilitation concern. Prognosis for therapy is Good due to: current objective clinical presentation, good overall health status, within-session changes, good support system/ coping skills . Pt reports improved RLE strength and physically demonstrates improved quad strength after Lumbar traction was performed. Pt will benefit from a specific exercise linwood mbar program focusing on opening lumbar facets and traction. She will benefit from skilled therapy services to meet the goals established for this plan of care as noted below. Classification Low Back Pain Subgroup Classification: Specific exercise subgroup: recommended visits 8. Specific Exercies Subgroup Classification based on: directional preference (flexion) Unweighting Subgroup Classification based on: LE symptoms distal to the knee Goals for Episode of Care: created on 09/06/22 through 11/01/22 Independent in home exercises. Pt will demo LE strength of 4/5 or greater in 8 weeks or less showing decreased nerve compression and improved safety with work duties Pt will demo normal gait in 6 weeks or less Patient Goals: Decrease foot/ankle symptoms Planned Interventions, Frequency, and Duration: Current Frequency: 2x/week Duration: 4 weeks Total Number of Visits Planned: 8 Planned Treatment Interventions: Therapeutic exercise (42331), Neuromuscular re- education (14856), Manual therapy (43725), Therapeutic activities (84714), Self- long-term management (58046), Gait Training (61582), Patient/Family/Caregiver Education PLAN FOR NEXT VISIT: Assess reaction to HEP. Lumbar traction and PPT Patient demonstrates good understanding of plan of care and treatment. The above goals and plan of care were discussed and agreed upon by patient/family. SUBJECTIVE: Yoandy Virgen is a 31 year old female seen today for numbness of the foot. ragging toes. Now the R foot and knee is affected. Has been icing the R ankle/foot and the swelling is less butthis has not helped. Does have back pain. Back pain since this past saturday. 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 Pain: Pain Pain Level: 4 Pain Location: Back Description: Aching Post Treatment Pain Post Treatment Pain Level: Better (improved strength) Post Treatment Pain Location: Leg - Right PROMIS Scales Higher is Better 09/06/2022 Phys Func - Score 39 (moderate dysfunction) Phys Func - Percentile 14 % GH Physical - Score 39.8 (Fair) GH Physical - Percentile 15 % GH Mental - Score 48.3 (Very Good) GH Mental - Percentile 43 % Self-Eff Symptom - Score 45 (Average) Self-Eff Symptom - Percentile 31 % T-scores: mean of general population = 50. 5 points is clinically meaningfully difference Percentiles provide an indication of how the patient's score ranks in relation to the general population. Higher percentile rankings indicate better function/quality of life. 50th percentile is the average of the general population and indicates half of respondents had a worse score. T-scores: mean of general population = 50. 5 points is clinically meaningfully difference Percentiles provide an indication of how the patient's score ranks in relation to the general population. Higher percentile rankings indicate better function/quality of life. 50th percentile is the average of the general population and indicates half of respondents had a worse score. OBJECTIVE MEASURES WITH LEVEL OF FUNCTION: Posture / Alignment Posture: Increased lumbar lordosis (APT) Lumbar Spine AROM Lumbar Flexion: Normal, Peripheralizing Lumbar Extension: Normal, Increased pain (worse on the RLE) Lumbar R Side-Bend: Normal Lumbar L Side-Bend: Normal Lumbar R Rotation: Minimal limitation, End range pain Lumbar L Rotation: Normal LE AROM Tested?: Yes LE AROM R LE AROM: WNL L LE AROM: WNL LE Strength L LE Strength: Grossly 5/5 R Hip Flexion (L2): 3+/5 R Knee Extension (L3): 3-/5 R Ankle Dorsiflexion (L4): 3-/5 Gait Gait: Independent Gait Distance (feet): 50 Gait Device: None Gait Deviations: Right Lower Extremity Gait Deviations Right Lower Extremity: Knee stability during stance phase decreased, Foot clearancedecreased (lack adequate dorsiflexion during swing phase) Education: Education Learning Preferences: Demonstration, Explanation, Performance, Printed Materials Barriers: None Learning/educational needs: Home exercise program, Plan of Care Education Provided: Yes, see treatment interventions for education provided Education Provided To: Patient Education Mode/Type: Demonstration, Explanation/Discussion, Literature/Printed Materials, Performance Response to Education/Teach Back: States/Identifies, Return Demonstration TREATMENT: PT Treatment Interventions: Therapeutic Exercise, Manual Therapy Evaluation Therapeutic Exercise: 1: Discussed therapy goals, exam findings, purpose of the HEP nd handout provided. Discussed properpositioning of lumbar spine with sleeping. Explained how PPT can reduce nerve compression. 2: PPT on wall 2 x 10 reps (Discussed being able to do this sitting down as well) Skilled Intervention: Patient was educated in proper exercise technique and purpose for exercises. Skilled judgment was provided in selection of appropriate interventions. Provided written instruction for home exercise program to facilitate proper performance and compliance. Correct performance of therapeutic exercises was facilitated with verbal and visual cuing. Manual Therapy: 1: Pt lying in Left sidelying position with traction performed at the RLE with slight IR of the hipx 6 min 2: Inferior traction force at R iliac crest in a left sidelying position Skilled Intervention: Manual skills to improve joint mobility, ROM, and decrease pain. Utilized anatomy knowledge of the therapist, and assessment of patient's response to intervention. Billing * Evaluation Low Complexity: 1 Unit Therapeutic Exercise Treatment Minutes: 15 Manual TherapyTreatment Minutes: 9 Total Treatment Time Minutes (timed/untimed): 48 Charles Kaur PT documented in this encounterOhiohealth01-18-2023 Miscellaneous Notes* Quick Notes - Payton Fernandes MD - 08/29/2022 3:41 PM EST DM-Pt doing well. Denies vaginal Bleeding, Leaking fluid, or regular Contractions. Pt reports good movement. LE swelling. Reports BS well controlled- fastings 70s and 2hrs all below 103. Physical Exam: Gen: female in no apparent distress Abd: soft, Gravid. Non tender to palpation. See flow sheet A/P: @ 29.4 wks- gdma1 1) reviewed BS log - bring next visit 2) Reviewed compression stocking and leg elevation to help with swelling 3) growth us 32 weeks 4) RTO 2 wks 5) continue PO iron daily. Payton Conway MD documented in this encounterOhiohealth01-18-2023 Instructions* Patient Instructions* Kim Muñiz Ma - 08/29/2022 3:28 PM EST SEQUENTIAL SCREENINGS The [facility] offers sequential screenings for women who are interested in screenings for chromosomal abnormalities and certain defects during a . The sequential screen combinesultrasound and blood tests to determine the risk of chromosomal abnormalities, including Down's Syndrome (Trisomy 21) and Trisomy 18, as well as open neural tube defects including spina bifida. Ultrasound examination is performed between 11 weeks and 13 weeks gestational age. Blood tests are drawn after the ultrasound and again later in the between 15 and 21 weeks gestational age. Please let your physician know if you are interested in this testing. It will require an appointment withour irrigation service technician. This is not an ultrasound performed by a physician in our office during a routine visit. SIGNS AND SYMPTOMS OF LABOR 1. Contractions every 10 minutes or more often 2. Clear, pink, or brownish fluid (water) leaking from vagina 3. Feeling that baby is pushing down, pressure 4. Low, dull backache 5. Cramps that feel like a period 6. Cramps with or without diarrhea If you notice any of the above symptoms, contact our office at [phone] and ask to speak with anurse. After hours, you can call doctors registry at [phone] OR call [facility] at [phone] ask to have the doctor director education paged. If you consider this an emergency, dial 9-1-1 or go to your nearest emergency department. NEED HELP? Are you dealing with a violent or abusive relationship? Are you a victim of rape or sexual assult? Call [facility] ([place]) 24 hour Crisis Hotline: 659.746.4043 or 306-546-7439. MANUAL Your Guide to a Healthy manual is now on-line. Visit [email or web address] to download your free copy documented in this encounterOhiohealth01-17-2023 Instructions* Patient Instructions* Brenda Swenson, RD - 08/28/2022 2:59 PM EST Goals: Fasting glucose <95 mg/dL; 1 hr glucose ,140 mg/dL, 2 hr glucose ,120 mg/dL; mean glucoseof 86 mg/dL. 1. Distribute carbohydrate evening throught out the day, Choose whole grain starches and grains, avoid white and refined grains and sources of concentration sugars . Carbohydrates are the starches, fruits and milk group and is defined as 15 grams per serving/choice. 2. Keep breakfast at 15-30 grams carbohydrate; meals 30- grams and snacks 15- grams of carbohydrate,include healthy protein in meals and snacks to help stabilize blood sugars from highs and lows. 3. Distribute meals and snacks every 2-3 hours. 4. Aim for 28 grams of fiber. 5. Limit saturated fat, choose lean proteins, healthy fast such as olive oil, canola oil, avocados,nuts/seeds, etc. 6. Daily exercise of 30-60 minutes - can count high activity at work Ensure good sources of magnesium from a variety of seeds and dark greens such as spinach and macedonian chard; soybeans and nuts almonds and chashews. Ensure good sources of zinc from lean beef, pumpkin and squash seeds, dark chocolate and cocoa powder, and peanuts Ensure good sources of Folic Acid from a variety of dark greens and seeds; soy beans and fried sprouts. Beans such as Boogie, garbonzo and mung; asparagus and peanuts Ensure adequate vit D-fatty fish, fortified cereal and soy products, meats, dairy products, eggs and mushrooms Ensure adequate M96-arlt fatty fish, seafood and meats; cheese and eggs Ensure adequate sources of omega 3 fatty acids from fatty fish, winifred and flax seeds and eggs Ensure adequate calcium-aim for 3-4 servings of low fat/fat free dairy daily. Aim for moderate exercise regularly-continue to do regular activities. May need to change activities during avoiding high impact and higher stress activities. documented in this encounterOhiohealth01-17-2023 History of Present illness Narrative* Brenda Swenson RD - 08/28/2022 2:23 PM EST [facility] Nutrition Therapy: Virtual Consult - Initial Assessment This visit was performed virtually due to the COVID-19 epidemic as an effort to protect patients and minimize exposure. Consent from patient received to conduct visit virtually. This Team Access Model visit is a virtual encounter. It required patient-provider interaction for the medical decision making as documented below. Nutrition Diagnosis: Behavioral-Environmental: Food and nutrition related knowledge deficit, related to, lack of prior exposure to information , as evidenced by new medical diagnosis. RECOMMENDED MALNUTRITION DIAGNOSIS: NO MALNUTRITION IDENTIFIED NUTRITION CARE PLAN Nutrition Intervention 08/28/2022: comprehensive nutrition education Goals: Fasting glucose <95 mg/dL; 1 hr glucose ,140 mg/dL, 2 hr glucose ,120 mg/dL; mean glucoseof 86 mg/dL. 1. Distribute carbohydrate evening throught out the day, Choose whole grain starches and grains, avoid white and refined grains and sources of concentration sugars . Carbohydrates are the starches, fruits and milk group and is defined as 15 grams per serving/choice. 2. Keep breakfast at 15-30 grams carbohydrate; meals 30- grams and snacks 15- grams of carbohydrate,include healthy protein in meals and snacks to help stabilize blood sugars from highs and lows. 3. Distribute meals and snacks every 2-3 hours. 4. Aim for 28 grams of fiber. 5. Limit saturated fat, choose lean proteins, healthy fast such as olive oil, canola oil, avocados,nuts/seeds, etc. 6. Daily exercise of 30-60 minutes - can count high activity at work Ensure good sources of magnesium from a variety of seeds and dark greens such as spinach and macedonian chard; soybeans and nuts almonds and chashews. Ensure good sources of zinc from lean beef, pumpkin and squash seeds, dark chocolate and cocoa powder, and peanuts Ensure good sources of Folic Acid from a variety of dark greens and seeds; soy beans and fried sprouts. Beans such as Boogie, garbonzo and mung; asparagus and peanuts Ensure adequate vit D-fatty fish, fortified cereal and soy products, meats, dairy products, eggs and mushrooms Ensure adequate K14-pkdw fatty fish, seafood and meats; cheese and eggs Ensure adequate sources of omega 3 fatty acids from fatty fish, winifred and flax seeds and eggs Ensure adequate calcium-aim for 3-4 servings of low fat/fat free dairy daily. Aim for moderate exercise regularly-continue to do regular activities. May need to change activities during avoiding high impact and higher stress activities. Nutrition Monitoring & Evaluation: labs in target range Need for Follow up: 3 weeks Patient presents for initial MNT as relates GDM at 29 weeks, this is 4th .with abnormal GTT, note low 3hr results- patient states did not feel low until in the car. Prepregnancy weight 160 range, usual weight 150-155 lbs. Has made changes to diet, following low carb diet, includes high fatand high saturated fat foods in diet . Just got meter yesterday, limited blood sugar checks but in target range. Has high activity at work but no regular exercise . 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 Resting Metabolic Rate: 1603 Malnutrition Screening Significant unintentional weight loss? No Eating less than 75% of usual intake for more than 2 weeks? No Potential Signs of Inflammation: no identifiable sources Education Materials Provided: gestaional diabetes booklet READINESS TO LEARN Cognitive ability: Alert and oriented Motivation to learn: Interested Family support: Unable to assess - Family not present Instruction provided to: Patient Patient learns best by: Individual Instruction Factors affecting learning: None Physical limitations affecting learning: None Referred by: Michelle ALEMAN Billing Type: Initial Assess/15 min 2 units SIGNATURE: Brenda Swenson RD PATIENT NAME: Yoandy Virgen DATE: 08/28/2022 TIME: 2:27 PM documented in this encounterOhiohealth01-12-2023 Miscellaneous Notes* Telephone Encounter - Kailyn Dao LPN - 08/23/2022 8:42 AM EST Please see pt's mychart message in DM absence. Kailyn Dao LPN documented in this encounterOhiohealth01-11-2023 History of Present illness Narrative* Alexsander Garcia RN - 08/22/2022 2:44 PM EST DIABETES CARE AND EDUCATION VISIT Location: [place] Type of visit: In person individual PATIENT'S MAIN CONCERN TODAY: GDM Support person present for education today: none Cognitive ability: Alert and oriented Motivation to learn: Interested Learning barriers identified by educator: none Method of instruction: written, verbal, and demonstration DIABETES FINDINGS: Monitoring: Reviewed use of meter, pt reports her strips and lancets have arrived but pharmacy has not gotten her meter in stock yet Meal Planning: Reviewed basic dietary recommendations Medications: discussed insulin as most common treatment if required due to it not crossing the placenta Problem Solving: reporting sugars to her OB weekly encouraged Physical Activity: discussed benefit of physical activity. Reports she is still working her normal shifts and walking/ lifting boxes regularly at work Reducing Risks: Benefits of good control to avoid complications HANDOUTS: Healthy You: Diabetes and LEARNING RESPONSE: Healthy eating: Demonstrated understanding/competency today or at previous visit Monitoring glucose: Demonstrated understanding/competency today or at previous visit POSSIBLE FUTURE TOPICS: 1. DIABETES CARE AND EDUCATION PLAN: Individual follow-up Time Spent (Minutes): 30 This visit note will be communicated to the healthcare provider via access to shared medical record. SIGNATURE: Alexsander Garcia RN PATIENT NAME: Yoandy Virgen DATE: August 22, 2022 TIME: 3:13 PM PAGER: documented in this encounterOhiohealth01-09-2023 Miscellaneous Notes* Telephone Encounter - Darleen Thomson RN - 08/20/2022 10:19 AM EST Patient notified and appointments scheduled. Darleen Thomson RN * Telephone Encounter - Payton Fernandes MD - 08/20/2022 9:27 AM EST ordered * Telephone Encounter - Jessica Matt RN - 08/20/2022 9:17 AM EST Orders pending. Please file. Will then call patient. Thank you. Jessica Matt RN * Telephone Encounter - Jessica Matt RN - 08/20/2022 9:15 AM EST ----- Message from Payton Fernandes MD sent at 08/20/2022 8:45 AM EST ----- Please notify patient she failed 3hr. Please pend all diabetic testing supplies. Needs diabetic education scheduled. documented in this encounterOhiohealth01-05-2023 Miscellaneous Notes* Telephone Encounter - Jessica Matt RN - 08/16/2022 8:29 AM EST Patient notified of below information. Aware test is a fasting test. Lab appointment scheduled. Jessica Matt RN * Telephone Encounter - Kiesha Black RN - 08/16/2022 8:21 AM EST Attempted to contact patient. No answer and unable to leave a message. Will attempt to contact patient again later. Ipropertyzhart message also sent. Kiesha Black RN * Telephone Encounter - Kiesha Black RN - 08/16/2022 8:20 AM EST ----- Message from Payton Fernandes MD sent at 08/15/2022 7:54 PM EST ----- Needs 3hr GTT and Start Iron supplement. Ferrous sulfate 325mg Daily. documented in this encounterOhiohealth12-30-2022 Miscellaneous Notes* Telephone Encounter - Kiesha Black RN - 08/10/2022 3:14 PM EST Breast pump order signed and faxed. Kiesha Black RN * Telephone Encounter - Kiesha Black RN - 08/10/2022 11:17 AM EST New form received from [employer] with corrected provider name. Form to provider to sign Kiesha Black RN * Telephone Encounter - Kiesha Black RN - 08/08/2022 9:08 AM EST Breast pump request had providers name and NPI number wrong. Sent request for corrected form. Will await new form. Kiesha Black RN * Telephone Encounter - Kiesha Black RN - 08/07/2022 12:36 PM EST Breast pump request received from [employer]. Rx to provider to sign. Will fax when completed. Kiesha Black RN documented in this encounterOhiohealth12-07-2022 Miscellaneous Notes* Quick Notes - Payton Fernandes MD - 07/18/2022 3:22 PM EST DM-Pt doing well. Denies vaginal Bleeding, Leaking fluid, or regular Contractions. Pt reports good movement. Complaining of swelling in legs and bilateral wrist pain/swelling and tingling. Physical Exam: Gen: female in no apparent distress Abd: soft, Gravid. Non tender to palpation. See flow sheet A/P: @ 23.4 weeks 1) working 7 days per week-asking for 40 hr work restriction- letter given 2) carpal tunnel in reviewed- relief measures reviewed 3) RTO 4 wks 4) anatomy us reviewed Payton Conway MD documented in this encounterOhiohealth12-07-2022 Instructions* Patient Instructions* Barbie Leslie Ma - 07/18/2022 2:39 PM EST SEQUENTIAL SCREENINGS The [facility] offers sequential screenings for women who are interested in screenings for chromosomal abnormalities and certain defects during a . The sequential screen combinesultrasound and blood tests to determine the risk of chromosomal abnormalities, including Down's Syndrome (Trisomy 21) and Trisomy 18, as well as open neural tube defects including spina bifida. Ultrasound examination is performed between 11 weeks and 13 weeks gestational age. Blood tests are drawn after the ultrasound and again later in the between 15 and 21 weeks gestational age. Please let your physician know if you are interested in this testing. It will require an appointment withour irrigation service technician. This is not an ultrasound performed by a physician in our office during a routine visit. SIGNS AND SYMPTOMS OF LABOR 1. Contractions every 10 minutes or more often 2. Clear, pink, or brownish fluid (water) leaking from vagina 3. Feeling that baby is pushing down, pressure 4. Low, dull backache 5. Cramps that feel like a period 6. Cramps with or without diarrhea If you notice any of the above symptoms, contact our office at [phone] and ask to speak with anurse. After hours, you can call doctors registry at [phone] OR call [facility] at [phone] ask to have the doctor director education paged. If you consider this an emergency, dial 9-1-0 or go to your nearest emergency department. NEED HELP? Are you dealing with a violent or abusive relationship? Are you a victim of rape or sexual assult? Call [facility] ([place]) 24 hour Crisis Hotline: 434.417.7272 or 330-865-1405. MANUAL Your Guide to a Healthy manual is now on-line. Visit [email or web address] to download your free copy documented in this encounterOhiohealth11-09-2022 Miscellaneous Notes* Quick Notes - Payton Fernandes MD - 06/20/2022 4:18 PM EST DM-Pt doing well. Denies vaginal Bleeding, Leaking fluid, or regular Contractions. Pt reports good movement. Still with some N/V. Physical Exam: Gen: female in no apparent distress Abd: soft, Gravid. Non tender to palpation. See flow sheet A/P: @ 19.4 weeks 1) anatomy us pending- BOY (4th one ) 2) RTO 4 wks 3)MMR post reviewed Payotn Conway MD documented in this encounterOhiohealth11-09-2022 Instructions* Patient Instructions* Barbie Leslie Oc - 06/20/2022 2:40 PM EST SEQUENTIAL SCREENINGS The [facility] offers sequential screenings for women who are interested in screenings for chromosomal abnormalities and certain defects during a . The sequential screen combinesultrasound and blood tests to determine the risk of chromosomal abnormalities, including Down's Syndrome (Trisomy 21) and Trisomy 18, as well as open neural tube defects including spina bifida. Ultrasound examination is performed between 11 weeks and 13 weeks gestational age. Blood tests are drawn after the ultrasound and again later in the between 15 and 21 weeks gestational age. Please let your physician know if you are interested in this testing. It will require an appointment withour irrigation service technician. This is not an ultrasound performed by a physician in our office during a routine visit. SIGNS AND SYMPTOMS OF LABOR 1. Contractions every 10 minutes or more often 2. Clear, pink, or brownish fluid (water) leaking from vagina 3. Feeling that baby is pushing down, pressure 4. Low, dull backache 5. Cramps that feel like a period 6. Cramps with or without diarrhea If you notice any of the above symptoms, contact our office at [phone] and ask to speak with anurse. After hours, you can call doctors registry at [phone] OR call [facility] at [phone] ask to have the doctor director education paged. If you consider this an emergency, dial -[phone] or go to your nearest emergency department. NEED HELP? Are you dealing with a violent or abusive relationship? Are you a victim of rape or sexual assult? Call [facility] ([place]) 24 hour Crisis Hotline: 781.650.6441 or 381-471-5586. MANUAL Your Guide to a Healthy manual is now on-line. Visit [email or web address] to download your free copy documented in this encounterOhiohealth09-29-2022 Miscellaneous Notes* Quick Notes - Payton Fernandes MD - 05/10/2022 4:16 PM EDT DM- Pt doing well today. Denies Vaginal Bleeding, Leaking fluid, or cramping. Some N/V but overall getting better. NT today. New OB labs. Declines flu today. Payton Conway MD documented in this encounterOhiohealth09-29-2022 History of Present illness Narrative* Darleen Thomson RN - 05/10/2022 4:00 PM EDT Patient here for First Trimester Screening. See ultrasound report for details. Options for genetic screening and diagnosis discussed with the patient. Patient opts for first trimester screening and the sequential screening protocol. Limitations of screening tests discussed withthe patient. Payton Conway MD documented in this encounterOhiohealth09-29-2022 Instructions* Patient Instructions* Darleen Thomson RN - 05/10/2022 3:15 PM EDT SEQUENTIAL SCREENINGS The [facility] offers sequential screenings for women who are interested in screenings for chromosomal abnormalities and certain defects during a . The sequential screen combinesultrasound and blood tests to determine the risk of chromosomal abnormalities, including Down's Syndrome (Trisomy 21) and Trisomy 18, as well as open neural tube defects including spina bifida. Ultrasound examination is performed between 11 weeks and 13 weeks gestational age. Blood tests are drawn after the ultrasound and again later in the between 15 and 21 weeks gestational age. Please let your physician know if you are interested in this testing. It will require an appointment withour irrigation service technician. This is not an ultrasound performed by a physician in our office during a routine visit. SIGNS AND SYMPTOMS OF LABOR 1. Contractions every 10 minutes or more often 2. Clear, pink, or brownish fluid (water) leaking from vagina 3. Feeling that baby is pushing down, pressure 4. Low, dull backache 5. Cramps that feel like a period 6. Cramps with or without diarrhea If you notice any of the above symptoms, contact our office at [phone] and ask to speak with anurse. After hours, you can call doctors registry at [phone] OR call [facility] at [phone] ask to have the doctor director education paged. If you consider this an emergency, dial 2--6 or go to your nearest emergency department. NEED HELP? Are you dealing with a violent or abusive relationship? Are you a victim of rape or sexual assult? Call [facility] ([place]) 24 hour Crisis Hotline: 486.122.4857 or 144-366-3680. MANUAL Your Guide to a Healthy manual is now on-line. Visit [email or web address] to download your free copy SEQUENTIAL TESTING PROCESS Sequential Screen First Trimester Today you are currently: 13w5d weeks 05/10/2022: Ultrasound and blood test. Sequential Screen Second Trimester (16-17 Weeks Gestation) When you are called with your results, the nurse will give the optimal draw dates for the Sequential screen second trimester. Blood testing can be done at any [facility] lab. Please report to the any associate account manager office front desk associate for the Sequential Part 2 requisition and order before reporting to the lab. Your weight will need to be documented for testing. Please note: -No appointment is need for your second blood draw. -Office hours are 8 am to 4:30 pm. -Please have testing done prior to 12 noon on Saturday's -Once the sequential testing is started, in the first trimester the only follow- up will be for the sequential screen second trimester. Please don't have a Quad screen ordered by another provider. If you or your Provider have any questions please call your maternal medicine office, for east side please call [phone] or for the West side call [phone] and ask for the the nurse. Thank you. documented in this encounterOhiohealth09-21-2022 Miscellaneous Notes* Telephone Encounter - Darleen Thomson RN - 05/02/2022 10:47 AM EDT Patient notified and order faxed to [facility]. Darleen Thomson RN * Telephone Encounter - Payton Fernandes MD - 05/02/2022 10:19 AM EDT Please save this order- order placed and printed to be faxed. * Telephone Encounter - Darleen Thomson RN - 05/02/2022 9:08 AM EDT Patient does want Paxlovid to [facility] in [place]. Order pending - will need to complete non database medication order as medication is still not built in epic. Darleen Thomson RN * Telephone Encounter - Payton Fernandes MD - 05/02/2022 8:46 AM EDT Noted. Does patient wish to take paxlovid for treatment? It is not studied in women but per MFM they feel it is safe to offer to hopefully prevent worsening symptoms. * Telephone Encounter - Darleen Thomson RN - 05/01/2022 1:19 PM EDT 12w3d Calling because she had +covid result today. Symptoms started last night. NT u/s and OB visit reschedule to 05/10/22. Only sees DM. Darleen Thomson RN documented in this encounterOhiohealth08-23-2022 Miscellaneous Notes* Telephone Encounter - Alicia Kaur RN - 04/03/2022 12:14 PM EDT Initial risk assessment form submitted 04/03/22 Alicia Kaur RN documented in this encounterOhiohealth08-11-2022 History of Present illness Narrative* Jeny Giang RN - 03/22/2022 11:48 AM EDT # 1 - Date: [birth year], Sex: Male, Weight: 8 lb 7 oz (3.827 kg), GA: 41w2d, Delivery: VACUUM OR FORCEPS, Apgar1: 8, Apgar5: 9, Living: Living, Comments: POST DATES INDUCTION PIT, AROM # 2 - Date: 10/08/11, Sex: None, Weight: None, GA: 12w0d, Delivery: None, Apgar1: None, Apgar5: None, Living: None, Comments: D&C # 3 - Date: 08/04/13, Sex: Male, Weight: 6 lb 14 oz (3.118 kg), GA: 38w1d, Delivery: Vaginal, Spontaneous, Apgar1: 8, Apgar5: 9, Living: Living, Comments: OP,Spontaneous labor, augmented with pitocin, 1st degree perineal laceration, EBL 350cc # 4 - Date: 10/22/14, Sex: Male, Weight: 6 lb 7 oz (2.92 kg), GA: 38w0d, Delivery: Vaginal, Spontaneous, Apgar1: None, Apgar5: None, Living: Living, Comments: Induced due to oligohydramnios # 5 - Date: None, Sex: None, Weight: None, GA: None, Delivery: None, Apgar1: None, Apgar5: None, Living: None, Comments: None documented in this encounterOhiohealth08-11-2022 Miscellaneous Notes* Quick Notes - Jeny Giang RN - 03/22/2022 11:48 AM EDT DISTANCE HEALTH VISIT This Team Access Model visit is a phone encounter. It required patient-provider interaction for themedical decision making as documented below. Patient is engaged to the father the baby.Pt has a history of depression diagnosed 11 years ago. She has been off medication since 2017. She states she did have depression after the delivery of her first child but not with her other children. Discussed increased risks of depression during and and importance of reporting the development or worsening of symptoms should they occur. Pt denies ever having any suicidal thoughts or tendencies or thoughts of hurting others. Pt has a history of Leep done in 2014. Discussed inc reased risk of labor and importance of reporting any symptoms should they develop.Signs andsymptoms of PTL discussed.Patient is complaining of nausea in . Denies any vomiting. Dietary considerations discussed . Vitamin B6 recommended. Advised patient to call/come in if she is unable to keep any food or fluids down in a 24-hour period. Patient currently taking Adderall prescribed by Yuridia Briscoe. She is currently trying to wean off medication. Patient desires aneuploidy screening. Considering genetic carrier screening testing.TKRN documented in this encounterOhiohealth07-19-2022 Miscellaneous Notes* Telephone Encounter - Mariella Rea LPN - 02/27/2022 3:11 PM EDT Attempted to contact patient. Unable to leave a message * Telephone Encounter - Kailyn Dao LPN - 02/23/2022 10:30 AM EDT Attempted to contact pt and unable to leave message, pt has not read initial [employer] message. Kailyn Dao LPN * Telephone Encounter - Darleen Thomson RN - 02/21/2022 2:40 PM EDT Attempted to call patient. Unable to leave message. Darleen Thomson RN * Telephone Encounter - Darleen Thomson RN - 02/07/2022 9:44 AM EDT Attempted to call patient again - unable to leave voicemail. NOB got rescheduled to 04/02 and LMP was 12/12/21. Please reschedule PNOB and move NOB to sooner appointment if patient calls back. Darleen Thomson RN documented in this encounterOhiohealth06-21-2022 Miscellaneous Notes* Telephone Encounter - Kailyn Dao LPN - 01/30/2022 2:42 PM EDT Pt contacted and assisted to schedule PNOB. Kailyn Dao LPN * Telephone Encounter - Jeny Giang RN - 01/30/2022 10:16 AM EDT Attempted to leave message for patient to return phone call but unable to leave message. Patient has an appointment with Michelle for NOB appointment. Left MyChart message for her to call the office.Please schedule PNOB appointment. documented in this encounterOhiohealth06-16-2022 Miscellaneous Notes* Addendum Note - Barbie Leslie Ma - 01/25/2022 4:24 PM EDT Addended by: BARBIE LESLIE MA on: 01/25/2022 04:24 PM Modules accepted: Orders documented in this [facility]06-16-2022 History of Present illness Narrative* Bailee Harvey APRN.CLOUD OPERATIONS ENGINEER - 01/25/2022 4:06 PM EDT Yoandy Virgen is a 31 year old female who presents for problem visit Confirm positive test. HPI: Stopped OCP 2 months ago to attempt . Had menses in December and is now 2 weeks late. Homepregnancy test with faint posititive line one week ago. Is taking PNVFA. OB History T3 L3 SAB1 IAB0 Ectopic0 Multiple0 Live Births3 Sand Mixer History LMP: 12/12/2021, Having periods Age at Menarche: Age at First : Age at Menopause: Sand Mixer History Comments: Sexual Activity: Yes; Male Contraception: I.U.D. PAST MEDICAL HISTORY Diagnosis Date Abnormal glandular Papanicolaou smear of cervix 2007,2010,2012 Abn. Pap smear (cervix) Chlamydia 2009 Depression HPV test positive 01/19/13 depression PAST SURGICAL HISTORY Procedure Laterality Date DILATION & CURETTAGE DX&/THER NONOBSTETRIC 2011 Dilation & curettage LEEP PROCEDURE (APPLICATIONS CHEMIST DEPT)_*FL 2014 CIN3 VAGINOSCOPY 05/26/13 HUGO 3 FAMILY HISTORY Problem Relation Age of Onset Hypertension Father Cancer Maternal Grandmother Lung Diabetes Maternal Grandfather Alcohol/Drug Paternal Grandfather Cancer Paternal Grandfather STOMACH Social History Tobacco Use Smoking status: Current Every Day Smoker Packs/day: 0.50 Years: 11.00 Pack years: 5.50 Types: Cigarettes Smokeless tobacco: Never Used Vaping Use Vaping Use: Some days Substance Use Topics Alcohol use: No Drug use: No Current Outpatient Medications Medication Sig amphetamine-dextroamphetamine XR (ADDERALL XR) 25 mg 24 hr capsule TAKE 1 CAPSULE BY MOUTH IN THE MORNING FOR 30 DAYS Drospirenone-Ethinyl Estradiol (EVAN, 28,) 3-0.03 mg per tablet Take 1 tablet by mouth once daily. (Patient not taking: Reported on 01/25/2022 ) No current facility-administered medications for this visit. Allergies As of Date: 01/25/2022 Allergen Noted Reaction SEASONAL ALLERGIES 05/26/2014 Other: See Comments Fully Assessed 09/19/2021 REVIEW OF SYSTEMS Allergies and current medication updated:Yes EXAM: BP 118/74 Wt 162 lb (73.5kg) LMP 12/12/2021 GENERAL: pleasant, female in no apparent distress CHEST: Normal inspiratory effort NEURO: alert and oriented x3,exam grossly non-focal ASSESSMENT/PLAN: 1. Late menses - ICD9: 626.8, ICD10: N92.6 - Urine negative. - Repeat UPT in one week if menses does not start. - Continue PNVFA Follow-up as needed. Bailee Harvey APRN.FARA I spent a total of 15 minutes on the date of the service which included preparing to see the patient, [id number] patient care, completing clinical documentation, obtaining and/or reviewing separately obtained history, performing a medically appropriate examination, counseling and educating the pat ient/family/caregiver and ordering medications, tests, or procedures. documented in this encounterOhiohealth10-15-2014 History of Past illness Narrative* Problem Noted Date Resolved Date Short interval between pregn ancies complicating , antepartum 05/26/2014 06/20/2022 Cervical high risk human pap illomavirus (HPV) DNA test positive 05/26/2013 05/26/2014 Overview: ASCUS paps w/ po HRHPV in 2010 and 01/2013. Encouraged f/u after . Excessive growth affec ting management of mother, antepartum 10/09/2010 11/06/2010 documented as of this encounter (statuses as of 06/20/2022) [facility] History of Past illness Narrative* Problem Noted Date Resolved Date Short interval between pregn ancies complicating , antepartum 05/26/2014 06/20/2022 Cervical high risk human pap illomavirus (HPV) DNA test positive 05/26/2013 05/26/2014 Overview: ASCUS paps w/ po HRHPV in 2010 and 01/2013. Encouraged f/u after . Excessive growth affec ting management of mother, antepartum 10/09/2010 11/06/2010 documented as of this encounter (statuses as of 07/18/2022) [facility] History of Past illness Narrative* Problem Noted Date Resolved Date Short interval between pregn ancies complicating , antepartum 05/26/2014 06/20/2022 Cervical high risk human pap illomavirus (HPV) DNA test positive 05/26/2013 05/26/2014 Overview: ASCUS paps w/ po HRHPV in 2010 and 01/2013. Encouraged f/u after . Excessive growth affec ting management of mother, antepartum 10/09/2010 11/06/2010 documented as of this encounter (statuses as of 08/14/2022) [facility] History of Past illness Narrative* Problem Noted Date Resolved Date Short interval between pregn ancies complicating , antepartum 05/26/2014 06/20/2022 Cervical high risk human pap illomavirus (HPV) DNA test positive 05/26/2013 05/26/2014 Overview: ASCUS paps w/ po HRHPV in 2010 and 01/2013. Encouraged f/u after . Excessive growth affec ting management of mother, antepartum 10/09/2010 11/06/2010 documented as of this encounter (statuses as of 08/17/2022) [facility] History of Past illness Narrative* Problem Noted Date Resolved Date Short interval between pregn ancies complicating , antepartum 05/26/2014 06/20/2022 Cervical high risk human pap illomavirus (HPV) DNA test positive 05/26/2013 05/26/2014 Overview: ASCUS paps w/ po HRHPV in 2010 and 01/2013. Encouraged f/u after . Excessive growth affec ting management of mother, antepartum 10/09/2010 11/06/2010 documented as of this encounter (statuses as of 08/20/2022) [facility] History of Past illness Narrative* Problem Noted Date Resolved Date Short interval between pregn ancies complicating , antepartum 05/26/2014 06/20/2022 Cervical high risk human pap illomavirus (HPV) DNA test positive 05/26/2013 05/26/2014 Overview: ASCUS paps w/ po HRHPV in 2010 and 01/2013. Encouraged f/u after . Excessive growth affec ting management of mother, antepartum 10/09/2010 11/06/2010 documented as of this encounter (statuses as of 08/22/2022) [facility] History of Past illness Narrative* Problem Noted Date Resolved Date Short interval between pregn ancies complicating , antepartum 05/26/2014 06/20/2022 Cervical high risk human pap illomavirus (HPV) DNA test positive 05/26/2013 05/26/2014 Overview: ASCUS paps w/ po HRHPV in 2010 and 01/2013. Encouraged f/u after . Excessive growth affec ting management of mother, antepartum 10/09/2010 11/06/2010 documented as of this encounter (statuses as of 08/23/2022) [facility] History of Past illness Narrative* Problem Noted Date Resolved Date Short interval between pregn ancies complicating , antepartum 05/26/2014 06/20/2022 Cervical high risk human pap illomavirus (HPV) DNA test positive 05/26/2013 05/26/2014 Overview: ASCUS paps w/ po HRHPV in 2010 and 01/2013. Encouraged f/u after . Excessive growth affec ting management of mother, antepartum 10/09/2010 11/06/2010 documented as of this encounter (statuses as of 08/28/2022) [facility] History of Past illness Narrative* Problem Noted Date Resolved Date Short interval between pregn ancies complicating , antepartum 05/26/2014 06/20/2022 Cervical high risk human pap illomavirus (HPV) DNA test positive 05/26/2013 05/26/2014 Overview: ASCUS paps w/ po HRHPV in 2010 and 01/2013. Encouraged f/u after . Excessive growth affec ting management of mother, antepartum 10/09/2010 11/06/2010 documented as of this encounter (statuses as of 08/29/2022) [facility] History of Past illness Narrative* Problem Noted Date Resolved Date Short interval between pregn ancies complicating , antepartum 05/26/2014 06/20/2022 Cervical high risk human pap illomavirus (HPV) DNA test positive 05/26/2013 05/26/2014 Overview: ASCUS paps w/ po HRHPV in 2010 and 01/2013. Encouraged f/u after . Excessive growth affec ting management of mother, antepartum 10/09/2010 11/06/2010 documented as of this encounter (statuses as of 09/06/2022) [facility] History of Past illness Narrative* Problem Noted Date Resolved Date Short interval between pregn ancies complicating , antepartum 05/26/2014 06/20/2022 Cervical high risk human pap illomavirus (HPV) DNA test positive 05/26/2013 05/26/2014 Overview: ASCUS paps w/ po HRHPV in 2010 and 01/2013. Encouraged f/u after . Excessive growth affec ting management of mother, antepartum 10/09/2010 11/06/2010 documented as of this encounter (statuses as of 09/11/2022) [facility] History of Past illness Narrative* Problem Noted Date Resolved Date Short interval between pregn ancies complicating , antepartum 05/26/2014 06/20/2022 Cervical high risk human pap illomavirus (HPV) DNA test positive 05/26/2013 05/26/2014 Overview: ASCUS paps w/ po HRHPV in 2010 and 01/2013. Encouraged f/u after . Excessive growth affec ting management of mother, antepartum 10/09/2010 11/06/2010 documented as of this encounter (statuses as of 09/11/2022) [facility] History of Past illness Narrative* Problem Noted Date Resolved Date Short interval between pregn ancies complicating , antepartum 05/26/2014 06/20/2022 Cervical high risk human pap illomavirus (HPV) DNA test positive 05/26/2013 05/26/2014 Overview: ASCUS paps w/ po HRHPV in 2010 and 01/2013. Encouraged f/u after . Excessive growth affec ting management of mother, antepartum 10/09/2010 11/06/2010 documented as of this encounter (statuses as of 09/11/2022) [facility] History of Past illness Narrative* Problem Noted Date Resolved Date Cervical high risk human pap illomavirus (HPV) DNA test positive 05/26/2013 05/26/2014 Overview: ASCUS paps w/ po HRHPV in 2010 and 01/2013. Encouraged f/u after . Patient requested diagnostic testing 01/06/2013 05/26/2014 Overview: 01/06/2013Patient desires early screening in with sequential testing.Jeny KEYS RN 01/29/2013negative Sequential screen first trimester. The first part of the Sequential Screen reports that her risk for Down syndrome decreased from her age-related risk of 1:780 to 1:10,000 and her Trisomy 18 risk decreased from her age-related risk of 1:2,700 to 1:10,000. Based on these results Dr. Ty's recommendation is for patient to follow-up with Sequential second trimester screening (03/02-03/16) and level II anatomy scan after 18wks. 03/19/2013negative Sequential screen second trimester. The second part of the Sequential Screen reports that her risk for Down syndrome decreased from her age-related risk of 1:1,000 to 1:10,000, her Trisomy 18 risk decreased from her age-related risk of 1:4,100 to 1:10,000 and the ONTD risk is 1:6,000. Based on these results Dr. Ty's recommendation is for patient to follow-up with level II anatomy scan after 18wks. Supervision of normal first 10/09/2010 01/06/2013 Excessive growth affec ting management of mother, antepartum 10/09/2010 11/06/2010 documented as of this encounter (statuses as of 01/25/2022) [facility] History of Past illness Narrative* Problem Noted Date Resolved Date Cervical high risk human pap illomavirus (HPV) DNA test positive 05/26/2013 05/26/2014 Overview: ASCUS paps w/ po HRHPV in 2010 and 01/2013. Encouraged f/u after . Patient requested diagnostic testing 01/06/2013 05/26/2014 Overview: 01/06/2013Patient desires early screening in with sequential testing.Jeny KEYS RN 01/29/2013negative Sequential screen first trimester. The first part of the Sequential Screen reports that her risk for Down syndrome decreased from her age-related risk of 1:780 to 1:10,000 and her Trisomy 18 risk decreased from her age-related risk of 1:2,700 to 1:10,000. Based on these results Dr. Ty's recommendation is for patient to follow-up with Sequential second trimester screening (03/02-03/16) and level II anatomy scan after 18wks. 03/19/2013negative Sequential screen second trimester. The second part of the Sequential Screen reports that her risk for Down syndrome decreased from her age-related risk of 1:1,000 to 1:10,000, her Trisomy 18 risk decreased from her age-related risk of 1:4,100 to 1:10,000 and the ONTD risk is 1:6,000. Based on these results Dr. Ty's recommendation is for patient to follow-up with level II anatomy scan after 18wks. Supervision of normal first 10/09/2010 01/06/2013 Excessive growth affec ting management of mother, antepartum 10/09/2010 11/06/2010 documented as of this encounter (statuses as of 01/30/2022) [facility] History of Past illness Narrative* Problem Noted Date Resolved Date Cervical high risk human pap illomavirus (HPV) DNA test positive 05/26/2013 05/26/2014 Overview: ASCUS paps w/ po HRHPV in 2010 and 01/2013. Encouraged f/u after . Patient requested diagnostic testing 01/06/2013 05/26/2014 Overview: 01/06/2013Patient desires early screening in with sequential testing.Jeny KEYS RN 01/29/2013negative Sequential screen first trimester. The first part of the Sequential Screen reports that her risk for Down syndrome decreased from her age-related risk of 1:780 to 1:10,000 and her Trisomy 18 risk decreased from her age-related risk of 1:2,700 to 1:10,000. Based on these results Dr. Ty's recommendation is for patient to follow-up with Sequential second trimester screening (03/02-03/16) and level II anatomy scan after 18wks. 03/19/2013negative Sequential screen second trimester. The second part of the Sequential Screen reports that her risk for Down syndrome decreased from her age-related risk of 1:1,000 to 1:10,000, her Trisomy 18 risk decreased from her age-related risk of 1:4,100 to 1:10,000 and the ONTD risk is 1:6,000. Based on these results Dr. Ty's recommendation is for patient to follow-up with level II anatomy scan after 18wks. Supervision of normal first 10/09/2010 01/06/2013 Excessive growth affec ting management of mother, antepartum 10/09/2010 11/06/2010 documented as of this encounter (statuses as of 02/27/2022) [facility] History of Past illness Narrative* Problem Noted Date Resolved Date Cervical high risk human pap illomavirus (HPV) DNA test positive 05/26/2013 05/26/2014 Overview: ASCUS paps w/ po HRHPV in 2010 and 01/2013. Encouraged f/u after . Supervision of normal first 10/09/2010 01/06/2013 Excessive growth affec ting management of mother, antepartum 10/09/2010 11/06/2010 documented as of this encounter (statuses as of 03/22/2022) [facility] History of Past illness Narrative* Problem Noted Date Resolved Date Cervical high risk human pap illomavirus (HPV) DNA test positive 05/26/2013 05/26/2014 Overview: ASCUS paps w/ po HRHPV in 2010 and 01/2013. Encouraged f/u after . Supervision of normal first 10/09/2010 01/06/2013 Excessive growth affec ting management of mother, antepartum 10/09/2010 11/06/2010 documented as of this encounter (statuses as of 04/03/2022) [facility] History of Past illness Narrative* Problem Noted Date Resolved Date Cervical high risk human pap illomavirus (HPV) DNA test positive 05/26/2013 05/26/2014 Overview: ASCUS paps w/ po HRHPV in 2010 and 01/2013. Encouraged f/u after . Supervision of normal first 10/09/2010 01/06/2013 Excessive growth affec ting management of mother, antepartum 10/09/2010 11/06/2010 documented as of this encounter (statuses as of 05/02/2022) [facility] History of Past illness Narrative* Problem Noted Date Resolved Date Cervical high risk human pap illomavirus (HPV) DNA test positive 05/26/2013 05/26/2014 Overview: ASCUS paps w/ po HRHPV in 2010 and 01/2013. Encouraged f/u after . Supervision of normal first 10/09/2010 01/06/2013 Excessive growth affec ting management of mother, antepartum 10/09/2010 11/06/2010 documented as of this encounter (statuses as of 05/10/2022) [facility] History of Past illness Narrative* Problem Noted Date Resolved Date Cervical high risk human pap illomavirus (HPV) DNA test positive 05/26/2013 05/26/2014 Overview: ASCUS paps w/ po HRHPV in 2010 and 01/2013. Encouraged f/u after . Supervision of normal first 10/09/2010 01/06/2013 Excessive growth affec ting management of mother, antepartum 10/09/2010 11/06/2010 documented as of this encounter (statuses as of 05/10/2022) [facility]* Diagnosis Late menses- Primary Other disorder of menstruation and other abnormal bleeding from female genital tract [facility]* Diagnosis Hx LEEP (loop electrosurgical excision procedure), cervix, , first trimester- Primary History of depression, currently with other poor obstetric history Nausea and vomiting in Unspecified vomiting of , unspecified as to episode of care Medication exposure during first trimester of Supervision of other high-risk Patient request for diagnostic testing Other specified examination [facility]* Diagnosis Encounter for (NT) nuchal translucency scan- Primary Other specified screening 13 weeks gestation of state, incidental [facility] Diagnosis Encounter for supervision of other normal in second trimester- Primary Encounter for screening of mother Unspecified screening 13 weeks gestation of state, incidental [facility] Encounter for supervision of other normal in second trimester- Primary Rubella non-immune status, antepartum Other specified complication, antepartum 19 weeks gestation of state, incidental [facility] Diagnosis Encounter for supervision of other normal in second trimester- Primary 23 weeks gestation of state, incidental [facility] Diagnosis Abnormal glucose complicating - Primary Abnormal maternal glucose tolerance, complicating , childbirth, or the puerperium, unspecified as to episode of care Abnormal maternal glucose tolerance, antepartum [facility] Diagnosis Abnormal glucose complicating Abnormal maternal glucose tolerance, complicating , childbirth, or the puerperium, unspecified as to episode of care [facility] Diagnosis Dietary counseling- Primary Dietary surveillance and counseling Abnormal glucose complicating Abnormal maternal glucose tolerance, complicating , childbirth, or the puerperium, unspecified as to episode of care [facility]* Diagnosis Diet controlled gestational diabetes mellitus (GDM) in third trimester- Primary Anemia during in third trimester 29 weeks gestation of state, incidental Visit for screening Unspecified screening [facility] Diagnosis Numbness and tingling of foot Disturbance of skin sensation 30 weeks gestation of state, incidental [facility]* Diagnosis Diet controlled gestational diabetes mellitus (GDM) in third trimester- Primary 31 weeks gestation of state, incidental [facility]* Diagnosis Diet controlled gestational diabetes mellitus (GDM) in third trimester- Primary Excessive growth affecting management of in third trimester, single or unspecified fetus 31 weeks gestation of state, incidental [facility]* Diagnosis Gestational diabetes mellitus, class A1- Primary Abnormal maternal glucose tolerance, complicating , childbirth, or the puerperium, unspecified as to episode of care Excessive growth affecting management of in third trimester, single or unspecified fetus 33 weeks gestation of state, incidental [facility] Diagnosis Abdominal pain during in third trimester- Primary Gestational diabetes mellitus, class A1 Abnormal maternal glucose tolerance, complicating , childbirth, or the puerperium, unspecified as to episode of care 34 weeks gestation of state, incidental [facility] Diagnosis Encounter for ultrasound to assess growth- Primary Diet controlled gestational diabetes mellitus (GDM) in third trimester 35 weeks gestation of state, incidental [facility]* Diagnosis Excessive growth affecting management of in third trimester, single or unspecified fetus- Primary Gestational diabetes mellitus, class A1 Abnormal maternal glucose tolerance, complicating , childbirth, or the puerperium, unspecified as to episode of care Rubella non-immune status, antepartum Other specified complication, antepartum 35 weeks gestation of state, incidental [facility] Diagnosis Gestational diabetes mellitus, class A1- Primary Abnormal maternal glucose tolerance, complicating , childbirth, or the puerperium, unspecified as to episode of care Excessive growth affecting management of in third trimester, single or unspecified fetus 36 weeks gestation of state, incidental [facility]* Diagnosis Onset Date Resolution Status 37 weeks gestation of acute Care and examination of lactating mother acute Excessive growth affecting management of mother acute Gestational diabetes acute History of depression acute Hx LEEP (loop electrosurgica l excision procedure), cervix, acute Marginal insertion of umbilical cord acute Rubella non-immune status, antepartum acute Spontaneous rupture of amniotic membranes acute (spontaneous vaginal delivery) acute Tobacco abuse acute [facility] Work Phone: Evaluation note* Diagnosis care and examination immediately after delivery- Primary History of gestational diabetes Personal history of gestational diabetes documented in this encounter [facility] note* Diagnosis Encounter for initial prescription of intrauterine contraceptive device (IUD)- Primary Encounter for IUD insertion Encounter for insertion of intrauterine contraceptive device documented in this encounter [facility] note* Diagnosis Optic neuritis- Primary Optic neuritis, unspecified documented in this encounter [facility] note* Diagnosis Demyelinating disease of central nervous system (HCC)- Primary Demyelinating disease of central nervous system, unspecified Optic neuritis Optic neuritis, unspecified Encounter for tobacco use cessation counseling Fatigue, unspecified type MDD (major depressive disorder), recurrent episode, mild (HCC) Major depressive disorder, recurrent episode, mild documented in this encounter [facility] note* Diagnosis Demyelinating disease of central nervous system (HCC) Demyelinating disease of central nervous system, unspecified documented in this encounter [facility] note* Diagnosis Multiple sclerosis (HCC)- Primary Multiple sclerosis Encounter for tobacco use cessation counseling Fatigue, unspecified type MDD (major depressive disorder), recurrent episode, mild (HCC) Major depressive disorder, recurrent episode, mild documented in this encounter [facility] note* Diagnosis Multiple sclerosis (HCC)- Primary Multiple sclerosis documented in this encounter [facility] note* Diagnosis Encounter for gynecological examination (general) (routine) without abnormal findings- Primary Screening for cervical cancer Screening for malignant neoplasm of the cervix Encounter for screening for human papillomavirus (HPV) Special screening examination for human papillomavirus (HPV) documented in this encounter [facility] note* Diagnosis Multiple sclerosis (HCC)- Primary Multiple sclerosis documented in this encounter [facility] note* Diagnosis Multiple sclerosis (HCC)- Primary Multiple sclerosis [facility] Diagnosis Multiple sclerosis (HCC)- Primary Multiple sclerosis [facility]* Diagnosis Multiple sclerosis (HCC)- Primary Multiple sclerosis Migraine with aura and without status migrainosus, not intractable Migraine with aura, without mention of intractable migraine without mention of status migrainosus Immunosuppression due to drug therapy (HCC) MAMIE (generalized anxiety disorder) Generalized anxiety disorder [facility]* Diagnosis Multiple sclerosis (HCC)- Primary Multiple sclerosis documented in this encounter [facility] for referral (narrative)* Diagnostic Procedure Only (Routine) - Authorized Specialty Diagnoses / Procedures Referred By Contac t Referred To Contact [facility] Diagnoses Encounter for supervision of other normal in second trimester Procedures OBSTETRIC ULTRASOUND WHI US PREG UTERUS AFTER 1ST TRIMEST GESTATION Payton Washington MD [address] [place] [address] [id number] [place] [address] Referral ID Status Reason Start Date Expiration Date Visits Requested Visits Authorized [id number] Authorized Auto-Generat ed Referral 05/10/2022 05/10/2023 1 1 [facility] for referral (narrative)* Diagnostic Procedure Only (Routine) - Authorized Specialty Diagnoses / Procedures Referred By Contac t Referred To Contact [facility] Diagnoses Diet controlled gestational diabetes mellitus (GDM) in third trimester 29 weeks gestation of Procedures OBSTETRIC ULTRASOUND WHI US PREG UTERUS AFTER 1ST TRIMEST GESTATION Payton Washington MD [address] [place] [address] [facility] [place] [address] Referral ID Status Reason Start Date Expiration Date Visits Requested Visits Authorized [id number] Authorized Auto-Generat ed Referral 08/29/2022 08/29/2023 1 1 [facility] for referral (narrative)* Diagnostic Procedure Only (Routine) - Pending Review Specialty Diagnoses / Procedures Referred By Contac t Referred To Contact [facility] Diagnoses Diet controlled gestational diabetes mellitus (GDM) in third trimester Procedures OBSTETRIC ULTRASOUND WHI US PREG UTERUS AFTER 1ST TRIMEST GESTATION Payton Washington MD [address] [place] [address] [address] Referral ID Status Reason Start Date Expiration Date Visits Requested Visits Authorized [id number] Pending Review Auto-Generat ed Referral 09/10/2022 09/10/2023 1 1 [facility] Outpatient Procedure (Routine) - Pending Review Specialty Diagnoses / Procedures Referred By Mervin stanton Referred To Contact [facility] Diagnoses Encounter for IUD insertion Procedures INSERT INTRAUTERINE DEVICE LEVONORGESTREL IU 52MG 5 YR INSERT INTRAUTERINE DEVICE Payton Washington MD [address] [place] [address] [facility] [address] [place] [address] Referral ID Status Reason Start Date Expiration Date Visits Requested Visits Authorized [id number] Pending Review Auto-Generat ed Referral 11/14/2022 11/13/2023 1 1 [facility] Summary Purpose Family History No Family History Records FoundNo Family History Records FoundNo Family History Records FoundNo Family History Records Found Advance Directives No Advanced Directives Records Found Advance Directive Response Recorded Date/ Time Living Will No October 22, 2022 12:18am Power of Emergency Care Tech No October 22 12:18am Health Concerns Problem Noted Date OB Reminders 04/02/2022 Problem Noted Date OB Reminders 04/02/2022 Problem Noted Date OB Reminders 04/02/2022 Problem Noted Date OB Reminders 04/02/2022 Problem Noted Date OB Reminders 04/02/2022 Problem Noted Date OB Reminders 04/02/2022 Problem Noted Date OB Reminders 04/02/2022 Problem Noted Date OB Reminders 04/02/2022 Problem Noted Date OB Reminders 04/02/2022 Problem Noted Date OB Reminders 04/02/2022 Problem Noted Date OB Reminders 04/02/2022 Problem Noted Date OB Reminders 04/02/2022 Problem Noted Date OB Reminders 04/02/2022 Problem Noted Date OB Reminders 04/02/2022 Problem Noted Date OB Reminders 04/02/2022 Problem Noted Date OB Reminders 04/02/2022 Problem Noted Date OB Reminders 04/02/2022 Problem Noted Date OB Reminders 04/02/2022 Problem Noted Date OB Reminders 04/02/2022 Problem Noted Date OB Reminders 04/02/2022 Reason for Referral Specialty Diagnoses / Procedures Referred By Contac t Referred To Contact Diagnoses Abnormal glucose complicating Procedures CONSULT TO DIABETES EDUCATION OFFICE/OUTPATIENT [facility] 60-74 MINUTES Payton Washington MD [address] [place] [phone] Referral ID Status Reason Start Date Expiration Date Visits Requested Visits Authorized [id number] Authorized PCP Requested Referral 08/20/2022 08/20/2023 1 1 Specialty Diagnoses / Procedures Referred By Contac t Referred To Contact Nutrition Diagnoses Abnormal glucose complicating Procedures CONSULT TO NUTRITION THERAPY OFFICE/OUTPATIENT [facility] 60-74 MINUTES Payton Washington MD [address] [place] [phone] Referral ID Status Reason Start Date Expiration Date Visits Requested Visits Authorized [id number] Authorized PCP Requested Referral 08/20/2022 08/20/2023 1 1 Specialty Diagnoses / Procedures Referred By Contac t Referred To Contact [facility] Diagnoses Numbness and tingling of foot 30 weeks gestation of Procedures PT REHAB FOLLOW UP ORDER THERAPEUTIC EXERCISES RE, EA 15 MIN. Charles Kaur, PT [address] [phone] [facility] [address] [place] [address] Referral ID Status Reason Start Date Expiration Date Visits Requested Visits Authorized [id number] Pending Review PCP Requested Referral Auto-Generate d Referral 09/06/2022 12/05/2022 1 1 Specialty Diagnoses / Procedures Referred By Contac t Referred To Contact [facility] Diagnoses Demyelinating disease of central nervous system (HCC) Procedures MRI CERVICAL SPINE WO/W IVCON MRI SPINAL CANAL CERVICAL W/O & W/CONTR MATRSebastien Ruffin MD [address] [place], [place] [id number] Mr Imaging [facility] Referral ID Status Reason Start Date Expiration Date Visits Requested Visits Authorized [id number] Additional Clinical Info Needed Auto-Generat ed Referral 4 06/10/2025 1 1 Referral ID Status Reason Start Date Expiration Date V isits Requested Visits Authorized [id number] Closed Auto-Generate d Referral 05/14/2024 06/13/2024 1 1 Specialty Diagnoses / Procedures Referred By Contac t Referred To Contact [facility] Diagnoses Multiple sclerosis (HCC) Procedures CONSULT TO PHYSICAL THERAPY PHYSICAL THERAPY EVALUATION HIGH COMPLEX 45 MINS Sebastien Jean Baptiste MD [address] [place] [address] [facility] [place] [address] Referral ID Status Reason Start Date Expiration Date Visits Requested Visits Authorized [id number] Pending Review Auto-Generat ed Referral 4 06/08/2025 1 1 Specialty Diagnoses / Procedures Referred By Contac t Referred To Contact [facility] Diagnoses Multiple sclerosis (HCC) Procedures CONSULT TO [employer] OCCUPATIONAL THERAPY EVAL HIGH COMPLEX 60 MINS Sebastien Jean Baptiste MD [address] [place] [address] [place] [address] Referral ID Status Reason Start Date Expiration Date Visits Requested Visits Authorized [id number] Pending Review Auto-Generat ed Referral 4 06/08/2025 1 1 Chief Complaint and Reason for Visit Chief Complaint VAG DELIVERY Reason for Visit 37 weeks gestation o f Care and examination of lactating mother Excessive growth affecting management of mother Gestational diabetes History of depression Hx LEEP (loop electrosurgical excision procedure), cervix, Marginal insertion of umbilical cord Rubella non-immune status, antepartum Spontaneous rupture of amniotic membranes (spontaneous vaginal delivery) Tobacco abuse Additional Source Comments INFORMATION SOURCE (unrecogn ized section and content) DATE CREATED AUTHOR 08/10/2020 [facility] ([place]) DATE CREATED AUTHOR AUTHOR'S ORGANIZ ATION 05/30/2024 [facility] DATE CREATED AUTHOR AUTHOR'S ORGANIZ ATION 05/31/2024 [place] DATE CREATED AUTHOR AUTHOR'S ORGANIZ ATION 02/23/2025 [facility] Source Comments (unrecognize d section and content) In the event this informatio n is protected by the Federal Confidentiality of Alcohol and Drug Abuse Patient Records regulations: The Federal rules restrict any use of the information to criminally investigate or prosecute any alcohol or drug abuse patient.[place]healthIn the event this information is protected by the Federal Confidentiality of Alcohol and Drug Abuse Patient Records regulations: The Federal rules restrict any use of the information to criminally investigate or prosecute any alcohol or drug abuse patient.[facility]healthIn the event this information is protected by the Federal Confidentiality of Alcohol and Drug Abuse Patient Records regulations: The Federal rules restrict any use of the information to criminally investigate or prosecute any alcohol or drug abuse patient.[facility]healthIn the event this information is protected by the Federal Confidentiality of Alcohol and Drug Abuse Patient Records regulations: The Federal rules restrict any use of the information to criminally investigate or prosecute any alcohol or drug abuse patient.[facility]healthIn the event this information is protected by the Federal Confidentiality of Alcohol and Drug Abuse Patient Records regulations: The Federal rules restrict any use of the information to criminally investigate or prosecute any alcohol or drug abuse patient.[facility]healthIn the event this information is protected by the Federal Confidentiality of Alcohol and Drug Abuse Patient Records regulations: The Federal rules restrict any use of the information to criminally investigate or prosecute any alcohol or drug abuse patient.[facility]healthIn the event this information is protected by the Federal Confidentiality of Alcohol and Drug Abuse Patient Records regulations: The Federal rules restrict any use of the information to criminally investigate or prosecute any alcohol or drug abuse patient.[facility]healthIn the event this information is protected by the Federal Confidentiality of Alcohol and Drug Abuse Patient Records regulations: The Federal rules restrict any use of the information to criminally investigate or prosecute any alcohol or drug abuse patient.[facility]healthIn the event this information is protected by the Federal Confidentiality of Alcohol and Drug Abuse Patient Records regulations: The Federal rules restrict any use of the information to criminally investigate or prosecute any alcohol or drug abuse patient.[facility]healthIn the event this information is protected by the Federal Confidentiality of Alcohol and Drug Abuse Patient Records regulations: The Federal rules restrict any use of the information to criminally investigate or prosecute any alcohol or drug abuse patient.[facility]healthIn the event this information is protected by the Federal Confidentiality of Alcohol and Drug Abuse Patient Records regulations: The Federal rules restrict any use of the information to criminally investigate or prosecute any alcohol or drug abuse patient.[facility]healthIn the event this information is protected by the Federal Confidentiality of Alcohol and Drug Abuse Patient Records regulations: The Federal rules restrict any use of the information to criminally investigate or prosecute any alcohol or drug abuse patient.[facility]healthIn the event this information is protected by the Federal Confidentiality of Alcohol and Drug Abuse Patient Records regulations: The Federal rules restrict any use of the information to criminally investigate or prosecute any alcohol or drug abuse patient.[facility]healthIn the event this information is protected by the Federal Confidentiality of Alcohol and Drug Abuse Patient Records regulations: The Federal rules restrict any use of the information to criminally investigate or prosecute any alcohol or drug abuse patient.[facility]healthIn the event this information is protected by the Federal Confidentiality of Alcohol and Drug Abuse Patient Records regulations: The Federal rules restrict any use of the information to criminally investigate or prosecute any alcohol or drug abuse patient.[facility]healthIn the event this information is protected by the Federal Confidentiality of Alcohol and Drug Abuse Patient Records regulations: The Federal rules restrict any use of the information to criminally investigate or prosecute any alcohol or drug abuse patient.[facility]healthIn the event this information is protected by the Federal Confidentiality of Alcohol and Drug Abuse Patient Records regulations: The Federal rules restrict any use of the information to criminally investigate or prosecute any alcohol or drug abuse patient.[facility]healthIn the event this information is protected by the Federal Confidentiality of Alcohol and Drug Abuse Patient Records regulations: The Federal rules restrict any use of the information to criminally investigate or prosecute any alcohol or drug abuse patient.[facility]healthIn the event this information is protected by the Federal Confidentiality of Alcohol and Drug Abuse Patient Records regulations: The Federal rules restrict any use of the information to criminally investigate or prosecute any alcohol or drug abuse patient.[facility]healthIn the event this information is protected by the Federal Confidentiality of Alcohol and Drug Abuse Patient Records regulations: The Federal rules restrict any use of the information to criminally investigate or prosecute any alcohol or drug abuse patient.[facility]healthIn the event this information is protected by the Federal Confidentiality of Alcohol and Drug Abuse Patient Records regulations: The Federal rules restrict any use of the information to criminally investigate or prosecute any alcohol or drug abuse patient.[facility]healthIn the event this information is protected by the Federal Confidentiality of Alcohol and Drug Abuse Patient Records regulations: The Federal rules restrict any use of the information to criminally investigate or prosecute any alcohol or drug abuse patient.[facility]healthIn the event this information is protected by the Federal Confidentiality of Alcohol and Drug Abuse Patient Records regulations: The Federal rules restrict any use of the information to criminally investigate or prosecute any alcohol or drug abuse patient.[facility]healthIn the event this information is protected by the Federal Confidentiality of Alcohol and Drug Abuse Patient Records regulations: The Federal rules restrict any use of the information to criminally investigate or prosecute any alcohol or drug abuse patient.[facility]healthIn the event this information is protected by the Federal Confidentiality of Alcohol and Drug Abuse Patient Records regulations: The Federal rules restrict any use of the information to criminally investigate or prosecute any alcohol or drug abuse patient.[facility]healthIn the event this information is protected by the Federal Confidentiality of Alcohol and Drug Abuse Patient Records regulations: The Federal rules restrict any use of the information to criminally investigate or prosecute any alcohol or drug abuse patient.[facility]healthIn the event this information is protected by the Federal Confidentiality of Alcohol and Drug Abuse Patient Records regulations: The Federal rules restrict any use of the information to criminally investigate or prosecute any alcohol or drug abuse patient.[facility]healthIn the event this information is protected by the Federal Confidentiality of Alcohol and Drug Abuse Patient Records regulations: The Federal rules restrict any use of the information to criminally investigate or prosecute any alcohol or drug abuse patient.[facility]healthIn the event this information is protected by the Federal Confidentiality of Alcohol and Drug Abuse Patient Records regulations: The Federal rules restrict any use of the information to criminally investigate or prosecute any alcohol or drug abuse patient.[facility]healthIn the event this information is protected by the Federal Confidentiality of Alcohol and Drug Abuse Patient Records regulations: The Federal rules restrict any use of the information to criminally investigate or prosecute any alcohol or drug abuse patient.[facility]healthIn the event this information is protected by the Federal Confidentiality of Alcohol and Drug Abuse Patient Records regulations: The Federal rules restrict any use of the information to criminally investigate or prosecute any alcohol or drug abuse patient.[facility]In the event this information is protected by the Federal Confidentiality of Alcohol and Drug Abuse Patient Records regulations: The Federal rules restrict any use of the information to criminally investigate or prosecute any alcohol or drug abuse patient.[facility]healthIn the event this information is protected by the Federal Confidentiality of Alcohol and Drug Abuse Patient Records regulations: The Federal rules restrict any use of the information to criminally investigate or prosecute any alcohol or drug abuse patient.[facility]In the event this information is protected by the Federal Confidentiality of Alcohol and Drug Abuse Patient Records regulations: The Federal rules restrict any use of the information to criminally investigate or prosecute any alcohol or drug abuse patient.[facility]In the event this information is protected by the Federal Confidentiality of Alcohol and Drug Abuse Patient Records regulations: The Federal rules restrict any use of the information to criminally investigate or prosecute any alcohol or drug abuse patient.[facility]In the event this information is protected by the Federal Confidentiality of Alcohol and Drug Abuse Patient Records regulations: The Federal rules restrict any use of the information to criminally investigate or prosecute any alcohol or drug abuse patient.[facility]In the event this information is protected by the Federal Confidentiality of Alcohol and Drug Abuse Patient Records regulations: The Federal rules restrict any use of the information to criminally investigate or prosecute any alcohol or drug abuse patient.[facility]In the event this information is protected by the Federal Confidentiality of Alcohol and Drug Abuse Patient Records regulations: The Federal rules restrict any use of the information to criminally investigate or prosecute any alcohol or drug abuse patient.[facility]healthIn the event this information is protected by the Federal Confidentiality of Alcohol and Drug Abuse Patient Records regulations: The Federal rules restrict any use of the information to criminally investigate or prosecute any alcohol or drug abuse patient.[facility]healthIn the event this information is protected by the Federal Confidentiality of Alcohol and Drug Abuse Patient Records regulations: The Federal rules restrict any use of the information to criminally investigate or prosecute any alcohol or drug abuse patient.[facility]healthIn the event this information is protected by the Federal Confidentiality of Alcohol and Drug Abuse Patient Records regulations: The Federal rules restrict any use of the information to criminally investigate or prosecute any alcohol or drug abuse patient.[facility]healthIn the event this information is protected by the Federal Confidentiality of Alcohol and Drug Abuse Patient Records regulations: The Federal rules restrict any use of the information to criminally investigate or prosecute any alcohol or drug abuse patient.[facility]healthIn the event this information is protected by the Federal Confidentiality of Alcohol and Drug Abuse Patient Records regulations: The Federal rules restrict any use of the information to criminally investigate or prosecute any alcohol or drug abuse patient.[facility]healthIn the event this information is protected by the Federal Confidentiality of Alcohol and Drug Abuse Patient Records regulations: The Federal rules restrict any use of the information to criminally investigate or prosecute any alcohol or drug abuse patient.[facility]healthIn the event this information is protected by the Federal Confidentiality of Alcohol and Drug Abuse Patient Records regulations: The Federal rules restrict any use of the information to criminally investigate or prosecute any alcohol or drug abuse patient.[facility]healthIn the event this information is protected by the Federal Confidentiality of Alcohol and Drug Abuse Patient Records regulations: The Federal rules restrict any use of the information to criminally investigate or prosecute any alcohol or drug abuse patient.[facility]healthIn the event this information is protected by the Federal Confidentiality of Alcohol and Drug Abuse Patient Records regulations: The Federal rules restrict any use of the information to criminally investigate or prosecute any alcohol or drug abuse patient.[facility]healthIn the event this information is protected by the Federal Confidentiality of Alcohol and Drug Abuse Patient Records regulations: The Federal rules restrict any use of the information to criminally investigate or prosecute any alcohol or drug abuse patient.[facility]healthIn the event this information is protected by the Federal Confidentiality of Alcohol and Drug Abuse Patient Records regulations: The Federal rules restrict any use of the information to criminally investigate or prosecute any alcohol or drug abuse patient.[facility]healthIn the event this information is protected by the Federal Confidentiality of Alcohol and Drug Abuse Patient Records regulations: The Federal rules restrict any use of the information to criminally investigate or prosecute any alcohol or drug abuse patient.[facility] Reason for Visit (unrecogniz ed section and content) Reason Comments Menstrual Problem Reason Comments Future Appointment Reason Comments Care Reason Comments Forms Reason Comments Patient Update Reason Comments US Specialty Diagnoses / Procedures Referred By Contac t Referred To Contact [facility] Diagnoses Encounter for supervision of other normal in first trimester Procedures NUCHAL TRANSLUCENCY WHI US NUCHAL TRANSLUCENCY 1ST GESTATION Payton Washington MD [address] [place] [address] [facility] [address] [place] [address] Referral ID Status Reason Start Date Expiration Date V isits Requested Visits Authorized [id number] Closed Auto-Generate d Referral 04/02/2022 04/02/2023 1 1 Reason Onset Date Comments Care 05/10/2022 Reason Onset Date Comments Care 06/20/2022 Reason Onset Date Comments Care 07/18/2022 Reason Comments Breast pump Reason Comments abnormal glucose Specialty Diagnoses / Procedures Referred By Contac t Referred To Contact Diagnoses Abnormal glucose complicating Procedures CONSULT TO DIABETES EDUCATION OFFICE/OUTPATIENT NEW HIGH MDM 60-74 MINUTES Payton Washington MD [address] [place] [address] Referral ID Status Reason Start Date Expiration Date V isits Requested Visits Authorized [id number] Closed PCP Requested Referral 08/20/2022 08/20/2023 1 1 Reason Comments Assessment Patient Education Specialty Diagnoses / Procedures Referred By Contac t Referred To Contact Nutrition Diagnoses Abnormal glucose complicating Procedures CONSULT TO NUTRITION THERAPY OFFICE/OUTPATIENT NEW HIGH MDM 60-74 MINUTES Payton Washington MD [address] [place] [address] Referral ID Status Reason Start Date Expiration Date V isits Requested Visits Authorized [id number] Closed PCP Requested Referral 08/20/2022 08/20/2023 1 1 Reason Onset Date Comments Care 08/29/2022 Reason Comments PT Eval Specialty Diagnoses / Procedures Referred By Contac t Referred To Contact [facility] Diagnoses Numbness and tingling of foot 30 weeks gestation of Procedures CONSULT TO PHYSICAL THERAPY PHYSICAL THERAPY EVALUATION HIGH COMPLEX 45 MINS Payton Washington MD [address] [place] [address] [facility] [address] [address] Referral ID Status Reason Start Date Expiration Date Visits Requested Visits Authorized [id number] Pending Review Auto-Generat ed Referral 09/05/2022 09/05/2023 1 1 Specialty Diagnoses / Procedures Referred By Contac t Referred To Contact [facility] Diagnoses Diet controlled gestational diabetes mellitus (GDM) in third trimester 29 weeks gestation of Procedures OBSTETRIC ULTRASOUND WHI US PREG UTERUS AFTER 1ST TRIMEST GESTATION Payton Washington MD [address] [place] [address] [address] Referral ID Status Reason Start Date Expiration Date V isits Requested Visits Authorized [id number] Closed Auto-Generate d Referral 08/29/2022 08/29/2023 1 1 Reason Onset Date Comments Care 09/10/2022 Reason Comments Follow Up Reason Onset Date Comments Care 09/26/2022 Reason Onset Date Comments Care 10/02/2022 Specialty Diagnoses / Procedures Referred By Contac t Referred To Contact [facility] Diagnoses Diet controlled gestational diabetes mellitus (GDM) in third trimester Procedures OBSTETRIC ULTRASOUND WHI US PREG UTERUS AFTER 1ST TRIMEST GESTATION Payton Washington MD [address] [place] [address] [place] [address] Referral ID Status Reason Start Date Expiration Date V isits Requested Visits Authorized [id number] Closed Auto-Generate d Referral 09/10/2022 09/10/2023 1 1 Reason Onset Date Comments Care 10/10/2022 Reason Onset Date Comments Care 10/17/2022 Reason Comments Ob Delivery Note Reason Comments Early Reason Comments Patient Update Reason Onset Date Comments Refill Request 12/13/2023 Reason Comments New Patient Evaluation Reason Comments Patient Update Records request-[facility] Specialty Diagnoses / Procedures Referred By Mervin t Referred To Contact [facility] Diagnoses Demyelinating disease of central nervous system (HCC) Procedures MRI CERVICAL SPINE WO/W IVCON MRI SPINAL CANAL CERVICAL W/O & W/CONTR Sebastien Petersen MD [address] [place] [address] [place] [address] Referral ID Status Reason Start Date Expiration Date V isits Requested Visits Authorized [id number] Closed Auto-Generate d Referral 05/14/2024 06/13/2024 1 1 Reason Comments Established Patient Follow-Up Reason Onset Date Comments [facility] - Initiation Of Therapy 06/09/2024 [facility] Reason Comments Yearly Exam Reason Onset Date Comments [facility] - Medication Refill 07/03/2024 [facility] Reason Comments Peripheral vision is still a problem Reason Onset Date Comments [facility] - Medication Refill 07/31/2024 [facility] Reason Onset Date Comments [facility] - Medication Refill 08/28/2024 [facility] Reason Onset Date Comments [facility] - Medication Refill 09/25/2024 [facility] Reason Onset Date Comments [facility] - Medication Refill 10/28/2024 [facility] Reason Comments Established Patient Follow-Up Reason Onset Date Comments [facility] - Medication Refill 11/30/2024 [facility] Reason Onset Date Comments [facility] - Medication Refill 01/21/2025 [facility] Care Teams (unrecognized sec tion and content) Art Dealer Relationship Specialty Start Date End Date Pcp, No 12/29/12 Art Dealer Relationship Specialty Start Date End Date Pcp, No 12/29/12 Art Dealer Relationship Specialty Start Date End Date Pcp, No 12/29/12 Art Dealer Relationship Specialty Start Date End Date Pcp, No 12/29/12 Art Dealer Relationship Specialty Start Date End Date Pcp, No 12/29/12 Art Dealer Relationship Specialty Start Date End Date Pcp, No 12/29/12 Art Dealer Relationship Specialty Start Date End Date Pcp, No 12/29/12 Art Dealer Relationship Specialty Start Date End Date Pcp, No 12/29/12 Art Dealer Relationship Specialty Start Date End Date Pcp, No 12/29/12 Art Dealer Relationship Specialty Start Date End Date Pcp, No 12/29/12 Art Dealer Relationship Specialty Start Date End Date Pcp, No 12/29/12 Art Dealer Relationship Specialty Start Date End Date Pcp, No 12/29/12 Art Dealer Relationship Specialty Start Date End Date Pcp, No 12/29/12 Art Dealer Relationship Specialty Start Date End Date Pcp, No 12/29/12 Art Dealer Relationship Specialty Start Date End Date Pcp, No 12/29/12 Art Dealer Relationship Specialty Start Date End Date Pcp, No 12/29/12 Art Dealer Relationship Specialty Start Date End Date Pcp, No 12/29/12 Art Dealer Relationship Specialty Start Date End Date Pcp, No 12/29/12 Art Dealer Relationship Specialty Start Date End Date Pcp, No 12/29/12 Art Dealer Relationship Specialty Start Date End Date Pcp, No 12/29/12 Art Dealer Relationship Specialty Start Date End Date Pcp, No 12/29/12 Team Status: Active Member Role Status Dates No Primary Care Physician Family Provider Active Argelia Monroy BUCKLE GLUER, BUCKLE GLUER-C Primary Care Provider Active Team Status: Inactive Member Role Status Dates Argelia Monroy BUCKLE GLUER, BUCKLE GLUER-C Primary Care Provider Active Faiza Mccormick CNM Admit Provider, Attending Provider Active Art Dealer Relationship Specialty Start Date End Date Pcp, No, HVAC ESTIMATOR 12/29/12 Art Dealer Relationship Specialty Start Date End Date Pcp, No, HVAC ESTIMATOR 12/29/12 Riky Marr MD [address] [place] [address] Referring Ophthalmology 05/07/24 Art Dealer Relationship Specialty Start Date End Date Pcp, No, HVAC ESTIMATOR 12/29/12 Riky Marr MD [address] [place], [place] [id number] Referring Ophthalmology 05/07/24 Art Dealer Relationship Specialty Start Date End Date Pcp, No, HVAC ESTIMATOR 12/29/12 Riky Marr MD [address] [facility] [place] [address] Referring Ophthalmology 05/07/24 Art Dealer Relationship Specialty Start Date End Date Pcp, No, HVAC ESTIMATOR 12/29/12 Riky Marr MD [facility] [place] [address] Referring Ophthalmology 05/07/24 Art Dealer Relationship Specialty Start Date End Date Pcp, No, HVAC ESTIMATOR 12/29/12 Riky Marr MD [facility] [place] [address] Referring Ophthalmology 05/07/24 Art Dealer Relationship Specialty Start Date End Date Pcp, No, HVAC ESTIMATOR 12/29/12 Riky Marr MD [facility] [place] [address] Referring Ophthalmology 05/07/24 Art Dealer Relationship Specialty Start Date End Date Pcp, No, HVAC ESTIMATOR 12/29/12 Riky Marr MD [address] [facility] [place] [address] Referring Ophthalmology 05/07/24 Art Dealer Relationship Specialty Start Date End Date Pcp, No, HVAC ESTIMATOR 12/29/12 Riky Marr MD [address] [facility] [place] [address] Referring Ophthalmology 05/07/24 Art Dealer Relationship Specialty Start Date End Date Pcp, No, HVAC ESTIMATOR 12/29/12 Riky Marr MD [address] [facility] [place] [address] Referring Ophthalmology 05/07/24 Art Dealer Relationship Specialty Start Date End Date Pcp, Michela, HVAC ESTIMATOR 12/29/12 Riky Marr MD [address] [facility] [place] [address] Referring Ophthalmology 05/07/24 Art Dealer Relationship Specialty Start Date End Date Pcp, No, HVAC ESTIMATOR 12/29/12 Riky Marr MD [address] [facility] [place] [address] Referring Ophthalmology 05/07/24 Art Dealer Relationship Specialty Start Date End Date Pcp, No, HVAC ESTIMATOR 12/29/12 Riky Marr MD [facility] [place] [address] Referring Ophthalmology 05/07/24 Art Dealer Relationship Specialty Start Date End Date Pcp, No, HVAC ESTIMATOR 12/29/12 Riky Marr MD [address] [facility] [place] [address] Referring Ophthalmology 05/07/24 Art Dealer Relationship Specialty Start Date End Date Pcp, No, HVAC ESTIMATOR 12/29/12 Riky Marr MD [address] [facility] [place] [address] Referring Ophthalmology 05/07/24 Art Dealer Relationship Specialty Start Date End Date Pcp, No, HVAC ESTIMATOR 12/29/12 Riky Marr MD [address] [facility] [place] [address] Referring Ophthalmology 05/07/24 FOR RECORDS PERTAINING TO PATIENTS WHO ARE OR HAVE BEEN ENROLLED IN A CHEMICAL DEPENDENCY/SUBSTANCEABUSE PROGRAM, SOME INFORMATION MAY BE OMITTED. This clinical summary was aggregated from multiple sources. Caution should be exercised in using it in the provision of clinical care. This summary normalizes information from multiple sources, and as a consequence, information in this document may materially change the coding, format and clinical context of patient data. In addition, data may be omitted in some cases. CLINICAL DECISIONS SHOULD BE BASED ON THE PRIMARY CLINICAL RECORDS. [facility] [employer] [facility] provides no warranty or guarantee of the accuracy or completeness of information in this document.
[2025-03-17 08:55] VITALS: BP 122/82; PULSE 74; RESP 16; TEMP 36.6; O2SAT 100
== END 2025-03-17 08:56 | disposition home or self-care (01) ==
PROVIDERS: Emergency Provider Emergency Medicine; PCP Nurse Practitioner Adult Health; Visit Provider Emergency Medicine
DX: S05.11XA Contusion of eyeball and orbital tissues, right eye, initial encounter (principal); G35 Multiple sclerosis; F17.210 Nicotine dependence, cigarettes, uncomplicated; Y99.0 Civilian activity done for income or pay; W22.09XA Striking against other stationary object, initial encounter; Z86.69 Personal history of other diseases of the nervous system and sense organs
CPT/HCPCS: 70480; 99283